=== PATIENT | female | born 1940 | race Caucasian/White ===

== ENCOUNTER → 2016-12-08 | Outpatient (CLI) | payer BC ==
[~2016-12-08] MED LIST: ANT25; ASCA500 PO; ASPCH81 PO; CALCTAB5 PO; GLUCOSAMINE CHOND PO; NIFE60TA57; OCUVITE; OMEG10007 PO; SIMV40TA2; SYN88 PO
--- NOTE | 2016-12-10 08:36 | MAMMOGRAPHY REPORT ---
BILATERAL DIGITAL SCREENING MAMMOGRAM WITH CAD: 12/08/2016 CLINICAL HISTORY: Routine screening. Patient has no complaints. TECHNIQUE: Current study was also evaluated with a Computer Aided Detection (CAD) system. Bilateral CC and MLO views were obtained. COMPARISON: Comparison is made to exams dated: 12/03/2015 mammogram, 11/29/2014 mammogram, 11/28/2013 m ammogram - [facility], 08/09/2008, 08/11/2009 mammogram, and 08/12/2010 mammogram - [facility]. BREAST COMPOSITION: There are scattered areas of fibroglandular density in both breasts. FINDINGS: No suspicious masses, calcifications, or areas of architectural distortion are noted in ei ther breast. There has been no significant interval change compared to prior exams. IMPRESSION: ACR BI-RADS CATEGORY 1: NEGATIVE There is no mammographic evidence of malignancy. A 1 year screening mammogram is recommended. The pa tient will receive written notification of the results. Approximately 10% of breast cancers are not detected with mammography. A negative mammographic report should not delay biopsy if a clinically suggestive mass is present. Kari Boo M.D. ah/:12/08/2016 10:24:40 Stock Clerk [employer]: Anabella HUNG(Walker)(M), [facility] letter sent: Normal 1/2 BI-RADS Code: ACR BI-RADS Category 1: Negative
== END | disposition home or self-care (01) ==
LOC: C.MAMM 09:39
PROVIDERS: ATTEND Internal Medicine
DX: Z12.31 Encounter for screening mammogram for malignant neoplasm of breast (principal)

== ENCOUNTER → 2016-12-15 | Outpatient (CLI) | payer BC ==
[2016-12-15 09:39] LABS: BASO % 0.4 %; BASO ABS # 0.03 K/uL (0-0.2); COMPLETE YES; HEMATOCRIT 45.7 % (37-47); IG% 0.3 %; LYMPH % 30.5 %; LYMPH ABS # 2.44 K/uL (1.2-3.4); MEAN CORPUSCULAR HEMOGLOBIN 32.1 pg (25-34); MEAN CORPUSCULAR HGB CONC 33.5 g/dl (32-36); MEAN PLATELET VOLUME 10.4 fL (7.4-10.4); MONO % 10.5 %; NEUT % 54.3 %; PLATELET COUNT 273 K/uL (130-400); RED BLOOD COUNT 4.76 M/uL (4.2-5.4); WHITE BLOOD COUNT 7.99 K/uL (4.8-10.8)
[2016-12-15 10:15] LABS: ALT/SGPT 29 U/L (12-78); AST/SGOT 18 U/L (15-37); BLOOD UREA NITROGEN 25 mg/dl (7-18); BUN/CREATININE RATIO 26.3 (10-20); CALCIUM 9.7 mg/dl (8.5-10.1); CARBON DIOXIDE 29 mmol/L (21-32); CHLORIDE 109 mmol/L (98-107); CREATININE 0.96 mg/dl (0.60-1.20); GLUCOSE 98 mg/dl (70-99); POTASSIUM 3.9 mmol/L (3.5-5.1); SODIUM 143 mmol/L (136-145)
[2016-12-15 10:26] LABS: ALB/GLOB RATIO 1.1 (0.9-2); ALKALINE PHOSPHATASE 102 U/L (45-117); CHOLESTEROL 178 mg/dl (0-200); CHOLESTEROL/HDL RATIO 4.6; HDL CHOLESTEROL 39 mg/dl; TRIGLYCERIDES 442 mg/dl (0-150)
[2016-12-15 11:02] LABS: ESTIMATED AVERAGE GLUCOSE 114 mg/dl; HA1C FLAG Normal (Normal)
--- NOTE | 2016-12-21 11:11 | CODING QUERY MEDICAL NECESSITY ---
CQSUPPORTING DIAGNOSIS NEEDED A supporting diagnosis is required for the test/procedure performed on this patient in order for us to be reimbursed by the patient's insurance. Please provide a supporting diagnosis for the following test/procedure listed below next to the test name along with your signature. *If there is no additional diagnosis for this patient that would support the following test/procedure please document that below next to the test/procedure. Test(s)/Procedure(s) that require a supporting diagnosis: DEBI 12/15/16 GLYCATED HEMOGLOBIN TEST Provider Signature: Date: Thank you Desi Brito Health Information Management Once completed, please kindly fax back to [phone] For questions please call [phone]
== END | disposition home or self-care (01) ==
LOC: C.LAB1850 08:51
PROVIDERS: ATTEND Internal Medicine
DX: E03.9 Hypothyroidism, unspecified (principal); R73.01 Impaired fasting glucose

== ENCOUNTER → 2017-06-14 | Outpatient (CLI) | payer BC ==
[2017-06-14 12:28] LABS: ALT/SGPT 41 U/L (12-78); BLOOD UREA NITROGEN 32 mg/dl (7-18); CALCIUM 9.8 mg/dl (8.5-10.1); CARBON DIOXIDE 25 mmol/L (21-32); CHOLESTEROL 133 mg/dl (0-200); CREATININE 1.05 mg/dl (0.60-1.20); GLUCOSE 89 mg/dl (70-99); POTASSIUM 4.3 mmol/L (3.5-5.1); SODIUM 141 mmol/L (136-145)
[2017-06-14 12:32] LABS: ALKALINE PHOSPHATASE 90 U/L (45-117); AST/SGOT 20 U/L (15-37); LDL CHOLESTEROL CALCULATED 60 mg/dl; TOTAL PROTEIN 8.2 gm/dl (6.4-8.2)
== END | disposition home or self-care (01) ==
LOC: C.LAB1850 09:56
PROVIDERS: ATTEND Internal Medicine
DX: E78.1 Pure hyperglyceridemia (principal)

== ENCOUNTER 2019-07-17 08:10 | Inpatient (IN) ==
--- NOTE | 2019-07-04 10:07 | PAT Medication Instructions ---
Medication Instructions Date of Service July 04, 2019 Home Medications Medication Instructions Recorded meclizine 25 mg tablet 25 mg PO BID PRN #60 tab 03/21/19 tramadol 50 mg tablet 50 mg PO BID PRN #40 tab 04/27/19 promethazine 25 mg tablet 25 mg PO Q6H PRN #20 tab 05/15/19 aspirin 81 mg tablet,delayed release 81 mg PO PM calcium carbonate 600 mg calcium (1,500 mg) tablet 600 mg PO BID glucosamine HCl 500 mg tablet 1,500 mg PO QAM mecobalamin (vitamin B12) 1,000 mcg disintegrating tablet,sublingual 1,000 mcg SL QAM rosuvastatin 10 mg tablet 10 mg PO QAM magnesium oxide 400 mg (241.3 mg magnesium) tablet 250 mg PO BID nebivolol 10 mg tablet 15 mg PO QAM levothyroxine 88 mcg tablet 88 mcg PO Q OTHER DAY meclizine 25 mg tablet 25 mg PO BID PRN tramadol 50 mg tablet 50 mg PO BID PRN promethazine 25 mg tablet 25 mg PO Q6H PRN Cbd Cream 1 dose TOPICAL DAILY Cbd Tea 1 dose PO DAILY amlodipine-benazepril 1 cap PO QAM cholecalciferol (vitamin D3) 2,000 units PO QAM clobetasol 1 applic TOPICAL HS PRN levothyroxine 100 mcg PO Q OTHER DAY vitamins A,C,A-nwkz-qgiwvn [PreserVision AREDS] 1 tab PO QAM STOP taking 2 weeks before surgery If surgery is within 2 weeks, stop taking as soon as possible. glucosamine HCl 500 mg tablet 1,500 mg PO QAM vitamins A,C,X-zsus-wwqwbj [PreserVision AREDS] 1 tab PO QAM STOP taking 24 hours before surgery Cbd Cream 1 dose TOPICAL DAILY DO NOT take the morning of surgery calcium carbonate 600 mg calcium (1,500 mg) tablet 600 mg PO BID mecobalamin (vitamin B12) 1,000 mcg disintegrating tablet,sublingual 1,000 mcg SL QAM magnesium oxide 400 mg (241.3 mg magnesium) tablet 250 mg PO BID Cbd Tea 1 dose PO DAILY amlodipine-benazepril 1 cap PO QAM cholecalciferol (vitamin D3) 2,000 units PO QAM Take morning of surgery With a small sip of water, OTHERWISE NOTHING TO EAT OR DRINK AFTER MIDNIGHT: rosuvastatin 10 mg tablet 10 mg PO QAM nebivolol 10 mg tablet 15 mg PO QAM meclizine 25 mg tablet 25 mg PO BID PRN (if needed) tramadol 50 mg tablet 50 mg PO BID PRN (if needed, may be taken up to four hours before surgery) promethazine 25 mg tablet 25 mg PO Q6H PRN (if needed) levothyroxine PO Q OTHER DAY Take evening before surgery aspirin 81 mg tablet,delayed release 81 mg PO PM calcium carbonate 600 mg calcium (1,500 mg) tablet 600 mg PO BID magnesium oxide 400 mg (241.3 mg magnesium) tablet 250 mg PO BID meclizine 25 mg tablet 25 mg PO BID PRN (if needed) tramadol 50 mg tablet 50 mg PO BID PRN (if needed) promethazine 25 mg tablet 25 mg PO Q6H PRN (if needed) Other Notes If you have any questions please call us at [phone] or [phone] or [phone] or [phone]
--- NOTE | 2019-07-05 14:35 | Anesthesiology Consultation ---
Date of Service July 05, 2019 Assessment & Plan (1) Encounter for pre-operative examination: Chart Review Chart Review: Acceptable Risk for Surgery (pending PCP clearance ) and Patient seen in Pre Admission Testing Pt requesting to be pushed slow in the hospital bed when transferring from place to place Surgeon informed of abnormal UA results Awaiting surgeon ordered PCP clearance / Teaching & Discussion Pre-Anesthesia Teaching/Discussion Notes: Instructed NPO after midnight before surgery,except medications with 15 cc of water. Medication instructions provided according to the PAT guidelines. History Surgery Operation Date: 07/19/19 10:25 Proposed Procedures p L3-S1 Decomrpession and Fusion, Spinal Cord Monitoring - Shashank Cortes, Height/Weight Height: 5 ft 4 in Weight: 68.7 kg Allergies Allergy/AdvReac Type Severity Reaction Status Date / Time nabumetone Allergy Mild Gastrointestinal Verified 06/29/19 08:46 Upset ibuprofen AdvReac Unknown CKD Verified 07/05/19 14:30 Medications Home Medications Medication Instructions Recorded Confirmed Last Taken aspirin 81 mg tablet,delayed 81 mg PO PM 03/07/18 06/29/19 Unknown release calcium carbonate 600 mg calcium 600 mg PO BID tab 03/07/18 06/29/19 Unknown (1,500 mg) tablet glucosamine HCl 500 mg tablet 1,500 mg PO QAM tab 03/07/18 06/29/19 Unknown mecobalamin (vitamin B12) 1,000 1,000 mcg SL QAM 03/07/18 06/29/19 Unknown mcg disintegrating tablet,sublingual rosuvastatin 10 mg tablet 10 mg PO QAM 03/07/18 06/29/19 Unknown magnesium oxide 400 mg (241.3 mg 250 mg PO BID tab 01/20/19 06/29/19 Unknown magnesium) tablet nebivolol 10 mg tablet 15 mg PO QAM #135 tab 01/20/19 06/29/19 Unknown levothyroxine 88 mcg tablet 88 mcg PO Q OTHER DAY tab 03/08/19 06/29/19 Unknown meclizine 25 mg tablet 25 mg PO BID PRN #60 tab 03/21/19 06/29/19 Unknown tramadol 50 mg tablet 50 mg PO BID PRN #40 tab 04/27/19 06/29/19 Unknown promethazine 25 mg tablet 25 mg PO Q6H PRN #20 tab 05/15/19 06/29/19 Unknown Cbd Cream 1 dose TOPICAL DAILY 06/29/19 06/29/19 Unknown Cbd Tea 1 dose PO DAILY 06/29/19 06/29/19 Unknown amlodipine-benazepril 1 cap PO QAM 06/29/19 06/29/19 Unknown cholecalciferol (vitamin D3) 2,000 units PO QAM 06/29/19 06/29/19 Unknown clobetasol 1 applic TOPICAL HS PRN 06/29/19 06/29/19 Unknown levothyroxine 100 mcg PO Q OTHER DAY 06/29/19 06/29/19 Unknown vitamins A,C,J-fiqx-ichwtw 1 tab PO QAM 06/29/19 06/29/19 Unknown [PreserVision AREDS] Past Medical History Medical History Anterolisthesis (Chronic) L5 on S1 Anxiety Arthritis (Chronic) Chronic back pain CKD (chronic kidney disease), stage III PT DENIES Hyperlipidemia (Chronic) Hypertension (Chronic) Hypothyroidism (Chronic) Lumbar radiculopathy Lumbar spinal stenosis (Chronic) Multifactorial multilevel worst at L4-5 Lumbar spondylosis (Chronic) Macular degeneration Nausea and vomiting after administration of anesthetic agent Exercise / Class Metabolic Activity III < 4 Walking/Shop/Light housework (NO CHEST PAIN OR SOB WITH FLAT SURFACES- USES CANE ) Past Family History Family History Father Coronary heart disease Mother Rheumatoid arthritis Sister End stage renal disease Diabetes Hypertension Coronary heart disease Past Surgical History Surgical History History of appendectomy History of cataract surgery BILAT History of cholecystectomy History of colonoscopy History of hysterectomy History of Mohs micrographic surgery for skin cancer 2019 TO CHEEK Status post left foot surgery (Resolved) Four screws in left foot Past Anesthesia History No Hx of Anesthesia Complications (WITH EXCEPTION TO PONV) and No Family Hx of Anesthesia Complications History of PONV History of PONV and Hx of Motion Sickness Social History Smoking Status: Never smoker Do You Dip or Chew Tobacco: No Hx Alcohol Use: Yes Alcohol type: wine alcohol intake frequency: a few times a month Hx Substance Use: No substance use type: does not use Review of Systems Mild LOMBARDI with one flight of stairs Patient denies chest pain, shortness of breath, reflux, cough, wheezing, palpitations. No hx of seizures, stroke, [place], apnea/snoring. No hx of blood clots or blood transfusions No recent steroid use Physical Exam Vital Signs VITALS BP 149/80 P 68 TEMP 98.3 SP02 95% RESP 16 Constitutional no acute distress ENMT Mouth: + small oral opening (mild); no TMJ clicking Thyromental Distance: < 3.5 Finger Breadths (2.5) Mallampati Class: III Several molars crowned Neck + thick neck (mild ) and + limited neck extension (mild to moderate ) Respiratory normal respiratory effort; no respiratory distress Auscultation: lungs clear to auscultation bilaterally; no diminished lung sounds and no wheezes Cardiovascular Rate/Rhythm: regular rate and regular rhythm Heart Sounds: no murmur Vessels: no carotid bruit Extremities: no edema Musculoskeletal Spine: no pain with cervical ROM Neurologic moves all extremities Psychiatric Orientation: alert Testing Laboratory Results 07/05/19 14:46 07/05/19 14:46 PT 9.8 Seconds (9.0-12.0) 07/05/19 14:46 INR 1.0 (0.9-1.1) 07/05/19 14:46 APTT 23.6 Seconds (21.0-31.0) 07/05/19 14:46 Urine Color Yellow 07/05/19 Unknown Urine Appearance Cloudy (Clear) A 07/05/19 Unknown Urine pH 6.0 (4.5-7.5) 07/05/19 Unknown Ur Specific [place] 1.021 (1.000-1.030) 07/05/19 Unknown Urine Protein Trace (Negative) H 07/05/19 Unknown Urine Glucose (UA) Negative (Negative) 07/05/19 Unknown Urine Ketones Negative (Negative) 07/05/19 Unknown Urine Nitrite Negative (Negative) 07/05/19 Unknown Ur Leukocyte Esterase 2+ (Negative) H 07/05/19 Unknown Urine WBC (Auto) >30 /hpf (0-5) H 07/05/19 Unknown Urine RBC (Auto) 0-4 /hpf (0-4) 07/05/19 Unknown U Hyaline Cast (Auto) 1-5 /lpf (0-5) 07/05/19 Unknown U Epithel Cells (Auto) >30 /lpf (0-5) H 07/05/19 Unknown Urine Bacteria (Auto) Negative (Negative) 07/05/19 Unknown Blood Type A Positive 07/05/19 14:46 Antibody Screen NEGATIVE 07/05/19 14:46 07/05/19 Unknown Urine Culture - Preliminary Urine,Clean Catch Escherichia coli Electrocardiogram Date: 07/05/19 Findings: + NSR @ (66) and + no change from (Apr 19, 2012) Chest X-Ray Date: 07/05/19 Findings: + NAD
--- NOTE | 2019-07-05 15:17 | XRay Report ---
XR chest Pre-admission PA/Lat CLINICAL HISTORY: pat preoperative COMPARISON STUDY: No previous studies for comparison. FINDINGS: The bones soft tissues and hemidiaphragms are normal. The cardiomediastinal silhouette is n ormal. The lungs are clear. The pulmonary vasculature is normal. IMPRESSION: Negative chest. ACT 112: Negative or not required by law. The above report was generated using voice recognition software. It may contain grammatical, syntax or spelling errors. Electronically signed by: Flaquiot De Santiago M.D. 07/05/2019 3:16 PM
[2019-07-05 15:39] LABS: Basophils # (auto) 0.03 K/uL (0-0.2); Basophils % (auto) 0.3 %; Eosinophils # (auto) 0.08 K/uL (0-0.5); Eosinophils % (auto) 0.8 %; Hematocrit (blood only) 43.8 % (37-47); Hemoglobin 14.5 g/dL (12.0-16.0); Immature Granulocytes # (auto) 0.03 K/uL (0.00-0.02); Immature Granulocytes % (auto) 0.3 %; Lymphocytes # (auto) 1.38 K/uL (1.2-3.4); Lymphocytes % (auto) 13.6 %; Mean Corpuscular Hemoglobin 32.7 pg (25-34); Mean Corpuscular Hgb Conc 33.1 g/dL (32-36); Mean Corpuscular Volume 98.9 fL (80-100); Mean Platelet Volume 9.9 fL (7.4-10.4); Monocytes # (auto) 0.76 K/uL (0.11-0.59); Monocytes % (auto) 7.5 %; Neutrophils # (auto) 7.88 K/uL (1.4-6.5); Neutrophils % (auto) 77.5 %; Platelet Count 322 K/uL (130-400); RDW Coefficient of Variation 12.3 % (11.5-14.5); RDW Standard Deviation 44.3 fL (36.4-46.3); Red Blood Count 4.43 M/uL (4.2-5.4); White Blood Count 10.16 K/uL (4.8-10.8)
[2019-07-05 15:41] LABS: Appearance Urine Cloudy (Clear); Bacteria Urine Automated Negative (Negative); Bilirubin Urine Negative (Negative); Blood Urine Negative (Negative); Color Urine Yellow; Epithelial Cell Urine Auto >30 /lpf (0-5); Glucose Urine UA Negative (Negative); Ketones Urine Negative (Negative); Leukocyte Esterase Urine 2+ (Negative); Nitrite Urine Negative (Negative); Protein Urine Trace (Negative); Specific Gravity Urine 1.021 (1.000-1.030); Urobilinogen Urine Negative (Negative); WBC Urine Automated >30 /hpf (0-5)
[2019-07-05 15:46] LABS: Partial Thromboplastin Ratio 0.9; Partial Thromboplastin Time 23.6 Seconds (21.0-31.0); Prothrombin Time 9.8 Seconds (9.0-12.0)
[2019-07-05 16:02] LABS: Calcium 9.8 mg/dl (8.5-10.1); Creatinine Clr Calc Pharmacy 43.7 ml/min; Est GFR (African American) 61.7; Est GFR (Non-African American) 53.3; Potassium 4.2 mmol/L (3.5-5.1)
[2019-07-05 16:13] LABS: RBC Urine Automated 0-4 /hpf (0-4)
[2019-07-05 16:14] LABS: Calcium Oxalate Crystals Urine Present (None Prsent)
--- NOTE | 2019-07-05 19:18 | Electrocardiogram Report ---
Test Reason : Blood Pressure : / mmHG Vent. Rate : 066 BPM Atrial Rate : 066 BPM P-R Int : 158 ms QRS Dur : 076 ms QT Int : 422 ms P-R-T Axes : 049 -04 053 degrees QTc Int : 442 ms Normal sinus rhythm Normal ECG When compared with ECG of 19-APR-2012 13:54, No significant change was found Confirmed by Torey Jaimes ([id number]) on 07/05/2019 7:17:52 PM Referred By: Shashank Cortes Confirmed By:Hai Jaimes
[~2019-07-17 08:10] MED LIST changes: +ACETAMINOPHEN 500 MG TAB PO SCH; -ANT25; -ASCA500 PO; -ASPCH81 PO; -CALCTAB5 PO; +CEFAZOLIN 1000MG 1,000 MG/7.5 ML SYR IV SCH; +CeleBREX 200 MG CAP PO SCH; +GABAPENTIN 300 MG CAP PO SCH; -GLUCOSAMINE CHOND PO; +LR 15ML/HR IV SCH; -NIFE60TA57; -OCUVITE; -OMEG10007 PO; +SCOPOLAMINE 1.5 MG TDSY TD SCH; -SIMV40TA2; -SYN88 PO
[2019-07-17] MEDS ORDERED: ONDANSETRON INJ 2 MG/ML 2 ML VIAL ONE (08:32)
[2019-07-17] MEDS ORDERED: DEXAMETHASONE SOD INJ 4 MG/ML VIAL ONE (08:32)
[2019-07-17] MEDS ORDERED: NEOSTIGMINE METHYLSULFATE 1 MG/ML 10ML VIAL ONE (08:32)
[2019-07-17] MEDS ORDERED: PHENYLEPHRINE 100MCG/ML 5ML SYR ONE (08:32)
[2019-07-17] MEDS ORDERED: LARYING-O-JET KIT (LTA) ONE (08:32)
[2019-07-17] MEDS ORDERED: LIDOCAINE HCL 2% 2 ML VIAL/AMP(20MG/ML) INFIL ONE (08:32)
[2019-07-17] MEDS ORDERED: ROCURONIUM BROMIDE 10 MG/ML 5 ML VIAL ONE (08:32)
[2019-07-17] MEDS ORDERED: GLYCOPYRROLATE 0.2 MG/ML VIAL ONE (08:32)
[2019-07-17] MEDS ORDERED: PROPOFOL IV EMULSION 10 MG/ML 20 ML VIAL IV ONE (08:32)
[2019-07-17] MEDS ORDERED: MIDAZOLAM HCL 1 MG/ML 2ML VIAL ONE (08:32)
[2019-07-17] MEDS ORDERED: ePHEDrine sulfate 50 MG/ML SYR ONE (08:32)
[2019-07-17] MEDS ORDERED: fentaNYL citrate 100 MCG/2 ML VIAL ONE (08:33)
[2019-07-17] MEDS ORDERED: PHENYLEPHRINE HCL 10 MG/ML VIAL ONE (09:00)
[2019-07-17] MEDS ORDERED: fentaNYL citrate 100 MCG/2 ML VIAL IV PRN (09:11)
[2019-07-17] MEDS ORDERED: ATROPINE SULFATE 0.1 MG/ML 10ML SYR IV PRN (09:11)
[2019-07-17] MEDS ORDERED: HYDROmorphone INJ 1 MG/ML SYRINGE IV PRN ×2 (09:11→14:59)
[2019-07-17] MEDS ORDERED: ONDANSETRON INJ 2 MG/ML 2 ML VIAL IV PRN ×2 (09:11→14:59)
[2019-07-17] MEDS ORDERED: ePHEDrine sulfate 50 MG/ML AMP IV PRN (09:11)
--- NOTE | 2019-07-17 10:29 | History & Physical Bridge Note ---
Date of Service July 17, 2019 History & Physical Bridge Note I have examined the patient, reviewed the History & Physical and in the interval since the performance of the History & Physical I have noted the following changes of clinical significance: no changes noted
--- NOTE | 2019-07-17 10:30 | History & Physical Report ---
Date of Service July 17, 2019 Assessment & Plan (1) Neurogenic claudication due to lumbar spinal stenosis: L3-S1 decompression fusion Present on Admission?: Yes History of Present Illness Chief Complaint: Back and bilateral leg pain Primary Care Provider: Karthikeyan Tillman MD This is a 78-year-old female who presents with chronic persistent back and leg pain. After failing extensive course of nonoperative care is here for surgical invention. Allergies Allergy/AdvReac Type Severity Reaction Status Date / Time nabumetone Allergy Mild Gastrointestinal Verified 07/17/19 08:44 Upset ibuprofen AdvReac Unknown CKD Verified 07/17/19 08:43 Home Medications Home Medications Medication Instructions Recorded Confirmed Type aspirin 81 mg tablet,delayed 81 mg PO PM 03/07/18 07/17/19 History release calcium carbonate 600 mg calcium 600 mg PO DAILY tab 03/07/18 07/17/19 History (1,500 mg) tablet glucosamine HCl 500 mg tablet 1,500 mg PO QAM tab 03/07/18 07/17/19 History mecobalamin (vitamin B12) 1,000 1,000 mcg SL QAM 03/07/18 07/17/19 History mcg disintegrating tablet,sublingual rosuvastatin 10 mg tablet 10 mg PO QAM 03/07/18 07/17/19 History magnesium oxide 400 mg (241.3 mg 250 mg PO BID tab 01/20/19 07/17/19 History magnesium) tablet nebivolol 10 mg tablet 15 mg PO QAM #135 tab 01/20/19 07/17/19 History levothyroxine 88 mcg tablet 88 mcg PO Q OTHER DAY tab 03/08/19 07/17/19 History meclizine 25 mg tablet 25 mg PO BID PRN #60 tab 03/21/19 07/17/19 Rx tramadol 50 mg tablet 50 mg PO BID PRN #40 tab 04/27/19 07/17/19 Rx Cbd Cream 1 dose TOPICAL DAILY 06/29/19 07/17/19 History Cbd Tea 1 dose PO DAILY 06/29/19 07/17/19 History amlodipine-benazepril [Lotrel] 1 cap PO QAM 06/29/19 07/17/19 History cholecalciferol (vitamin D3) 2,000 units PO QAM 06/29/19 07/17/19 History clobetasol 1 applic TOPICAL HS PRN 06/29/19 07/17/19 History levothyroxine 100 mcg PO Q OTHER DAY 06/29/19 07/17/19 History vitamins A,C,J-xaon-dyodcm 1 tab PO QAM 06/29/19 07/17/19 History [PreserVision AREDS] promethazine 25 mg tablet 25 mg PO Q6H PRN #20 tab 07/09/19 07/17/19 Rx Past Med/Surg History Medical History (Updated 07/17/19 @ 10:30 by Shashank Cortes DO) Anterolisthesis (Chronic) L5 on S1 Anxiety Arthritis (Chronic) Chronic back pain Hyperlipidemia (Chronic) Hypertension (Chronic) Hypothyroidism (Chronic) Lumbar radiculopathy Lumbar spinal stenosis (Chronic) Multifactorial multilevel worst at L4-5 Lumbar spondylosis (Chronic) Macular degeneration Surgical History History of appendectomy History of cataract surgery BILAT History of cholecystectomy History of colonoscopy History of hysterectomy History of Mohs micrographic surgery for skin cancer 2019 TO CHEEK Nausea and vomiting after administration of anesthetic agent Status post left foot surgery (Resolved) Four screws in left foot Family History Father Coronary heart disease Mother Rheumatoid arthritis Sister End stage renal disease Diabetes Hypertension Coronary heart disease Social History Preferred Language: German Communication Ability: Effective Visual Impairment: Limited Hearing Ability: Normal 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 Results & Data Vital Signs (Past 12 Hours) Vital Signs Temp Pulse Resp BP Pulse Ox 07/17/19 08:51 36.6 C 70 18 176/87 H 94
[2019-07-17] MEDS ORDERED: BACITRACIN INJ 50,000 UNIT VIAL ONE (10:45)
[2019-07-17] MEDS ORDERED: BUPIVACAINE/EPINEPHRINE 0.5% MPF 1:200,000 10 ML VIAL ONE (10:45)
[2019-07-17] MEDS ORDERED: HYDROmorphone INJ 2 MG/ML SYR/VIAL ONE (11:51)
[2019-07-17] MEDS ORDERED: SUCCINYLCHOLINE CHLORIDE 20 MG/ML 10 ML VIAL ONE (12:37)
[2019-07-17] MEDS ORDERED: FLOSEAL HEMOSTATIC MATRIX 10ML TOP ONE (12:42)
--- NOTE | 2019-07-17 13:39 | Operative Report ---
Post Operative Report Pre & Post Diagnosis Operation Date: 07/17/19 10:05 Pre-Op Diagnosis: Neurogenic claudication due to lumbar spinal stenosis Spondylolisthesis L5-S1. Degenerative scoliosis Post-Op Diagnosis: Same I identified the patient and participated in the time-out.: Yes Procedure Operation Date: 07/17/19 10:05 Actual Procedures #1 lumbar decompression with bilateral medial facetectomies and foraminotomies L3-4, L4-5 and L5-S1. #2 posterior spinal fusion L3-4, L4-5 and L5-S1. #3 placement posterior segmental instrumentation from L3-S1. #4 interbody fusion L4-5 and L5-S1. #5 placed a peek cage 10 x 22 mm at L4 511 x 22 mm at L5-S1. #6 placement locally harvested morselized autograft in the posterior gutters. #7 placement infuse collagen sponge, master graft in the posterior gutters and ostial amp interbody space. Surgeon Shashank Cortes, Turf Farm Worker Brooklyn Champagne Estimated Blood Loss 150 Findings Consistent with Post-Op Diagnosis Specimens None Indications This is a 78-year-old female presents with above-mentioned diagnosis after failing extensive course of nonoperative care is here for the above-mentioned procedure. Description of Procedure Patient was met with identified informed consent obtained. Patient was then taken to the operative suite underwent intubation placed in a prone position the Harrison table on top of the Barry frame. All bony prominences well-padded eyes inspected to ensure no external pressure placed upon. This point the lumbar spine was prepped and draped in normal sterile fashion. Sharp dissection with the assistance of Bovie cautery was performed down to and exposing the lamina and transverse processes of L3-L4-L5 and the sacral ala bilaterally. From a caudal cephalad fashion complete laminectomy of L5 L4 and L3 was performed occluding bilateral medial facetectomies and foraminotomies addressing all stenosis. Pedicle screws were then placed in L3-L4-L5 and the S1 levels bilaterally with the assistance of fluoroscopy the purposes ana placed. By way of a trans-foraminal approach on the left complete discectomy of L5-S1 is performed endplates curetted to subcortical bleeding bone and a 11 x 22 mm peek cage filled with osteo-bone graft tapped in position. Then proceeded L4-[address] of a trans-foramen approach on the left complete discectomy performed endplates curetted to subcortical bleeding bone and a 10 x 22 mm peek cage filled with osteo-bone graft tapped in position. The rods were then locked into final position bilaterally. Transverse processes of L3-L4-L5 and sacral ala burred to subcortical bleeding bone. Infuse collagen sponge master graft local autograft placed in the posterior lateral gutters. 15 round ERA drain inserted. The incision was then closed with 1 Vicryl in the fascia 2-0 Vicryl subcutaneously and 4 Monocryl for final skin closure. Steri-Strip sterile dressings placed. Patient will continue to PACU stable disc. Please note Brooklyn Champagne present at the entire procedure involved the patient positioning complex portions of the surgery and final skin closure. Lastly spinal cord monitoring was utilized that the procedure no changes noted. I attest to the content of the Intraoperative Record and any orders documented therein. Any exceptions are noted below.
--- NOTE | 2019-07-17 13:46 | Fluoroscopy Report ---
FL lumbar spine 2-3V CLINICAL HISTORY: L3-S1 DECOMPRESSION AND FUSION COMPARISON STUDY: 11/16/2017 FLUOROSCOPY TIME: 25 seconds. NUMBER OF FLUOROSCOPIC IMAGES: 2 FINDINGS: There are postsurgical changes of discectomies and interbody fusions at the L4-5 and L5-S1 levels. There is posterior spinal fusion with pedicle screws and rods at the L3-S1 level. IMPRESSION: Postsurgical changes of an L3-S1 spinal decompression and fusion. ACT 112: Negative or not required by law. Electronically signed by: Julio Pino M.D. 07/17/2019 1:45 PM
--- NOTE | 2019-07-17 14:44 | Anesthesiology Progress Note ---
Date of Service July 17, 2019 Anesthesia Post Procedure Vital Signs Vital Signs: Temp Pulse Pulse Resp BP Pulse Ox 07/17/19 14:40 60 12 130/71 98 07/17/19 14:30 36.1 C L 56 L 13 133/64 99 07/17/19 14:20 63 21 136/65 93 07/17/19 14:10 57 L 12 114/57 L 100 07/17/19 14:00 57 L 14 122/57 L 100 07/17/19 13:53 36.0 C L 62 14 110/45 L 100 07/17/19 08:51 36.6 C 70 18 176/87 H 94 Pain Intensity Left Lower Back: Pain Intensity: 4 Transfer of Care Handoff Completed per policy Notes Mental Status: alert / awake / arousable and participated in evaluation Patient Amnestic to Procedure: Yes Nausea / Vomiting: adequately controlled Pain: adequately controlled Airway Patency, RR, SpO2: stable & adequate BP & HR: stable & adequate Hydration State: stable & adequate Anesthetic Complications: no major complications apparent and Pt Satisfied with anesthetic care
[2019-07-17] MEDS ORDERED: DO NOT ADMINISTER FLU VACCINE PRN (14:59)
[2019-07-17] MEDS ORDERED: FAMOTIDINE 20 MG TAB PO PRN (14:59)
[2019-07-17] MEDS ORDERED: NALOXONE HCL 0.4 MG/1 ML VIAL/CARP IV PRN (14:59)
[2019-07-17] MEDS ORDERED: HYDROmorphone INJ 0.5 MG/0.5 ML SYR IV PRN (14:59)
[2019-07-17] MEDS ORDERED: NON-FORMULARY MEDICATION (Clobetasol 1 APPLN) TOP PRN (14:59)
[2019-07-17] MEDS ORDERED: ACETAMINOPHEN 1,000 MG/100 ML VIAL IV PRN (14:59)
[2019-07-17] MEDS ORDERED: SOD PHOSPHATE/SOD BIPHOSPHATE ENEMA 132 ML BTL PR PRN (14:59)
[2019-07-17] MEDS ORDERED: MAGNESIUM HYDROXIDE SUSP 30 ML UDC PO PRN (14:59)
[2019-07-17] MEDS ORDERED: DO NOT ADMINISTER PNEUMOCOCCAL VACCINE PRN (14:59)
[2019-07-17] MEDS ORDERED: ALUMINUM/MAGNESIUM SUSP 30 ML UDC PO PRN (14:59)
[2019-07-17] MEDS ORDERED: bisacodyL 10 MG SUPP PR PRN (14:59)
[2019-07-17] MEDS ORDERED: PROMETHAZINE HCL 12.5 MG in SODIUM CHLORIDE 0.9% 50 ML IV PRN (14:59)
[2019-07-17] MEDS ORDERED: OXYCODONE HCL IR 5 MG TAB (IMMEDIATE RELEASE) PO PRN (14:59)
[2019-07-17] MEDS ORDERED: METOCLOPRAMIDE HCL INJ 5 MG/ML 2 ML VIAL IV PRN (14:59)
[2019-07-17] MEDS ORDERED: PROMETHAZINE HCL 25 MG TAB PO PRN (14:59)
[2019-07-17] MEDS ORDERED: ONDANSETRON 4 MG OD TAB PO PRN (14:59)
[2019-07-17] MEDS ORDERED: LORazepam 0.5 MG TAB PO PRN (14:59)
[2019-07-17] MEDS ORDERED: LORazepam 0.5 MG/1 ML VIAL IV PRN (14:59)
[2019-07-17] MEDS ORDERED: MECLIZINE HCL 25 MG TAB PO PRN (15:42)
[2019-07-17] MEDS: LEVOTHYROXINE SODIUM 100 MCG TABLET PO SCH (15:59)
[2019-07-17] MEDS: CHECK SCOPOLAMINE PATCH PLACEMENT SCH ×2 (15:59→23:53)
[2019-07-17] MEDS: SODIUM CHLORIDE 0.9% 1000ML 1,000 ML IV SCH (15:59)
--- NOTE | 2019-07-17 17:03 | Hospitalist Consultation ---
Date of Consultation July 17, 2019 Assessment & Plan (1) Neurogenic claudication due to lumbar spinal stenosis: * POD #0 s/p L3-S1 decompression and fusion with Dr. Cortes. EBL 100mL * Pain management/PT/OT/DVT prophylaxis per primary team * Pre-op h/h 14.5/43.8. * Monitor CBC in AM (2) Hypothyroidism: * Chronic. Stable * Continue home levothyroxine -- alternates 88mcg and 100mcg (3) Hypertension: * Chronic. Stable. 147/81 * Continue home bystolic 15mg * Regarding home lotrel (amlodipine/benazepril) -- will hold benazepril component in AM (4) Hypertriglyceridemia: * Hx of. Last lipid panel January 2019 -- Triglycerides 351 * Continue home rosuvastatin 20mg (5) CKD (chronic kidney disease), stage III: * Chronic. Stable. GFR 53 * Cr stable at 1.01 * BMP in AM (6) DVT prophylaxis: * Per primary team -- SCDs Thank you for allowing medicine team to take part in the care of Ms. Anderson. Medicine will follow along. Supervising Physician Co-Signing Physician Notes PA Supervision Note: I personally saw and examined the patient. I verified all wilson points and agree with SHARI Barcenas with the following exceptions and/or additions: Pt doing well post-op. No nausea at all. Feeling a little light headed and dry mouth she thinks from scop patch. Denies chest pain or SOB, no abd pains. Having some back soreness, no leg pains like before the surgery. History and chart reviewed ROS reviewed as above Preop labs reviewed VSS NAD, AAOx3 Anicteric sclerae, no facial droop RRR no mgr CTAB no wcr Abd +BS soft NT ND Flynn in place with clear yellow urine Ext no edema, back with dressing in place and ERA drain serosang fluid 78 y female with a h/o HTN, HL, Anxiety d/o, CKD stgae 3, hypothyroidism, here with lumbar fusion and decompression, post-op medical management -doing very well, agree with holding ACEi, follow BMP for renal function, CBC post-op Hospitalist Service will follow along History of Present Illness Reason for Consultation: Medical Management Requesting Physician: Dr Cortes Attending Physician: Shashank Cortes, DO History of Present Illness 78 year old white female with PMH significant for HTN, hypothyroidism, anxiety presented for a lumbar decompression and fusion with Dr. Cortes after failing outpatient treatment. Patient just arrived to the floor from PACU during our conversation. Patient states pain is a 4/10 compared to a 10/10 prior to surgery. She states the pain is primarily lower back but does have radiation to bilateral legs. Pain tolerable with pain medication. States she has a good appetite, hungry to eat tray that just arrived. Has not yet been out of bed. Denies any numbness/tingling at this time. Denies any fever, chills, chest pain, shortness of breath, abdominal pain, n/v/d. Allergies Allergy/AdvReac Type Severity Reaction Status Date / Time nabumetone Allergy Mild Gastrointestinal Verified 07/17/19 08:44 Upset ibuprofen AdvReac Unknown CKD Verified 07/17/19 08:43 Home Medications Home Medications Medication Instructions Recorded Confirmed Type aspirin 81 mg tablet,delayed 81 mg PO PM 03/07/18 07/17/19 History release calcium carbonate 600 mg calcium 600 mg PO DAILY tab 03/07/18 07/17/19 History (1,500 mg) tablet glucosamine HCl 500 mg tablet 1,500 mg PO QAM tab 03/07/18 07/17/19 History mecobalamin (vitamin B12) 1,000 1,000 mcg SL QAM 03/07/18 07/17/19 History mcg disintegrating tablet,sublingual rosuvastatin 10 mg tablet 10 mg PO QAM 03/07/18 07/17/19 History magnesium oxide 400 mg (241.3 mg 250 mg PO BID tab 01/20/19 07/17/19 History magnesium) tablet nebivolol 10 mg tablet 15 mg PO QAM #135 tab 01/20/19 07/17/19 History levothyroxine 88 mcg tablet 88 mcg PO Q OTHER DAY tab 03/08/19 07/17/19 History meclizine 25 mg tablet 25 mg PO BID PRN #60 tab 03/21/19 07/17/19 Rx tramadol 50 mg tablet 50 mg PO BID PRN #40 tab 04/27/19 07/17/19 Rx Cbd Cream 1 dose TOPICAL DAILY 06/29/19 07/17/19 History Cbd Tea 1 dose PO DAILY 06/29/19 07/17/19 History amlodipine-benazepril [Lotrel] 1 cap PO QAM 06/29/19 07/17/19 History cholecalciferol (vitamin D3) 2,000 units PO QAM 06/29/19 07/17/19 History clobetasol 1 applic TOPICAL HS PRN 06/29/19 07/17/19 History levothyroxine 100 mcg PO Q OTHER DAY 06/29/19 07/17/19 History vitamins A,C,L-kjfy-rlshfj 1 tab PO QAM 06/29/19 07/17/19 History [PreserVision AREDS] promethazine 25 mg tablet 25 mg PO Q6H PRN #20 tab 07/09/19 07/17/19 Rx Patient History Medical History Anterolisthesis (Chronic) L5 on S1 Anxiety Arthritis (Chronic) Chronic back pain Hyperlipidemia (Chronic) Hypertension (Chronic) Hypothyroidism (Chronic) Lumbar radiculopathy Lumbar spinal stenosis (Chronic) Multifactorial multilevel worst at L4-5 Lumbar spondylosis (Chronic) Macular degeneration Surgical History History of appendectomy History of cataract surgery BILAT History of cholecystectomy History of colonoscopy History of hysterectomy History of Mohs micrographic surgery for skin cancer 2019 TO CHEEK Nausea and vomiting after administration of anesthetic agent Status post left foot surgery (Resolved) Four screws in left foot Family History Father Coronary heart disease Mother Rheumatoid arthritis Sister End stage renal disease Diabetes Hypertension Coronary heart disease Social History Preferred Language: [place] Communication Ability: Effective Visual Impairment: Limited Hearing Ability: Normal Can Filling And Closing Machine Tender Required: No Beliefs That Will Affect Care: None marital status: Current Living Situation: Spouse current occupational status: retired Other Information That Helps Us Care for You: No Feels Safe at Home: Yes Safety Concerns: Feels Safe At This Time Smoking Status: Never smoker Do You Dip or Chew Tobacco: No ; Second Hand Exposure: No ; Tobacco Cessation Education Requested by Patient: No Hx Alcohol Use: Yes Alcohol type: wine Alcohol Intake Frequency: Holidays/Special Occasions Hx Substance Use: No Seatbelt Use: always Review of Systems Review of Systems: All systems reviewed & are unremarkable except as noted in HPI & below Constitutional: no fever and no chills Eyes: no diplopia and no problem reported Ear, Nose, Mouth, Throat: no sore throat and no dysphagia Respiratory: no cough, no dyspnea and no dyspnea on exertion Cardiovascular: no chest pain, no palpitations and no edema Gastrointestinal: no abdominal pain, no nausea and no vomiting Genitourinary: no dysuria and no urinary frequency Musculoskeletal: + back pain and + radicular pain Integumentary: hx mohs biopsy R nasal crease Neurologic: no falls and no headache(s) Psychiatric: no depression and no anxiety Endocrine: no polydipsia and no polyphagia Hematologic / Lymphatic: no easy bleeding and no easy bruising Allergy / Immunological: no cough and no rash Physical Exam Constitutional: WD/WN, vitals as above no acute distress Eyes: + anicteric sclerae and PERRL ENMT: Ears: no hearing impairment Nose: no external nose abnormality Neck: trachea midline, no thyromegaly Respiratory: normal respiratory effort, lungs clear to auscultation Cardiovascular: RRR, no murmur, no edema Gastrointestinal (Abdomen): normal bowel sounds, soft, nontender, no hepatosplenomegaly Musculoskeletal: no cyanosis or clubbing, extremities motor strength 5/5 Skin: no rashes, warm and dry Neurologic: PERRL, EOMI, accommodation nl, no face palsy, no dysarthria Psychiatric: A+Ox3, euthymic affect Lymphatic: no cervical or axillary lymphadenopathy Results & Data ([facility]) Vital Signs (Past 12 Hours) Vital Signs Temp Pulse Pulse Pulse Resp BP Pulse Ox 07/17/19 15:49 36.4 C L 57 L 16 146/81 H 100 07/17/19 15:19 55 L 18 155/68 H 99 07/17/19 14:50 36.5 C 57 L 15 144/70 H 96 07/17/19 14:40 60 12 130/71 98 07/17/19 14:30 36.1 C L 56 L 13 133/64 99 07/17/19 14:20 63 21 136/65 93 07/17/19 14:10 57 L 12 114/57 L 100 07/17/19 14:00 57 L 14 122/57 L 100 07/17/19 13:53 36.0 C L 62 14 110/45 L 100 07/17/19 08:51 36.6 C 70 18 176/87 H 94 Laboratory Results 07/17/19 07/17/19 Range/Units 13:54 08:51 POC Glucose 132 H (70-99) mg/dl Blood Type A Positive Antibody Screen NEGATIVE Crossmatch See Detail Diagnostic Findings Lumbar Spine XRAY IMPRESSION: Postsurgical changes of an L3-S1 spinal decompression and fusion. PG Care Time/CCT Total # of Minutes Spent Total Time Spent with Patient: Total time spent is greater than 50% in coordination of care (as documented) at patient's floor/unit and/or counseling patient: Coding Level of Care Code 56339 Inpt Consult Level 3 Diagnoses Neurogenic claudication due to lumbar spinal stenosis M48.062 Hypothyroidism E03.9 Hypothyroidism type: acquired Hypertension I10 Hypertension type: essential hypertension Hypertriglyceridemia E78.1 CKD (chronic kidney disease), stage III N18.3 DVT prophylaxis Z29.9 (1) Hypothyroidism Hypothyroidism type: acquired Qualified Code(s): E03.9 - Hypothyroidism, unspecified (2) Hypertension Hypertension type: essential hypertension Qualified Code(s): I10 - Essential (primary) hypertension
[2019-07-17] MEDS: CEFAZOLIN 1000MG 1,000 MG/7.5 ML SYR IV SCH (19:39)
[2019-07-17] MEDS: ASPIRIN 81 MG ECTAB PO SCH (20:47)
[2019-07-17] MEDS: MAGNESIUM OXIDE 400 MG TAB PO SCH (20:47)
[2019-07-17] MEDS: DOCUSATE SODIUM/SENNA 50/8.6MG TAB PO SCH (20:47)
[2019-07-17] MEDS: TRAMADOL HCL 50 MG TABLET PO PRN (20:48)
[2019-07-18] MEDS: SODIUM CHLORIDE 0.9% 1000ML 1,000 ML IV SCH (01:06)
[2019-07-18] MEDS: CEFAZOLIN 1000MG 1,000 MG/7.5 ML SYR IV SCH (03:10)
[2019-07-18] MEDS: TRAMADOL HCL 50 MG TABLET PO PRN ×3 (04:59→22:34)
[2019-07-18 05:31] LABS: Hematocrit (blood only) 35.5 % (37-47); Hemoglobin 11.6 g/dL (12.0-16.0); Immature Granulocytes # (auto) 0.06 K/uL (0.00-0.02); Immature Granulocytes % (auto) 0.4 %; Lymphocytes # (auto) 1.02 K/uL (1.2-3.4); Lymphocytes % (auto) 6.2 %; Mean Corpuscular Hemoglobin 32.3 pg (25-34); Mean Corpuscular Hgb Conc 32.7 g/dL (32-36); Mean Corpuscular Volume 98.9 fL (80-100); Mean Platelet Volume 9.8 fL (7.4-10.4); Monocytes # (auto) 1.37 K/uL (0.11-0.59); Monocytes % (auto) 8.3 %; Neutrophils # (auto) 14.01 K/uL (1.4-6.5); Neutrophils % (auto) 85.1 %; Platelet Count 284 K/uL (130-400); RDW Coefficient of Variation 11.9 % (11.5-14.5); RDW Standard Deviation 42.7 fL (36.4-46.3); Red Blood Count 3.59 M/uL (4.2-5.4); White Blood Count 16.46 K/uL (4.8-10.8)
[2019-07-18] MEDS: POLYETHYLENE (MIRALAX) 17 GM PACK PO SCH ×4 (06:03→23:50)
[2019-07-18] MEDS: LEVOTHYROXINE SODIUM 88 MCG TABLET PO SCH (06:03)
[2019-07-18 06:09] LABS: BUN Creatinine Ratio 18.6 (10-20); Calcium 9.1 mg/dl (8.5-10.1); Creatinine Clr Calc Pharmacy 38.5 ml/min; Est GFR (African American) 51.7; Est GFR (Non-African American) 44.6; Potassium 4.5 mmol/L (3.5-5.1)
--- NOTE | 2019-07-18 07:31 | Anesthesiology Progress Note ---
Date of Service July 18, 2019 Anesthesia Post Procedure Vital Signs Vital Signs: Temp Pulse Pulse Pulse Resp BP BP 07/18/19 07:27 36.7 C 69 16 109/60 07/18/19 03:37 07/18/19 03:31 07/18/19 03:15 36.8 C 79 15 120/70 07/17/19 23:25 36.6 C 82 16 117/68 07/17/19 19:53 36.7 C 71 18 128/73 07/17/19 17:57 36.3 C L 70 16 136/76 07/17/19 16:51 75 18 147/81 H 07/17/19 15:49 36.4 C L 57 L 16 146/81 H 07/17/19 15:19 55 L 18 155/68 H 07/17/19 14:50 36.5 C 57 L 15 144/70 H 07/17/19 14:40 60 12 130/71 07/17/19 14:30 36.1 C L 56 L 13 133/64 07/17/19 14:20 63 21 136/65 07/17/19 14:10 57 L 12 114/57 L 07/17/19 14:00 57 L 14 122/57 L 07/17/19 13:53 36.0 C L 62 14 110/45 L 07/17/19 08:51 36.6 C 70 18 176/87 H Pulse Ox 07/18/19 07:27 94 07/18/19 03:37 88 L 07/18/19 03:31 92 07/18/19 03:15 88 L 07/17/19 23:25 90 07/17/19 19:53 94 07/17/19 17:57 93 07/17/19 16:51 95 07/17/19 15:49 100 07/17/19 15:19 99 07/17/19 14:50 96 07/17/19 14:40 98 07/17/19 14:30 99 07/17/19 14:20 93 07/17/19 14:10 100 07/17/19 14:00 100 07/17/19 13:53 100 07/17/19 08:51 94 Pain Intensity Left Lower Back: Pain Intensity: 0 Right Lower Flank: Pain Intensity: 2 Notes Mental Status: alert / awake / arousable and participated in evaluation Nausea / Vomiting: adequately controlled Pain: adequately controlled Airway Patency, RR, SpO2: stable & adequate BP & HR: stable & adequate Hydration State: stable & adequate
[2019-07-18] MEDS: CEROVITE ADV FORMULA TAB PO SCH (08:45)
[2019-07-18] MEDS: CHECK SCOPOLAMINE PATCH PLACEMENT SCH ×2 (08:45→15:27)
[2019-07-18] MEDS: NEBIVOLOL HCL 5 MG TAB PO SCH (08:46)
[2019-07-18] MEDS: MAGNESIUM OXIDE 400 MG TAB PO SCH ×2 (08:46→20:19)
[2019-07-18] MEDS: ROSUVASTATIN CALCIUM 10 MG TAB PO SCH (08:46)
[2019-07-18] MEDS: CALCIUM CARBONATE 1250MG TAB PO SCH (08:47)
[2019-07-18] MEDS: AMLODIPINE BESYLATE 5 MG TAB PO SCH (08:47)
[2019-07-18] MEDS: CHOLECALCIFEROL 1,000 UNITS 25 MCG TAB PO SCH (08:47)
[2019-07-18] MEDS ORDERED: AMLODIPINE BENAZEPRIL PO SCH (09:00)
--- NOTE | 2019-07-18 11:06 | XRay Report ---
SINGLE VIEW CHEST CLINICAL HISTORY: Hypoxia. FINDINGS: An AP, portable, upright chest radiograph is compared to study dated 07/05/2019 and correlat ed with chest CT dated 06/06/2007. The examination is degraded by portable technique and patient rotat ion. The heart is top normal for projection. The mediastinal contour is within normal limits. There i s mild elevation of the right hemidiaphragm and bibasilar atelectasis. No airspace consolidation or l arge pleural effusion is identified. Question a 10 mm nodular density projecting over the right lower lobe. No pneumothorax is seen. The skeletal structures are osteopenic. The bony thorax is grossly in tact. IMPRESSION: 1. No active disease in the chest. 2. Question a 10 mm nodular density projecting over the right lower lobe. This may be artifactual. Co rrelation with a dedicated PA and lateral examination is recommended. ACT 112: Negative or not required by law. Electronically signed by: Berlin Almanza M.D. 07/18/2019 11:05 AM
--- NOTE | 2019-07-18 12:24 | Orthopedic Progress Note ---
Date of Service July 18, 2019 Assessment & Plan (1) Neurogenic claudication due to lumbar spinal stenosis: This time continue physical therapy monitor ERA output anticipate discharge home in next few days. Admission and Anticipated Discharge Date Admission Date: July 17, 2019 Subjective Back pain controlled leg pain improved. Physical Exam Physical Exam: Patient is good strength testing appears comfortable. Results & Data ([facility]) Vital Signs (Past 12 Hours) Vital Signs Temp Pulse Pulse Resp BP Pulse Ox 07/18/19 11:48 36.6 C 68 16 125/70 97 07/18/19 10:16 90 07/18/19 07:50 36.6 C 69 14 138/76 96 07/18/19 07:27 36.7 C 69 16 109/60 94 07/18/19 03:37 88 L 07/18/19 03:31 92 07/18/19 03:15 36.8 C 79 15 120/70 88 L
--- NOTE | 2019-07-18 12:31 | Hospitalist Progress Note ---
Date of Service July 18, 2019 Assessment & Plan (1) Neurogenic claudication due to lumbar spinal stenosis: * POD #1 s/p L3-S1 decompression and fusion with Dr. Cortes. EBL 100mL * Pain management/PT/OT/DVT prophylaxis per primary team * Pre-op h/h 14.5/43.8. * H/H 11.6/35.5 -- acute blood loss following surgery and dilution from IVF * WBC elevated at 16.46k -- could be combination of operative steroids as well as atelectasis -- encouraged more frequent use of incentive spirometer * Monitor CBC in AM (2) Hypertension: * Chronic. Stable. 125/70 * Continue home bystolic 15mg * Regarding home lotrel (amlodipine/benazepril) -- held benazepril component -- resume in AM 07/18 as BP tolerates (3) Hypoxia: * Likely poor inspiratory effort secondary to pain/not deep breathing/lack of incentive spirometer use * O2 dropped to 88% -- on 2L all morning -- had been 97% on 2L * Encouraged increased use of incentive spirometer * No wheezes appreciated on exam, however with significant crackles bilateral bases * CXR without acute process, although with questionable 10mm R sided lesion * Repeat 2 view ordered * Weaned O2 this afternoon -- 92% on RA * Continue to monitor (4) Hypothyroidism: * Chronic. Stable. TSH in AM * Continue home levothyroxine -- alternates 88mcg and 100mcg (5) Hypertriglyceridemia: * Hx of. Last lipid panel January 2019 -- Triglycerides 351 * Continue home rosuvastatin 20mg (6) CKD (chronic kidney disease), stage III: * Chronic. Stable. GFR 44.6 * Cr stable at 1.17 * BMP in AM (7) DVT prophylaxis: * Per primary team -- SCDs Thank you for allowing medicine team to take part in the care of Ms. Anderson. Medicine will follow along. Admission and Anticipated Discharge Date Admission Date: July 17, 2019 Supervising Physician Co-Signing Physician Notes PA Supervision Note: I did not personally see or examine the patient today, but I verified all wilson points of SHARI Barcenas's assessment and plan with the following exceptions/additions: Reviewed CXR and could be PNA--> add on Levaquin Also, UA preop and Ur cx growing E. coli not treated prior to admission as per pt -start Levaquin, monitor fo rimprovement in hypoxia [place] repeat CXR in 3 weeks to see if resolved Subjective Patient states pain is more of a soreness. Has been controlled with pain medications. She was up with therapy this morning and she states she believes she did well. Eating and drinking without difficulty. Passing gas but no BM yet. Discussed continued o2 need since dropping to 88% and will obtain CXR. Patient agreeable to plan. She denies shortness of breath. Has a cough, but states she feels like something is stuck. When asked, she states she has occasionally used the incentive spirometer but admits she has not been utilizing this every hour. Encouraged continued use to prevent pulmonary toilet. Review of Systems Review of Systems: All systems reviewed & are unremarkable except as noted in HPI & below Constitutional: no fever and no chills Eyes: no problem reported Ear, Nose, Mouth, Throat: no sore throat and no dysphagia Respiratory: no chest congestion and no dyspnea Cardiovascular: no chest pain, no palpitations and no edema Gastrointestinal: no abdominal pain, no nausea and no vomiting Genitourinary: no dysuria and no urinary frequency Musculoskeletal: + back pain Integumentary: no rash and no lesions Physical Exam Constitutional: WD/WN, vitals as above no acute distress Eyes: + anicteric sclerae and PERRL ENMT: Ears: no hearing impairment Nose: no external nose abnormality Neck: trachea midline, no thyromegaly Respiratory: normal respiratory effort; no respiratory distress and no labored breathing Auscultation: + crackles (bibasilar crackles); no wheezes Cardiovascular: RRR, no murmur, no edema Gastrointestinal (Abdomen): normal bowel sounds, soft, nontender, no hepatosplenomegaly Musculoskeletal: no cyanosis or clubbing, extremities motor strength 5/5 Skin: no rashes, warm and dry dressing to spine c/d/i. serosangonous drainage Neurologic: PERRL, EOMI, accommodation nl, no face palsy, no dysarthria Psychiatric: A+Ox3, euthymic affect Genitourinary: hartmann with yellow urine Lymphatic: no cervical or axillary lymphadenopathy Results & Data ([facility]) Vital Signs (Past 12 Hours) Vital Signs Temp Pulse Pulse Resp BP Pulse Ox 07/18/19 11:48 36.6 C 68 16 125/70 97 07/18/19 10:16 90 07/18/19 07:50 36.6 C 69 14 138/76 96 07/18/19 07:27 36.7 C 69 16 109/60 94 07/18/19 03:37 88 L 07/18/19 03:31 92 07/18/19 03:15 36.8 C 79 15 120/70 88 L Laboratory Results 07/18/19 07/18/19 07/17/19 Range/Units 04:52 04:52 13:54 WBC 16.46 H (4.8-10.8) K/uL RBC 3.59 L (4.2-5.4) M/uL Hgb 11.6 L (12.0-16.0) g/dL Hct 35.5 L (37-47) % MCV 98.9 (80-100) fL MCH 32.3 (25-34) pg MCHC 32.7 (32-36) g/dL RDW Std Deviation 42.7 (36.4-46.3) fL RDW Coeff of Lizabeth 11.9 (11.5-14.5) % Plt Count 284 (130-400) K/uL MPV 9.8 (7.4-10.4) fL Immature Gran % (Auto) 0.4 % Neut % (Auto) 85.1 % Lymph % (Auto) 6.2 % Kane % (Auto) 8.3 % Eos % (Auto) 0.0 % Baso % (Auto) 0.0 % Immature Gran # (Auto) 0.06 H (0.00-0.02) K/uL Neut # (Auto) 14.01 H (1.4-6.5) K/uL Lymph # (Auto) 1.02 L (1.2-3.4) K/uL Kane # (Auto) 1.37 H (0.11-0.59) K/uL Eos # (Auto) 0.00 (0-0.5) K/uL Baso # (Auto) 0.00 (0-0.2) K/uL Sodium 139 (136-145) mmol/L Potassium 4.5 (3.5-5.1) mmol/L Chloride 110 H (98-107) mmol/L Carbon Dioxide 24 (21-32) mmol/L Anion Gap 5.0 (3-11) BUN 22 H (7-18) mg/dl Creatinine 1.17 (0.6-1.2) mg/dl Est Cr Clr Drug Dosing 38.5 ml/min Est GFR ( Amer) 51.7 Est GFR (Non-Af Amer) 44.6 BUN/Creatinine Ratio 18.6 (10-20) Glucose 108 H (70-99) mg/dl POC Glucose 132 H (70-99) mg/dl Calcium 9.1 (8.5-10.1) mg/dl Diagnostic Findings CXR IMPRESSION: 1. No active disease in the chest. 2. Question a 10 mm nodular density projecting over the right lower lobe. This may be artifactual. Correlation with a dedicated PA and lateral examination is recommended. PG Care Time/CCT Total # of Minutes Spent Total Time Spent with Patient: Total time spent is greater than 50% in coordination of care (as documented) at patient's floor/unit and/or counseling patient: Coding Level of Care Code 00877 Subseq Hosp Care Lvl 2 Diagnoses Neurogenic claudication due to lumbar spinal stenosis M48.062 Hypertension I10 Hypertension type: essential hypertension Hypoxia R09.02 Hypothyroidism E03.9 Hypothyroidism type: acquired Hypertriglyceridemia E78.1 CKD (chronic kidney disease), stage III N18.3 DVT prophylaxis Z29.9 (1) Hypothyroidism Hypothyroidism type: acquired Qualified Code(s): E03.9 - Hypothyroidism, unspecified (2) Hypertension Hypertension type: essential hypertension Qualified Code(s): I10 - Essential (primary) hypertension
--- NOTE | 2019-07-18 15:07 | XRay Report ---
XR chest 2V PA/lateral CLINICAL HISTORY: follow up. Questionable 10mm nodular density RLL, COMPARISON STUDY: 07/18/2019, July 05, 2019 FINDINGS: The cardiac and mediastinal contours remain stable. There is a somewhat ill-defined right l ower lung zone opacity visualized on the PA film but difficult to visualize in the lateral view. The fact that no abnormality was visualized on a prior x-ray dated July 05, 2019, strongly favors an infectious/inflammatory etiology. Also evident are minor left basilar atelectatic changes. There are no significant pleural effusions. IMPRESSION: Repeat radiography, confirms the presence of an ill-defined right basilar opacity which a ppears larger than on study performed earlier in the day. This was not present on the chest x-ray della ed July 05, 2019. The rapid appearance of this finding, favors an infectious/inflammatory etiolog y. Clinical and short-term radiographic follow-up is recommended. ACT 112: Negative or not required by law. Electronically signed by: Julio Pino M.D. 07/18/2019 3:05 PM
[2019-07-18] MEDS ORDERED: LEVOFLOXACIN/D5W 750 MG/150 ML BAG IV SCH (17:00)
[2019-07-18] MEDS: ASPIRIN 81 MG ECTAB PO SCH (20:19)
[2019-07-18] MEDS: DOCUSATE SODIUM/SENNA 50/8.6MG TAB PO SCH (20:19)
[2019-07-18] MEDS ORDERED: Nursing to Pharmacy Communication ONE (22:31)
[2019-07-19] MEDS: POLYETHYLENE (MIRALAX) 17 GM PACK PO SCH ×2 (05:24→11:41)
[2019-07-19 05:38] LABS: Hematocrit (blood only) 35.4 % (37-47); Hemoglobin 11.3 g/dL (12.0-16.0); Mean Corpuscular Hgb Conc 31.9 g/dL (32-36); Mean Corpuscular Volume 100.3 fL (80-100); Mean Platelet Volume 9.9 fL (7.4-10.4); Platelet Count 255 K/uL (130-400); RDW Coefficient of Variation 12.2 % (11.5-14.5); RDW Standard Deviation 44.6 fL (36.4-46.3); Red Blood Count 3.53 M/uL (4.2-5.4)
[2019-07-19 05:57] LABS: BUN Creatinine Ratio 18.4 (10-20); Calcium 8.9 mg/dl (8.5-10.1); Creatinine Clr Calc Pharmacy 42.1 ml/min; Est GFR (African American) 57.6; Est GFR (Non-African American) 49.7; Potassium 4.2 mmol/L (3.5-5.1)
[2019-07-19 06:08] LABS: Thyroid Stimulating Hormone 0.553 uIu/ml (0.300-4.500)
[2019-07-19] MEDS: CEROVITE ADV FORMULA TAB PO SCH (08:12)
[2019-07-19] MEDS: NEBIVOLOL HCL 5 MG TAB PO SCH (08:13)
[2019-07-19] MEDS: ROSUVASTATIN CALCIUM 10 MG TAB PO SCH (08:13)
[2019-07-19] MEDS: MAGNESIUM OXIDE 400 MG TAB PO SCH ×2 (08:13→20:12)
[2019-07-19] MEDS: AMLODIPINE BESYLATE 5 MG TAB PO SCH (08:14)
[2019-07-19] MEDS: CHOLECALCIFEROL 1,000 UNITS 25 MCG TAB PO SCH (08:14)
[2019-07-19] MEDS: CALCIUM CARBONATE 1250MG TAB PO SCH (08:14)
--- NOTE | 2019-07-19 08:58 | Orthopedic Progress Note ---
Date of Service July 19, 2019 Assessment & Plan (1) Neurogenic claudication due to lumbar spinal stenosis: This time we will continue physical therapy monitor ERA output anticipate discharge home tomorrow. Present on Admission?: Yes Admission and Anticipated Discharge Date Admission Date: July 17, 2019 Subjective Back pain controlled leg symptoms markedly improved. Physical Exam Physical Exam: Patient has excellent strength testing peers comfortable. Results & Data ([facility]) Vital Signs (Past 12 Hours) Vital Signs Temp Pulse Resp BP Pulse Ox 07/19/19 08:10 36.5 C 74 18 159/64 H 97 07/18/19 23:36 37.2 C 78 24 150/77 H 90
[2019-07-19] MEDS: ENALAPRIL MALEATE 10 MG TAB PO SCH (09:44)
[2019-07-19] MEDS: ACETAMINOPHEN 500 MG TAB PO PRN (11:43)
--- NOTE | 2019-07-19 14:04 | Hospitalist Progress Note ---
Date of Service July 19, 2019 Assessment & Plan (1) Neurogenic claudication due to lumbar spinal stenosis: * POD #2 s/p L3-S1 decompression and fusion with Dr. Cortes. EBL 100mL * Pain management/PT/OT/DVT prophylaxis per primary team * Pre-op h/h 14.5/43.8. * H/H stable at 11.3/35.5 -- acute blood loss following surgery and dilution from IVF. MCV elevated at 100.3-- will obtain B12/folate levels in AM (2) Pneumonia: * WBC elevated at 16.46k on 07/17 and continuing to require O2 --> crackles on exam with resulting CXR with evidence for RML 10mm nodular density with rec for follow up AP/LAT * Chest 2 view with increased size, favoring infectious/inflammatory etiology --> treating for pneumonia * Elevated WBC likely combination of operative steroids, pneumonia, and UTI --> improved to 12.9k. Continues to be afebrile * Ordered and continue Levaquin Q48h (renal dosed) to cover for both pneumonia as well as UTI (Ecoli previously found on PAT testing but not addressed) * O2 saturations improved to 97% on RA this morning, but continues to be 91% on RA -- encouraged continued use of incentive spirometer * Albuterol neb prn shortness of breath, although patient denies sx of this * Repeat CXR in 3 weeks as outpatient to ensure resolution (3) UTI (urinary tract infection): * See above -- covering with levaquin (4) Hypertension: * Chronic. Stable. * Continue home bystolic 15mg, amlodipine * Resumed benazepril component of lotrel today (enalapril while inpatient as benazepril non-formulary) * BP 148/64 * Continue to monitor (5) Hypoxia: * Likely poor inspiratory effort secondary to pain/not deep breathing/lack of incentive spirometer use and resulting pneumonia as above (had dropped to 88%) * Encouraged frequent use of IS * No wheezes appreciated on exam, improved crackles/rhonchi RML * See imaging as above * If persistent, patient may need 2step prior to d/c * 91% on RA (6) Hypothyroidism: * Chronic. Stable. TSH 0.553 * Continue home levothyroxine -- alternates 88mcg and 100mcg (7) Hypertriglyceridemia: * Hx of. Last lipid panel January 2019 -- Triglycerides 351 * Continue home rosuvastatin 20mg (8) CKD (chronic kidney disease), stage III: * Chronic. Stable. GFR 49.7 * Cr stable at 1.07 * BMP in AM (9) DVT prophylaxis: * Per primary team -- SCDs Thank you for allowing medicine team to take part in the care of Ms. Anderson. Medicine will follow along. Admission and Anticipated Discharge Date Admission Date: July 17, 2019 Supervising Physician Co-Signing Physician Notes PA Supervision Note: I did not personally see or examine the patient today, but I verified all wilson points of SHARI Barcenas's assessment and plan with the following exceptions/additions: None Subjective Patient doing well. Eating/drinking without difficulty. Plans for discharge home with support from . Patient states she has been passing gas and had "a small turd" this morning. She states the pain has been tolerable with medications. She has been using her incentive spirometer more frequently and has not required oxygen since yesterday. Discussed repeating CXR as outpatient to ensure resolution, but that we will send a prescription for levaquin to cover for both pulmonary issues and UTI that had not previously been treated. All questions/concerns addressed. Patient hopeful for discharge tomorrow. Review of Systems Review of Systems: All systems reviewed & are unremarkable except as noted in HPI & below Physical Exam Constitutional: WD/WN, vitals as above no acute distress Eyes: + anicteric sclerae and PERRL ENMT: Ears: no hearing impairment Nose: no external nose abnormality Neck: trachea midline, no thyromegaly Respiratory: normal respiratory effort, lungs clear to auscultation normal respiratory effort; no respiratory distress and no labored breathing Auscultation: + crackles (R base) and + rhonchi (RML/RLL posteriorly) Cardiovascular: RRR, no murmur, no edema Gastrointestinal (Abdomen): normal bowel sounds, soft, nontender, no hepatosplenomegaly Musculoskeletal: no cyanosis or clubbing, extremities motor strength 5/5 Skin: no rashes, warm and dry dressing to lumbar spine -- c/d/i -- bloody drainage present Neurologic: PERRL, EOMI, accommodation nl, no face palsy, no dysarthria Psychiatric: A+Ox3, euthymic affect Lymphatic: no cervical or axillary lymphadenopathy Results & Data ([facility]) Vital Signs (Past 12 Hours) Vital Signs Temp Pulse Resp BP Pulse Ox 07/19/19 08:10 36.5 C 74 18 159/64 H 97 Laboratory Results 07/19/19 07/19/19 Range/Units 04:53 04:53 WBC 12.90 H (4.8-10.8) K/uL RBC 3.53 L (4.2-5.4) M/uL Hgb 11.3 L (12.0-16.0) g/dL Hct 35.4 L (37-47) % MCV 100.3 H (80-100) fL MCH 32.0 (25-34) pg MCHC 31.9 L (32-36) g/dL RDW Std Deviation 44.6 (36.4-46.3) fL RDW Coeff of Lizabeth 12.2 (11.5-14.5) % Plt Count 255 (130-400) K/uL MPV 9.9 (7.4-10.4) fL Sodium 137 (136-145) mmol/L Potassium 4.2 (3.5-5.1) mmol/L Chloride 105 (98-107) mmol/L Carbon Dioxide 27 (21-32) mmol/L Anion Gap 5.0 (3-11) BUN 20 H (7-18) mg/dl Creatinine 1.07 (0.6-1.2) mg/dl Est Cr Clr Drug Dosing 42.1 ml/min Est GFR ( Amer) 57.6 Est GFR (Non-Af Amer) 49.7 BUN/Creatinine Ratio 18.4 (10-20) Glucose 113 H (70-99) mg/dl Calcium 8.9 (8.5-10.1) mg/dl TSH 0.553 (0.300-4.500) uIu/ml Diagnostic Findings CXR 07/18/19 IMPRESSION: Repeat radiography, confirms the presence of an ill-defined right basilar opacity which appears larger than on study performed earlier in the day. This was not present on the chest x-ray dated July 05, 2019. The rapid appearance of this finding, favors an infectious/inflammatory etiology. Clinical and short-term radiographic follow-up is recommended. PG Care Time/CCT Total # of Minutes Spent Total Time Spent with Patient: Total time spent is greater than 50% in coordination of care (as documented) at patient's floor/unit and/or counseling patient: Coding Level of Care Code 13653 Subseq Hosp Care Lvl 3 Diagnoses Neurogenic claudication due to lumbar spinal stenosis M48.062 Pneumonia J18.9 UTI (urinary tract infection) N39.0 Hypertension I10 Hypertension type: essential hypertension Hypoxia R09.02 Hypothyroidism E03.9 Hypothyroidism type: acquired Hypertriglyceridemia E78.1 CKD (chronic kidney disease), stage III N18.3 DVT prophylaxis Z29.9 (1) Hypothyroidism Hypothyroidism type: acquired Qualified Code(s): E03.9 - Hypothyroidism, unspecified (2) Hypertension Hypertension type: essential hypertension Qualified Code(s): I10 - Essential (primary) hypertension
[2019-07-19] MEDS: LEVOTHYROXINE SODIUM 100 MCG TABLET PO SCH (15:51)
[2019-07-19] MEDS: TRAMADOL HCL 50 MG TABLET PO PRN (15:59)
[2019-07-19] MEDS ORDERED: ALBUTEROL 0.083% NEBU SOLN 3 ML VIAL NEB PRN (17:24)
[2019-07-19] MEDS ORDERED: Nursing to Pharmacy Communication ONE (17:50)
[2019-07-19] MEDS: ASPIRIN 81 MG ECTAB PO SCH (20:12)
[2019-07-19] MEDS: DOCUSATE SODIUM/SENNA 50/8.6MG TAB PO SCH (20:13)
[2019-07-20] MEDS: LEVOTHYROXINE SODIUM 88 MCG TABLET PO SCH (05:34)
[2019-07-20] MEDS: ACETAMINOPHEN 500 MG TAB PO PRN (05:36)
[2019-07-20 06:03] LABS: Basophils # (auto) 0.02 K/uL (0-0.2); Basophils % (auto) 0.2 %; Eosinophils # (auto) 0.14 K/uL (0-0.5); Eosinophils % (auto) 1.1 %; Hemoglobin 12.1 g/dL (12.0-16.0); Immature Granulocytes # (auto) 0.03 K/uL (0.00-0.02); Immature Granulocytes % (auto) 0.2 %; Lymphocytes # (auto) 2.33 K/uL (1.2-3.4); Lymphocytes % (auto) 17.6 %; Mean Corpuscular Hemoglobin 32.5 pg (25-34); Mean Corpuscular Hgb Conc 32.7 g/dL (32-36); Mean Corpuscular Volume 99.5 fL (80-100); Mean Platelet Volume 9.9 fL (7.4-10.4); Monocytes # (auto) 1.63 K/uL (0.11-0.59); Monocytes % (auto) 12.3 %; Neutrophils # (auto) 9.08 K/uL (1.4-6.5); Neutrophils % (auto) 68.6 %; Platelet Count 269 K/uL (130-400); RDW Coefficient of Variation 12.1 % (11.5-14.5); RDW Standard Deviation 43.9 fL (36.4-46.3); Red Blood Count 3.72 M/uL (4.2-5.4); White Blood Count 13.23 K/uL (4.8-10.8)
[2019-07-20 06:34] LABS: Calcium 9.5 mg/dl (8.5-10.1); Est GFR (Non-African American) 55.3; Potassium 4.4 mmol/L (3.5-5.1)
--- NOTE | 2019-07-20 07:47 | Discharge Summary ---
Date of Service July 20, 2019 Admission HPI Per Admitting Provider This is a 78-year-old female who presents with chronic persistent back and leg pain. After failing extensive course of nonoperative care is here for surgical invention. Principal Diagnosis Lumbar spinal stenosis with neurogenic claudication Discharge Data Allergies Allergy/AdvReac Type Severity Reaction Status Date / Time nabumetone Allergy Mild Gastrointestinal Verified 07/17/19 08:44 Upset ibuprofen AdvReac Unknown CKD Verified 07/17/19 08:43 Consultations 07/17/19 14:59 Consult Case Management - Discharge Planning Routine Consult Hospitalist Routine Procedures Performed Operation Date: 07/17/19 10:05 Actual Procedures p L3-S1 Decompression and Fusion, application of Osteoamp, application of Infuse, interbody cage L4-L5, interbody cage L5-S1, Spinal Cord Monitoring - Shashank Cortes DO Ordered Studies 07/17/19 10:05 FL fluoroscopy <1hr Routine FL lumbar spine 2-3V Routine Hospital Course (1) Neurogenic claudication due to lumbar spinal stenosis: Patient went multilevel lumbar decompression fusion tolerated this well staying with orthopedic for possibly. Postop day 1 she is up and ambulating progressed to postop day 2 on postop day #3 ERA drainage decreased appropriately. Pain well controlled. Excellent strength testing. Subsequent discharge home. Discharge orders and instructions from the chart for further review. Total Time Total Time Spent Total Time Spent (In Minutes): 20 minutes Discharge Plan Discharge Items Patient Disposition: Home - Self-Care Reason For Visit: LUMBAR SPINAL STENOSIS W NEUROGENIC CLAUDICATION Discharge Diagnosis: Lumbar spinal stenosis with neurogenic claudication Activity: As commented below Non-emergency contact: Primary Care Provider Call non-emergency contact if: you have any medication questions Follow-up/Referrals: Karthikeyan Tillman MD [Primary Care Provider] - Diet: Regular Addtl Attending Provider Instructions: ACTIVITY RECOMMENDATIONS: SELF CARE INSTRUCTIONS AFTER THORACIC/LUMBAR FUSIONS 1. You may walk to your tolerance. It is good exercise for your legs and back. Expect some back and intermittent leg aches and pains. 2. You may perform "counter-top" level activities (make a sandwich, laurie with a project, etc.). 3. No bending or lifting of more than 10 pounds or back twisting of any nature (roll like a log when turning in bed). 4. You may ride in a car for 20-30 minutes at a time. No driving until after your first visit with your doctor. 5. Frequent changes of position and restricting sitting to 30 minutes at a time will help limit the amount of back spasms and stiffness you may experience. 6. You may discontinue the use of ambulatory aids (cane, crutches, etc.) once your strength and confidence allow. 7. You may attending radiologist the shower and let water strike your incision when you arrive home at least once daily. Do not take a tub bath, sit in a hot tub or go into a swimming pool until after your first recheck in the office. SPECIAL CARE INSTRUCTIONS: VERY IMPORTANT TO READ AND REVIEW A. Your surgical incision has been closed with a cosmetic suture under the skin that will dissolve in about 6 weeks. In 14 days, you can use a pair of clean scissors and cut the suture that is left outside of the skin at the ends of your incision. 1. The small skin tapes can be removed 7 days after surgery if they have not fallen off by that point. 2. You may keep the wound open to air as much as possible to promote healing after post-op day number 5 unless told otherwise by your doctor. 3. If you think the wound looks like it is becoming infected (redness or worsening drainage) and/or you are experiencing fever, chill or worsening back pain and muscle spasms, contact the office so that we may evaluate you as soon as possible. B. Complications are uncommon, but please contact us if you have any signs or symptoms of: 1. wound infection (fever higher than 102.5 degrees F, redness, separation of wound, drainage, or increasing pain from the incision) 2. blood clots in legs (pain, swelling, redness and warmth in legs) 3. urinary tract infection (fever higher than 102.5 degrees F, burning upon urination or increased frequency of urination) 4. nerve problems (inability to walk on your toes or heels, numbness, loss of bowel or bladder control) 5. any other symptoms that concern you C. Please call the office at if you have any concerns or questions about your operation or recovery. D. No smoking! Smoking drastically decreases the chance of a solid fusion. E. Do not take any anti-inflammatory medications (Indocin, Advil, Motrin, Aspirin, Naprosyn, etc.) as these may inhibit the chance of a solid fusion. Tylenol is okay to take for pain. MANAGING PAIN AFTER SPINAL SURGERY 1. Narcotic medication is intended for short-term use and will be provided for surgical pain. Surgical pain usually lasts for a period of 4-6 weeks. Narcotic medication includes Percocet, Vicodin, Darvocet, Tylenol #3 or Lortab. 2. Longer-term pain is more appropriately treated with non-narcotic medication such as Tylenol ES. 3. Muscle spasm is not appropriately treated with narcotics. Muscle relaxers such as Soma, Flexeril or Skelaxin can be used along with Tylenol ES. 4. Remember that we all live with some "aches and pains". This is not unusual or uncommon after an injury or as we get older. a. Back pain is expected and may include muscle spasms for 4 to 6 weeks after surgery. The pain should gradually improve. If the pain worsens for no apparent reason, please contact the office. b. Intermittent leg pain may also be experienced and should not be concerned about unless it worsens for no apparent reason. If so, please contact the office. 5. We will provide appropriate medication within the normal guidelines of their prescribed use. We will also be very cautious and aware of potential abuse and extended duration of patients' medication needs. a. Pain medications are for your comfort and to assist with sleep and rest so that the tissue can heal. They are not provided in order to return to normal activity and should not be used through the day. To do so or worsening pain at night can result from ongoing tissue damage and development of tolerance to the prescribed medicine. 6. Please allow 2-3 days to process refills. Prescriptions will not be mailed but must be picked up at the office. FOLLOW UP VISIT: Keep your scheduled follow-up appointment. Any questions, please call the office at . Pending Studies at Discharge: No Stand-Alone Forms: My [employer], Smoking Cessation Medications and DC Order Prescriptions: New tramadol 50 mg tablet 50 mg PO Q6H PRN (Reason: pain, moderate) Qty: 30 RF: 0 oxycodone 5 mg tablet 5 mg PO Q6H PRN (Reason: pain, severe) Qty: 20 RF: 0 Continued aspirin [Adult Aspirin Regimen] 81 mg tablet,delayed release (DR/EC) 81 mg PO PM RF: 0 calcium carbonate [Calcium 600] 600 mg calcium (1,500 mg) tablet 600 mg PO DAILY RF: 0 rosuvastatin [Crestor] 10 mg tablet 10 mg PO QAM RF: 0 glucosamine HCl 500 mg tablet 1,500 mg PO QAM RF: 0 mecobalamin (vitamin B12) 1,000 mcg tablet,disintegrating 1,000 mcg SL QAM RF: 0 levothyroxine 88 mcg tablet 88 mcg PO Q OTHER DAY RF: 0 meclizine 25 mg tablet 25 mg PO BID PRN (Reason: nausea) Qty: 60 RF: 2 promethazine 25 mg tablet 25 mg PO Q6H PRN (Reason: nausea and vomiting) Qty: 20 RF: 0 Bystolic 10 mg tablet 15 mg PO QAM Qty: 135 RF: 0 magnesium oxide 400 mg (241.3 mg magnesium) tablet 250 mg PO BID RF: 0 clobetasol 0.05 % Cream 1 applic TOPICAL HS PRN (Reason: Rash) RF: 0 PreserVision AREDS [id number] each-rr-uizr Tablet 1 tab PO QAM RF: 0 levothyroxine 100 mcg tablet 100 mcg PO Q OTHER DAY RF: 0 amlodipine-benazepril [Lotrel] 5-20 mg capsule 1 cap PO QAM RF: 0 cholecalciferol (vitamin D3) 2,000 unit capsule 2,000 units PO QAM RF: 0 Cbd Cream 1 dose topical DAILY RF: 0 Cbd Tea 1 dose PO DAILY RF: 0 Discontinued tramadol 50 mg tablet 50 mg PO BID PRN (Reason: pain) Qty: 40 RF: 0 Discharge Orders: Discharge Order (Routine); Ordered 07/20/19 Ordered By: Shashank Cortes Admission Data Admit Date/Time: 07/17/19 14:08 Attending Provider: Shashank Cortes Admit Provider: Shashank Cortes Primary Care Provider: Karthikeyan Tillman Other Providers: Vance Curtis
[2019-07-20] MEDS: CHOLECALCIFEROL 1,000 UNITS 25 MCG TAB PO SCH (08:19)
[2019-07-20] MEDS: CEROVITE ADV FORMULA TAB PO SCH (08:19)
[2019-07-20] MEDS: NEBIVOLOL HCL 5 MG TAB PO SCH (08:19)
[2019-07-20] MEDS: ROSUVASTATIN CALCIUM 10 MG TAB PO SCH (08:19)
[2019-07-20] MEDS: MAGNESIUM OXIDE 400 MG TAB PO SCH (08:20)
[2019-07-20] MEDS: AMLODIPINE BESYLATE 5 MG TAB PO SCH (08:20)
[2019-07-20] MEDS: CALCIUM CARBONATE 1250MG TAB PO SCH (08:20)
[2019-07-20] MEDS: ENALAPRIL MALEATE 10 MG TAB PO SCH (08:20)
--- NOTE | 2019-07-20 09:39 | Communication Note ---
Date of Service: July 20, 2019 Patient given prescription fro levaquin, dosed Q48 for additional 3 doses to complete treatment for pneumonia/E.coli UTI. Patient provided with order for repeat CXR in 1 week Follow up with primary care provider in the next week for follow up. Nursing walked patient with pulse ox this morning- lowest O2 sat92% but maintained 95-99% otherwise. Stable for discharge from medical standpoint.
[2019-07-20 09:44] LABS: Folate (Folic Acid) 12.14 ng/ml (>5.38)
[2019-07-20] MEDS ORDERED: levoFLOXacin 750 MG TAB PO SCH (17:00)
== END 2019-07-20 14:34 | disposition home or self-care (01) | DRG 453 ==
LOC: ASU 08:10 → 3E 14:08

== ENCOUNTER 2021-02-20 05:54 | Observation (INO) ==
--- NOTE | 2021-02-03 09:27 | PAT Medication Instructions ---
Medication Instructions Date of Service February 03, 2021 Home Medications Medication Instructions Recorded meclizine 25 mg tablet 25 mg PO BID PRN #60 tab 07/17/20 rosuvastatin 10 mg tablet (Crestor) 10 mg PO QAM #90 tab 08/06/20 nebivolol 10 mg tablet (Bystolic) 15 mg PO QAM #135 tab 10/15/20 amlodipine 5 mg-benazepril 20 mg 1 cap PO QAM #90 cap 12/23/20 capsule (Lotrel) nystatin-triamcinolone 100,000 1 applic TOPICAL BID #60 g 01/23/21 unit/gram-0.1 % topical ointment aspirin 81 mg tablet,delayed release (Adult Aspirin Regimen) 81 mg PO HS mecobalamin (vitamin B12) 1,000 mcg disintegrating tablet,sublingual 1,000 mcg SL QAM magnesium oxide 400 mg (241.3 mg magnesium) tablet 400 mg PO HS cholecalciferol (vitamin D3) 50 mcg (2,000 unit) capsule 2,000 units PO QAM vitamins A,C,B-sgpl-uwkoew 7,160 unit-113 mg-100 unit tablet (PreserVision AREDS) 1 tab PO QAM meclizine 25 mg tablet 25 mg PO BID PRN rosuvastatin 10 mg tablet (Crestor) 10 mg PO QAM nebivolol 10 mg tablet (Bystolic) 15 mg PO QAM amlodipine 5 mg-benazepril 20 mg capsule (Lotrel) 1 cap PO QAM nystatin-triamcinolone 100,000 unit/gram-0.1 % topical ointment 1 applic TOPICAL BID ascorbic acid (vitamin C) 500 mg capsule 500 mg PO QAM calcium carbonate 500 mg (1,250 mg)-vitamin D3 200 unit tablet (Calcium 500 + D) 1 tab PO QPM diclofenac sodium 1 % topical gel 2 g TOPICAL BID levothyroxine 100 mcg tablet 100 mcg PO HS ASK your prescriber and surgeon aspirin 81 mg tablet,delayed release (Adult Aspirin Regimen) 81 mg PO HS STOP taking 2 weeks before surgery (or as soon as possible if surgery is within 2 weeks) PreserVision AREDS 1 tab PO QAM STOP taking 24 hours before surgery nystatin-triamcinolone 100,000 unit/gram-0.1 % topical ointment 1 applic TOPICAL BID diclofenac sodium 1 % topical gel 2 g TOPICAL BID DO NOT take the morning of surgery mecobalamin (vitamin B12) 1,000 mcg disintegrating tablet,sublingual 1,000 mcg SL QAM cholecalciferol (vitamin D3) 50 mcg (2,000 unit) capsule 2,000 units PO QAM amlodipine 5 mg-benazepril 20 mg capsule (Lotrel) 1 cap PO QAM ascorbic acid (vitamin C) 500 mg capsule 500 mg PO QAM Take morning of surgery With a small sip of water, OTHERWISE NOTHING TO EAT OR DRINK AFTER MIDNIGHT: meclizine 25 mg tablet 25 mg PO BID PRN (if needed) rosuvastatin 10 mg tablet (Crestor) 10 mg PO QAM nebivolol 10 mg tablet (Bystolic) 15 mg PO QAM Take evening before surgery magnesium oxide 400 mg (241.3 mg magnesium) tablet 400 mg PO HS meclizine 25 mg tablet 25 mg PO BID PRN (if needed) calcium carbonate 500 mg (1,250 mg)-vitamin D3 200 unit tablet (Calcium 500 + D) 1 tab PO QPM levothyroxine 100 mcg tablet 100 mcg PO HS Other Notes If you have any questions please call us at [phone] or [phone] or [phone] or [phone]
--- NOTE | 2021-02-06 11:08 | Anesthesiology Consultation ---
Date of Service February 06, 2021 Assessment & Plan (1) Encounter for pre-operative examination: - COVID screening: Per assessment on 02/06: Travel screen- attended wedding in [place] 01/24 (60 people/outdoors). Patient vaccinated. Preop COVID testing > 2 weeks after return from travel. No known COVID-19 positive contacts or current COVID-19 related symptoms. Surgeon arranging preop COVID testing. Awaiting results. - S/P L3-S1 decompression/fusion (07/17/19): Grade 3/4, MAC#3.0, ETT 7.5 at [facility] Chart Review Chart Review: Acceptable Risk for Surgery (pending surgeon-ordered PCP clearance) and Patient seen in Pre Admission Testing Teaching & Discussion Pre-Anesthesia Teaching/Discussion Notes: Instructed NPO after midnight before surgery,except medications with 15 cc of water. Medication instructions provided according to the PAT guidelines. History Surgery Operation Date: 02/20/21 07:45 Proposed Procedures p Right Sacroilia Joint Fusion - Shashank Cortes DO Height/Weight Height: 5 ft 4.5 in Weight: 71.2 kg Allergies Allergy/AdvReac Type Severity Reaction Status Date / Time gabapentin Allergy Unknown Unknown Verified 02/09/21 10:33 tramadol AdvReac Intermediate Nausea, Verified 02/09/21 10:33 headache nabumetone AdvReac Mild Gastrointestinal Verified 02/09/21 10:33 Upset simvastatin AdvReac Mild Mylagia Verified 02/09/21 10:33 ibuprofen AdvReac Unknown CKD Verified 02/09/21 10:33 Medications Home Medications Medication Instructions Recorded Confirmed Last Taken aspirin 81 mg tablet,delayed 81 mg PO HS 03/07/18 02/09/21 07/16/19 22:00 release (Adult Aspirin Regimen) mecobalamin (vitamin B12) 1,000 1,000 mcg SL QAM 03/07/18 02/09/21 07/03/19 mcg disintegrating tablet,sublingual magnesium oxide 400 mg (241.3 mg 400 mg PO HS tab 01/20/19 02/09/21 07/16/19 08:00 magnesium) tablet cholecalciferol (vitamin D3) 50 2,000 units PO QAM 06/29/19 02/09/21 07/03/19 mcg (2,000 unit) capsule vitamins A,C,Y-tryc-gwmrpi 7,160 1 tab PO QAM 06/29/19 02/09/21 07/03/19 unit-113 mg-100 unit tablet (PreserVision AREDS) meclizine 25 mg tablet 25 mg PO BID PRN #60 tab 07/17/20 02/09/21 Unknown rosuvastatin 10 mg tablet (Crestor) 10 mg PO QAM #90 tab 08/06/20 02/09/21 Unknown nebivolol 10 mg tablet (Bystolic) 15 mg PO QAM #135 tab 10/15/20 02/09/21 Unknown amlodipine 5 mg-benazepril 20 mg 1 cap PO QAM #90 cap 12/23/20 02/09/21 Unknown capsule (Lotrel) nystatin-triamcinolone 100,000 1 applic TOPICAL BID #60 g 01/23/21 02/09/21 Unknown unit/gram-0.1 % topical ointment ascorbic acid (vitamin C) 500 mg 500 mg PO QAM 01/29/21 02/09/21 Unknown capsule calcium carbonate 500 mg (1,250 1 tab PO QPM 01/29/21 02/09/21 Unknown mg)-vitamin D3 200 unit tablet (Calcium 500 + D) diclofenac sodium 1 % topical gel 2 g TOPICAL BID 01/29/21 02/09/21 Unknown levothyroxine 100 mcg tablet 100 mcg PO HS 01/29/21 02/09/21 Unknown amoxicillin 500 mg capsule 500 mg PO TID #15 cap 02/09/21 02/09/21 Unknown Past Medical History Medical History Anterolisthesis Anxiety Arthritis Chronic back pain CKD (chronic kidney disease), stage III Hyperlipidemia Hypertension Hypothyroidism Lumbar radiculopathy Lumbar spinal stenosis Lumbar spondylosis Macular degeneration Exercise / Class Metabolic Activity III < 4 Walking/Shop/Light housework (no CP, no SOB with daily activities (uses walker, cane PRN)) Past Family History Family History Father Coronary heart disease Myocardial infarction Mother Rheumatoid arthritis Sister End stage renal disease Diabetes Hypertension Coronary heart disease Denies family history of Ovarian cancer Prostate cancer Breast cancer Colorectal cancer Past Surgical History Surgical History History of appendectomy History of cataract surgery History of cholecystectomy History of colonoscopy History of hysterectomy History of Mohs micrographic surgery for skin cancer Hx of spinal surgery Status post left foot surgery Past Anesthesia History No Hx of Anesthesia Complications (except PONV) and No Family Hx of Anesthesia Complications History of PONV History of PONV (Improved with scope patch AM DOS) and Hx of Motion Sickness (occasional) Social History Smoking Status: Never smoker Do You Dip or Chew Tobacco: No Hx Alcohol Use: Yes Alcohol type: wine alcohol intake frequency: a few times a week Hx Substance Use: No substance use type: does not use Review of Systems + seasonal allergies. Patient denies chest pain, shortness of breath, fever, chills, cough, wheezing, palpitations. Physical Exam Vital Signs VITALS BP 179/80 > manual recheck 162/82 (per patient, monitors closely at home and BP range typically 130s/60s) P 65 TEMP 98.0 SP02 96%RA RESP 16 PHYSICAL (physical exam performed by Dalia Farr, PAC) Mildly decreased cervical extension range of motion. Full TMJ range of motion. TMD 3 finger breaths Mallampati Score 2 (narrow space) Dentition: upper right front tooth repair Lungs: clear throughout to auscultation Cardiac: regular rate and rhythm, no murmurs noted Spine: normal Carotid arteries: negative bruit Extremities: no edema Lab Results Anesthesia Preop Results Results Anesthesia Widget: WBC 9.16 K/uL (4.8-10.8) 02/06/21 Hgb 15.0 g/dL (12.0-16.0) 02/06/21 Hct 45.1 % (37-47) 02/06/21 Plt 300 K/uL (130-400) 02/06/21 Na 140 mmol/L (136-145) 02/06/21 K 4.7 mmol/L (3.5-5.1) 02/06/21 Cl 108 mmol/L (98-107) H 02/06/21 CO2 26 mmol/L (21-32) 02/06/21 BUN 23 mg/dl (7-18) H 02/06/21 Creat 1.14 mg/dl (0.6-1.2) 02/06/21 Glucose Level 125 mg/dl (70-99) H 02/06/21 PT 9.6 Seconds (9.0-12.0) 02/06/21 PTT 24.5 Seconds (21.0-31.0) 02/06/21 INR 0.9 (0.9-1.1) 02/06/21 Urine Color Yellow 02/06/21 Urine Appearance Clear (Clear) 02/06/21 Urine pH 6.5 (4.5-7.5) 02/06/21 Urine Specific [place] 1.018 (1.000-1.030) 02/06/21 Urine Protein 1+ (Negative) H 02/06/21 Urine Glucose (UA) Negative (Negative) 02/06/21 Urine Ketones Negative (Negative) 02/06/21 Urine Blood Negative (Negative) 02/06/21 Urine Nitrite Negative (Negative) 02/06/21 Urine Bilirubin Negative (Negative) 02/06/21 Urine Urobilinogen Negative (Negative) 02/06/21 Urine Leukocyte Esterase 1+ (Negative) H 02/06/21 Urine WBC (Auto) 10-30 /hpf (0-5) H 02/06/21 Urine RBC (Auto) 0-4 /hpf (0-4) 02/06/21 Urine Hyaline Casts (Auto) 1-5 /lpf (0-5) 02/06/21 Urine Epithelial Cells (Auto) 10-20 /lpf (0-5) H 02/06/21 Urine Bacteria (Auto) 2+ (Negative) H 02/06/21 Blood Type A Positive 02/06/21 Antibody Screen NEGATIVE 02/06/21 Lab Comments: Surgeon's office to defer to PCP regarding UA findings. Testing Electrocardiogram Date: 02/06/21 NSR at 62bpm. Chest X-Ray Date: 02/06/21 Findings: + NAD
[2021-02-20] MEDS ORDERED: ceFAZolin 1000MG 1,000 MG/7.5 ML SYR IV SCH (06:00)
[2021-02-20] MEDS ORDERED: ACETAMINOPHEN 500 MG TAB PO SCH (06:00)
[2021-02-20] MEDS ORDERED: CeleBREX 200 MG CAP PO SCH (06:00)
[2021-02-20] MEDS ORDERED: LR 15ML/HR IV SCH (06:00)
[2021-02-20] MEDS ORDERED: GABAPENTIN 300 MG CAP PO SCH (06:00)
[2021-02-20] MEDS ORDERED: PROPOFOL IV EMULSION 10 MG/ML 20 ML VIAL IV ONE (07:12)
[2021-02-20] MEDS ORDERED: DEXAMETHASONE SOD INJ 4 MG/ML VIAL ONE (07:12)
[2021-02-20] MEDS ORDERED: ONDANSETRON INJ 2 MG/ML 2 ML VIAL ONE (07:12)
[2021-02-20] MEDS ORDERED: GLYCOPYRROLATE 0.2 MG/ML VIAL ONE (07:12)
[2021-02-20] MEDS ORDERED: NEOSTIGMINE METHYLSULFATE 1 MG/ML 10ML VIAL ONE (07:12)
[2021-02-20] MEDS ORDERED: fentaNYL citrate 100 MCG/2 ML VIAL ONE (07:12)
[2021-02-20] MEDS ORDERED: LIDOCAINE 2% 2 ML VIAL/AMP(20MG/ML) INFIL ONE (07:12)
[2021-02-20] MEDS ORDERED: SCOPOLAMINE 1 MG TDSY TD ONE ×2 (07:15→07:25)
[2021-02-20] MEDS ORDERED: ePHEDrine sulfate 50 MG/ML AMP IV PRN (07:15)
[2021-02-20] MEDS ORDERED: ONDANSETRON INJ 2 MG/ML 2 ML VIAL IV PRN ×2 (07:15→14:16)
[2021-02-20] MEDS ORDERED: ATROPINE SULFATE 0.1 MG/ML 10ML SYR IV PRN (07:15)
[2021-02-20] MEDS ORDERED: fentaNYL citrate 100 MCG/2 ML VIAL IV PRN (07:15)
--- NOTE | 2021-02-20 07:22 | History & Physical Bridge Note ---
Date of Service February 20, 2021 History & Physical Bridge Note I have examined the patient, reviewed the History & Physical and in the interval since the performance of the History & Physical I have noted the following changes of clinical significance: no changes noted
--- NOTE | 2021-02-20 07:23 | History & Physical Report ---
Date of Service February 20, 2021 Assessment & Plan (1) Sacroiliitis: Plan: Right sacroiliac joint fusion History of Present Illness Chief Complaint: Sacroiliitis Primary Care Provider: Karthikeyan Tillman MD This is a 80-year-old female presents with chronic persistent sacroiliitis. Failing course of nonoperative care center for surgical invention. Allergies Allergy/AdvReac Type Severity Reaction Status Date / Time gabapentin Allergy Unknown Unknown Verified 02/20/21 06:13 tramadol AdvReac Intermediate Nausea, Verified 02/20/21 06:13 headache nabumetone AdvReac Mild Gastrointestinal Verified 02/20/21 06:13 Upset simvastatin AdvReac Mild Mylagia Verified 02/20/21 06:13 ibuprofen AdvReac Unknown CKD Verified 02/20/21 06:13 Home Medications Medication Instructions Recorded Confirmed Type aspirin 81 mg tablet,delayed 81 mg PO HS 03/07/18 02/20/21 History release (Adult Aspirin Regimen) mecobalamin (vitamin B12) 1,000 1,000 mcg SL QAM 03/07/18 02/20/21 History mcg disintegrating tablet,sublingual magnesium oxide 400 mg (241.3 mg 400 mg PO HS tab 01/20/19 02/20/21 History magnesium) tablet cholecalciferol (vitamin D3) 50 2,000 units PO QAM 06/29/19 02/20/21 History mcg (2,000 unit) capsule vitamins A,C,J-jtkp-ardyeq 7,160 1 tab PO QAM 06/29/19 02/20/21 History unit-113 mg-100 unit tablet (PreserVision AREDS) meclizine 25 mg tablet 25 mg PO BID PRN #60 tab 07/17/20 02/20/21 Rx rosuvastatin 10 mg tablet (Crestor) 10 mg PO QAM #90 tab 08/06/20 02/20/21 Rx nebivolol 10 mg tablet (Bystolic) 15 mg PO QAM #135 tab 10/15/20 02/20/21 Rx amlodipine 5 mg-benazepril 20 mg 1 cap PO QAM #90 cap 12/23/20 02/20/21 Rx capsule (Lotrel) nystatin-triamcinolone 100,000 1 applic TOPICAL BID #60 g 01/23/21 02/20/21 Rx unit/gram-0.1 % topical ointment ascorbic acid (vitamin C) 500 mg 500 mg PO QAM 01/29/21 02/20/21 History capsule calcium carbonate 500 mg (1,250 1 tab PO QPM 01/29/21 02/20/21 History mg)-vitamin D3 200 unit tablet (Calcium 500 + D) diclofenac sodium 1 % topical gel 2 g TOPICAL BID 01/29/21 02/20/21 History levothyroxine 100 mcg tablet 100 mcg PO HS 01/29/21 02/20/21 History Past Med/Surg History Medical History Anterolisthesis Anxiety Arthritis Chronic back pain CKD (chronic kidney disease), stage III Hyperlipidemia Hypertension Hypothyroidism Lumbar radiculopathy Lumbar spinal stenosis Lumbar spondylosis Macular degeneration Surgical History History of appendectomy History of cataract surgery History of cholecystectomy History of colonoscopy History of hysterectomy History of Mohs micrographic surgery for skin cancer Hx of spinal surgery Status post left foot surgery Family History Father Coronary heart disease Myocardial infarction Mother Rheumatoid arthritis Sister End stage renal disease Diabetes Hypertension Coronary heart disease Denies family history of Ovarian cancer Prostate cancer Breast cancer Colorectal cancer Social History Smoking Status: Never smoker Second Hand Exposure: No; Do You Dip or Chew Tobacco: No; Hx Alcohol Use: Yes Alcohol type: wine Alcohol Intake Frequency: 2-3 x/Week Hx Substance Use: No Preferred Language: Serbian Communication Ability: Effective Visual Impairment: Limited Hearing Ability: Normal 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 Beliefs That Will Affect Care: None marital status: Current Living Situation: Spouse current occupational status: retired How many Children do You have: 2 Other Information That Helps Us Care for You: No Feels Safe at Home: Yes Safety Concerns: Feels Safe At This Time Childhood Exposure to Second-Hand Smoke: Yes caffeine: No Dental Care, Regularly: Yes Physical Activity Frequency: Does not Exercise Seatbelt Use: always Sunscreen Use: Yes Assistive Devices: Glasses and Walker Physical Exam Physical Exam: Patient is alert and oriented Heart regular in rhythm Lungs clear to auscultation Results & Data ([facility]) Vital Signs (Past 12 Hours) Vital Signs Temp Pulse Resp BP Pulse Ox 02/20/21 06:15 37.3 C 74 18 190/96 H 96
[2021-02-20] MEDS ORDERED: BUPIVACAINE 0.5 % 5 MG/1 ML MPF 30ML VIAL ONE (07:32)
[2021-02-20] MEDS ORDERED: EPINEPHrine INJ 1 MG/ML AMP ONE (07:32)
[2021-02-20] MEDS ORDERED: ceFAZolin 1000MG 1,000 MG/7.5 ML SYR IV ONE (08:30)
[2021-02-20] MEDS ORDERED: FLOSEAL HEMOSTATIC MATRIX 10ML TOP ONE (08:35)
[2021-02-20] MEDS ORDERED: HYDROmorphone INJ 0.5 MG/0.5 ML SYR IV PRN ×2 (08:44)
[2021-02-20] MEDS ORDERED: oxyCODONE HCL IR 5 MG TAB (IMMEDIATE RELEASE) PO PRN ×2 (08:44)
--- NOTE | 2021-02-20 08:44 | Operative Report ---
Post Operative Report Pre & Post Diagnosis Operation Date: 02/20/21 07:45 Pre-Op Diagnosis: Sacroiliitis Post-Op Diagnosis: Sacroiliitis I identified the patient and participated in the time-out.: Yes Procedure Operation Date: 02/20/21 07:45 Actual Procedures #1 open right SI joint fusion. #2 placement of 20 mm allograft and infuse in the right SI joint. #3 placement of 2 globus GREGORIO-coated slotted screws filled with infuse and locally harvested morselized autograft across the right SI joint. Surgeon Shashank Cortes, [employer] Nikko Shin Estimated Blood Loss 5 Findings Consistent with Post-Op Diagnosis Specimens None Indications This is a 80-year-old female well-known to me the presents with chronic persistent sacroiliitis. Failing course of nonoperative care she is here for surgical invention. Description of Procedure Patient was met with identified informed consent obtained. Patient was then taken to the operative suite underwent ablation placed in prone position adjustable chest padded bolsters. All bony prominences well-padded eyes inspected to ensure no external pressure placed upon the. This point the right upper buttock was prepped and draped in a sterile fashion. I then created his 3 cm incision over the right SI joint. Sharp dissection formed down to and exposing the posterior aspect of the joint. Then placed a guidewire in the joint verifying position with fluoroscopy. The joint finder was then placed over the guidewire followed by cannula. I then drilled out and curetted out the SI joint from a posterior approach. After this is complete I inserted a 20 mm bony allograft filled with infuse directly in the joint. After this was tamped into position the working cannula was removed and I placed a second incision over the right upper buttock in line with the posterior slope of the SI joint. A guidewire was then inserted and an inlet outlet and lateral views the guidewire is placed across the proximal aspect of the right SI joint. Cannulas were then placed over the guidewire and I drilled across the joint. A 50 mm GREGORIO-coated slotted globus screw filled with local autograft and infuse was then placed demonstrated excellent purchase and alignment. Using an outrigger guide a distal guidewire was placed in a similar fashion. I then placed cannulas and drilled across the joint and placed a 45 mm GREGORIO-coated slotted screw filled with local autograft and infuse across the joint. Again excellent purchase was noted as well as alignment. The incisions were then copiously irrigated closed with subcutaneous Vicryl and 4 Monocryl for final skin closure. Steri-Strips dressings placed. Patient will continue PACU stable condition. Please note Nikko Shin was present at the entire procedure and all the patient positioning complex portions of the surgery and final skin closure. I attest to the content of the Intraoperative Record and any orders documented therein. Any exceptions are noted below.
[2021-02-20] MEDS ORDERED: SUGAMMADEX SODIUM 200 MG/2 ML VIAL IV ONE (09:10)
--- NOTE | 2021-02-20 09:16 | Fluoroscopy Report ---
FL sacrum CLINICAL HISTORY: RT SI joints FUSION COMPARISON STUDY: None. FLUOROSCOPY TIME: 1 minute and 2 seconds. FINDINGS: 3 fluoroscopic spot images the right sacroiliac joint demonstrates fusion with 2 cannulated screws. Evidence for prior posterior decompression fusion within the lower lumbar spine. The hardwar e appears intact. IMPRESSION: Fluoroscopy provided for right sacroiliac joint fusion. ACT 112: Negative or not required by law. Electronically signed by: Yoni Springer M.D. 02/20/2021 9:15 AM
--- NOTE | 2021-02-20 13:57 | Anesthesiology Progress Note ---
Date of Service February 20, 2021 Anesthesia Post Procedure Vital Signs Vital Signs: Temp Pulse Pulse Resp BP BP Pulse Ox 02/20/21 13:14 36.3 C L 71 18 162/89 H 96 02/20/21 12:15 35.7 C L 69 18 179/79 H 97 02/20/21 11:14 66 18 183/81 H 95 02/20/21 10:44 36.3 C L 51 L 18 159/69 H 93 02/20/21 10:14 36.3 C L 50 L 18 183/79 H 95 02/20/21 10:05 36.0 C L 51 L 16 182/82 H 96 02/20/21 09:55 51 L 16 180/79 H 95 02/20/21 09:45 51 L 16 184/78 H 95 02/20/21 09:35 72 14 189/94 H 95 02/20/21 09:25 58 L 14 175/101 H 95 02/20/21 09:17 36.0 C L 70 14 187/85 H 98 02/20/21 06:15 37.3 C 74 18 190/96 H 96 Transfer of Care Handoff Completed per policy Notes Mental Status: alert / awake / arousable and participated in evaluation Patient Amnestic to Procedure: Yes Nausea / Vomiting: see Notes below Pain: adequately controlled Airway Patency, RR, SpO2: stable & adequate BP & HR: stable & adequate Hydration State: stable & adequate Anesthetic Complications: no major complications apparent and Pt Satisfied with anesthetic care Notes: Pt continues to dry heave despite aggressively treating her nausea. She reports having this problem after GA. At this point, pt to be admitted overnight for IVF and nausea management.
[2021-02-20] MEDS ORDERED: FAMOTIDINE 20 MG TAB PO PRN (14:16)
[2021-02-20] MEDS ORDERED: NALOXONE HCL 0.4 MG/1 ML VIAL/CARP IV PRN (14:16)
[2021-02-20] MEDS ORDERED: bisacodyL 10 MG SUPP PR PRN (14:16)
[2021-02-20] MEDS ORDERED: hydrOXYzine HCl 25 MG TAB PO PRN (14:16)
[2021-02-20] MEDS ORDERED: ALUMINUM/MAGNESIUM SUSP 30 ML UDC PO PRN (14:16)
[2021-02-20] MEDS ORDERED: diphenhydrAMINE Capsule 25 MG CAP PO PRN (14:16)
[2021-02-20] MEDS ORDERED: HYDROCODONE/ACETAMOPHEN 5/325MG TAB PO PRN (14:16)
[2021-02-20] MEDS ORDERED: MAGNESIUM HYDROXIDE SUSP 30 ML UDC PO PRN (14:16)
[2021-02-20] MEDS ORDERED: ACETAMINOPHEN 1,000 MG/100 ML VIAL IV PRN (14:16)
[2021-02-20] MEDS ORDERED: DO NOT ADMINISTER PNEUMOCOCCAL VACCINE PRN (14:16)
[2021-02-20] MEDS ORDERED: LORazepam 0.5 MG TAB PO PRN (14:16)
[2021-02-20] MEDS ORDERED: PROMETHAZINE HCL 12.5 MG in SODIUM CHLORIDE 0.9% 50 ML IV PRN (14:16)
[2021-02-20] MEDS ORDERED: METOCLOPRAMIDE HCL INJ 5 MG/ML 2 ML VIAL IV PRN (14:16)
[2021-02-20] MEDS ORDERED: LORazepam 0.5 MG/1 ML VIAL IV PRN (14:16)
[2021-02-20] MEDS ORDERED: SOD PHOSPHATE/SOD BIPHOSPHATE ENEMA 132 ML BTL PR PRN (14:16)
[2021-02-20] MEDS ORDERED: ONDANSETRON 4 MG OD TAB PO PRN (14:16)
[2021-02-20] MEDS ORDERED: DO NOT ADMINISTER FLU VACCINE PRN (14:16)
[2021-02-20] MEDS ORDERED: MECLIZINE HCL 25 MG TAB PO PRN (14:26)
[2021-02-20] MEDS: CHECK SCOPOLAMINE PATCH PLACEMENT SCH (14:31)
[2021-02-20] MEDS: SODIUM CHLORIDE 0.9% 1000ML 1,000 ML IV SCH ×2 (15:01→23:47)
[2021-02-20] MEDS: ceFAZolin 1000MG 1,000 MG/7.5 ML SYR IV SCH (18:15)
[2021-02-20] MEDS: ACETAMINOPHEN 500 MG TAB PO PRN (18:20)
[2021-02-20] MEDS ORDERED: ASPIRIN 81 MG ECTAB PO SCH (21:00)
[2021-02-20] MEDS ORDERED: LEVOTHYROXINE SODIUM 100 MCG TABLET PO SCH (21:00)
[2021-02-20] MEDS ORDERED: CALCIUM 600MG + VIT D 400 IU TAB PO SCH (21:00)
[2021-02-20] MEDS ORDERED: MAGNESIUM OXIDE 400 MG TAB PO SCH (21:00)
[2021-02-20] MEDS ORDERED: DOCUSATE SODIUM/SENNA 50/8.6MG TAB PO SCH (21:00)
[2021-02-20] MEDS: DICLOFENAC SOD 1% GEL 100 GM TUBE EXT SCH (21:57)
[2021-02-21] MEDS: CHECK SCOPOLAMINE PATCH PLACEMENT SCH ×2 (00:22→08:31)
[2021-02-21] MEDS: ceFAZolin 1000MG 1,000 MG/7.5 ML SYR IV SCH (03:41)
[2021-02-21] MEDS: ACETAMINOPHEN 500 MG TAB PO PRN (03:42)
[2021-02-21] MEDS ORDERED: POLYETHYLENE (MIRALAX) 17 GM PACK PO SCH (06:00)
[2021-02-21] MEDS: DICLOFENAC SOD 1% GEL 100 GM TUBE EXT SCH (08:37)
[2021-02-21] MEDS ORDERED: CHOLECALCIFEROL 1,000 UNITS 25 MCG TAB PO SCH (09:00)
[2021-02-21] MEDS ORDERED: ASCORBIC ACID 500 MG TAB PO SCH (09:00)
[2021-02-21] MEDS ORDERED: amLODIPine BESYLATE 5 MG TAB PO SCH (09:00)
[2021-02-21] MEDS ORDERED: CYANOCOBALAMIN 500 MCG TABLET (VITAMIN B-12) PO SCH (09:00)
[2021-02-21] MEDS ORDERED: ROSUVASTATIN CALCIUM 10 MG TAB PO SCH (09:00)
[2021-02-21] MEDS ORDERED: ENALAPRIL MALEATE 10 MG TAB PO SCH (09:00)
[2021-02-21] MEDS ORDERED: METOPROLOL TARTRATE 25 MG TAB PO SCH (09:00)
[2021-02-21] MEDS ORDERED: CEROVITE ADV FORMULA TAB PO SCH (09:00)
--- NOTE | 2021-02-21 09:55 | Discharge Summary ---
Date of Service February 21, 2021 Admission HPI Per Admitting Provider This is a 80-year-old female presents with chronic persistent sacroiliitis. Failing course of nonoperative care center for surgical invention. Principal Diagnosis Sacroiliitis Discharge Data Allergies Allergy/AdvReac Type Severity Reaction Status Date / Time gabapentin Allergy Unknown Unknown Verified 02/20/21 06:13 tramadol AdvReac Intermediate Nausea, Verified 02/20/21 06:13 headache nabumetone AdvReac Mild Gastrointestinal Verified 02/20/21 06:13 Upset simvastatin AdvReac Mild Mylagia Verified 02/20/21 06:13 ibuprofen AdvReac Unknown CKD Verified 02/20/21 06:13 Consultations 02/20/21 14:16 Consult Hospitalist Routine Procedures Performed Operation Date: 02/20/21 07:45 Actual Procedures p Right Sacroiliac Joint Fusion(Right) - Shashank Cortes DO Ordered Studies 02/20/21 07:45 FL sacrum Routine Hospital Course (1) Sacroiliitis: Patient underwent right SI joint fusion. She tolerated procedure well and was taken to recovery. Unfortunately she struggled with significant postop nausea and vomiting. Substance she was admitted for IV fluids and appropriate medical management. Next morning she was markedly improved. Eating without difficulty. Pain well controlled. Excellent strength testing. Subsequent discharge home. Discharge orders instructions from the chart for further review. Total Time Total Time Spent Total Time Spent (In Minutes): 20 minutes Discharge Plan Discharge Items Patient Disposition: Home - Self-Care Reason For Visit: SI Joint Dysfunction Discharge Diagnosis: Sacroiliitis Activity: Per Instructions section Lifting: No more than 10 pounds Bathing Comment: May shower postop day 2 Non-emergency contact: Primary Care Provider Call non-emergency contact if: you have any medication questions Follow-up/Referrals: Karthikeyan Tillman MD [Primary Care Provider] - Diet: Regular Addtl Attending Provider Instructions: Please use a walker to ambulate and maintain toe-touch weightbearing to the right lower extremity is much as possible. You may shower postop day 2. Follow-up in 2 weeks as scheduled for x-rays. Pending Studies at Discharge: No Stand-Alone Forms: Anesthesia/Sedation, Adult, [facility] Medications and DC Order Prescriptions: New oxycodone 5 mg tablet 5 mg PO Q6H PRN (Reason: pain, severe) Qty: 15 RF: 0 Continued aspirin [Adult Aspirin Regimen] 81 mg tablet,delayed release (DR/EC) 81 mg PO HS RF: 0 mecobalamin (vitamin B12) 1,000 mcg tablet,disintegrating 1,000 mcg SL QAM RF: 0 meclizine 25 mg tablet 25 mg PO BID PRN (Reason: nausea) Qty: 60 RF: 2 rosuvastatin [Crestor] 10 mg tablet 10 mg PO QAM Qty: 90 RF: 3 Bystolic 10 mg tablet 15 mg PO QAM Qty: 135 RF: 3 amlodipine-benazepril [Lotrel] 5-20 mg capsule 1 cap PO QAM Qty: 90 RF: 3 nystatin-triamcinolone 100,000-0.1 unit/gram-% ointment 1 applic topical BID Qty: 60 RF: 2 magnesium oxide 400 mg (241.3 mg magnesium) tablet 400 mg PO HS RF: 0 PreserVision AREDS [id number],160-113-100 [id number] Tablet 1 tab PO QAM RF: 0 cholecalciferol (vitamin D3) 2,000 unit capsule 2,000 units PO QAM RF: 0 ascorbic acid (vitamin C) 500 mg Capsule 500 mg PO QAM RF: 0 levothyroxine 100 mcg tablet 100 mcg PO HS RF: 0 diclofenac sodium 1 % Gel 2 g TOPICAL BID RF: 0 calcium carbonate-vitamin D3 [Calcium 500 + D] 500 mg(1,250mg) -200 unit Tablet 1 tab PO QPM RF: 0 Discharge Orders: Discharge Order (Routine); Ordered 02/21/21 Ordered By: Shashank Turner/Other Patient Handouts: DVT Post Op Prevention Admission Data Admit Date/Time: 02/20/21 13:00 Attending Provider: Shashank Cortes Admit Provider: Shashank Cortes Primary Care Provider: Karthikeyan Tillman Other Providers: Claus Mar
--- NOTE | 2021-02-21 18:08 | Hospitalist Consultation ---
Date of Consultation February 21, 2021 Assessment & Plan (1) Sacroiliitis: (2) Hypertension: (3) Hypothyroidism: (4) Hyperlipidemia: Currently, pain is adequately controlled. Tolerating pain medication without ill effects. She has been discharged by her surgeon. -Her BP has been fluctuating. Currently 145/73. -At this point, there are no medical contraindications to proceed with discharge. She may resume her prehospital medications -Recommend continued incentive spirometry -Pain control at discretion of orthopedics -Follow-up with Dr. Cortes as outlined -Thank you for allowing me to participate in the care of this patient Supervising Physician Co-Signing Physician Notes Attending note: I reviewed the chart, I agree with Arely MCCARTHY assessment and plan, ROS, exam. Patient was discharged prior to my chance to examine her myself. - s/p SI joint fusion: had some nausea yesterday but resolved, vitals stable, no fever, labs stable chronic medical issues all stable, agree she was appropriate for discharge History of Present Illness Reason for Consultation: Medical management Requesting Physician: Dr. Cortes Attending Physician: Shashank Cortes, DO History of Present Illness Mrs. Anderson is an 80-year-old white female with a past medical history of HTN, hypothyroidism, and hyperlipidemia. She underwent an SI joint fusion yesterday by Dr. Cortes. She had a reported uneventful perioperative course. Reports was to be discharged yesterday but had some mild nausea postoperatively which prompted her to be kept overnight. Her nausea was treated and has not returned. Her blood pressure is currently 145/73 No lab data Pain is adequately controlled with pain medication. Tolerating pain medication without ill effects. She reports that she lives in a one-story home with her and has been discharged by her surgeon for home. Allergies Allergy/AdvReac Type Severity Reaction Status Date / Time gabapentin Allergy Unknown Unknown Verified 02/20/21 06:13 tramadol AdvReac Intermediate Nausea, Verified 02/20/21 06:13 headache nabumetone AdvReac Mild Gastrointestinal Verified 02/20/21 06:13 Upset simvastatin AdvReac Mild Mylagia Verified 02/20/21 06:13 ibuprofen AdvReac Unknown CKD Verified 02/20/21 06:13 Home Medications Medication Instructions Recorded Confirmed Type aspirin 81 mg tablet,delayed 81 mg PO HS 03/07/18 02/20/21 History release (Adult Aspirin Regimen) mecobalamin (vitamin B12) 1,000 1,000 mcg SL QAM 03/07/18 02/20/21 History mcg disintegrating tablet,sublingual magnesium oxide 400 mg (241.3 mg 400 mg PO HS tab 01/20/19 02/20/21 History magnesium) tablet cholecalciferol (vitamin D3) 50 2,000 units PO QAM 06/29/19 02/20/21 History mcg (2,000 unit) capsule vitamins A,C,I-puxu-vrobff 7,160 1 tab PO QAM 06/29/19 02/20/21 History unit-113 mg-100 unit tablet (PreserVision AREDS) meclizine 25 mg tablet 25 mg PO BID PRN #60 tab 07/17/20 02/20/21 Rx rosuvastatin 10 mg tablet (Crestor) 10 mg PO QAM #90 tab 08/06/20 02/20/21 Rx nebivolol 10 mg tablet (Bystolic) 15 mg PO QAM #135 tab 10/15/20 02/20/21 Rx amlodipine 5 mg-benazepril 20 mg 1 cap PO QAM #90 cap 12/23/20 02/20/21 Rx capsule (Lotrel) nystatin-triamcinolone 100,000 1 applic TOPICAL BID #60 g 01/23/21 02/20/21 Rx unit/gram-0.1 % topical ointment ascorbic acid (vitamin C) 500 mg 500 mg PO QAM 01/29/21 02/20/21 History capsule calcium carbonate 500 mg (1,250 1 tab PO QPM 01/29/21 02/20/21 History mg)-vitamin D3 200 unit tablet (Calcium 500 + D) diclofenac sodium 1 % topical gel 2 g TOPICAL BID 01/29/21 02/20/21 History levothyroxine 100 mcg tablet 100 mcg PO HS 01/29/21 02/20/21 History oxycodone 5 mg tablet 5 mg PO Q6H PRN #15 tab 02/20/21 Rx Patient History Medical History Anterolisthesis L5 on S1 Anxiety Arthritis Chronic back pain Lumbar CKD (chronic kidney disease), stage III Hyperlipidemia Hypertension Hypothyroidism Lumbar radiculopathy Lumbar spinal stenosis Lumbar spondylosis Macular degeneration Surgical History History of appendectomy History of cataract surgery R/L History of cholecystectomy History of colonoscopy History of hysterectomy History of Mohs micrographic surgery for skin cancer 2019 (cheek) Hx of spinal surgery Fusion Status post left foot surgery Four screws in left foot Family History Father Coronary heart disease Myocardial infarction Mother Rheumatoid arthritis Sister End stage renal disease Diabetes Hypertension Coronary heart disease Denies family history of Ovarian cancer Prostate cancer Breast cancer Colorectal cancer Social History Smoking Status: Never smoker Second Hand Exposure: No; Do You Dip or Chew Tobacco: No; Hx Alcohol Use: Yes Alcohol type: wine Alcohol Intake Frequency: 2-3 x/Week Hx Substance Use: No Preferred Language: Italian Communication Ability: Effective Visual Impairment: Limited Hearing Ability: Normal Diamond Cleaver Required: No Beliefs That Will Affect Care: None marital status: Current Living Situation: Spouse current occupational status: retired How many Children do You have: 2 Other Information That Helps Us Care for You: No Feels Safe at Home: Yes Safety Concerns: Feels Safe At This Time Childhood Exposure to Second-Hand Smoke: Yes caffeine: No Dental Care, Regularly: Yes Physical Activity Frequency: Does not Exercise Seatbelt Use: always Sunscreen Use: Yes Assistive Devices: Walker Review of Systems Review of Systems: All systems reviewed and are unremarkable except as noted in HPI and below Denies fevers, chills, headache, nasal congestion, sore throat, cough, chest pain, shortness of breath, palpitations, orthopnea, PND, abdominal pain, nausea, vomiting, diarrhea, constipation, dysuria, hematuria, frequency, back pain, joint pain or swelling, easy bruising or bleeding, skin lesions or rashes. Physical Exam Physical Exam: General: Resting comfortably in her hospital bed. NAD. HEENT: Head is AT/NC buccal mucosa is moist and pink Neck: No JVD. Negative hepatojugular reflex Cardiac: RRR without M/G/R Lungs: CTA without W/R/R Abdomen: Normoactive X4. Soft and nontender in all quadrants. Extremities: No peripheral clubbing cyanosis or edema. Back: Dressing to right SI region. Dry and intact Neuro: A&O X4 cranial nerves II through XII are grossly intact no focal neuro deficits Skin: No obvious skin lesions or rashes Psych: Appropriate affect pleasant and cooperative Results & Data Results & Data ([facility]) Vital Signs (Past 12 Hours) Vital Signs Temp Pulse Resp BP Pulse Ox 02/21/21 07:33 36.7 C 77 16 179/74 H 94 Current BP 145/73 Laboratory Results No lab data PG Care Time/CCT Total # of Minutes Spent Total Time Spent with Patient: Total time spent is greater than 50% in coordination of care (as documented) at patient's floor/unit and/or counseling patient: Coding Level of Care Code 73270 Inpt Consult Level 3 Diagnoses Sacroiliitis M46.1 Hypertension I10 Hypertension type: essential hypertension Hypothyroidism E03.9 Hypothyroidism type: acquired Hyperlipidemia E78.2 Hyperlipidemia type: mixed hyperlipidemia (1) Hyperlipidemia Hyperlipidemia type: mixed hyperlipidemia Qualified Code(s): E78.2 - Mixed hyperlipidemia (2) Hypothyroidism Hypothyroidism type: acquired Qualified Code(s): E03.9 - Hypothyroidism, unspecified (3) Hypertension Hypertension type: essential hypertension Qualified Code(s): I10 - Essential (primary) hypertension
== END 2021-02-21 11:22 | disposition home or self-care (01) ==
LOC: 3E 05:54 → ASU 05:54

== ENCOUNTER 2024-05-11 03:55 | Inpatient (IN) ==
[2024-05-11 04:28] LABS: iSTAT Creatinine 1.7 mg/dl (0.6-1.3); iSTAT Hemoglobin 15.3 g/dl (12.0-16.0); iSTAT Ionized Calcium 1.2 mmol/l (1.12-1.32); iSTAT Potassium 4.3 mmol/L (3.3-5.0)
[2024-05-11 04:29] LABS: Hematocrit (blood only) 44.5 % (37.0-47.0); Hemoglobin 14.4 g/dl (12.0-16.0); Mean Corpuscular Hemoglobin 30.1 pg (25.0-34.0); Mean Corpuscular Hgb Conc 32.4 g/dL (32.0-36.0); Mean Corpuscular Volume 93.1 fL (80.0-100.0); Mean Platelet Volume 9.5 fL (9.4-12.4); Platelet Count 238 K/uL (130-400); RDW Standard Deviation 48.3 fL (36.4-46.3); Red Blood Count 4.78 M/uL (4.20-5.40); White Blood Count 6.77 K/ul (4.8-10.8)
[2024-05-11] MEDS: OPTIRAY 320 125ml IV ONE (04:40)
[2024-05-11] MEDS: ONDANSETRON INJ 2 MG/ML 2 ML VIAL IV STA (04:41)
[2024-05-11 04:42] LABS: BUN Creatinine Ratio 19.2 (10-20); Calcium 10.3 mg/dl (8.6-10.3); Creatinine Clr Calc Pharmacy 21.7 ml/min; Potassium 4.4 mmol/L (3.5-5.1)
[2024-05-11 04:48] LABS: Troponin I High Sensitivity 36.9 pg/ml (0-14)
[2024-05-11 04:49] LABS: Basophils # (auto) 0.01 K/uL (0.00-0.20); Basophils % (auto) 0.1 %; Immature Granulocytes # (auto) 0.03 K/uL (0.01-0.20); Immature Granulocytes % (auto) 0.4 %; Lymphocytes # (auto) 0.35 K/uL (1.20-3.40); Lymphocytes % (auto) 5.2 %; Monocytes # (auto) 0.05 K/uL (0.11-0.59); Monocytes % (auto) 0.7 %; Neutrophils # (auto) 6.33 K/uL (1.40-6.50); Neutrophils % (auto) 93.6 %; RBC Morphology Unremarkable
[2024-05-11 04:55] LABS: Partial Thromboplastin Ratio 1.1; Partial Thromboplastin Time 29 Seconds (21-31)
[2024-05-11 04:59] LABS: Albumin Globulin Ratio 1.2 (0.9-2); Albumin Level 4.4 gm/dl (3.4-5.0); Bilirubin,Total 1.1 mg/dl (0.2-1.0); Globulin 3.6 gm/dl (2.5-4.0); Magnesium 2.1 mg/dl (1.7-2.4)
[2024-05-11 05:14] LABS: Adenovirus PCR Not Detected (NotDetected); Bordetella parapertussis PCR Not Detected (NotDetected); Bordetella pertussis PCR Not Detected (NotDetected); Chlamydia pneumoniae PCR Not Detected (NotDetected); Coronavirus 229E PCR Not Detected (NotDetected); Coronavirus CoV-2 (COVID19)PCR Not Detected (NotDetected); Coronavirus HKU1 PCR Not Detected (NotDetected); Coronavirus NL63 PCR Not Detected (NotDetected); Coronavirus OC43PCR Not Detected (NotDetected); Human Metapneumovirus PCR Not Detected (NotDetected); Influenza A PCR Not Detected (NotDetected); Influenza B PCR Not Detected (NotDetected); Mycoplasma pneumoniae PCR Not Detected (NotDetected); Parainfluenza Virus 1 PCR Not Detected (NotDetected); Parainfluenza Virus 2 PCR Not Detected (NotDetected); Parainfluenza Virus 3 PCR Not Detected (NotDetected); Parainfluenza Virus 4 PCR Not Detected (NotDetected); Respiratory Syncytial VirusPCR Not Detected (NotDetected); Rhinovirus/Enterovirus PCR Not Detected (NotDetected)
[2024-05-11] MEDS: SODIUM CHLORIDE 0.9% 500 ML IV ONE ×2 (05:35→08:01)
--- NOTE | 2024-05-11 06:13 | CT Scan Report ---
EXAM: CT angio head w con CLINICAL HISTORY: neuro deficit, acute stroke suspected, 118 ML OPTIRAY 320 TECHNIQUE: Contrast enhanced thin slice CT angiography scan of the cerebral vessels was performed with intravenous contrast. Angiographic images were processed, 3D MIP images were acquired for interpretation. If IV contrast material had not been administered, the likelihood of detecting abnormalities relevant to the patients condition would have been substantially decreased. COMPARISON: None. FINDINGS: Bilateral internal carotid arteries show normal course and caliber. Eccentric and circumferential atherocalcific plaques noted in cavernous portions of bilateral internal carotid arteries, causing mild (30%-40%) luminal narrowing bilaterally. A1, A2 and M1, M2 segments are normal on both sides. Bilateral vertebral arteries unite to form the basilar artery in normal fashion. Basilar artery shows normal course, caliber and opacification. Its division into the posterior cerebral arteries is defined. Bilateral P1 and P2 segments are normal. Visualized venous structures show normal opacification. No evidence of intracranial aneurysm or AV malformation is seen. IMPRESSION: 1. Mild (30-40%) stenosis of ilateral cavernous ICA due to atherocalcific plaques. Electronically signed by Noel Quiroz 05-11-2024 06:08 AM
--- NOTE | 2024-05-11 06:15 | CT Scan Report ---
EXAM: CT angio neck with con CLINICAL HISTORY: neuro deficit, acute stroke suspected, 118 ML OPTIRAY 320 TECHNIQUE: Contrast enhanced thin slice CT angiography scan of the carotid vessels was performed with intravenous contrast. Angiographic images were processed, 3D MIP images were acquired for interpretation. If IV contrast material had not been administered, the likelihood of detecting abnormalities relevant to the patients condition would have been substantially decreased. COMPARISON: None. FINDINGS: Few atherocalcific plaques noted in aortic arch without significant luminal narrowing. Eccentric atherocalcific plaques noted at bilateral carotid bifurcation and proximal portion of left internal carotid artery, causing mild bilateral internal carotid artery narrowing (30%-40% on left side and 20%-30% on right side). Vertebral arteries are well opacified. Jugular veins are well opacified. Included lung apices are grossly unremarkable. Thyroid gland appears unremarkable. IMPRESSION: 1. Mild bilateral carotid stenosis, more pronounced on left side (30-40%) compared to right side (20-30%). Electronically signed by Noel Quiroz 05-11-2024 06:15 AM
--- NOTE | 2024-05-11 06:17 | CT Scan Report ---
EXAM: CT head/brain wo con CLINICAL HISTORY: neuro deficit, acute stroke suspected TECHNIQUE: Multiple axial images are obtained from the skull base to the vertex without contrast. CT scan was performed according to ALARA (as low as reasonable achievable). COMPARISON: None. FINDINGS: There is cerebral atrophy. No evidence of space occupying lesion, hemorrhage, edema, mass effect, midline shift, extra axial collection, or hydrocephalus is noted. Basal cisterns are symmetric and normal in size and configuration. There are scattered periventricular hypodensities as can be seen with chronic microvascular ischemic changes. The wilder-white matter differentiation is preserved. Visualized paranasal sinuses and mastoid air cells are well aerated. Orbital contents are within normal limits. Bony structures are intact. IMPRESSION: 1. No evidence of acute intracranial abnormality is demonstrated. 2. Chronic microvascular ischemic changes. 3. Cerebral atrophy. Electronically signed by Noel Quiroz 05-11-2024 06:16 AM
--- NOTE | 2024-05-11 06:23 | Emergency Department Note ---
History of Present Illness General Chief complaint: Weakness Stated complaint: Weakness, Garbled Speech Time Seen by Provider: 05/11/24 04:05 History of Present Illness This is an 83-year-old female presenting to the emergency department via EMS from home for evaluation of general illness. The patient has had nausea, vomiting, and dizziness since last evening. Patient did have garbled speech and reported left leg weakness before going to bed. The patient last known well is 8 PM on 05/10/2024. The patient awoke at night with additional vomiting and feeling unwell. She does complain of some back pain which is somewhat chronic after having spine surgery. No fevers or chills. No distinct chest pain, chest tightness, shortness of breath, or abdominal pain. She rates her discomfort a 3/10. Home Medications Medication Instructions Recorded Confirmed Type aspirin 81 mg tablet,delayed 81 mg PO HS 03/07/18 05/11/24 History release (Adult Aspirin Regimen) mecobalamin (vitamin B12) 1,000 1,000 mcg sublingual QAM 03/07/18 05/11/24 History mcg disintegrating tablet,sublingual magnesium oxide 400 mg (241.3 mg 400 mg PO HS 01/20/19 05/11/24 History magnesium) tablet cholecalciferol (vitamin D3) 50 2,000 units PO QAM 06/29/19 05/11/24 History mcg (2,000 unit) capsule vitamins A,C,W-izlv-jytkrk 2,148 1 tab PO QAM 06/29/19 05/11/24 History mcg-113 mg-45 mg-17.4 mg tablet (PreserVision AREDS) ascorbic acid (vitamin C) 500 mg 500 mg PO QAM 01/29/21 05/11/24 History capsule calcium 500 mg (as 1 tab PO QPM 01/29/21 05/11/24 History carbonate)-vitamin D3 5 mcg (200 unit) tablet (Calcium 500 + D) diclofenac sodium 1 % topical gel 2 g topical BID 01/29/21 05/11/24 History levothyroxine 100 mcg tablet 100 mcg PO DAILY #90 tabs 06/15/23 05/11/24 Rx cyclosporine 0.09 % eye drops in a 1 drp ophthalmic (eye) Q12H 08/12/23 05/11/24 History dropperette (Cequa) levocabastine 0.05 % eye drp ophthalmic (eye) 08/12/23 04/13/24 History drops,suspension omega-3 fatty acids 1,000 mg 1,000 mg PO BID #180 caps 08/12/23 05/11/24 Rx capsule rosuvastatin 10 mg tablet (Crestor) 10 mg PO QAM #90 tabs 09/13/23 05/11/24 Rx nebivolol 10 mg tablet (Bystolic) 15 mg (1.5 x 10 mg) PO QAM #135 10/11/23 05/11/24 Rx tabs amlodipine 10 mg-benazepril 20 mg 1 cap PO DAILY #90 caps 02/14/24 05/11/24 Rx capsule meclizine 25 mg tablet 25 mg PO BID PRN nausea #60 tabs 03/20/24 05/11/24 Rx nystatin-triamcinolone 100,000 1 applic topical BID #60 grams 04/24/24 05/11/24 Rx unit/gram-0.1 % topical ointment Allergies Allergy/AdvReac Type Severity Reaction Status Date / Time gabapentin Allergy Unknown Unknown Verified 05/11/24 09:15 duloxetine [From Cymbalta] AdvReac Intermediate Diarrhea Verified 05/11/24 09:15 tramadol AdvReac Intermediate Nausea, Verified 05/11/24 09:15 headache nabumetone AdvReac Mild Gastrointestinal Verified 05/11/24 09:15 Upset simvastatin AdvReac Mild Mylagia Verified 05/11/24 09:15 ibuprofen AdvReac Unknown CKD Verified 05/11/24 09:15 Past Med/Surg History Problem List (Updated 05/12/24 @ 00:18 by Daniel Maciel PA-C) Shock circulatory (Acute) Calculus of proximal left ureter CKD (chronic kidney disease) Elevated troponin (Acute) Transaminitis (Acute) Sepsis (Acute) 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 (Acute) History of nonmelanoma skin cancer CKD (chronic kidney disease), stage III SI (sacroiliac) joint dysfunction Hypertriglyceridemia (Chronic) Impaired fasting glucose (Chronic) Lichen planus (Acute) Osteopenia after menopause Lumbar radiculopathy Anterolisthesis (Chronic) L5 on S1 Hyperlipidemia (Chronic) Hypertension (Chronic) Hypothyroidism (Chronic) Medical History Encounter for pre-operative examination Leukocytosis Sacroiliitis Lumbar spondylosis Lumbar spinal stenosis Arthritis Osteoporosis screening Chronic back pain Lumbar Macular degeneration Anxiety Surgical History Hx of spinal surgery Fusion History of appendectomy History of colonoscopy History of hysterectomy History of cholecystectomy History of Mohs micrographic surgery for skin cancer 2019 (cheek) History of cataract surgery R/L Status post left foot surgery Four screws in left foot Family History Father Coronary heart disease Myocardial infarction Mother Rheumatoid arthritis Sister End stage renal disease Diabetes Hypertension Coronary heart disease Denies family history of Ovarian cancer Prostate cancer Breast cancer Lung cancer Colorectal cancer Stroke Social History Smoking Status: Unknown if ever smoked Second Hand Exposure: Yes (SPOUSE USED TO SMOKE); Do You Dip or Chew Tobacco: No; Hx Alcohol Use: No Hx Substance Use: No Preferred Language: Kyrgyz Communication Ability: Effective Communication Ability Comment: pt currently intubated Visual Impairment: Limited Hearing Ability: Normal Acting Teacher Required: No Beliefs That Will Affect Care: None marital status: Current Living Situation: Spouse current occupational status: retired How many Children do You have: 2 Feels Safe at Home: Yes Childhood Exposure to Second-Hand Smoke: Yes caffeine: No Dental Care, Regularly: Yes Physical Activity Frequency: Other Physical Activity Frequency Comment: Chair exercises Seatbelt Use: always Sunscreen Use: Yes Assistive Devices: Cane and Walker Review of Systems A total of 10 systems reviewed and were otherwise negative Physical Exam Vital Signs Vital Signs - 24 hr 05/11/24 04:03 05/11/24 04:06 05/11/24 04:13 Temperature 37.2 C Temperature Source Temporal Artery Scan Pulse Rate 113 H 107 H 108 H Pulse Rate from SpO2 Sensor Pulse Rhythm Regular Respiratory Rate 35 H 24 Respiratory Effort / Characteristics Non-Labored Respiratory Depth Normal Blood Pressure 101/73 101/73 Blood Pressure Mean 82 82 Pulse Oximetry 92 Oxygen Delivery Method Room Air Oxygen Flow Rate Sepsis Recent Fever Within 48 Hours No Sepsis New/Unexplained Change in Mental Status No Sepsis Action Taken by Nursing Physician Notified 05/11/24 04:42 05/11/24 06:00 05/11/24 06:36 Temperature Temperature Source Pulse Rate 101 H 80 Pulse Rate from SpO2 Sensor 101 H 80 Pulse Rhythm Respiratory Rate 37 H 24 Respiratory Effort / Characteristics Respiratory Depth Blood Pressure 155/92 H 111/63 105/56 L Blood Pressure Mean 113 69 72 Pulse Oximetry 88 L 91 Oxygen Delivery Method Nasal Cannula Oxygen Flow Rate 2 Sepsis Recent Fever Within 48 Hours Sepsis New/Unexplained Change in Mental Status Sepsis Action Taken by Nursing VITALS: Vitals are noted on the nurse's note and reviewed by myself. Vital signs stable. GENERAL: White female who appears ill. HEAD: Normocephalic atraumatic. NECK: Supple without nuchal rigidity. No lymphadenopathy. No thyromegaly. Cervical spine is nontender. HEART: Tachycardic rate with regular rhythm LUNGS: Clear to auscultation bilaterally without wheezes, rales or rhonchi. No retractions or accessory muscle use. ABDOMEN: Positive normal bowel sounds x 4. Soft, nontender, without masses or organomegaly. No guarding or rebound tenderness. MUSCULOSKELETAL: No muscle atrophy, erythema, or edema noted. Full range of motion in all extremities. NEURO: Patient was alert and oriented to person place and time. CN II through XII grossly intact. Course Administered Medications Fentanyl Citrate (Fentanyl Bolus From Bag) 50 mcg IV Q60M PRN PRN Reason: Pain or Agitation Stop: 05/25/24 12:09 Last Admin: 05/11/24 21:01 Dose: 50 mcg Documented By: ELDER Co-signed By: VERNON Admin: 05/11/24 20:01 Dose: 50 mcg Documented By: ELDER Co-signed By: VERNON Admin: 05/11/24 13:50 Dose: 50 mcg Documented By: CARINA Co-signed By: JANUSZ Heparin Sodium (Porcine) (Heparin Sod 5,000 Unit/0.5 Ml Vial) 5,000 units SQ Q12 [facility] Stop: 06/10/24 20:59 Last Admin: 05/11/24 20:52 Dose: 5,000 units Documented By: ELDER Norepinephrine Bitartrate (Levophed/D5w) 4 mg in 250 mls @ 29.79 mls/hr IV .Q8H24M PRINCESS; Protocol Stop: 06/10/24 11:29 Last Admin: 05/11/24 22:21 Dose: Not Given Documented By: Titration: 05/11/24 19:30 Dose: 0.12 mcg/kg/min, 29.8 mls/hr Documented By: LLP Co-signed By: MNM Titration: 05/11/24 19:22 Dose: 0.1 mcg/kg/min, 24.8 mls/hr Documented By: WS Co-signed By: LLP Titration: 05/11/24 19:10 Dose: 0.1 mcg/kg/min, 24.8 mls/hr Documented By: WS Co-signed By: LLP Titration: 05/11/24 19:00 Dose: 0.08 mcg/kg/min, 19.9 mls/hr Documented By: WS Co-signed By: LLP Titration: 05/11/24 18:37 Dose: 0.06 mcg/kg/min, 14.9 mls/hr Documented By: WS Co-signed By: CARINA Admin: 05/11/24 17:41 Dose: 0.08 mcg/kg/min, 19.9 mls/hr Documented By: WS Co-signed By: ES Titration: 05/11/24 17:41 Dose: Infused Documented By: WS Co-signed By: ES Titration: 05/11/24 16:25 Dose: 0.1 mcg/kg/min, 24.8 mls/hr Documented By: CARINA Co-signed By: JANUSZ Titration: 05/11/24 15:45 Dose: 0.12 mcg/kg/min, 29.8 mls/hr Documented By: CARINA Co-signed By: DAA Titration: 05/11/24 15:15 Dose: 0.14 mcg/kg/min, 34.8 mls/hr Documented By: CARINA Co-signed By: DAA Titration: 05/11/24 14:50 Dose: 0.16 mcg/kg/min, 39.7 mls/hr Documented By: CARINA Co-signed By: WS Titration: 05/11/24 13:41 Dose: 0.18 mcg/kg/min, 44.7 mls/hr Documented By: CARINA Co-signed By: WS Titration: 05/11/24 12:00 Dose: 0.2 mcg/kg/min, 49.7 mls/hr Documented By: CARINA Co-signed By: ES Admin: 05/11/24 11:50 Dose: 0.1 mcg/kg/min, 24.8 mls/hr Documented By: SED Co-signed By: [facility] Fentanyl Citrate (Fentanyl Citrate) 2,500 mcg in 250 mls @ 10 mls/hr IV .Q25H PRINCESS; Protocol Stop: 05/25/24 12:14 Last Titration: 05/11/24 21:00 Dose: 100 mcg/hr, 10 mls/hr Documented By: SURAJP Co-signed By: VERNON Titration: 05/11/24 19:22 Dose: 75 mcg/hr, 7.5 mls/hr Documented By: WS Co-signed By: LLP Titration: 05/11/24 18:44 Dose: 75 mcg/hr, 7.5 mls/hr Documented By: WS Co-signed By: LLP Titration: 05/11/24 14:54 Dose: 50 mcg/hr, 5 mls/hr Documented By: CARINA Co-signed By: JANUSZ Admin: 05/11/24 13:32 Dose: 25 mcg/hr, 2.5 mls/hr Documented By: JLM Co-signed By: JANUSZ Vasopressin 20 units/ Sodium (Chloride) 101 mls @ 12.12 mls/hr IV .Q8H20M [facility]INCESS Stop: 06/10/24 12:29 Last Admin: 05/11/24 19:59 Dose: 0.04 unit/min, 12.1 mls/hr Documented By: SURAJP Co-signed By: MNKenisha Infusion: 05/11/24 19:59 Dose: Infused Documented By: ELDER Co-signed By: MNKenisha Infusion: 05/11/24 19:22 Dose: 0.04 unit/min, 12.1 mls/hr Documented By: WS Co-signed By: LLP Admin: 05/11/24 12:30 Dose: 0.04 unit/min, 12.1 mls/hr Documented By: JLM Co-signed By: JAN Epinephrine HCl () 4 mg in 254 mls @ 5.044 mls/hr IV .Q24H PRINCESS; Protocol Stop: 06/10/24 12:44 Last Titration: 05/11/24 19:22 Dose: 0 mcg/kg/min, 0 mls/hr Documented By: WS Co-signed By: LLP Titration: 05/11/24 18:37 Dose: 0 mcg/kg/min, 0 mls/hr Documented By: JANUSZ Co-signed By: CARINA Admin: 05/11/24 12:45 Dose: 0.02 mcg/kg/min, 5 mls/hr Documented By: CARINA Co-signed By: JAN Sodium Chloride (Nss) 1,000 mls @ 80 mls/hr IV .[id number] PRINCESS Stop: 05/12/24 13:29 Last Admin: 05/11/24 13:37 Dose: 80 mls/hr Documented By: CARINA Piperacillin Sod/Tazobactam Sod (Zosyn) 4.5 gm in 100 mls @ 25 mls/hr IV Q8H [facility]; Protocol Stop: 05/18/24 13:29 Last Admin: 05/11/24 20:51 Dose: 25 mls/hr Documented By: Infusion: 05/11/24 19:00 Dose: Infused Documented By: Admin: 05/11/24 14:50 Dose: 25 mls/hr Documented By: CARINA Miscellaneous (Levocabastine 0.05 % Drops,Suspension~Order Awaiting Action) 1 each N/A QS [facility] Stop: 06/10/24 15:59 Last Admin: 05/11/24 16:23 Dose: Not Given Documented By: CARINA Discontinued Medications Diatrizoate Meglumine (Diatrizoate Meglumine 30% 100ml Vial) 0 ml INSTIL ONCE ONE Stop: 05/11/24 09:50 Last Admin: 05/11/24 09:49 Dose: 5 ml Documented By: CHARLES Sodium Chloride (Nss) 500 mls @ 999 mls/hr IV .Q31M ONE Stop: 05/11/24 05:35 Last Infusion: 05/11/24 06:18 Dose: Infused Documented By: Admin: 05/11/24 05:35 Dose: 999 mls/hr Documented By: Piperacillin Sod/Tazobactam Sod (Zosyn) 4.5 gm in 100 mls @ 200 mls/hr IV NOW ONE; Protocol Stop: 05/11/24 06:57 Last Infusion: 05/11/24 13:26 Dose: Infused Documented By: Admin: 05/11/24 06:40 Dose: 200 mls/hr Documented By: Sodium Chloride (Nss) 1,000 mls @ 999 mls/hr IV .Q1H1M ONE Stop: 05/11/24 07:28 Last Infusion: 05/11/24 07:49 Dose: Infused Documented By: Admin: 05/11/24 06:41 Dose: 999 mls/hr Documented By: Sodium Chloride (Nss) 500 mls @ 999 mls/hr IV .Q31M ONE Stop: 05/11/24 07:16 Last Infusion: 05/11/24 13:26 Dose: Infused Documented By: Admin: 05/11/24 08:01 Dose: 999 mls/hr Documented By: Phenylephrine HCl (Phenylephrine/Nss) 25 mg in 250 mls @ 19.86 mls/hr IV .[id number] PRINCESS; Protocol Stop: 06/10/24 10:27 Last Titration: 05/11/24 13:26 Dose: Infused Documented By: CARINA Co-signed By: JANUSZ Admin: 05/11/24 10:56 Dose: 0.8 mcg/kg/min, 31.8 mls/hr Documented By: GOVIND Co-signed By: CLAUDIA Sodium Chloride (Nss) 1,000 mls @ 999 mls/hr IV .Q1H1M PRINCESS Stop: 05/11/24 12:25 Last Admin: 05/11/24 13:25 Dose: Not Given Documented By: CARINA Hydrocortisone Sodium (Succinate 100 mg/ Syringe) 2 mls @ 4 mls/min IV NOW STA Stop: 05/11/24 12:37 Last Admin: 05/11/24 13:22 Dose: 4 mls/min Documented By: CARINA Ioversol (Optiray 320 125ml) 125 ml IV ONCE ONE Stop: 05/11/24 04:41 Last Admin: 05/11/24 04:40 Dose: 118 ml Documented By: MARY KAY Miscellaneous (Icu Protocol For Hyperglycemia) 1 each N/A ACHS PRINCESS Stop: 05/13/24 13:18 Last Admin: 05/11/24 16:39 Dose: 1 each Documented By: Admin: 05/11/24 13:36 Dose: 1 each Documented By: CARINA Ondansetron HCl (Ondansetron Inj 2 Mg/Ml 2 Ml Vial) 4 mg IV NOW STA Stop: 05/11/24 04:37 Last Admin: 05/11/24 04:41 Dose: 4 mg Documented By: Sodium Bicarbonate (Sodium Bicarb 8.4% Inj 50 Meq/50 Ml Syr) Confirm Administered Dose 50 meq IV .STK-MED ONE Stop: 05/11/24 13:48 Last Admin: 05/11/24 13:49 Dose: 50 meq Documented By: CARINA Medical Decision Making Differential Diagnosis Differential diagnosis: Etiologies such as stroke, infection, dehydration, benign positional vertigo, labrynthitis, dehydration, hypovolemia, anemia, tumor, infection, hypoglycemia, electrolyte abnormalities, cardiac sources, toxicological sources, central neurologic process, as well as others were entertained. Laboratory Data 05/11/24 04:08 05/11/24 04:08 Lab Results 05/11/24 05/11/24 05/11/24 Range/Units 04:08 04:13 04:14 WBC 6.77 (4.8-10.8) K/ul RBC 4.78 (4.20-5.40) M/uL Hgb 14.4 (12.0-16.0) g/dl POC Hgb 15.3 (12.0-16.0) g/dl Hct 44.5 (37.0-47.0) % POC Hct 45 (37-47) % MCV 93.1 (80.0-100.0) fL MCH 30.1 (25.0-34.0) pg MCHC 32.4 (32.0-36.0) g/dL RDW Std Deviation 48.3 H (36.4-46.3) fL RDW Coeff of Lizabeth 14.0 (11.5-14.5) % Plt Count 238 (130-400) K/uL MPV 9.5 (9.4-12.4) fL Immature Gran % (Auto) 0.4 % Neut % (Auto) 93.6 % Lymph % (Auto) 5.2 % Otoe % (Auto) 0.7 % Eos % (Auto) 0.0 % Baso % (Auto) 0.1 % Neut # (Auto) 6.33 (1.40-6.50) K/uL Lymph # (Auto) 0.35 L (1.20-3.40) K/uL Otoe # (Auto) 0.05 L (0.11-0.59) K/uL Eos # (Auto) 0.00 (0.00-0.50) K/uL Baso # (Auto) 0.01 (0.00-0.20) K/uL Immature Gran # (Auto) 0.03 (0.01-0.20) K/uL Toxic Vacuolation 1+ RBC Morphology Unremarkable PT 11.0 (9.0-12.0) Seconds INR 1.0 (0.9-1.1) APTT 29 (21-31) Seconds PTT Ratio 1.1 POC Sodium 138 (135-144) mmol/L Sodium 138 (136-145) mmol/L POC Potassium 4.3 (3.3-5.0) mmol/L Potassium 4.4 (3.5-5.1) mmol/L POC Chloride 106 (101-112) mmol/L Chloride 103 (98-107) mmol/L Carbon Dioxide 17 L (21-32) mmol/L POC Total CO2 15 L (24-31) mmol/L Anion Gap 18 H (3-11) POC Anion Gap 22.0 (16-25) mmol/L POC BUN 33 H (7-18) mg/dl BUN 34 H (6-23) mg/dl Creatinine 1.77 H (0.6-1.2) mg/dl POC Creatinine 1.7 H (0.6-1.3) mg/dl Est Cr Clr Drug Dosing 21.7 ml/min eGFR 28.17 BUN/Creatinine Ratio 19.2 (10-20) Glucose 125 H (70-99(Fasting)) mg/dl POC Glucose (other) 122 H (70-99) mg/dl Lactate (0.4-2.0) mmol/L Calcium 10.3 (8.6-10.3) mg/dl POC Ioniz Calcium Anthony 1.20 (1.12-1.32) mmol/l Magnesium 2.1 (1.7-2.4) mg/dl Total Bilirubin 1.1 H (0.2-1.0) mg/dl AST 656 H (13-39) U/L ALT 579 H (7-52) U/L Alkaline Phosphatase 372 H (34-104) U/L Ammonia (18-72) umol/L Troponin I High Sens 36.9 H (0-14) pg/ml Total Protein 8.0 (6.0-8.3) gm/dl Albumin 4.4 (3.4-5.0) gm/dl Globulin 3.6 (2.5-4.0) gm/dl Albumin/Globulin Ratio 1.2 (0.9-2) Lipase 19 (11-82) U/L Procalcitonin 64.60 H (0-0.5) ng/ml Random Cortisol 56.01 mcg/dl Adenovirus (PCR) Not Detected (NotDetected) B. pertussis DNA (PCR) Not Detected (NotDetected) B.parapertussis DNA PCR Not Detected (NotDetected) C. pneumoniae DNA (PCR) Not Detected (NotDetected) Coronavirus OC43 (PCR) Not Detected (NotDetected) Coronavirus HKU1 (PCR) Not Detected (NotDetected) Coronavirus 229E (PCR) Not Detected (NotDetected) SARS-CoV-2 (PCR) Not Detected (NotDetected) Coronavirus NL63 (PCR) Not Detected (NotDetected) Enterobacterales (PCR) (NotDetected) E. coli (PCR) (NotDetected) Monoscreen Negative (Negative) Human Metapneumovir PCR Not Detected (NotDetected) Influenza Type A (PCR) Not Detected (NotDetected) Influenza Type B (PCR) Not Detected (NotDetected) M. pneumoniae (PCR) Not Detected (NotDetected) Parainfluenza 1 (PCR) Not Detected (NotDetected) Parainfluenza 2 (PCR) Not Detected (NotDetected) Parainfluenza 3 (PCR) Not Detected (NotDetected) Parainfluenza 4 (PCR) Not Detected (NotDetected) RSV (PCR) Not Detected (NotDetected) Entero/Rhino (PCR) Not Detected (NotDetected) mcr-1 Colistin Res Gene PCR (NotDetected) blaIMP Car res Gene PCR (NotDetected) KPC-Carbap Res Gene PCR (NotDetected) blaNDM Car Res Gene PCR (NotDetected) OXA-48 Carbapenem Resis Gene (PCR) (NotDetected) blaVIM Car Res Gene PCR (NotDetected) CTX-M Gene Resistance (PCR) (NotDetected) Bld Cult ID Panel PCR (NotDetected) 05/11/24 05/11/24 Range/Units 05:39 06:26 WBC (4.8-10.8) K/ul RBC (4.20-5.40) M/uL Hgb (12.0-16.0) g/dl POC Hgb (12.0-16.0) g/dl Hct (37.0-47.0) % POC Hct (37-47) % MCV (80.0-100.0) fL MCH (25.0-34.0) pg MCHC (32.0-36.0) g/dL RDW Std Deviation (36.4-46.3) fL RDW Coeff of Lizabeth (11.5-14.5) % Plt Count (130-400) K/uL MPV (9.4-12.4) fL Immature Gran % (Auto) % Neut % (Auto) % Lymph % (Auto) % Otoe % (Auto) % Eos % (Auto) % Baso % (Auto) % Neut # (Auto) (1.40-6.50) K/uL Lymph # (Auto) (1.20-3.40) K/uL Otoe # (Auto) (0.11-0.59) K/uL Eos # (Auto) (0.00-0.50) K/uL Baso # (Auto) (0.00-0.20) K/uL Immature Gran # (Auto) (0.01-0.20) K/uL Toxic Vacuolation RBC Morphology PT (9.0-12.0) Seconds INR (0.9-1.1) APTT (21-31) Seconds PTT Ratio POC Sodium (135-144) mmol/L Sodium (136-145) mmol/L POC Potassium (3.3-5.0) mmol/L Potassium (3.5-5.1) mmol/L POC Chloride (101-112) mmol/L Chloride (98-107) mmol/L Carbon Dioxide (21-32) mmol/L POC Total CO2 (24-31) mmol/L Anion Gap (3-11) POC Anion Gap (16-25) mmol/L POC BUN (7-18) mg/dl BUN (6-23) mg/dl Creatinine (0.6-1.2) mg/dl POC Creatinine (0.6-1.3) mg/dl Est Cr Clr Drug Dosing ml/min eGFR BUN/Creatinine Ratio (10-20) Glucose (70-99(Fasting)) mg/dl POC Glucose (other) (70-99) mg/dl Lactate 7.0 H* (0.4-2.0) mmol/L Calcium (8.6-10.3) mg/dl POC Ioniz Calcium Anthony (1.12-1.32) mmol/l Magnesium (1.7-2.4) mg/dl Total Bilirubin (0.2-1.0) mg/dl AST (13-39) U/L ALT (7-52) U/L Alkaline Phosphatase (34-104) U/L Ammonia 27.0 (18-72) umol/L Troponin I High Sens 54.1 H* D (0-14) pg/ml Total Protein (6.0-8.3) gm/dl Albumin (3.4-5.0) gm/dl Globulin (2.5-4.0) gm/dl Albumin/Globulin Ratio (0.9-2) Lipase (11-82) U/L Procalcitonin (0-0.5) ng/ml Random Cortisol mcg/dl Adenovirus (PCR) (NotDetected) B. pertussis DNA (PCR) (NotDetected) B.parapertussis DNA PCR (NotDetected) C. pneumoniae DNA (PCR) (NotDetected) Coronavirus OC43 (PCR) (NotDetected) Coronavirus HKU1 (PCR) (NotDetected) Coronavirus 229E (PCR) (NotDetected) SARS-CoV-2 (PCR) (NotDetected) Coronavirus NL63 (PCR) (NotDetected) Enterobacterales (PCR) DETECTED A (NotDetected) E. coli (PCR) DETECTED A (NotDetected) Monoscreen (Negative) Human Metapneumovir PCR (NotDetected) Influenza Type A (PCR) (NotDetected) Influenza Type B (PCR) (NotDetected) M. pneumoniae (PCR) (NotDetected) Parainfluenza 1 (PCR) (NotDetected) Parainfluenza 2 (PCR) (NotDetected) Parainfluenza 3 (PCR) (NotDetected) Parainfluenza 4 (PCR) (NotDetected) RSV (PCR) (NotDetected) Entero/Rhino (PCR) (NotDetected) mcr-1 Colistin Res Gene PCR Not Detected (NotDetected) blaIMP Car res Gene PCR Not Detected (NotDetected) KPC-Carbap Res Gene PCR Not Detected (NotDetected) blaNDM Car Res Gene PCR Not Detected (NotDetected) OXA-48 Carbapenem Resis Gene (PCR) Not Detected (NotDetected) blaVIM Car Res Gene PCR Not Detected (NotDetected) CTX-M Gene Resistance (PCR) Not Detected (NotDetected) Bld Cult ID Panel PCR See PCR Comment (NotDetected) Imaging Data Radiologist's Impression: Head CT 05/11/24 04:04 EXAM: CT head/brain wo con CLINICAL HISTORY: neuro deficit, acute stroke suspected TECHNIQUE: Multiple axial images are obtained from the skull base to the vertex without contrast. CT scan was performed according to ALARA (as low as reasonable achievable). COMPARISON: None. FINDINGS: There is cerebral atrophy. No evidence of space occupying lesion, hemorrhage, edema, mass effect, midline shift, extra axial collection, or hydrocephalus is noted. Basal cisterns are symmetric and normal in size and configuration. There are scattered periventricular hypodensities as can be seen with chronic microvascular ischemic changes. The wilder-white matter differentiation is preserved. Visualized paranasal sinuses and mastoid air cells are well aerated. Orbital contents are within normal limits. Bony structures are intact. IMPRESSION: 1. No evidence of acute intracranial abnormality is demonstrated. 2. Chronic microvascular ischemic changes. 3. Cerebral atrophy. Electronically signed by Noel Quiroz 05-11-2024 06:16 AM Head CTA 05/11/24 04:04 EXAM: CT angio head w con CLINICAL HISTORY: neuro deficit, acute stroke suspected, 118 ML OPTIRAY 320 TECHNIQUE: Contrast enhanced thin slice CT angiography scan of the cerebral vessels was performed with intravenous contrast. Angiographic images were processed, 3D MIP images were acquired for interpretation. If IV contrast material had not been administered, the likelihood of detecting abnormalities relevant to the patients condition would have been substantially decreased. COMPARISON: None. FINDINGS: Bilateral internal carotid arteries show normal course and caliber. Eccentric and circumferential atherocalcific plaques noted in cavernous portions of bilateral internal carotid arteries, causing mild (30%-40%) luminal narrowing bilaterally. A1, A2 and M1, M2 segments are normal on both sides. Bilateral vertebral arteries unite to form the basilar artery in normal fashion. Basilar artery shows normal course, caliber and opacification. Its division into the posterior cerebral arteries is defined. Bilateral P1 and P2 segments are normal. Visualized venous structures show normal opacification. No evidence of intracranial aneurysm or AV malformation is seen. IMPRESSION: 1. Mild (30-40%) stenosis of ilateral cavernous ICA due to atherocalcific plaques. Electronically signed by Noel Quiroz 05-11-2024 06:08 AM Neck CTA 05/11/24 04:04 EXAM: CT angio neck with con CLINICAL HISTORY: neuro deficit, acute stroke suspected, 118 ML OPTIRAY 320 TECHNIQUE: Contrast enhanced thin slice CT angiography scan of the carotid vessels was performed with intravenous contrast. Angiographic images were processed, 3D MIP images were acquired for interpretation. If IV contrast material had not been administered, the likelihood of detecting abnormalities relevant to the patients condition would have been substantially decreased. COMPARISON: None. FINDINGS: Few atherocalcific plaques noted in aortic arch without significant luminal narrowing. Eccentric atherocalcific plaques noted at bilateral carotid bifurcation and proximal portion of left internal carotid artery, causing mild bilateral internal carotid artery narrowing (30%-40% on left side and 20%-30% on right side). Vertebral arteries are well opacified. Jugular veins are well opacified. Included lung apices are grossly unremarkable. Thyroid gland appears unremarkable. IMPRESSION: 1. Mild bilateral carotid stenosis, more pronounced on left side (30-40%) compared to right side (20-30%). Electronically signed by Noel Quiroz 05-11-2024 06:15 AM MDM Narrative Physical exam and history were performed. Nursing notes, EMR, and Medication List were personally reviewed. No social concerns were identified as barriers to patients care. Patient appears to have nausea, dizziness, garbled speech, and left leg subjective weakness. Last known well was greater than 8 hours ago. Patient states that she has left leg issues, however stroke scale performed and she does have right-sided neglect. IV access was established and labs were obtained. Patient was sent to CT scan for imaging. An order was placed for continuous cardiac monitoring. The monitor shows a rate of 98 with normal sinus rhythm. Patient's blood work is as above and was reviewed. She does not have a significantly elevated white blood cell count or gross anemia. INR is 1.0. Glucose 125. Troponin is slightly elevated at 36.9. Lipase is normal, however patient has a markedly elevated transaminitis. This appears new from February where she had normal labs. Bilirubin is 1.1. BioFire negative. Due to her lab findings additional CT scans of the chest and abdomen/pelvis were performed. Imaging studies were ultimately reviewed by myself and radiology. She does not appear to have acute findings in the head to dictate distinct stroke. CT chest may show a right lower, and CT belly seems to show left-sided perinephric findings. There is no distinct stone identified by radiology. Urine is with blood, esterase, and white cells. Lactic acid is notably elevated at 7. Overall the patient does not appear well, and her underlying etiology is not determined at this time. She was given fluid resuscitation and IV Zosyn. Escalation of care is necessary. Case discussed with my attending. Case was then discussed with the on-call hospitalist team who agreed to evaluate the patient here in the ER. See their dictation for further patient course, plan, disposition. The chart was completed utilizing [employer] Voice Recognition Software. Grammatical errors, random word insertions, pronoun errors, and incomplete sentences are an occasional consequence of this system due to software limitations, ambient noise, and hardware issues. Any formal questions or concerns about the content, text, or information contained within the body of this dictation should be directly addressed to the provider for clarification. Impression & Plan Shock circulatory, Transaminitis, Elevated troponin, Sepsis Discharge Plan Visit Data Chief Complaint: Weakness Stated Complaint: Weakness, Garbled Speech ED Provider: Sana Reed ED Midlevel Provider: Daniel Maciel Discharge Problem: Shock circulatory, Transaminitis, Elevated troponin, Sepsis Patient Disposition: Admitted As Inpatient Discharge Instructions Interventions: ED Discharge Assessment Last Done: 05/11/24 08:48
[2024-05-11] MEDS: PIPERACILLIN/TAZOBACTAM 4.5 GM/100 ML BAG IV ONE (06:40)
[2024-05-11] MEDS: SODIUM CHLORIDE 0.9% 1,000 ML IV ONE (06:41)
--- NOTE | 2024-05-11 06:42 | CT Scan Report ---
EXAM: CT chest diagnostic wo con CLINICAL HISTORY: sob, elevated trop TECHNIQUE: Contiguous axial images were obtained from the neck base through the upper abdomen without contrast. In addition, sagittal and coronal reconstructions were performed to potentially increase the sensitivity for the detection of disease. CT scan was performed according to ALARA (as low as reasonable achievable). COMPARISON: None. FINDINGS: The lungs show few fibrotic bands in right lower lobe and left lung base. Mosaic attenuation pattern is noted in bilateral upper lobes. Eccentric atherocalcific plaques are seen in the aortic arch, without significant luminal narrowing. Coronary artery calcifications are present. No axillary or mediastinal adenopathy is identified. The thyroid is unremarkable. The heart and pulmonary arteries are of normal size and configuration. No pericardial effusion is identified. Imaged portions of the upper abdomen show gross left hydronephrosis with extensive surrounding fat stranding (described in detail in CT abdomen report of the same date). Degenerative changes are noted in the visualized spine. IMPRESSION: 1. Few fibrotic bands in right lower lobe and left lung base with mosaic attenuation in bilateral upper lobes. 2. Gross left hydronephrosis with perinephric fat stranding, as detailed in concurrent CT abdomen. Electronically signed by Noel Quiroz 05-11-2024 06:42 AM
--- NOTE | 2024-05-11 06:48 | CT Scan Report ---
EXAM: CT abd pelvis wo con CLINICAL HISTORY: ELEVATED LFT''S TECHNIQUE: Contiguous axial images were obtained from the level of the diaphragm to the pubic symphysis without intravenous or oral contrast. Coronal and sagittal reformatted images were likewise performed and indicated to increase the sensitivity for detecting clinically relevant pathology. CT scan was performed according to ALARA (as low as reasonable achievable). COMPARISON: None. FINDINGS: The liver is mildly enlarged, measuring up to 17 cm in craniocaudal span. Evaluation of the abdominal and pelvic visceral organs is limited without intravenous contrast. Post-cholecystectomy changes noted with surgical clips in gallbladder fossa. Few left renal calculi noted, with the largest measuring 3 cm (750 HU) in the left renal pelvis extending into proximal ureter, associated with moderate left hydroureteronephrosis and extensive perinephric fat stranding. Multiple small mural outpouchings are noted from the descending and sigmoid colon, without adjacent fluid or fat stranding. Levo convex lumbar scoliosis noted with posterior fixation of lower lumbar vertebrae, with fusion and interconnecting rods in situ. Screws noted in right sacro-iliac joint. Post-hysterectomy changes noted. Bilateral pelvicalyceal system and ureters are opacified with contrast, likely from prior contrast study. Urinary bladder is partly opacified with contrast, with air-fluid level. Few atherocalcific plaques noted in the abdominal aorta. IMPRESSION: 1. Large left renal and ureteric calculus with moderate hydroureteronephrosis and perinephric fat stranding- changes of obstructive nephropathy. 2. Colonic diverticulosis without evidence of acute diverticulitis. 3. Air-fluid level in contrast-opacified urinary bladder, suspicious for infection. 4. Hepatomegaly. Electronically signed by Noel Quiroz 05-11-2024 06:46 AM
--- NOTE | 2024-05-11 07:03 | XRay Report ---
EXAM: XR chest 1V portable CLINICAL HISTORY: SOB NAUSEA JMF. TECHNIQUE: An X-ray image of the chest is obtained in frontal projection. COMPARISON: None. FINDINGS: Pulmonary Parenchyma: Bilateral lower lung lobe patchy opacities concerning pulmonary infection. No evidence of pleural effusion or pleural thickening. Heart and Mediastinum: Heart size is enlarged. Congested hilar vascular shadows. Prominent aortic shadow. Tracheal deviation to the right side. Bony Thorax: The bony thorax appears intact without fractures or deformities. Thoracic spondylotic changes. Soft Tissues: Soft tissues overlying the chest wall are unremarkable. IMPRESSION: 1. Bilateral lower lung lobe patchy opacities concerning pulmonary infection. 2. Cardiomegaly with congested mitzi. Electronically signed by Dilcia Avalos 05-11-2024 07:03 AM
--- NOTE | 2024-05-11 07:04 | Emergency Department Note ---
ED Visit Note I was consulted by the Advanced Practice Provider. I personally made/approved the management plan and take responsibility for the patient management. I performed a substantive portion of the visit. This includes the aspects of: Personally seeing the patient -MDM -I independently interpreted the following studies: Portable chest x-ray which shows no acute pulmonary infiltrates or consolidation .
[2024-05-11 07:11] LABS: Toxic Vacuolation 1+
--- NOTE | 2024-05-11 07:18 | History & Physical Report ---
Date of Service May 11, 2024 Assessment & Plan (1) Sepsis: (2) Transaminitis: (3) Elevated troponin: (4) CKD (chronic kidney disease): Plan 83-year-old female initially presenting with nausea vomiting dizziness, concern for speech and leg issues, who eventually is found out to possibly be septic from a left pyelonephritis. Workup did not reveal any neurological injuries however there appears to be pyelonephritis hydronephrosis and air in her bladder on CT scan accompanied with elevation of lactic acid Sepsis from urinary source, concern with air in bladder, blood and urine cultures, zosyn therapy, consult urology for opinion on stones and hydro given transaminitis without elevation of bili, also elevation of alk phos, may consider further imaging of biliary system. ordered monospot, iron and ceruloplasmin continue ivf for additional liter Patient taken urgently to the operating room ureteral stent was placed marked purulent material came from the kidney. Patient required pressors intraoperatively and was remained intubated she was sent to the intensive care unit with intensive care consultation Elevated troponin in context of illness, suspect demand ischemia, check additional trop, no acute injury on ECG, history of hypertension with bystolic and amlodipine/benazepril. Antihypertensives are held post procedure given her need for pressor support becak on ckd3 also associated with significant illness, follow with volume resuscitation initial symptoms of garbled speech and leg weakness, will consider MRI brain once infectious issues are stable heparin for dvt prevention to start in pm in case urologic procedure History of Present Illness Primary Care Provider: Korina Murphy DO 83-year-old female initially presenting with nausea vomiting dizziness, concern for speech and leg issues, who eventually is found out to possibly be septic from a left pyelonephritis. Workup did not reveal any neurological injuries however there appears to be pyelonephritis hydronephrosis and air in her bladder on CT scan accompanied with elevation of lactic acid, anion gap, and marked transaminitis in the context of previous cholecystectomy in the distant past. Patient volume resuscitated with crystalloid solution had cultures obtained and given Zosyn in the emergency department. With regard to the initial concern for neurological injury she was out of the time window for any thrombolytic therapy and initial CT scan and angiography does not reveal any significant changes. Patient has chronic low back pain from previous spinal surgery Allergies Allergy/AdvReac Type Severity Reaction Status Date / Time gabapentin Allergy Unknown Unknown Verified 05/11/24 09:15 duloxetine [From Cymbalta] AdvReac Intermediate Diarrhea Verified 05/11/24 09:15 tramadol AdvReac Intermediate Nausea, Verified 05/11/24 09:15 headache nabumetone AdvReac Mild Gastrointestinal Verified 05/11/24 09:15 Upset simvastatin AdvReac Mild Mylagia Verified 05/11/24 09:15 ibuprofen AdvReac Unknown CKD Verified 05/11/24 09:15 Home Medications Medication Instructions Recorded Confirmed Type aspirin 81 mg tablet,delayed 81 mg PO HS 03/07/18 05/11/24 History release (Adult Aspirin Regimen) mecobalamin (vitamin B12) 1,000 1,000 mcg sublingual QAM 03/07/18 05/11/24 History mcg disintegrating tablet,sublingual magnesium oxide 400 mg (241.3 mg 400 mg PO HS 01/20/19 05/11/24 History magnesium) tablet cholecalciferol (vitamin D3) 50 2,000 units PO QAM 06/29/19 05/11/24 History mcg (2,000 unit) capsule vitamins A,C,Y-vhrz-cjsljw 2,148 1 tab PO QAM 06/29/19 05/11/24 History mcg-113 mg-45 mg-17.4 mg tablet (PreserVision AREDS) ascorbic acid (vitamin C) 500 mg 500 mg PO QAM 01/29/21 05/11/24 History capsule calcium 500 mg (as 1 tab PO QPM 01/29/21 05/11/24 History carbonate)-vitamin D3 5 mcg (200 unit) tablet (Calcium 500 + D) diclofenac sodium 1 % topical gel 2 g topical BID 01/29/21 05/11/24 History levothyroxine 100 mcg tablet 100 mcg PO DAILY #90 tabs 06/15/23 05/11/24 Rx cyclosporine 0.09 % eye drops in a 1 drp ophthalmic (eye) Q12H 08/12/23 05/11/24 History dropperette (Cequa) levocabastine 0.05 % eye drp ophthalmic (eye) 08/12/23 04/13/24 History drops,suspension omega-3 fatty acids 1,000 mg 1,000 mg PO BID #180 caps 08/12/23 05/11/24 Rx capsule rosuvastatin 10 mg tablet (Crestor) 10 mg PO QAM #90 tabs 09/13/23 05/11/24 Rx nebivolol 10 mg tablet (Bystolic) 15 mg (1.5 x 10 mg) PO QAM #135 10/11/23 05/11/24 Rx tabs amlodipine 10 mg-benazepril 20 mg 1 cap PO DAILY #90 caps 02/14/24 05/11/24 Rx capsule meclizine 25 mg tablet 25 mg PO BID PRN nausea #60 tabs 03/20/24 05/11/24 Rx nystatin-triamcinolone 100,000 1 applic topical BID #60 grams 04/24/24 05/11/24 Rx unit/gram-0.1 % topical ointment Past Med/Surg History Problem List (Updated 05/11/24 @ 18:05 by Xiomara Pascual MD, [facility]) Shock circulatory Calculus of proximal left ureter CKD (chronic kidney disease) Elevated troponin Transaminitis Sepsis 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 (Acute) History of nonmelanoma skin cancer CKD (chronic kidney disease), stage III SI (sacroiliac) joint dysfunction Hypertriglyceridemia (Chronic) Impaired fasting glucose (Chronic) Lichen planus (Acute) Osteopenia after menopause Lumbar radiculopathy Anterolisthesis (Chronic) L5 on S1 Hyperlipidemia (Chronic) Hypertension (Chronic) Hypothyroidism (Chronic) Medical History Encounter for pre-operative examination Leukocytosis Sacroiliitis Lumbar spondylosis Lumbar spinal stenosis Arthritis Osteoporosis screening Chronic back pain Lumbar Macular degeneration Anxiety Surgical History Hx of spinal surgery Fusion History of appendectomy History of colonoscopy History of hysterectomy History of cholecystectomy History of Mohs micrographic surgery for skin cancer 2019 (cheek) History of cataract surgery R/L Status post left foot surgery Four screws in left foot Family History Father Coronary heart disease Myocardial infarction Mother Rheumatoid arthritis Sister End stage renal disease Diabetes Hypertension Coronary heart disease Denies family history of Ovarian cancer Prostate cancer Breast cancer Lung cancer Colorectal cancer Stroke Social History Smoking Status: Unknown if ever smoked Second Hand Exposure: Yes (SPOUSE USED TO SMOKE); Do You Dip or Chew Tobacco: No; Hx Alcohol Use: No Hx Substance Use: No Preferred Language: Amharic Communication Ability: Effective Communication Ability Comment: pt currently intubated Visual Impairment: Limited Hearing Ability: Normal Dump Grader Required: No Beliefs That Will Affect Care: None marital status: Current Living Situation: Spouse current occupational status: retired How many Children do You have: 2 Feels Safe at Home: Yes Childhood Exposure to Second-Hand Smoke: Yes caffeine: No Dental Care, Regularly: Yes Physical Activity Frequency: Other Physical Activity Frequency Comment: Chair exercises Seatbelt Use: always Sunscreen Use: Yes Assistive Devices: Cane and Walker Review of Systems Review of Systems: Moderate distress and fatigue no headache, no visual changes initial change with garbled speech, now resolved and no swallowing issues no chest pain, pressure or palpitations no shortness of breath, cough or wheezes left sided abdominal pain, L back pain and chronic back pain, associated nausea & vomiting, no diarrhea or constipation abnormal urine color no focal joint pain or swelling chronic back pain,L CVA tenderness no focal signs of weakness or numbness or altered sensation no complaints of anxiety or depression.. Physical Exam 2 Physical Exam: The patient appeared well nourished and normally developed. Vital signs as documented. Head exam is normocephalic atraumatic Neck is without JVD, thyromegaly, or carotid bruits. Lungs are clear to auscultation, no focal loss of breath sounds Cardiac exam, Rhythm is regular.. No murmurs, rubs or gallops. Abdominal exam reveals normal bowel sounds, soft L sided tenderness, guarding, no rebound Extremities are nonedematous and both pedal pulses are present Neurologic exam is alert and oriented, no focal loss of strength or sensation no facial asymmetry, no speech changes Skin is without bruises or rashes Psychologically is without concerns for anxiety or depression.. Results & Data Results & Data Vital Signs (Past 12 Hours) Vital Signs Temp Pulse Resp BP Pulse Ox O2 Del Method O2 Flow Rate 05/11/24 06:36 80 24 105/56 L 91 05/11/24 06:00 111/63 05/11/24 04:42 101 H 37 H 155/92 H 88 L Nasal Cannula 2 05/11/24 04:13 108 H 05/11/24 04:06 99.0 F 107 H 24 101/73 92 Room Air 05/11/24 04:03 113 H 35 H 101/73 Laboratory Results Reviewed CBC reviewed chemistry Personally reviewed CAT scan Called and discussed case with urology to expedite possible cystoscopy Code Status & VTE Plan VTE Prophylaxis Plan VTE Prophylaxis will be ordered: Yes PG Care Time/CCT Total # of Minutes Spent Total Time Spent with Patient: Total time spent is greater than 50% in coordination of care (as documented) at patient's floor/unit and/or counseling patient: Coding Level of Care Code 32953 INT INP/OBS CARE 375MIN Diagnoses Sepsis A41.9 Transaminitis R74.01 Elevated troponin R79.89 CKD (chronic kidney disease) N18.9
--- NOTE | 2024-05-11 08:17 | Urology Consultation ---
Date of Consultation May 11, 2024 Assessment & Plan (1) Sepsis: (2) Calculus of proximal left ureter: 83-year-old female presented to the ED today for evaluation of ill feelings, garbled speech and weakness. Workup included CTAP which demonstrated a large obstructing stone within the left renal pelvis with resulting hydronephrosis and perinephric stranding. Urology is consulted for obstructing left ureteral stone and concern for infection/sepsis. Patient is currently afebrile Labs reviewedcreatinine 1.77, no leukocytosis Urinalysis suspicious for infection Urine and blood cultures are pending Continue with broad-spectrum antibiotics and narrow per sensitivity data when available She has been treated with Zosyn in the emergency department CT abdomen pelvis reviewed and discussed with patient and spousediscussed concern with obstructing stone and infection Recommend proceed to OR emergently for cystoscopy and left ureteral stent placement Patient and spouse are agreeable to proceed Proceed to OR today for cystoscopy and left ureteral stent placement Risk and benefits of procedure to be reviewed with patient by Dr. Hooper Discussed stone treatment at a later date after infection has been treated Keep n.p.o. for procedure Continue supportive care, antibiotics and medical management per hospital medicine service History of Present Illness Reason for Consultation: left pyelonephritis, obstructing stone Requesting Physician: Dr. Marx Attending Physician: Zaid Marx MD History of Present Illness This is an 83-year-old female who presented to the emergency department via EMS this morning for evaluation of ill feelings, back pain, nausea, vomiting and concern for garbled speech and weakness. On arrival to ED, she was afebrile, tachycardic with BP 101/73. Labs showed creatinine 1.77, WBC 6.77, hemoglobin 14.4. Respiratory PCR negative. She underwent workup for neuro symptoms with head CT, head CTA and neck CTA without acute findings. Workup also included CT abdomen pelvis. CTAP independently reviewed and demonstrated a few left renal calculi and a large 3 cm obstructing left calculus within the renal pelvis extending into proximal ureter with associated left hydroureteronephrosis and perinephric stranding. Air noted within the urinary bladder. ED course: IV fluids, ondansetron. She has been admitted to the hospital medicine service for sepsis, left pyelonephritis, left obstructing stone. Urology is consulted for left pyelonephritis and obstructing stone. Patient seen and examined in the emergency department. at bedside. Patient reports generalized ill feelings and back pain prior to arrival. Jeff garcia notes she had weakness and garbled speech. She denies dysuria or hematuria. No prior stone history. She has had nothing to eat or drink since yesterday. Denies fever or chills. Allergies Allergy/AdvReac Type Severity Reaction Status Date / Time gabapentin Allergy Unknown Unknown Verified 04/13/24 07:34 duloxetine [From Cymbalta] AdvReac Intermediate Diarrhea Verified 04/13/24 07:34 tramadol AdvReac Intermediate Nausea, Verified 04/13/24 07:34 headache nabumetone AdvReac Mild Gastrointestinal Verified 04/13/24 07:34 Upset simvastatin AdvReac Mild Mylagia Verified 04/13/24 07:34 ibuprofen AdvReac Unknown CKD Verified 04/13/24 07:34 Home Medications Medication Instructions Recorded Confirmed Type aspirin 81 mg tablet,delayed 81 mg PO HS 03/07/18 05/11/24 History release (Adult Aspirin Regimen) mecobalamin (vitamin B12) 1,000 1,000 mcg sublingual QAM 03/07/18 05/11/24 History mcg disintegrating tablet,sublingual magnesium oxide 400 mg (241.3 mg 400 mg PO HS 01/20/19 05/11/24 History magnesium) tablet cholecalciferol (vitamin D3) 50 2,000 units PO QAM 06/29/19 05/11/24 History mcg (2,000 unit) capsule vitamins A,C,A-xltw-gtednd 2,148 1 tab PO QAM 06/29/19 05/11/24 History mcg-113 mg-45 mg-17.4 mg tablet (PreserVision AREDS) ascorbic acid (vitamin C) 500 mg 500 mg PO QAM 01/29/21 05/11/24 History capsule calcium 500 mg (as 1 tab PO QPM 01/29/21 05/11/24 History carbonate)-vitamin D3 5 mcg (200 unit) tablet (Calcium 500 + D) diclofenac sodium 1 % topical gel 2 g topical BID 01/29/21 05/11/24 History levothyroxine 100 mcg tablet 100 mcg PO DAILY #90 tabs 06/15/23 05/11/24 Rx cyclosporine 0.09 % eye drops in a 1 drp ophthalmic (eye) Q12H 04/05/24 01/03/25 History dropperette (Cequa) levocabastine 0.05 % eye drp ophthalmic (eye) 08/12/23 04/13/24 History drops,suspension omega-3 fatty acids 1,000 mg 1,000 mg PO BID #180 caps 08/12/23 05/11/24 Rx capsule rosuvastatin 10 mg tablet (Crestor) 10 mg PO QAM #90 tabs 09/13/23 05/11/24 Rx nebivolol 10 mg tablet (Bystolic) 15 mg (1.5 x 10 mg) PO QAM #135 10/11/23 05/11/24 Rx tabs amlodipine 10 mg-benazepril 20 mg 1 cap PO DAILY #90 caps 02/14/24 05/11/24 Rx capsule meclizine 25 mg tablet 25 mg PO BID PRN nausea #60 tabs 03/20/24 05/11/24 Rx nystatin-triamcinolone 100,000 1 applic topical BID #60 grams 04/24/24 05/11/24 Rx unit/gram-0.1 % topical ointment Patient History Medical History Encounter for pre-operative examination Leukocytosis Sacroiliitis Lumbar spondylosis Lumbar spinal stenosis Arthritis Osteoporosis screening Chronic back pain Lumbar Macular degeneration Anxiety Surgical History Hx of spinal surgery Fusion History of appendectomy History of colonoscopy History of hysterectomy History of cholecystectomy History of Mohs micrographic surgery for skin cancer 2018 (cheek) History of cataract surgery R/L Status post left foot surgery Four screws in left foot Family History Father Coronary heart disease Myocardial infarction Mother Rheumatoid arthritis Sister End stage renal disease Diabetes Hypertension Coronary heart disease Denies family history of Ovarian cancer Prostate cancer Breast cancer Lung cancer Colorectal cancer Stroke Social History Smoking Status: Never smoker Second Hand Exposure: Yes (SPOUSE USED TO SMOKE); Do You Dip or Chew Tobacco: No; Hx Alcohol Use: Yes Alcohol type: wine Alcohol Intake Frequency: 2-3 x/Week Hx Substance Use: No Preferred Language: Khmer Communication Ability: Effective Visual Impairment: Limited Hearing Ability: Normal Broacher Required: No Beliefs That Will Affect Care: None marital status: Current Living Situation: Spouse current occupational status: retired How many Children do You have: 2 Feels Safe at Home: Yes Childhood Exposure to Second-Hand Smoke: Yes caffeine: No Dental Care, Regularly: Yes Physical Activity Frequency: Other Physical Activity Frequency Comment: Chair exercises Seatbelt Use: always Sunscreen Use: Yes Assistive Devices: Cane, Glasses and Walker Review of Systems Review of Systems: All systems reviewed & are unremarkable except as noted in HPI & below Physical Exam Constitutional: well developed, well nourished and + ill appearing; no acute distress Respiratory: normal respiratory effort; no respiratory distress and no labored breathing Gastrointestinal (Abdomen): Inspection/Auscultation: abdomen normal to inspection Musculoskeletal: Head/Neck/Chest: normocephalic Neurologic: moves all extremities and awake Psychiatric: Orientation: alert and oriented x 3 Genitourinary: Urine in hat appears purulent Results & Data Vital Signs (Past 12 Hours) Vital Signs Temp Pulse Resp BP Pulse Ox O2 Del Method O2 Flow Rate 05/11/24 07:30 83 26 H 106/59 L 05/11/24 06:36 80 24 105/56 L 91 05/11/24 06:00 111/63 05/11/24 04:42 101 H 37 H 155/92 H 88 L Nasal Cannula 2 05/11/24 04:13 108 H 05/11/24 04:06 37.2 C 107 H 24 101/73 92 Room Air 05/11/24 04:03 113 H 35 H 101/73 PG Care Time/CCT Total # of Minutes Spent Total Time Spent with Patient: Total time spent is greater than 50% in coordination of care (as documented) at patient's floor/unit and/or counseling patient: Coding Level of Care Code 27752 INT INP/OBS CARE 3/75MIN Diagnoses Sepsis A41.9 Calculus of proximal left ureter N20.1
[2024-05-11] MEDS ORDERED: PROPOFOL IV EMULSION 10 MG/ML 20 ML VIAL IV ONE (08:32)
[2024-05-11] MEDS ORDERED: ONDANSETRON INJ 2 MG/ML 2 ML VIAL ONE (08:32)
[2024-05-11] MEDS ORDERED: LIDOCAINE 2% 2 ML VIAL/AMP(20MG/ML) INFIL ONE (08:32)
[2024-05-11] MEDS ORDERED: fentaNYL citrate PF 100 MCG/2 ML VIAL ONE (08:33)
[2024-05-11 08:55] LABS: Appearance Urine Turbid (Clear); Bacteria Urine Automated 4+ (None Seen); Bilirubin Urine Negative (Negative); Blood Urine 3+ (Negative); Color Urine Orange; Glucose Urine UA Negative (Negative); Ketones Urine Trace (Negative); Leukocyte Esterase Urine 3+ (Negative); Nitrite Urine Negative (Negative); Protein Urine 3+ (Negative); RBC Urine Automated >20 /hpf (0-2); Specific Gravity Urine > 1.045 (1.000-1.030); Urobilinogen Urine Negative (Negative); WBC Urine Automated >50 /hpf (0-5); pH Urine 5.5 (4.5-7.5)
[2024-05-11] MEDS ORDERED: ePHEDrine sulfate 50 MG/ML AMP IV PRN (09:22)
[2024-05-11] MEDS ORDERED: HYDROmorphone INJ 1 MG/ML SYRINGE IV PRN (09:22)
[2024-05-11] MEDS ORDERED: ATROPINE SULFATE 0.1 MG/ML 10ML SYR IV PRN (09:22)
[2024-05-11] MEDS ORDERED: ONDANSETRON INJ 2 MG/ML 2 ML VIAL IV PRN (09:22)
[2024-05-11] MEDS ORDERED: fentaNYL citrate PF 100 MCG/2 ML VIAL IV PRN (09:22)
--- NOTE | 2024-05-11 09:26 | Anesthesiology Consultation ---
Date of Service May 11, 2024 Assessment & Plan Chart Review Chart Review: Acceptable Risk for Surgery Consults Requested none ASA [id number] Proposed Anesthesia Anesthesia Type: MAC (Possible GA) Additional Notes chat note for ref: 83-year-old female initially presenting with nausea vomiting dizziness, concern for speech and leg issues, who eventually is found out to possibly be septic from a left pyelonephritis. Workup did not reveal any neurological injuries however there appears to be pyelonephritis hydronephrosis and air in her bladder on CT scan accompanied with elevation of lactic acid Sepsis from urinary source, concern with air in bladder, blood and urine cultures, zosyn therapy, consult urology for opinion on stones and hydro given transaminitis without elevation of bili, also elevation of alk phos, may consider further imaging of biliary system. ordered monospot, iron and ceruloplasmin continue ivf for additional liter Elevated troponin in context of illness, suspect demand ischemia, check additional trop, no acute injury on ECG, history of hypertension with bystolic and amlodipine/benazepril. 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 also associated with significant illness, follow with volume resuscitation initial symptoms of garbled speech and leg weakness, will consider MRI brain once infectious issues are stable heparin for dvt prevention to start in pm in case urologic procedure History Surgery Operation Date: 05/11/24 10:00 Proposed Procedures p Cystoscopy, Left Ureteral Stent - Torey Hooper MD Height/Weight Height: 5 ft 5 in Weight: 66.2 kg Allergies Allergy/AdvReac Type Severity Reaction Status Date / Time gabapentin Allergy Unknown Unknown Verified 05/11/24 09:15 duloxetine [From Cymbalta] AdvReac Intermediate Diarrhea Verified 05/11/24 09:15 tramadol AdvReac Intermediate Nausea, Verified 05/11/24 09:15 headache nabumetone AdvReac Mild Gastrointestinal Verified 05/11/24 09:15 Upset simvastatin AdvReac Mild Mylagia Verified 05/11/24 09:15 ibuprofen AdvReac Unknown CKD Verified 05/11/24 09:15 Medications Home Medications Medication Instructions Recorded Confirmed Last Taken aspirin 81 mg tablet,delayed 81 mg PO HS 03/07/18 05/11/24 02/19/21 21:00 release (Adult Aspirin Regimen) mecobalamin (vitamin B12) 1,000 1,000 mcg sublingual QAM 03/07/18 05/11/2421 08:00 mcg disintegrating tablet,sublingual magnesium oxide 400 mg (241.3 mg 400 mg PO HS 01/20/19 05/11/24 02/19/21 21:00 magnesium) tablet cholecalciferol (vitamin D3) 50 2,000 units PO QAM 06/29/19 05/11/24 02/17/21 08:00 mcg (2,000 unit) capsule vitamins A,C,M-rfrq-smdrwr 2,148 1 tab PO QAM 06/29/19 05/11/24 02/06/21 08:00 mcg-113 mg-45 mg-17.4 mg tablet (PreserVision AREDS) ascorbic acid (vitamin C) 500 mg 500 mg PO QAM 01/29/21 05/11/24 02/17/21 08:00 capsule calcium 500 mg (as 1 tab PO QPM 01/29/21 05/11/24 02/16/21 20:00 carbonate)-vitamin D3 5 mcg (200 unit) tablet (Calcium 500 + D) diclofenac sodium 1 % topical gel 2 g topical BID 01/29/21 05/11/24 02/13/21 20:00 levothyroxine 100 mcg tablet 100 mcg PO DAILY #90 tabs 06/15/23 05/11/24 Unknown cyclosporine 0.09 % eye drops in a 1 drp ophthalmic (eye) Q12H 08/12/23 05/11/24 Unknown dropperette (Cequa) levocabastine 0.05 % eye drp ophthalmic (eye) 08/12/23 04/13/24 Unknown drops,suspension omega-3 fatty acids 1,000 mg 1,000 mg PO BID #180 caps 08/12/23 05/11/24 Unknown capsule rosuvastatin 10 mg tablet (Crestor) 10 mg PO QAM #90 tabs 09/13/23 05/11/24 Unknown nebivolol 10 mg tablet (Bystolic) 15 mg (1.5 x 10 mg) PO QAM #135 10/11/23 05/11/24 Unknown tabs amlodipine 10 mg-benazepril 20 mg 1 cap PO DAILY #90 caps 02/14/24 05/11/24 Unknown capsule meclizine 25 mg tablet 25 mg PO BID PRN nausea #60 tabs 03/20/24 05/11/24 Unknown nystatin-triamcinolone 100,000 1 applic topical BID #60 grams 04/24/24 05/11/24 Unknown unit/gram-0.1 % topical ointment NPO Date Last Intake of Fluids: 05/10/24 Time Last Intake of Fluids: 19:00 Date Last Intake of Solids: 05/10/23 Time Last Intake of Solids: 19:00 Past Medical History Medical History Encounter for pre-operative examination Leukocytosis Sacroiliitis Lumbar spondylosis Lumbar spinal stenosis Arthritis Osteoporosis screening Chronic back pain Lumbar Macular degeneration Anxiety Exercise / Class Metabolic Activity III < 4 Walking/Shop/Light housework Past Family History Family History Father Coronary heart disease Myocardial infarction Mother Rheumatoid arthritis Sister End stage renal disease Diabetes Hypertension Coronary heart disease Denies family history of Ovarian cancer Prostate cancer Breast cancer Lung cancer Colorectal cancer Stroke Past Surgical History Surgical History Hx of spinal surgery Fusion History of appendectomy History of colonoscopy History of hysterectomy History of cholecystectomy History of Mohs micrographic surgery for skin cancer 2019 (cheek) History of cataract surgery R/L Status post left foot surgery Four screws in left foot Past Anesthesia History Other (vertigo) History of PONV History of PONV Social History Smoking Status: Never smoker Do You Dip or Chew Tobacco: No Hx Alcohol Use: Yes Alcohol type: wine alcohol intake frequency: a few times a week Hx Substance Use: No substance use type: does not use Review of Systems ROS Unobtainable: All systems reviewed & are unremarkable except as noted in HPI & below Physical Exam Vital Signs Last Vital Signs Temp 36.5 C 05/11/24 08:54 Pulse 76 05/11/24 08:54 Resp 20 05/11/24 08:54 BP 104/56 L 05/11/24 08:54 Pulse Ox 90 05/11/24 08:54 O2 Del Method Nasal Cannula 05/11/24 08:54 O2 Flow Rate 3 05/11/24 08:54 Constitutional + lethargic ENMT Mallampati Class: III Neck + short neck Respiratory + tachypneic Cardiovascular Rate/Rhythm: regular rate Testing Laboratory Results 05/11/24 04:08 05/11/24 04:08 PT 11.0 Seconds (9.0-12.0) 05/11/24 04:08 INR 1.0 (0.9-1.1) 05/11/24 04:08 APTT 29 Seconds (21-31) 05/11/24 04:08 Urine Color [place] 05/11/24 08:00 Urine Appearance Turbid (Clear) A 05/11/24 08:00 Urine pH 5.5 (4.5-7.5) 05/11/24 08:00 Ur Specific [place] > 1.045 (1.000-1.030) H 05/11/24 08:00 Urine Protein 3+ (Negative) H 05/11/24 08:00 Urine Glucose (UA) Negative (Negative) 05/11/24 08:00 Urine Ketones Trace (Negative) H 05/11/24 08:00 Urine Nitrite Negative (Negative) 05/11/24 08:00 Ur Leukocyte Esterase 3+ (Negative) H 05/11/24 08:00 Urine WBC (Auto) >50 /hpf (0-5) H 05/11/24 08:00 Urine RBC (Auto) >20 /hpf (0-2) H 05/11/24 08:00 U Hyaline Cast (Auto) 3-5 /lpf (0-2) H 05/11/24 08:00 U Epithel Cells (Auto) 11-20 /hpf (0-2) H 05/11/24 08:00 Urine Bacteria (Auto) 4+ (None Seen) H 05/11/24 08:00 05/11/24 04:14 POC Glucose (other) 122 H Electrocardiogram Findings: + ST @
[2024-05-11] MEDS ORDERED: VASOPRESSIN 20 UNIT/ML VIAL ONE (09:42)
[2024-05-11] MEDS ORDERED: SODIUM CHLORIDE 0.9% PF INJ 10 ML VIAL ONE (09:46)
[2024-05-11] MEDS: DIATRIZOATE MEGLUMINE 30% 100ML VIAL INSTIL ONE (09:49)
--- NOTE | 2024-05-11 09:56 | Operative Report ---
[facility] Post Operative Report Pre & Post Diagnosis Operation Date: 05/11/24 10:00 Pre-Op Diagnosis: Pyelonephritis; obstructing ureteral stone Post-Op Diagnosis: Pyelonephritis; obstructing ureteral stone I identified the patient and participated in the time-out.: Yes Procedure Operation Date: 05/11/24 10:00 Actual Procedures p Cystoscopy, Left retrograde, Left Ureteral Stent(Left) - Torey Hooper MD Surgeon Torey Hooper MD Mobility Scooter Repairer none Estimated Blood Loss 0 Findings Consistent with Post-Op Diagnosis Specimens none Description of Procedure The patient was identified in the preoperative holding area, appropriate informed consents were reviewed and completed and the patient was transferred to the operative suite. Upon arrival, appropriate antibiotics and anesthesia were administered and the patient was placed in dorsal lithotomy position and prepped and draped in sterile fashion. To begin the case we passed a 21 Italian cystoscope with 30 degree lens. She had extremely purulent urine. I washed out the bladder several times before proceeding further. I then performed a full inspection. The. The mucosa is consistent with active infection. I was able to identify the ureteral orifices and I cannulated the left UO with a sensor wire. The wire advanced the kidney. Her stone was not extremely visible but there did appear to be some delayed contrast excretion from the left kidney which outlined the border of the kidney. I confirmed this by advancing a 5 Italian open-ended catheter into the kidney and administering a small amount of contrast. I then placed a 6 Italian by 24 cm double-J stent seeing a good curl in the renal pelvis as well as the bladder. There was purulent urine draining through the stent. I attest to the content of the Intraoperative Record and any orders documented therein. Any exceptions are noted below.
[2024-05-11] MEDS ORDERED: PHENYLEPHRINE HCL 10 MG/ML VIAL ONE (09:58)
[2024-05-11] MEDS ORDERED: SUCCINYLCHOLINE 100MG/5ML SYR IV ONE (10:13)
[2024-05-11] MEDS ORDERED: STAT IV Infusion **Titration per Protocol STA ×6 (10:28→12:37)
[2024-05-11] MEDS: PHENYLEPHRINE/NSS 25 MG/250 ML BAG IV SCH (10:56)
--- NOTE | 2024-05-11 10:57 | Fluoroscopy Report ---
FL KUB CLINICAL HISTORY: LEFT STENT PLACEMENT TECHNIQUE: 1 views were obtained with the C-arm in the OR with the above procedure. Total fluoroscopy time was 11.9 seconds. Radiation dose was 2.65 mGy. Comparison: Comparison is made to CT abdomen pelvis 05/11/2024 FINDINGS/IMPRESSION: Intraoperative images were obtained of left retrograde pyelogram and stent place ment. In the final images, the stent is in satisfactory position. Please correlate with intraoperative fluoroscopy and operative report. ACT 112: Negative or not required by law. Electronically signed by: Claus Lindsey M.D. 05/11/2024 10:56 AM
[2024-05-11] MEDS: NOREPINEPHRINE/D5W 4 MG/250 ML PLCT IV SCH (11:50)
--- NOTE | 2024-05-11 12:07 | Critical Care Consultation ---
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 Patient was found to have bilateral nephritis with hydronephrosis on the left, she was taken to the OR. Needed to be intubated in the OR Past medical history: Hypothyroidism, vertigo, dyslipidemia, hypertension CT chest 05/11/2024 personally reviewed:Motion degraded study Bilateral apical pleural scarring Minimal mosaicism appreciated in the upper lobes Patchy opacities appreciated in the right lower lobe subpleural No significant mediastinal lymphadenopathy Neuro - [facility] ICU: Unable to assess Cardiac - -- Shock Likely septic from left-sided pyelonephritis Continue vasopressor support to keep MAP greater than 65 --Elevated troponin Likely secondary to type II NV Continue to trend EKG 05/11/2024 4: 12 AM: Motion artifact, sinus tachycardia, no clear ST-T wave changes appreciated Respiratory - -- VDRF Intubated for hypoxia and hypotension in the OR Continue with ventilatory support Keep RASS -1 Daily sedation holidays and SBT's GI - --Transaminitis Likely from shock Continue to trend RENAL/LYTES - -- NIKOS [place] secondary to septic shock with hypotension Follow-up urine lites Monitor BUN/creatinine Avoid nephrotoxic medications Strict ins and outs -- HAGMA Delta-delta: Less than 1 Likely sec to gap plus nongap Gap is most likely coming from lactic acidosis, nongap could be from NIKOS Monitor - -- Left-sided hydronephrosis S/p stent placed 05/11/2024 ENDO - -- ICU hypoglycemia protocol HEME - -- No acute issues Monitor H&H ID - -- Septic shock from left-sided pyonephritis Follow-up culture Continue with antibiotics --Prophylaxis VTE: Heparin GI: None Lines: Right IJ, left radial Diet: N.p.o. Plan: Strict in and out Continue vasopressor support to keep MAP greater than 65 Follow-up random cortisol, if low then start the patient on hydrocortisone Follow-up blood culture I have personally spent 66 minutes of critical care time in the direct management of this patient. This is a life/limb threatening event. This includes time spent evaluating patient, direct bedside care, chart review, placing orders, interpretation of diagnostic studies, discussion with consultants, patient, and family members, as well as other required patient management activities. This time is exclusive of all separately billable procedures, and teaching time and separate from and in addition to any other critical care service time. History of Present Illness Attending Physician: Zaid Marx MD History of Present Illness 83-year-old female was admitted to the hospital for nausea and vomiting Past medical history: Hypothyroidism, vertigo, dyslipidemia, hypertension Patient was found to have bilateral nephritis with hydronephrosis on the left, she was taken to the OR In the OR patient was found to be hypotensive and hypoxic Brief signout was given by anesthesiologist Patient was hypoxic in the 80s and blood pressure was on the lower side for which she was intubated, 2 L of fluid was given in the OR She got Zosyn in the ED She needed phenylephrine all throughout the procedure At the time of examination patient was on 1.6 of phenylephrine, MAP was 65-66. She was intubated on 100% FiO2, PEEP of 5. Respirate was 26 Has been afebrile. Tmax 37.2 History was obtained from previous chart and signout from anesthesiologist. Allergies Allergy/AdvReac Type Severity Reaction Status Date / Time gabapentin Allergy Unknown Unknown Verified 05/11/24 09:15 duloxetine [From Cymbalta] AdvReac Intermediate Diarrhea Verified 05/11/24 09:15 tramadol AdvReac Intermediate Nausea, Verified 05/11/24 09:15 headache nabumetone AdvReac Mild Gastrointestinal Verified 05/11/24 09:15 Upset simvastatin AdvReac Mild Mylagia Verified 05/11/24 09:15 ibuprofen AdvReac Unknown CKD Verified 05/11/24 09:15 Home Medications Medication Instructions Recorded Confirmed Type aspirin 81 mg tablet,delayed 81 mg PO HS 03/07/18 05/11/24 History release (Adult Aspirin Regimen) mecobalamin (vitamin B12) 1,000 1,000 mcg sublingual QAM 03/07/18 05/11/24 History mcg disintegrating tablet,sublingual magnesium oxide 400 mg (241.3 mg 400 mg PO HS 01/20/19 05/11/24 History magnesium) tablet cholecalciferol (vitamin D3) 50 2,000 units PO QAM 06/29/19 05/11/24 History mcg (2,000 unit) capsule vitamins A,C,G-nvsk-qoxzzr 2,148 1 tab PO QAM 06/29/19 05/11/24 History mcg-113 mg-45 mg-17.4 mg tablet (PreserVision AREDS) ascorbic acid (vitamin C) 500 mg 500 mg PO QAM 01/29/21 05/11/24 History capsule calcium 500 mg (as 1 tab PO QPM 01/29/21 05/11/24 History carbonate)-vitamin D3 5 mcg (200 unit) tablet (Calcium 500 + D) diclofenac sodium 1 % topical gel 2 g topical BID 01/29/21 05/11/24 History levothyroxine 100 mcg tablet 100 mcg PO DAILY #90 tabs 06/15/23 05/11/24 Rx cyclosporine 0.09 % eye drops in a 1 drp ophthalmic (eye) Q12H 08/12/23 05/11/24 History dropperette (Cequa) levocabastine 0.05 % eye drp ophthalmic (eye) 08/12/23 04/13/24 History drops,suspension omega-3 fatty acids 1,000 mg 1,000 mg PO BID #180 caps 08/12/23 05/11/24 Rx capsule rosuvastatin 10 mg tablet (Crestor) 10 mg PO QAM #90 tabs 09/13/23 05/11/24 Rx nebivolol 10 mg tablet (Bystolic) 15 mg (1.5 x 10 mg) PO QAM #135 10/11/23 05/11/24 Rx tabs amlodipine 10 mg-benazepril 20 mg 1 cap PO DAILY #90 caps 02/14/24 05/11/24 Rx capsule meclizine 25 mg tablet 25 mg PO BID PRN nausea #60 tabs 03/20/24 05/11/24 Rx nystatin-triamcinolone 100,000 1 applic topical BID #60 grams 04/24/24 05/11/24 Rx unit/gram-0.1 % topical ointment Patient History Medical History Encounter for pre-operative examination Leukocytosis Sacroiliitis Lumbar spondylosis Lumbar spinal stenosis Arthritis Osteoporosis screening Chronic back pain Lumbar Macular degeneration Anxiety Surgical History Hx of spinal surgery Fusion History of appendectomy History of colonoscopy History of hysterectomy History of cholecystectomy History of Mohs micrographic surgery for skin cancer 2019 (cheek) History of cataract surgery R/L Status post left foot surgery Four screws in left foot Family History Father Coronary heart disease Myocardial infarction Mother Rheumatoid arthritis Sister End stage renal disease Diabetes Hypertension Coronary heart disease Denies family history of Ovarian cancer Prostate cancer Breast cancer Lung cancer Colorectal cancer Stroke Social History Smoking Status: Unknown if ever smoked Second Hand Exposure: Yes (SPOUSE USED TO SMOKE); Do You Dip or Chew Tobacco: No; Hx Alcohol Use: No Hx Substance Use: No Preferred Language: Serbian Communication Ability: Effective Communication Ability Comment: pt currently intubated Visual Impairment: Limited Hearing Ability: Normal Rental Sales Representative Required: No Beliefs That Will Affect Care: None marital status: Current Living Situation: Spouse current occupational status: retired How many Children do You have: 2 Other Information That Helps Us Care for You: No Feels Safe at Home: Yes Safety Concerns: Feels Safe At This Time Childhood Exposure to Second-Hand Smoke: Yes caffeine: No Dental Care, Regularly: Yes Physical Activity Frequency: Other Physical Activity Frequency Comment: Chair exercises Seatbelt Use: always Sunscreen Use: Yes Assistive Devices: Cane and Walker Review of Systems 2 Review of Systems: Unobtainable due to endotracheal tube Physical Exam 2 Physical Exam: Constitutional: No acute distress HEENT: PERRLA, positive ETT Respiratory system: Decreased air entry bilaterally, no wheeze, no cough, mild crackles bilateral lower lobe CVS: S1-S2 positive, no murmurs or gallops Abdomen: Soft, nontender, nondistended, positive bowel sounds x4 Extremities: +2 pulses bilaterally radialis/ dorsalis pedis, no cyanosis, no edema Neuro: Intubated and sedated Psych: Unable to assess G/U: No Flynn Results & Data Results & Data Vital Signs (Past 12 Hours) Vital Signs Temp Pulse Pulse Resp BP BP Pulse Ox 05/11/24 11:30 25 H 92/45 L 91 05/11/24 11:20 66 26 H 81/47 L 94 05/11/24 11:10 64 24 77/45 L 94 05/11/24 11:00 61 25 H 81/44 L 93 05/11/24 10:50 64 24 91/51 L 92 05/11/24 10:46 56 L 22 94 05/11/24 10:40 66 21 97/76 L 94 05/11/24 10:30 61 19 98/52 L 91 05/11/24 10:21 36 C L 55 L 14 89/47 L 90 05/11/24 08:54 36.5 C 76 32 H 104/56 L 90 05/11/24 08:48 05/11/24 08:36 74 30 H 89 L 05/11/24 08:30 101/62 05/11/24 08:06 79 26 H 107/54 L 91 05/11/24 07:30 83 26 H 106/59 L 05/11/24 06:36 80 24 105/56 L 91 05/11/24 06:00 111/63 05/11/24 04:42 101 H 37 H 155/92 H 88 L 05/11/24 04:13 108 H 05/11/24 04:06 37.2 C 107 H 24 101/73 92 05/11/24 04:03 113 H 35 H 101/73 O2 Del Method O2 Flow Rate FiO2 05/11/24 11:30 Mechanical Vent 100 05/11/24 11:20 Mechanical Vent 100 05/11/24 11:10 Mechanical Vent 100 05/11/24 11:00 Mechanical Vent 100 05/11/24 10:50 Mechanical Vent 100 05/11/24 10:46 100 05/11/24 10:40 Mechanical Vent 100 05/11/24 10:30 Mechanical Vent 100 05/11/24 10:21 Mechanical Vent 100 05/11/24 08:54 Nasal Cannula 3 05/11/24 08:48 Nasal Cannula 3 05/11/24 08:36 05/11/24 08:30 05/11/24 08:06 05/11/24 07:30 05/11/24 06:36 05/11/24 06:00 05/11/24 04:42 Nasal Cannula 2 05/11/24 04:13 05/11/24 04:06 Room Air 05/11/24 04:03 Laboratory Results 05/11/24 04:08 05/11/24 04:08 Coding Level of Care Code 33675 CRITICAL CARE 1ST 30-74M Diagnoses Shock circulatory R57.9 Calculus of proximal left ureter N20.1 CKD (chronic kidney disease) N18.9 Transaminitis R74.01 Elevated troponin R79.89 Sepsis A41.9 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
--- NOTE | 2024-05-11 12:09 | Anesthesiology Progress Note ---
Date of Service May 11, 2024 Anesthesia Post Procedure Vital Signs Vital Signs: Temp Pulse Pulse Resp BP BP Pulse Ox 05/11/24 11:30 25 H 92/45 L 91 05/11/24 11:20 66 26 H 81/47 L 94 05/11/24 11:10 64 24 77/45 L 94 05/11/24 11:00 61 25 H 81/44 L 93 05/11/24 10:50 64 24 91/51 L 92 05/11/24 10:46 56 L 22 94 05/11/24 10:40 66 21 97/76 L 94 05/11/24 10:30 61 19 98/52 L 91 05/11/24 10:21 36 C L 55 L 14 89/47 L 90 05/11/24 08:54 36.5 C 76 32 H 104/56 L 90 05/11/24 08:48 05/11/24 08:36 74 30 H 89 L 05/11/24 08:30 101/62 05/11/24 08:06 79 26 H 107/54 L 91 05/11/24 07:30 83 26 H 106/59 L 05/11/24 06:36 80 24 105/56 L 91 05/11/24 06:00 111/63 05/11/24 04:42 101 H 37 H 155/92 H 88 L 05/11/24 04:13 108 H 05/11/24 04:06 37.2 C 107 H 24 101/73 92 05/11/24 04:03 113 H 35 H 101/73 O2 Del Method O2 Flow Rate FiO2 05/11/24 11:30 Mechanical Vent 100 05/11/24 11:20 Mechanical Vent 100 05/11/24 11:10 Mechanical Vent 100 05/11/24 11:00 Mechanical Vent 100 05/11/24 10:50 Mechanical Vent 100 05/11/24 10:46 100 05/11/24 10:40 Mechanical Vent 100 05/11/24 10:30 Mechanical Vent 100 05/11/24 10:21 Mechanical Vent 100 05/11/24 08:54 Nasal Cannula 3 05/11/24 08:48 Nasal Cannula 3 05/11/24 08:36 05/11/24 08:30 05/11/24 08:06 05/11/24 07:30 05/11/24 06:36 05/11/24 06:00 05/11/24 04:42 Nasal Cannula 2 05/11/24 04:13 05/11/24 04:06 Room Air 05/11/24 04:03 Transfer of Care Handoff Completed per policy Notes Mental Status: see notes below (Remains intubated post procedure 2nd to septic picture and low sats ) Patient Amnestic to Procedure: Yes BP & HR: stable & adequate (Now stabilized on levo gtt) Hydration State: stable & adequate Anesthetic Complications: no major complications apparent Notes: D/w ICU MD, to ICU for continued care 2nd to urosepsis, d/w surgeon as well
[2024-05-11] MEDS ORDERED: NOREPINEPHRINE/D5W 4 MG/250 ML PLCT IV SCH (12:15)
[2024-05-11] MEDS: VASOPRESSIN 20 UNITS in SODIUM CHLORIDE 0.9% 100 ML IV SCH (12:30)
[2024-05-11] MEDS: EPINEPHrine/NSS 4 MG/254 ML BAG IV SCH (12:45)
--- NOTE | 2024-05-11 13:03 | Procedure Note ---
Procedure Note Date of Service May 11, 2024 Procedure: Inserting ultrasound-guided right IJ central cupola liner helper: Dr. Xiomara Pascual Indication: Hypotension Consent: Emergent consent was applied Anesthesia: 1% lidocaine without epinephrine local. Procedure: Consent was verified and timeout performed. Appropriate imaging studies were reviewed prior to the procedure. Under aseptic and sterile condition, right IJ vein was accessed under direct ultrasound guidance. Guidewire was confirmed to be within the lumen of vein with the help of ultrasound. Catheter was introduced via Seldinger technique. Guide a wire was removed. Good non-pulsatile blood flow was appreciated from all the ports. The catheter was placed at 16 cm and sutured in place. BioPatch was applied to the catheter and a sterile Tegaderm dressing was applied over the catheter with careful attention to sterility. Lung sliding was appreciated post procedure with the help ultrasound. Chest x-ray to follow Patient tolerated the procedure well. Blood loss: Less than 1 cc Complications: None [facility] Procedure Codes (Charges) Tubes, Drains, and Vasc Access Procedure 1: Tubes, Drains, and Vasc Access: [id number] Place catheter in vein superior or inferior vena cava Procedure 2: Tubes, Drains, and Vasc Access: [id number] Ultrasound Guidance For Vascular Coding CPT Codes Tubes, Drains, and Vasc Access - Tubes, Drains, and Vasc Access: [id number] Place catheter in vein superior or inferior vena cava ([id number]) Tubes, Drains, and Vasc Access - Tubes, Drains, and Vasc Access: [id number] Ultrasound Guidance For Vascular ([id number]) Additional Codes Date of Service ([facility].SURGERY)
[2024-05-11 13:21] LABS: iSTAT Allen Test Pass; iSTAT Art Bld Gas pCO2 Correct 32 mmHg (35-46); iSTAT Arterial Blood Gas HCO3 15 meg/L (19-24); iSTAT Arterial Blood Gas pCO2 31 mmHg (35-46); iSTAT Arterial Blood Gas pH 7.27 (7.35-7.45); iSTAT Arterial Blood Gas pO2 118 mmHg (80-95); iSTAT Arterial Blood Gas pO2 C 119; iSTAT Carbon Dioxide 15 mmol/L (24-31); iSTAT FiO2 100 %; iSTAT Hematocrit 32 % (37-47); iSTAT Hemoglobin 10.9 g/dl (12.0-16.0); iSTAT Sample Type Arterial; iSTAT Site R Radial; iSTAT Sodium 138 mmol/L (135-144); iSTAT SpO2 100
[2024-05-11] MEDS: HYDROCORTISONE SOD 100 MG in SYRINGE 0 ML IV STA (13:22)
[2024-05-11] MEDS: SODIUM CHLORIDE 0.9% 1,000 ML IV SCH ×2 (13:25→13:37)
[2024-05-11] MEDS ORDERED: ARTIFICIAL TEARS OP PRN (13:27)
[2024-05-11] MEDS: fentaNYL citrate 2,500 MCG/250 ML BAG IV SCH (13:32)
--- NOTE | 2024-05-11 13:32 | XRay Report ---
XR chest 1V portable CLINICAL HISTORY: right IJ central line placement TECHNIQUE: Single frontal radiograph of the chest was obtained. Comparison: Comparison is made to chest radiograph on 05/11/2024 FINDINGS: Right IJ catheter terminates in the lower SVC. Endotracheal tube terminates 5.7 cm from the quin. C ardiomegaly is noted. The aortic arch is calcified. Right midlung airspace opacities have increased f rom prior exam. Pulmonary vascular prominence is seen. No evidence of pleural effusion or pneumothora x. IMPRESSION: 1. IJ catheter is in satisfactory position terminating in the lower SVC. 2. Cardiomegaly and mild pulmonary edema. 3. Increase in right midlung airspace opacities This may represent atelectasis, pneumonia, and/or as piration. ACT 112: Negative or not required by law. Electronically signed by: Claus Lindsey M.D. 05/11/2024 1:30 PM
[2024-05-11] MEDS: ICU Protocol for HYPERglycemia SCH (13:36)
[2024-05-11] MEDS: SODIUM BICARB 8.4% INJ 50 MEQ/50 ML SYR IV ONE (13:49)
[2024-05-11] MEDS: fentaNYL BOLUS from BAG IV PRN (13:50)
[2024-05-11 14:06] LABS: Appearance Urine Cloudy (Clear); Bacteria Urine Automated 1+ (None Seen); Bilirubin Urine Negative (Negative); Blood Urine 3+ (Negative); Color Urine Yellow; Epithelial Cell Urine Auto 0-2 /hpf (0-2); Glucose Urine UA Negative (Negative); Ketones Urine Negative (Negative); Leukocyte Esterase Urine 3+ (Negative); Nitrite Urine Negative (Negative); Protein Urine 2+ (Negative); RBC Urine Automated >20 /hpf (0-2); Specific Gravity Urine 1.027 (1.000-1.030); Urobilinogen Urine Negative (Negative); WBC Urine Automated >50 /hpf (0-5); pH Urine 6.5 (4.5-7.5)
[2024-05-11 14:17] LABS: Creatinine Urine Random 39.2 mg/dl; Potassium Random Urine 33.3 mmol/L
[2024-05-11] MEDS: PIPERACILLIN/TAZOBACTAM 4.5 GM/100 ML BAG IV SCH (14:50)
--- NOTE | 2024-05-11 14:54 | Electrocardiogram Report ---
Test Reason : Blood Pressure : */* mmHG Vent. Rate : 111 BPM Atrial Rate : 111 BPM P-R Int : 136 ms QRS Dur : 76 ms QT Int : 374 ms P-R-T Axes : 42 0 38 degrees QTcB Int : 508 ms Poor data quality, interpretation may be adversely affected Sinus tachycardia Otherwise normal ECG When compared with ECG of 06-Feb-2021 12:08, Vent. rate has increased by 49 bpm Confirmed by Efren Lopez ([id number]) on 05/11/2024 2:54:12 PM Referred By: REFERRED SELF Confirmed By: Efren Lopez
[2024-05-11 15:24] LABS: Ferritin 348.5 ng/ml (8-388)
[2024-05-11 15:36] LABS: Hep B Surface Ag with confirm Negative (Negative)
[2024-05-11 15:41] LABS: Hep C Ab Rflx HepCQuant RNA Negative (Negative)
--- NOTE | 2024-05-11 16:22 | Procedure Note ---
Procedure Note Date of Service May 11, 2024 ARTERIAL LINE PROCEDURE NOTE: Procedure: Arterial Line Placement Attending: Dr. Xiomara Pascual MD Indication: Monitoring on Pressors Anesthesia: Patient was on generalized anesthesia with fentanyl Emergent consent was applied A time-out was completed verifying correct patient, procedure, site, positioning, and implant(s) or special equipment if applicable. Allens test was performed to ensure adequate perfusion. Patients left wrist was prepped and draped in the usual sterile fashion. Ultrasound guidance was used to aid needle placement. A 20g Arrow arterial line was introduced into the left radial artery. Catheter was threaded, and the needle was removed with appropriate pulsatile blood return. Good waveform was observed on the monitor. The patient tolerated the procedure well. Complications: None Blood Loss: Less than 1 cc [facility] Procedure Codes (Charges) Tubes, Drains, and Vasc Access Procedure 1: Tubes, Drains, and Vasc Access: [id number] Place catheter in vein superior or inferior vena cava Procedure 2: Tubes, Drains, and Vasc Access: [id number] Ultrasound Guidance For Vascular Coding CPT Codes Tubes, Drains, and Vasc Access - Tubes, Drains, and Vasc Access: [id number] Place catheter in vein superior or inferior vena cava ([id number]) Tubes, Drains, and Vasc Access - Tubes, Drains, and Vasc Access: [id number] Ultrasound Guidance For Vascular ([id number]) Additional Codes Date of Service ([facility].SURGERY)
[2024-05-11] MEDS ORDERED: Nursing to Pharmacy Communication SCH (19:45)
[2024-05-11 20:25] LABS: A calco-baum cmplx NotReported Not Detected (NotDetected); Bact fragilis Not Reported Not Detected (NotDetected); Blood Culture Id Panel See PCR Comment (NotDetected); C auris Not Reported Not Detected (NotDetected); CTX-M Resistant Gene Not Detected (NotDetected); Calbicans Not Reported Not Detected (NotDetected); Candida glabrata Not Reported Not Detected (NotDetected); Candida krusei Not Reported Not Detected (NotDetected); Cneoformans/gatti Not Reported Not Detected (NotDetected); Cparapsilosis Not Reported Not Detected (NotDetected); E cloacae compx Not Reported Not Detected (NotDetected); Efaecalis Not Reported Not Detected (NotDetected); Efaecium Not Reported Not Detected (NotDetected); Enterobacterales DETECTED (NotDetected); Enterobacterales Not Reported DETECTED (NotDetected); Escherichia coli Not Reported DETECTED (NotDetected); H influenzae Not Reported Not Detected (NotDetected); IMP Resistant Gene Not Detected (NotDetected); K aerogenes Not Reported Not Detected (NotDetected); KPC Resistant Gene Not Detected (NotDetected); Koxytoca Not Reported Not Detected (NotDetected); Kpneumoniae grp Not Reported Not Detected (NotDetected); Lmonocyt Not Reported Not Detected (NotDetected); N meningitidis Not Reported Not Detected (NotDetected); NDM Resistant Gene Not Detected (NotDetected); OXA 48 Like Resistant Gene Not Detected (NotDetected); P aeruginosa Not Reported Not Detected (NotDetected); Proteus spp Not Reported Not Detected (NotDetected); Salmonella spp Not Reported Not Detected (NotDetected); Staph lugdunensis Not Reported Not Detected (NotDetected); Staph spp. Not Reported Not Detected (NotDetected); Staphaureus Not Reported Not Detected (NotDetected); Staphepi Not Reported Not Detected (NotDetected); Stenmaltophilia Not Reported Not Detected (NotDetected); Strep agal(GrpB) Not Reported Not Detected (NotDetected); Strep pneum Not Reported Not Detected (NotDetected); Strep pyog (GrpA) Not Reported Not Detected (NotDetected); Strep spp Not Reported Not Detected (NotDetected); VIM Resistant Gene Not Detected (NotDetected); mcr-1 Colistin Resistant Gene Not Detected (NotDetected)
[2024-05-11] MEDS: HEPARIN SOD 5,000 UNIT/0.5 ML VIAL SQ SCH (20:52)
[2024-05-12] MEDS: ICU Protocol for HYPERglycemia SCH (00:21)
[2024-05-12] MEDS: LEVOTHYROXINE SODIUM 100 MCG TABLET PO SCH (05:09)
[2024-05-12 05:23] LABS: Albumin Globulin Ratio 1.1 (0.9-2); Albumin Level 3.2 gm/dl (3.4-5.0); Bilirubin,Total 0.8 mg/dl (0.2-1.0); Calcium 7.9 mg/dl (8.6-10.3); Creatinine Clr Calc Pharmacy 29.5 ml/min; Globulin 2.9 gm/dl (2.5-4.0); Magnesium 2.2 mg/dl (1.7-2.4); Potassium 3.9 mmol/L (3.5-5.1); Total Protein 6.1 gm/dl (6.0-8.3)
[2024-05-12 05:45] LABS: Hematocrit (blood only) 36.5 % (37.0-47.0); Hemoglobin 12.2 g/dl (12.0-16.0); Mean Corpuscular Hemoglobin 30.3 pg (25.0-34.0); Mean Corpuscular Hgb Conc 33.4 g/dL (32.0-36.0); Mean Corpuscular Volume 90.8 fL (80.0-100.0); Mean Platelet Volume 10.9 fL (9.4-12.4); Platelet Count 154 K/uL (130-400); Red Blood Count 4.02 M/uL (4.20-5.40); White Blood Count 30.44 K/ul (4.8-10.8)
--- NOTE | 2024-05-12 07:24 | Hospitalist Progress Note ---
Date of Service May 12, 2024 Assessment & Plan (1) Sepsis: (2) Transaminitis: (3) Elevated troponin: (4) CKD (chronic kidney disease): Plan 83-year-old female initially presenting with nausea vomiting dizziness, concern for speech and leg issues, septic from a left pyelonephritis. Workup did not reveal any neurological injuries however pyelonephritis & hydronephrosis sepsis with elevation of lactic acid, Taken to OR for ureteral stenting, decompensated in OR, remains in icu, now extubated Sepsis from urinary source, blood cultures showing e coli (previously ruvalcaba sensitive) , pending sensitivities, zosyn therapy, urology and intensive care is managing Patient taken urgently to the operating room ureteral stent was placed marked purulent material came from the kidney. Remains on pressors, transaminitis is improving, renal function stable Elevated troponin in context of illness, suspect demand ischemia, check additional trop, no acute injury on ECG, history of hypertension with bystolic and amlodipine/benazepril. Antihypertensives are held post procedure given her need for pressor support, will have prn available 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 also associated with significant illness, follow with volume resuscitation initial symptoms of garbled speech and leg weakness heparin for dvt prevention Admission and Anticipated Discharge Date Admission Date: May 11, 2024 Subjective pt was near end of weaning trail, extubation expected is at bedside and updated Physical Exam Physical Exam: pt is awake and alert lungs are coarse and clear abd is soft and non tender ext are clear Results & Data Results & Data Vital Signs (Past 12 Hours) Vital Signs Temp Pulse Resp BP Pulse Ox O2 Del Method FiO2 05/12/24 06:03 99.9 F H 64 24 95 05/12/24 06:00 92/61 L 05/12/24 06:00 92/61 L 05/12/24 06:00 40 05/12/24 05:57 99.9 F H 64 24 95 05/12/24 05:36 99.7 F H 83 22 96 05/12/24 05:30 113/75 05/12/24 05:30 113/75 05/12/24 05:30 113/75 05/12/24 05:15 100.0 F H 81 24 95 05/12/24 05:12 99.9 F H 80 17 95 05/12/24 04:42 99.9 F H 80 24 95 05/12/24 04:31 147/88 H 05/12/24 04:31 147/88 H 05/12/24 04:15 100.2 F H 72 9 L 96 05/12/24 04:00 125/81 05/12/24 04:00 125/81 05/12/24 03:57 100.2 F H 69 21 95 05/12/24 03:50 70 24 95 40 05/12/24 03:30 100.2 F H 83 21 95 05/12/24 03:30 139/88 05/12/24 03:09 100.4 F H 71 21 95 05/12/24 02:33 100.4 F H 64 24 97 05/12/24 02:30 130/76 05/12/24 02:30 130/76 05/12/24 02:23 40 05/12/24 02:15 100.2 F H 67 24 92 05/12/24 02:03 100.2 F H 68 24 93 05/12/24 02:00 128/77 05/12/24 01:54 100.2 F H 72 24 96 05/12/24 01:36 100.2 F H 70 24 100 05/12/24 01:30 136/75 05/12/24 01:03 100.2 F H 75 24 97 05/12/24 01:00 134/84 05/12/24 01:00 134/84 05/12/24 01:00 134/84 05/12/24 01:00 100.2 F H 74 23 100 05/12/24 00:45 100.4 F H 71 24 100 05/12/24 00:30 123/75 05/12/24 00:30 123/75 05/12/24 00:18 100.2 F H 66 24 100 05/12/24 00:05 67 05/12/24 00:03 100.0 F H 68 24 94 05/12/24 00:00 76 24 98 40 05/12/24 00:00 123/72 05/12/24 00:00 123/72 05/12/24 00:00 123/72 05/12/24 00:00 123/72 05/11/24 23:51 100.0 F H 67 24 97 05/11/24 23:33 100.0 F H 80 24 96 05/11/24 23:30 124/87 05/11/24 23:30 124/87 05/11/24 23:24 100.0 F H 85 24 97 05/11/24 23:15 100.0 F H 85 24 99 05/11/24 22:39 100.0 F H 63 24 96 05/11/24 22:30 114/66 05/11/24 22:30 114/66 05/11/24 22:23 50 05/11/24 22:15 100.0 F H 66 24 95 05/11/24 22:00 100.0 F H 62 24 98 05/11/24 21:39 100.0 F H 63 24 98 05/11/24 21:00 97/59 L 05/11/24 21:00 97/59 L 05/11/24 21:00 99.9 F H 63 24 98 05/11/24 20:33 99.9 F H 65 24 99 05/11/24 20:30 113/65 05/11/24 20:30 113/65 05/11/24 20:30 63 26 H 98 60 05/11/24 20:27 99.9 F H 58 L 24 99 05/11/24 20:15 99.7 F H 67 24 92 05/11/24 20:00 Mechanical Vent 50 05/11/24 20:00 99/59 L 05/11/24 20:00 99/59 L 05/11/24 19:57 99.7 F H 56 L 24 95 05/11/24 19:33 99.7 F H 57 L 24 94 05/11/24 19:30 101/60 05/11/24 19:30 101/60 05/11/24 19:27 99.5 F 69 26 H 05/11/24 19:24 99.7 F H 57 L 24 100 Laboratory Results review cbc review chemistry transaminases are improving PG Care Time/CCT Total # of Minutes Spent Total Time Spent with Patient: Total time spent is greater than 50% in coordination of care (as documented) at patient's floor/unit and/or counseling patient: Coding Level of Care Code 54793 SUB INP/OBS CARE 3/50MIN Diagnoses Sepsis A41.9 Transaminitis R74.01 Elevated troponin R79.89 CKD (chronic kidney disease) N18.9
--- NOTE | 2024-05-12 08:29 | XRay Report ---
XR chest 1V portable CLINICAL HISTORY: eval lines/tubes/lung russell COMPARISON STUDY: Chest CT May 11, 2024. Chest radiograph May 11, 2024. FINDINGS: Tip of endotracheal tube is 6.8 cm above the quin. Tip of nasogastric tube is below the l ower aspect of this image but at least within the body of the stomach. Right internal jugular central line remains in place. There is no pneumothorax. Cardiomegaly is again noted. Mediastinal contours a re stable. Interstitial thickening has slightly progressed. There are persistent small bilateral pleu ral effusions and associated bibasilar opacities. IMPRESSION: 1. Tip of endotracheal tube 6.8 cm above the quin. 2. No pneumothorax. 3. Cardiomegaly. Mild pulmonary edema, improved since prior exam. 4. Persistent small bilateral pleural effusions with associated bibasilar opacities which could refle ct pneumonia or atelectasis. ACT 112: Negative or not required by law. Electronically signed by: Deny Mcclain M.D. 05/12/2024 8:26 AM
--- NOTE | 2024-05-12 08:34 | Critical Care Progress Note ---
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 Patient was found to have bilateral nephritis with hydronephrosis on the left, she was taken to the OR. Needed to be intubated in the OR Past medical history: Hypothyroidism, vertigo, dyslipidemia, hypertension CT chest 05/11/2024 personally reviewed:Motion degraded study Bilateral apical pleural scarring Minimal mosaicism appreciated in the upper lobes Patchy opacities appreciated in the right lower lobe subpleural No significant mediastinal lymphadenopathy Neuro - [facility] ICU: Unable to assess Cardiac - -- Status post shock Likely septic from left-sided pyelonephritis Continue vasopressor support to keep MAP greater than 65 Random cortisol 56 --Elevated troponin Likely secondary to type II [place] Continue to trend EKG 05/11/2024 4: 12 AM: Motion artifact, sinus tachycardia, no clear ST-T wave changes appreciated Respiratory - -- VDRF Intubated for hypoxia and hypotension in the OR Continue with ventilatory support Keep RASS -1 Daily sedation holidays and SBT's GI - --Transaminitis --> improving Likely from shock Continue to trend RENAL/LYTES - -- NIKOS --> improving Likley secondary to septic shock with hypotension Follow-up urine lites Monitor BUN/creatinine Avoid nephrotoxic medications Strict ins and outs -- S/p HAGMA Delta-delta: Less than 1 Likely sec to gap plus nongap Gap is most likely coming from lactic acidosis, nongap could be from NIKOS Monitor - -- Left-sided hydronephrosis S/p stent placed 05/11/2024 ENDO - -- ICU hypoglycemia protocol HEME - -- No acute issues Monitor H&H ID - -- Septic shock from left-sided pyonephritis Gram-negative bacteremia, history of E. coli in the past which was pansensitive, BioFire does not show any resistance Follow-up culture Continue with antibiotics --Prophylaxis VTE: Heparin GI: Pantoprazole Lines: Right IJ, left radial Diet: N.p.o. Plan: In/out: +2.2 L, urine output 2250 Leukocytosis is most likely reactive for the procedure Will change Zosyn to Rocephin. Will repeat blood cultures tomorrow in the morning which would be 48 hours from the original 1. Trial of extubation today I have personally spent 38 minutes of critical care time in the direct management of this patient. This is a life/limb threatening event. This includes time spent evaluating patient, direct bedside care, chart review, placing orders, interpretation of diagnostic studies, discussion with consultants, patient, and family members, as well as other required patient management activities. This time is exclusive of all separately billable procedures, and teaching time and separate from and in addition to any other critical care service time. Admission and Anticipated Discharge Date Admission Date: May 11, 2024 Subjective Patient seen and examined at bedside. No acute distress, notable symptoms overnight She was on 50 of fentanyl at the time of examination She was breathing over the vent Denies any chest pain, no headache Was asking to take the tube out She was following commands and moving all the extremities to command Has been off vasopressors Review of Systems 2 Review of Systems: All systems reviewed & are unremarkable except as noted in Subjective Physical Exam 2 Physical Exam: Constitutional: No acute distress HEENT: PERRLA, positive ETT Respiratory system: Decreased air entry bilaterally, no wheeze, no cough, mild crackles bilateral lower lobe CVS: S1-S2 positive, no murmurs or gallops Abdomen: Soft, nontender, nondistended, positive bowel sounds x4 Extremities: +2 pulses bilaterally radialis/ dorsalis pedis, no cyanosis, no edema Neuro: Intubated and sedated, moving all extremities to command Psych: Unable to assess G/U: Positive Flynn Skin: no rashes, warm and dry Lymphatic: no cervical or axillary lymphadenopathy Results & Data Results & Data Vital Signs (Past 12 Hours) Vital Signs Temp Pulse Resp BP Pulse Ox FiO2 05/12/24 08:00 64 05/12/24 07:51 64 24 97 40 05/12/24 06:03 37.7 C H 64 24 95 05/12/24 06:00 92/61 L 05/12/24 06:00 92/61 L 05/12/24 06:00 40 05/12/24 05:57 37.7 C H 64 24 95 05/12/24 05:36 37.6 C H 83 22 96 05/12/24 05:30 113/75 05/12/24 05:30 113/75 05/12/24 05:30 113/75 05/12/24 05:15 37.8 C H 81 24 95 05/12/24 05:12 37.7 C H 80 17 95 05/12/24 04:42 37.7 C H 80 24 95 05/12/24 04:31 147/88 H 05/12/24 04:31 147/88 H 05/12/24 04:15 37.9 C H 72 9 L 96 05/12/24 04:00 125/81 05/12/24 04:00 125/81 05/12/24 03:57 37.9 C H 69 21 95 05/12/24 03:50 70 24 95 40 05/12/24 03:30 37.9 C H 83 21 95 05/12/24 03:30 139/88 05/12/24 03:09 38.0 C H 71 21 95 05/12/24 02:33 38.0 C H 64 24 97 05/12/24 02:30 130/76 05/12/24 02:30 130/76 05/12/24 02:23 40 05/12/24 02:15 37.9 C H 67 24 92 05/12/24 02:03 37.9 C H 68 24 93 05/12/24 02:00 128/77 05/12/24 01:54 37.9 C H 72 24 96 05/12/24 01:36 37.9 C H 70 24 100 05/12/24 01:30 136/75 05/12/24 01:03 37.9 C H 75 24 97 05/12/24 01:00 134/84 05/12/24 01:00 134/84 05/12/24 01:00 134/84 05/12/24 01:00 37.9 C H 74 23 100 05/12/24 00:45 38.0 C H 71 24 100 05/12/24 00:30 123/75 05/12/24 00:30 123/75 05/12/24 00:18 37.9 C H 66 24 100 05/12/24 00:05 67 05/12/24 00:03 37.8 C H 68 24 94 05/12/24 00:00 76 24 98 40 05/12/24 00:00 123/72 05/12/24 00:00 123/72 05/12/24 00:00 123/72 05/12/24 00:00 123/72 05/11/24 23:51 37.8 C H 67 24 97 05/11/24 23:33 37.8 C H 80 24 96 05/11/24 23:30 124/87 05/11/24 23:30 124/87 05/11/24 23:24 37.8 C H 85 24 97 05/11/24 23:15 37.8 C H 85 24 99 05/11/24 22:39 37.8 C H 63 24 96 05/11/24 22:30 114/66 05/11/24 22:30 114/66 05/11/24 22:23 50 05/11/24 22:15 37.8 C H 66 24 95 05/11/24 22:00 37.8 C H 62 24 98 05/11/24 21:39 37.8 C H 63 24 98 05/11/24 21:00 97/59 L 05/11/24 21:00 97/59 L 05/11/24 21:00 37.7 C H 63 24 98 05/11/24 20:33 37.7 C H 65 24 99 Laboratory Results 05/12/24 04:39 05/12/24 04:39 Coding Level of Care Code 10095 CRITICAL CARE 1ST 30-74M Diagnoses Shock circulatory R57.9 Calculus of proximal left ureter N20.1 CKD (chronic kidney disease) N18.9 Transaminitis R74.01 Elevated troponin R79.89 Sepsis A41.9 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
[2024-05-12] MEDS: PANTOprazole 40 MG/10 ML SYR IV SCH (08:39)
--- NOTE | 2024-05-12 10:40 | Urology Progress Note ---
Date of Service May 12, 2024 Assessment & Plan (1) Shock circulatory: (2) Calculus of proximal left ureter: (3) Sepsis: Plan Status post left ureteral stent placement yesterday in an emergency setting secondary to sepsis and an obstructing proximal ureteral calculus She remains in guarded condition and is still intubated, however they are hoping for extubation later today She remains on pressors and she was febrile overnight Hope to see continued improvement over the next day or 2 as she is appropriately treated with antibiotics Her urine has cleared which is encouraging No other intervention planned acutely, long-term she will need an outpatient intervention but we can determine the timing and appropriateness of this after further recovery Please call if other issues arise during this hospitalization Admission and Anticipated Discharge Date Admission Date: May 11, 2024 Subjective Severe sepsis from an obstructing ureteral calculus status post stent placement yesterday Remained intubated overnight and on pressors She is improving slightly this morning and hoping for extubation and then ultimately hoping to wean pressors Results & Data Vital Signs (Past 12 Hours) Vital Signs Temp Pulse Resp BP Pulse Ox FiO2 05/12/24 08:00 64 05/12/24 07:51 64 24 97 40 05/12/24 06:03 37.7 C H 64 24 95 05/12/24 06:00 92/61 L 05/12/24 06:00 92/61 L 05/12/24 06:00 40 05/12/24 05:57 37.7 C H 64 24 95 05/12/24 05:36 37.6 C H 83 22 96 05/12/24 05:30 113/75 05/12/24 05:30 113/75 05/12/24 05:30 113/75 05/12/24 05:15 37.8 C H 81 24 95 05/12/24 05:12 37.7 C H 80 17 95 05/12/24 04:42 37.7 C H 80 24 95 05/12/24 04:31 147/88 H 05/12/24 04:31 147/88 H 05/12/24 04:15 37.9 C H 72 9 L 96 05/12/24 04:00 125/81 05/12/24 04:00 125/81 05/12/24 03:57 37.9 C H 69 21 95 05/12/24 03:50 70 24 95 40 05/12/24 03:30 37.9 C H 83 21 95 05/12/24 03:30 139/88 05/12/24 03:09 38.0 C H 71 21 95 05/12/24 02:33 38.0 C H 64 24 97 05/12/24 02:30 130/76 05/12/24 02:30 130/76 05/12/24 02:23 40 05/12/24 02:15 37.9 C H 67 24 92 05/12/24 02:03 37.9 C H 68 24 93 05/12/24 02:00 128/77 05/12/24 01:54 37.9 C H 72 24 96 05/12/24 01:36 37.9 C H 70 24 100 05/12/24 01:30 136/75 05/12/24 01:03 37.9 C H 75 24 97 05/12/24 01:00 134/84 05/12/24 01:00 134/84 05/12/24 01:00 134/84 05/12/24 01:00 37.9 C H 74 23 100 05/12/24 00:45 38.0 C H 71 24 100 05/12/24 00:30 123/75 05/12/24 00:30 123/75 05/12/24 00:18 37.9 C H 66 24 100 05/12/24 00:05 67 05/12/24 00:03 37.8 C H 68 24 94 05/12/24 00:00 76 24 98 40 05/12/24 00:00 123/72 05/12/24 00:00 123/72 05/12/24 00:00 123/72 05/12/24 00:00 123/72 05/11/24 23:51 37.8 C H 67 24 97 05/11/24 23:33 37.8 C H 80 24 96 05/11/24 23:30 124/87 05/11/24 23:30 124/87 05/11/24 23:24 37.8 C H 85 24 97 05/11/24 23:15 37.8 C H 85 24 99 PG Care Time/CCT Total # of Minutes Spent Total Time Spent with Patient: Total time spent is greater than 50% in coordination of care (as documented) at patient's floor/unit and/or counseling patient: Coding Level of Care Code 80560 SUB INP/OBS CARE 3/50MIN Diagnoses Shock circulatory R57.9 Calculus of proximal left ureter N20.1 Sepsis A41.9
[2024-05-12] MEDS: ONDANSETRON INJ 2 MG/ML 2 ML VIAL IV PRN (11:07)
[2024-05-12] MEDS: cefTRIAXone SODIUM 2,000 MG/50 ML BAG IV SCH (12:44)
--- NOTE | 2024-05-12 14:56 | XRay Report ---
Chest radiograph, one view History: Increased oxygen needs Comparison: 05/11/2024 Findings: Single AP view of the chest performed. Right IJ central venous catheter tip at the superior atrial caval junction. Similar-appearing streaky bibasilar peripheral opacity otherwise without definite consolidation. No pneumothorax. The cardiomediastinal silhouette is within normal limits. Normal pulmonary vascularity. No evidence for lymphadenopathy. No visualized bony or soft tissue abnormality. Impression: Streaky bibasilar opacity representing atelectasis or infection, similar to prior. Electronically signed by Torey Quijano 05-12-2024 2:55 PM
[2024-05-12] MEDS ORDERED: hydrALAZINE HCL 20 MG/ML VIAL IV PRN (15:00)
[2024-05-12] MEDS: ACETAMINOPHEN 1,000 MG/100 ML VIAL IV PRN (21:05)
--- NOTE | 2024-05-13 01:18 | Ultrasound Report ---
Exam(s): US VENOUS BILATERAL LOWER EXTREMITIES EXAM: US Duplex Bilateral Lower Extremities Veins CLINICAL HISTORY: Deep vein thrombosis TECHNIQUE: Real-time duplex ultrasound scan of the bilateral lower extremity veins integrating B-mode two-dimensional vascular structure, Doppler spectral analysis, color flow Doppler imaging and compression. COMPARISON: No relevant prior studies available. FINDINGS: Right deep veins: Unremarkable. No Deep vein thrombosis in the right common femoral, femoral, proximal deep femoral or popliteal veins. The veins demonstrate normal color flow, are normally compressible, with normal phasic flow and/or augmentation response. Right superficial veins: Unremarkable. No thrombus in the visualized right great saphenous vein. Left deep veins: Unremarkable. No Deep vein thrombosis in the left common femoral, femoral, proximal deep femoral or popliteal veins. The veins demonstrate normal color flow, are normally compressible, with normal phasic flow and/or augmentation response. Left superficial veins: Unremarkable. No thrombus in the visualized left great saphenous vein. Soft tissues: No acute findings. No popliteal cyst. IMPRESSION: No deep vein thrombosis of either lower extremity. Electronically signed by: Callie Ponce MD 05/13/24 01:16 AM
[2024-05-13] MEDS: MECLIZINE HCL 25 MG TAB PO STA (02:40)
[2024-05-13 05:08] LABS: Hematocrit (blood only) 37.4 % (37.0-47.0); Mean Corpuscular Hemoglobin 29.8 pg (25.0-34.0); Mean Corpuscular Hgb Conc 32.1 g/dL (32.0-36.0); Mean Corpuscular Volume 92.8 fL (80.0-100.0); Mean Platelet Volume 11.4 fL (9.4-12.4); Platelet Count 121 K/uL (130-400); RDW Coefficient of Variation 15.1 % (11.5-14.5); RDW Standard Deviation 52.1 fL (36.4-46.3); Red Blood Count 4.03 M/uL (4.20-5.40); White Blood Count 26.42 K/ul (4.8-10.8)
[2024-05-13 05:23] LABS: Albumin Globulin Ratio 0.9 (0.9-2); Albumin Level 3.2 gm/dl (3.4-5.0); BUN Creatinine Ratio 38.5 (10-20); Bilirubin,Total 0.6 mg/dl (0.2-1.0); Calcium 8.4 mg/dl (8.6-10.3); Creatinine Clr Calc Pharmacy 31.4 ml/min; Globulin 3.5 gm/dl (2.5-4.0); Magnesium 2.3 mg/dl (1.7-2.4); Potassium 3.6 mmol/L (3.5-5.1); Total Protein 6.7 gm/dl (6.0-8.3)
--- NOTE | 2024-05-13 08:06 | XRay Report ---
EXAM: XR chest 1V portable CLINICAL HISTORY: Evaluate lung russell. TECHNIQUE: An X-ray image of the chest was obtained in 1 view: AP projection. COMPARISON: X-ray dated 05/12/24. FINDINGS: Pulmonary Parenchyma: Apparent mild interval further progression of inhomogenous airspace opacification of bilateral lung lower zones with obscuration of CP angle suggestive of pleural effusions with underlying subsegmental consolidation/collapse Prominent bilateral broncho vascular markings. There is suspicion of a lucency in left lung apical region with the attenuation of the bronchovascular markings, need dedicated views (right lateral decubitus views) to rule out pneumothorax on left side. Right central line is noted with the tip in the right atrium (unchanged). Heart and Mediastinum: Apparent cardiomegaly with mediastinal widening. No hilar or mediastinal lymphadenopathy. Bony Thorax: Bony thorax appears intact without fractures or deformities. Degenerative images are seen in bilateral glenohumeral joints. Soft Tissues: Soft tissues overlying the chest wall are unremarkable. IMPRESSION: 1. Apparent mild interval progression of inhomogenous airspace opacification of bilateral lung lower zones with obscuration of CP angle suggestive of pleural effusions with underlying subsegmental consolidation/collapse (patient is rotated compared to previous study and the aforementioned findings could be exaggerated in the current study). 2. Prominent bilateral broncho vascular markings. 3. There is suspicion of a lucency in left lung apical region with the attenuation of the broncho vascular markings, need dedicated views (right lateral decubitus views) to rule out pneumothorax on left side. 4. Apparent cardiomegaly with mediastinal widening. Electronically signed by Dilcia Avalos 05-13-2024 08:06 AM
--- NOTE | 2024-05-13 08:17 | Critical Care Progress Note ---
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 Patient was found to have bilateral nephritis with hydronephrosis on the left, she was taken to the OR. Needed to be intubated in the OR Past medical history: Hypothyroidism, vertigo, dyslipidemia, hypertension CT chest 05/11/2024 personally reviewed:Motion degraded study Bilateral apical pleural scarring Minimal mosaicism appreciated in the upper lobes Patchy opacities appreciated in the right lower lobe subpleural No significant mediastinal lymphadenopathy Neuro - [facility] ICU: Unable to assess -- Metabolic encephalopathy Likely from underlying sepsis No hypercapnia Sodium, calcium, glucose within normal limit Cardiac - -- Status post shock Likely septic from left-sided pyelonephritis Continue vasopressor support to keep MAP greater than 65 Random cortisol 56 --Elevated troponin Likely secondary to type II [place] Continue to trend EKG 05/11/2024 4: 12 AM: Motion artifact, sinus tachycardia, no clear ST-T wave changes appreciated Respiratory - -- S/p VDRF Intubated for hypoxia and hypotension in the OR Extubated 05/12/2024 Patient is still requiring BiPAP support as patient is not taking deep breaths in. GI - --Transaminitis --> improving Likely from shock Continue to trend RENAL/LYTES - -- NIKOS --> improving Likley secondary to septic shock with hypotension Follow-up urine lites Monitor BUN/creatinine Avoid nephrotoxic medications Strict ins and outs - -- Left-sided hydronephrosis S/p stent placed 05/11/2024 ENDO - -- ICU hypoglycemia protocol HEME - --New onset thrombocytopenia Likely from underlying sepsis Continue to trend -- No acute issues Monitor H&H ID - -- Left-sided pyonephritis Gram-negative bacteremia, history of E. coli in the past which was pansensitive, BioFire does not show any resistance Follow-up culture Zosyn changed to Rocephin on 05/12/2024 --Prophylaxis VTE: Heparin on hold GI: Pantoprazole Lines: Right IJ, left radial Diet: N.p.o. Plan: In/out: Negative 492, urine output 1950, +3.2 L since coming to the hospital Will give patient 20 mg of Lasix Patient's respiratory status is still tenacious. I will see during the day how she does, if there is any worsening in her hypoxia or increase in respiratory rate then intubation will be thought of I do think patient has some pain issues as well because of the bedsores that she had. I will put her on morphine 1 mg every 3 hours as needed Patient's was at bedside was updated regarding patient's condition and probability of reintubation if needed. I have personally spent 35 minutes of critical care time in the direct management of this patient. This is a life/limb threatening event. This includes time spent evaluating patient, direct bedside care, chart review, placing orders, interpretation of diagnostic studies, discussion with consultants, patient, and family members, as well as other required patient management activities. This time is exclusive of all separately billable procedures, and teaching time and separate from and in addition to any other critical care service time. Admission and Anticipated Discharge Date Admission Date: May 11, 2024 Subjective Patient seen and examined at bedside. No acute distress Overnight patient was trying to take the BiPAP off very frequently. She was on 5 of EPAP at the time of examination, I increase the EPAP to 8 FiO2 was decreased to 55% from 65% Review of Systems 2 Review of Systems: All systems reviewed & are unremarkable except as noted in Subjective Physical Exam 2 Physical Exam: Constitutional: No acute distress HEENT: PERRLA, EOMI Respiratory system: Decreased air entry bilaterally, no wheeze, no cough, positive crackles bilateral lower lobe CVS: S1-S2 positive, no murmurs or gallops Abdomen: Soft, nontender, nondistended, positive bowel sounds x4 Extremities: +2 pulses bilaterally radialis/ dorsalis pedis, no cyanosis, no edema Neuro: Patient is oriented to self Psych: Unable to assess G/U: Positive Flynn Skin: no rashes, warm and dry Lymphatic: no cervical or axillary lymphadenopathy Results & Data Results & Data Vital Signs (Past 12 Hours) Vital Signs Temp Pulse Pulse Resp BP Pulse Ox O2 Del Method 05/13/24 07:21 97 H 22 92 05/13/24 07:01 149/80 H 05/13/24 06:57 36.8 C 97 H 27 H 94 05/13/24 06:54 36.8 C 97 H 28 H 97 05/13/24 06:06 36.7 C 89 25 H 94 05/13/24 06:00 138/69 05/13/24 05:48 36.7 C 90 25 H 95 05/13/24 05:30 145/81 H 05/13/24 05:27 36.5 C 92 H 27 H 95 05/13/24 05:00 36.7 C 101 H 27 H 95 CPAP 05/13/24 04:36 36.7 C 101 H 21 93 05/13/24 04:32 85/65 L 05/13/24 04:32 85/65 L 05/13/24 04:32 85/65 L 05/13/24 04:15 36.7 C 93 H 26 H 91 05/13/24 04:01 142/69 H 05/13/24 04:01 142/69 H 05/13/24 04:00 36.7 C 90 25 H 92 05/13/24 03:51 97 H 28 H 94 05/13/24 03:42 36.6 C 92 H 24 92 CPAP 05/13/24 03:30 151/76 H 05/13/24 03:27 36.7 C 103 H 17 93 05/13/24 03:00 36.7 C 96 H 25 H 93 High Flow Nasal Cannula 05/13/24 02:45 93 H 17 94 High Flow Nasal Cannula 05/13/24 02:30 36.8 C 96 H 27 H 95 05/13/24 02:09 36.9 C 93 H 26 H 92 05/13/24 02:00 127/70 05/13/24 02:00 127/70 05/13/24 01:57 36.9 C 95 H 89 L 05/13/24 01:45 36.9 C 97 H 18 05/13/24 01:30 113/67 05/13/24 01:30 113/67 05/13/24 01:27 36.5 C 82 16 92 05/13/24 01:00 114/65 05/13/24 01:00 36.6 C 82 17 92 05/13/24 00:36 36.7 C 87 21 93 05/13/24 00:24 36.8 C 93 H 24 93 High Flow Nasal Cannula 05/13/24 00:01 150/102 H 05/12/24 23:57 37.1 C 96 H 24 88 L 05/12/24 23:30 90/70 L 05/12/24 23:30 90/70 L 05/12/24 23:30 90/70 L 05/12/24 23:30 36.8 C 89 23 92 High Flow Nasal Cannula 05/12/24 23:25 83 05/12/24 23:06 37.0 C 92 H 21 93 05/12/24 23:00 115/56 L 05/12/24 22:39 37.2 C 92 H 25 H 94 05/12/24 22:30 115/63 05/12/24 22:21 37.4 C 88 22 94 05/12/24 22:00 116/62 05/12/24 22:00 116/62 05/12/24 21:54 CPAP 05/12/24 21:42 37.5 C 94 H 22 93 05/12/24 21:00 140/72 05/12/24 21:00 140/72 05/12/24 21:00 37.6 C H 92 H 24 92 05/12/24 20:30 139/74 05/12/24 20:30 139/74 05/12/24 20:30 37.4 C 92 H 23 92 O2 Flow Rate FiO2 05/13/24 07:21 65 05/13/24 07:01 05/13/24 06:57 05/13/24 06:54 05/13/24 06:06 05/13/24 06:00 05/13/24 05:48 05/13/24 05:30 05/13/24 05:27 05/13/24 05:00 65 05/13/24 04:36 05/13/24 04:32 05/13/24 04:32 05/13/24 04:32 05/13/24 04:15 05/13/24 04:01 05/13/24 04:01 05/13/24 04:00 05/13/24 03:51 60 05/13/24 03:42 60 05/13/24 03:30 05/13/24 03:27 05/13/24 03:00 50 100 05/13/24 02:45 30 80 05/13/24 02:30 05/13/24 02:09 05/13/24 02:00 05/13/24 02:00 05/13/24 01:57 05/13/24 01:45 05/13/24 01:30 05/13/24 01:30 05/13/24 01:27 05/13/24 01:00 05/13/24 01:00 05/13/24 00:36 05/13/24 00:24 30 50 05/13/24 00:01 05/12/24 23:57 05/12/24 23:30 05/12/24 23:30 05/12/24 23:30 05/12/24 23:30 30 40 05/12/24 23:25 05/12/24 23:06 05/12/24 23:00 05/12/24 22:39 05/12/24 22:30 05/12/24 22:21 05/12/24 22:00 05/12/24 22:00 05/12/24 21:54 05/12/24 21:42 05/12/24 21:00 05/12/24 21:00 05/12/24 21:00 05/12/24 20:30 05/12/24 20:30 05/12/24 20:30 Laboratory Results 05/13/24 04:07 05/13/24 04:07 Coding Level of Care Code 94406 CRITICAL CARE 1ST 30-74M Diagnoses Shock circulatory R57.9 Calculus of proximal left ureter N20.1 CKD (chronic kidney disease) N18.9 Transaminitis R74.01 Elevated troponin R79.89 Sepsis A41.9 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
[2024-05-13] MEDS: FUROSEMIDE INJ 20 MG/2 ML VIAL IV ONE ×2 (08:18→20:05)
--- NOTE | 2024-05-13 09:25 | XRay Report ---
XR chest 1V portable CLINICAL HISTORY: f/u COMPARISON STUDY: Chest radiograph May 13, 2024 at 6:[address] May 11, 2024. FINDINGS: Right internal jugular central venous catheter remains in place. There is no pneumothorax. Skin folds project over the left chest. Pulmonary edema has mildly progressed. Small bilateral pleura l effusions with associated bibasilar opacities are again noted. Cardiomediastinal silhouette is stab le. IMPRESSION: 1. No pneumothorax. Possible left pneumothorax prior chest radiograph was due to skin folds. 2. Progression of pulmonary edema, small bilateral pleural effusions and associated bibasilar opaciti es which could reflect pneumonia or atelectasis. ACT 112: Negative or not required by law. Electronically signed by: Deny Mcclain M.D. 05/13/2024 9:23 AM
[2024-05-13] MEDS: POTASSIUM CHLORIDE / WTR 20 MEQ/100 ML PLCT IV ONE ×2 (10:14→22:24)
[2024-05-13] MEDS: MoRPHine SULFATE 2 MG/ML CARP IV PRN (10:56)
--- NOTE | 2024-05-13 16:23 | Hospitalist Progress Note ---
Date of Service May 13, 2024 Assessment & Plan (1) Sepsis: (2) Transaminitis: (3) Elevated troponin: (4) CKD (chronic kidney disease): Plan 83-year-old female initially presenting with nausea vomiting dizziness, concern for speech and leg issues, septic from a left pyelonephritis. Workup did not reveal any neurological injuries however pyelonephritis & hydronephrosis sepsis with elevation of lactic acid, Taken to OR for ureteral stenting, decompensated in OR, remains in icu, now extubated Sepsis from urinary source, blood cultures showing e coli (intermediate to cefazolin otherwise ruvalcaba sensitive) , ceftriaxone, urology and intensive care is managing s/p ureteral stent was placed05/11/24, marked purulent material came from the kidney. Remains with tenuous respiratory status after extubation req bipap, transaminitis is improving, renal function stable Elevated troponin in context of illness, suspect demand ischemia, check additional trop, no acute injury on ECG, history of hypertension with bystolic and amlodipine/benazepril. Antihypertensives are held post procedure given her need for pressor support, will have prn available 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 also associated with significant illness, improving initial symptoms of garbled speech and leg weakness heparin for dvt prevention Admission and Anticipated Discharge Date Admission Date: May 11, 2024 Subjective pt is now back on bipap at the bedside and updated concern on imaging for atelectasis, given lasix 20 mg iv pain from laying critical care added morphine Physical Exam Physical Exam: pt is awake and alert, fatigued on bipap lungs are coarse and clear abd is soft and non tender ext are clear Results & Data Results & Data Vital Signs (Past 12 Hours) Vital Signs Temp Pulse Pulse Resp BP Pulse Ox O2 Del Method 05/13/24 15:10 92 H 21 95 05/13/24 14:25 86 05/13/24 14:18 99.9 F H 82 17 95 05/13/24 14:00 142/77 H 05/13/24 13:57 99.9 F H 89 25 H 96 05/13/24 13:42 100.0 F H 87 26 H 96 05/13/24 13:30 123/92 05/13/24 13:30 123/92 05/13/24 13:30 123/92 05/13/24 13:18 99.9 F H 82 19 96 05/13/24 13:00 145/87 H 05/13/24 13:00 99.9 F H 86 26 H 96 05/13/24 12:36 99.7 F H 81 17 95 05/13/24 12:00 126/74 05/13/24 12:00 126/74 05/13/24 12:00 99.5 F 82 19 95 05/13/24 12:00 87 05/13/24 11:30 140/72 05/13/24 11:30 140/72 05/13/24 11:30 140/72 05/13/24 11:30 99.5 F 85 30 H 97 05/13/24 11:00 99.5 F 87 29 H 94 05/13/24 10:30 142/70 H 05/13/24 10:30 142/70 H 05/13/24 10:30 99.3 F 88 25 H 95 05/13/24 10:00 135/77 05/13/24 10:00 99.1 F 86 28 H 94 05/13/24 09:48 82 05/13/24 09:36 99.1 F 84 24 96 05/13/24 09:30 121/67 05/13/24 09:24 99.0 F 86 24 94 05/13/24 09:00 145/69 H 05/13/24 09:00 145/69 H 05/13/24 09:00 145/69 H 05/13/24 09:00 145/69 H 05/13/24 09:00 145/69 H 05/13/24 09:00 98.8 F 91 H 30 H 93 05/13/24 08:42 98.6 F 95 H 30 H 92 05/13/24 08:36 142/66 H 05/13/24 08:36 142/66 H 05/13/24 08:27 98.6 F 100 H 22 92 05/13/24 08:09 98.6 F 102 H 21 83 L 05/13/24 08:00 97 H 05/13/24 07:30 98.2 F 100 H 21 90 05/13/24 07:30 BiPAP 05/13/24 07:27 98.2 F 100 H 29 H 83 L 05/13/24 07:21 97 H 22 92 05/13/24 07:01 149/80 H 05/13/24 06:57 98.2 F 97 H 27 H 94 05/13/24 06:54 98.2 F 97 H 28 H 97 05/13/24 06:06 98.1 F 89 25 H 94 05/13/24 06:00 138/69 05/13/24 05:48 98.1 F 90 25 H 95 05/13/24 05:30 145/81 H 05/13/24 05:27 97.7 F 92 H 27 H 95 05/13/24 05:00 98.1 F 101 H 27 H 95 CPAP 05/13/24 04:36 98.1 F 101 H 21 93 05/13/24 04:32 85/65 L 05/13/24 04:32 85/65 L 05/13/24 04:32 85/65 L FiO2 05/13/24 15:10 55 05/13/24 14:25 05/13/24 14:18 05/13/24 14:00 05/13/24 13:57 05/13/24 13:42 05/13/24 13:30 05/13/24 13:30 05/13/24 13:30 05/13/24 13:18 05/13/24 13:00 05/13/24 13:00 05/13/24 12:36 05/13/24 12:00 05/13/24 12:00 05/13/24 12:00 05/13/24 12:00 05/13/24 11:30 05/13/24 11:30 05/13/24 11:30 05/13/24 11:30 05/13/24 11:00 05/13/24 10:30 05/13/24 10:30 05/13/24 10:30 05/13/24 10:00 05/13/24 10:00 05/13/24 09:48 05/13/24 09:36 05/13/24 09:30 05/13/24 09:24 05/13/24 09:00 05/13/24 09:00 05/13/24 09:00 05/13/24 09:00 05/13/24 09:00 05/13/24 09:00 05/13/24 08:42 05/13/24 08:36 05/13/24 08:36 05/13/24 08:27 05/13/24 08:09 05/13/24 08:00 05/13/24 07:30 05/13/24 07:30 05/13/24 07:27 05/13/24 07:21 65 05/13/24 07:01 05/13/24 06:57 05/13/24 06:54 05/13/24 06:06 05/13/24 06:00 05/13/24 05:48 05/13/24 05:30 05/13/24 05:27 05/13/24 05:00 65 05/13/24 04:36 05/13/24 04:32 05/13/24 04:32 05/13/24 04:32 Laboratory Results review cbc review chemistry PG Care Time/CCT Total # of Minutes Spent Total Time Spent with Patient: Total time spent is greater than 50% in coordination of care (as documented) at patient's floor/unit and/or counseling patient: Coding Level of Care Code 16188 SUB INP/OBS CARE 3/50MIN Diagnoses Sepsis A41.9 Transaminitis R74.01 Elevated troponin R79.89 CKD (chronic kidney disease) N18.9
[2024-05-13] MEDS: MECLIZINE HCL 25 MG TAB PO PRN (22:11)
[2024-05-13] MEDS: METOPROLOL TARTRATE 1 MG/ML VIAL IV PRN (22:27)
[2024-05-13] MEDS ORDERED: POTASSIUM CHLORIDE / WTR 10 MEQ/100 ML PLCT IV SCH (22:30)
[2024-05-13] MEDS ORDERED: STAT IV Infusion **Titration per Protocol STA ×2 (22:53→23:41)
[2024-05-13] MEDS: NOREPINEPHRINE/D5W 4 MG/250 ML PLCT IV SCH (23:00)
[2024-05-13] MEDS: SODIUM CHLORIDE 0.9% 500 ML IV ONE (23:00)
[2024-05-13] MEDS: NOREPINEPHRINE/D5W 4 MG/250 ML IV ONE (23:00)
[2024-05-13] MEDS: MAGNESIUM SULFATE / D5W 1 GM/100 ML BAG IV SCH (23:07)
[2024-05-13 23:14] LABS: iSTAT Art Bld Gas pCO2 Correct 36 mmHg (35-46); iSTAT Art Bld Gas pH Corrected 7.388 (7.35-7.45); iSTAT Arterial Blood Gas HCO3 22 meg/L (19-24); iSTAT Arterial Blood Gas pCO2 35 mmHg (35-46); iSTAT Arterial Blood Gas pO2 59 mmHg (80-95); iSTAT Arterial Blood Gas pO2 C 62; iSTAT Carbon Dioxide 23 mmol/L (24-31); iSTAT FiO2 55 %; iSTAT Hematocrit 34 % (37-47); iSTAT Hemoglobin 11.6 g/dl (12.0-16.0); iSTAT Potassium 3.5 mmol/L (3.3-5.0); iSTAT Sample Type Arterial; iSTAT Site Art Line; iSTAT Sodium 142 mmol/L (135-144); iSTAT SpO2 90
--- NOTE | 2024-05-13 23:19 | Communication Note ---
Date of Service: May 13, 2024 S: Patient with increase in PACs, this transitioned to SVT afib vs. aflutter. Initially she was with adequate blood pressure and PRN Lopressor 5mg was ad ministered. She had small break in her HR from the 130-140s to 120s, but shortly after she had decrease in her blood pressure to 80s/40s. She was diuresed today and did have brisk response, so 500mll fluid challenge was initiated as well as LEVOphed infusion, as this was readily available). ABG revealed hypoxia with PaO2 of 59 on 70% FIO2. She did have a negative duplex of her legs yesterday that was re-assuring at that time however, she has remained persistently requiring oxygen and now associated with tachycardia and hypotension. We will obtain CTA of the chest to rule out PE. We will then progress with rhythm/rate control as she is requiring vasopressors. O: Patient is awake and conversant, moving all extremities, warm and dry with palpable pulses, she is with bilateral breath sounds that are decreased in the bases. A/P 1.) Afib/Aflutter with RVR - She did not respond to carotid massage or vagal maneuvers. - She also did not respond to Metoprolol 5mg IV- her Bystolic has also been on hold - ECG without STEMI with nonspecific t-wave changes likely related to rate/rythm- Patient also is without chest pain or other complaints suggestive of cardiac cause - ABG - 7. on 70% - CTA per my interpretation is negative for large central PE She has responded with vasopressor and fluid bolus at this time and able to wean down vasopressors- so we will hold on cardioversion - Will check BMP, Mag, CBC with HGB, and INR - Mag 2GM IV now and Potassium being replaced - We do have a time that she went into afib/flutter which may be just related to her acute illness, electrolytes, or hypoxia- she states that she has no history of afib or aflutter in the past- however we will anticoagulate her with heparin infusion prior and initiation of amiodarone infusion, with the chance this converts her back to NSR. -Patient was informed of her current state and we did discuss risks and benefits for antiarrhythmic medicines and anticoagulation at this time to- inability to tolerate rhythm with hemodynamic compromise with cardioversion, stroke, bleeding, as well. We will proceed with amiodarone load of 150mg IV and then drip at 0.1mg/hour for 6 hours and then 0.5 mg/hour for 18 hours. Consider repeating 150mg bolus if ineffective. - ECHO in morning eval valves and function, will get bubble study as well with hypoxia 2.) Hypoxia- likely related to poor inspiratory effort, atelectasis, volume status and small pleural effusions - diuresed well today - obtain bubble study as above with ECHO - continue supportive care and hopeful to continue to stave off intubation - will benefit from getting out of bed to chair during the day as well for pulmonary toileting 3.) Sepsis- with + blood cultures and urine cultures from admission with E.COLI - Blood cultures were repeated this morning and remains on Rocephin- should cover pulmonary source and urinary sources. - WBC continues to downtrend and without fevers Patient case discussed with Attending Dr. Pascual and outlined plan as above to include possibility of emergent cardioversion related to hemodynamic instability Ulises [facility]NA ([facility]-)
[2024-05-13] MEDS: OPTIRAY 320 125ml IV ONE (23:29)
[2024-05-13] MEDS ORDERED: AMIODARONE IV BOLUS & DRIP IV STA (23:41)
[2024-05-13] MEDS ORDERED: 0.2 MICRON FILTER SET 1 EACH IV STA (23:41)
[2024-05-14 00:09] LABS: Basophils # (auto) 0.06 K/uL (0.00-0.20); Basophils % (auto) 0.3 %; Eosinophils # (auto) 0.13 K/uL (0.00-0.50); Eosinophils % (auto) 0.6 %; Immature Granulocytes # (auto) 0.13 K/uL (0.01-0.20); Immature Granulocytes % (auto) 0.6 %; Lymphocytes # (auto) 0.89 K/uL (1.20-3.40); Lymphocytes % (auto) 4.3 %; Mean Corpuscular Hemoglobin 29.6 pg (25.0-34.0); Mean Corpuscular Hgb Conc 32.4 g/dL (32.0-36.0); Mean Corpuscular Volume 91.6 fL (80.0-100.0); Mean Platelet Volume 10.9 fL (9.4-12.4); Monocytes # (auto) 1.24 K/uL (0.11-0.59); Neutrophils % (auto) 88.2 %; Platelet Count 125 K/uL (130-400); RDW Coefficient of Variation 14.8 % (11.5-14.5); Red Blood Count 3.71 M/uL (4.20-5.40); White Blood Count 20.75 K/ul (4.8-10.8)
[2024-05-14 00:16] LABS: BUN Creatinine Ratio 37.8 (10-20); Calcium 8.3 mg/dl (8.6-10.3); Creatinine Clr Calc Pharmacy 32.2 ml/min; Magnesium 2.4 mg/dl (1.7-2.4); Potassium 3.4 mmol/L (3.5-5.1)
[2024-05-14 00:24] LABS: Prothrombin Time 11.1 Seconds (9.0-12.0)
[2024-05-14] MEDS: POTASSIUM CHLORIDE / WTR 20 MEQ/100 ML PLCT IV SCH (00:32)
[2024-05-14] MEDS: HEPARIN SOD (PORCINE) 1000 UNIT/ML IV ONE (00:32)
[2024-05-14] MEDS: HEPARIN SODIUM/DEXTROSE 25,000 UNITS/500 ML BAG IV SCH (00:32)
[2024-05-14] MEDS: Heparin IV Adult Wt-Based Low-Dose w/ INITIAL Bolus Protocol IV STA (00:47)
[2024-05-14] MEDS: AMIODARONE / D5W 360 MG/200 ML BAG IV ONE (00:47)
[2024-05-14] MEDS: AMIODARONE / D5W 150 MG/100 ML BAG IV STA (00:47)
--- NOTE | 2024-05-14 01:30 | CT Scan Report ---
Exam(s): CTA CHEST IV Amt: 118 ml optiray 320 EXAM: CT Angiography Chest With Intravenous Contrast CLINICAL HISTORY: Reason for exam: PE. TECHNIQUE: Axial computed tomographic angiography images of the chest with intravenous contrast. CTDI is 22.98 mGy and DLP is 630.43 mGy-cm. Automated exposure control was utilized for the study. A dose lowering technique was utilized adhering to the principles of ALARA. MIP reconstructed images were created and reviewed. COMPARISON: CT chest: 05/11/2024 FINDINGS: Pulmonary arteries: Unremarkable. No pulmonary artery embolism identified. No pulmonary artery enlargement or CTA evidence of right heart strain. Aorta: No acute findings. No thoracic aortic aneurysm or dissection. Lungs: There is new dependent bilateral lower lobe consolidation with air bronchograms suggestive of pneumonia. There are small dependent associated pleural effusions. Pleural space: No pneumothorax is noted. Heart: See above. Bones/joints: No acute fracture. No dislocation. Soft tissues: Unremarkable. Lymph nodes: Unremarkable. No enlarged lymph nodes. IMPRESSION: 1. No pulmonary embolus identified. 2. New dependent bilateral lower lobe consolidation with air bronchograms suggestive of pneumonia. Small associated pleural effusions. Electronically signed by: Jacobo Redd MD 05/14/24 01:30 AM
[2024-05-14 04:33] VITALS: TEMP 99.1
[2024-05-14] MEDS: AMIODARONE / D5W 360 MG/200 ML BAG IV SCH (06:33)
[2024-05-14 06:52] LABS: Hematocrit (blood only) 34.5 % (37.0-47.0); Hemoglobin 11.3 g/dl (12.0-16.0); Mean Corpuscular Hemoglobin 29.6 pg (25.0-34.0); Mean Corpuscular Hgb Conc 32.8 g/dL (32.0-36.0); Mean Corpuscular Volume 90.3 fL (80.0-100.0); Mean Platelet Volume 11.3 fL (9.4-12.4); Platelet Count 122 K/uL (130-400); RDW Coefficient of Variation 14.8 % (11.5-14.5); RDW Standard Deviation 49.3 fL (36.4-46.3); Red Blood Count 3.82 M/uL (4.20-5.40); White Blood Count 24.36 K/ul (4.8-10.8)
[2024-05-14 07:05] LABS: Albumin Globulin Ratio 0.9 (0.9-2); Albumin Level 3.1 gm/dl (3.4-5.0); BUN Creatinine Ratio 37.7 (10-20); Bilirubin,Total 0.6 mg/dl (0.2-1.0); Calcium 8.7 mg/dl (8.6-10.3); Creatinine Clr Calc Pharmacy 33.6 ml/min; Globulin 3.5 gm/dl (2.5-4.0); Magnesium 2.6 mg/dl (1.7-2.4); Potassium 3.6 mmol/L (3.5-5.1); Total Protein 6.6 gm/dl (6.0-8.3)
[2024-05-14 07:11] LABS: ANTI-Xa, UFH(UnfractionatedHep 0.23 IU/ml (0.3-0.7)
--- NOTE | 2024-05-14 07:42 | Critical Care Progress Note ---
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 Patient was found to have bilateral nephritis with hydronephrosis on the left, she was taken to the OR. Needed to be intubated in the OR. She had severe sepsis with septic shock requiring vasopressors which were eventually weaned off. She was liberated from the ventilator 05/12/2024 but has required BiPAP ever since. Blood cultures and urine cultures with pansensitive E. coli. 24-hour events: Patient has been on and off noninvasive positive pressure ventilation overnight. She went into atrial fibrillation with rapid ventricular response yesterday evening. CT angiogram was performed. No evidence of PE. She required vasopressors for brief period of time was initiated on amiodarone as well as heparin. She converted spontaneously into sinus rhythm. Recommendations: Neuro - Metabolic encephalopathy and profound deconditioning. Needs aggressive physical therapy and Occupational Therapy. Cardiac - Septic shock on vasopressors with supply/demand mismatch. Had atrial fibrillation last evening which converted with amiodarone. Follow-up echocardiogram pending today. Respiratory - Intubated in the OR for ureteroscopy. Extubated 05/12/2024 but has had poor pulmonary toilet ever since requiring application of noninvasive positive pressure ventilation and has been unable to be weaned off of BiPAP. CT angiogram last night showed evidence of basilar atelectasis with some mucoid secretions in the large airways but no obvious pleural effusion. Patient needs aggressive pulmonary toilet. Needs to get out of bed to chair. Ideally would pursue incentive spirometry. Unclear if these are achievable goals currently. If the patient fails from a respiratory standpoint and is reintubated, low threshold for pursuing tracheostomy. I was able to have a long discussion with the patient and her at bedside. The states that her quality of life and been declining prior to this hospitalization due to multiple other medical issues. The patient is quite clear and adamant that she does not want to be reintubated and would not want to pursue a tracheostomy. She is requesting removal of the BiPAP. She and her both understand that limitation of noninvasive positive pressure ventilation may result in her demise. They are both agreeable and would like to see how she does off of BiPAP. If she struggles, we will have a low threshold for initiation of palliative care and comfort care measures. GI - Evidence of shock liver on presentation with transaminases decreasing. She has been n.p.o. Poor nutritional status support likely exacerbating her recovery. RENAL/LYTES - Presented with acute renal failure now improving. Electrolytes and acid-base status are stable. - Hydronephrosis with infected obstructing stone. Status post ureteroscopy with stent placement 05/11/2024. Will need follow-up with urology in the outpatient setting ENDO - Glycemic control per ICU protocol. Random cortisol was appropriately elevated. HEME - Blood cell count remains slightly elevated. Fever curve is been improving. Mild thrombocytopenia. Suspect related to infection. Continue to trend ID - Pyelonephritis with obstructing stone status post stent placement. E. coli bacteremia pansensitive. Currently on Rocephin day #3. Total day #5/ antibiotics --Prophylaxis VTE: Heparin drip GI: Pantoprazole Lines: Right IJ, left radial arterial line Disposition: The patient will likely require LTAC, acute rehab, or SNF at discharge best case scenario. Patient remains critically ill. Total of 50 minutes in critical care time was spent in evaluation management and coronation care for this patient with multiorgan system dysfunction/failure. Family was updated at bedside. Admission and Anticipated Discharge Date Admission Date: May 11, 2024 Subjective Patient seen and examined. EMR reviewed. Discussed with off going programming instructor as well as with overnight critical care [email or web address]. Case reviewed with bedside cri tical care nurse and on multidisciplinary rounds. Review of Systems Review of Systems: All systems reviewed & are unremarkable except as noted in Subjective Physical Exam Constitutional: WD/WN, vitals as above Neck: trachea midline, no thyromegaly Respiratory: normal respiratory effort, lungs clear to auscultation Cardiovascular: RRR, no murmur, no edema Gastrointestinal (Abdomen): normal bowel sounds, soft, nontender, no hepatosplenomegaly Musculoskeletal: Extremities: extremities normal to inspection Skin: no rashes, warm and dry Neurologic: Nonfocal exam Lymphatic: no cervical lymphadenopathy Results & Data Results & Data Vital Signs (Past 12 Hours) Vital Signs Temp Pulse Pulse Resp BP BP Pulse Ox 05/14/24 07:34 74 29 H 94 05/14/24 05:48 37.3 C 67 26 H 94 05/14/24 05:00 152/88 H 05/14/24 05:00 152/88 H 05/14/24 05:00 37.3 C 65 23 94 05/14/24 04:39 37.3 C 64 23 91 05/14/24 04:00 37.3 C 66 20 94 05/14/24 03:39 37.3 C 57 L 21 95 05/14/24 03:21 37.4 C 58 L 18 95 05/14/24 03:09 64 24 95 05/14/24 03:00 139/69 05/14/24 03:00 139/69 05/14/24 03:00 139/69 05/14/24 02:51 37.4 C 62 18 95 05/14/24 02:30 37.4 C 63 21 95 05/14/24 02:03 37.5 C 72 21 94 05/14/24 02:02 140/99 05/14/24 02:02 140/99 05/14/24 01:57 37.5 C 124 H 25 H 95 05/14/24 01:39 37.6 C H 120 H 17 95 05/14/24 01:03 37.5 C 119 H 24 94 05/14/24 01:00 111/77 05/14/24 00:51 37.6 C H 118 H 22 96 05/14/24 00:36 133 H 16 95 05/14/24 00:30 105/71 05/14/24 00:30 105/71 05/14/24 00:27 52 L 25 H 93 05/14/24 00:12 125 H 17 90 05/14/24 00:00 95/69 L 05/14/24 00:00 133 H 05/13/24 23:54 136 H 15 93 05/13/24 23:36 127 H 25 H 93 05/13/24 23:33 122/91 05/13/24 23:33 122/91 05/13/24 23:09 139 H 24 90 05/13/24 23:03 37.6 C H 128 H 27 H 93 05/13/24 23:01 95/56 L 05/13/24 23:01 122 H 87/46 L 05/13/24 22:59 127 H 05/13/24 22:57 37.6 C H 126 H 21 92 05/13/24 22:54 37.6 C H 124 H 26 H 89 L 05/13/24 22:50 131 H 98/49 L 05/13/24 22:45 134 H 30 H 90 05/13/24 22:40 132 H 136/67 05/13/24 22:30 113/73 05/13/24 22:27 139 H 150/69 H 05/13/24 22:24 37.4 C 141 H 24 91 05/13/24 22:15 37.5 C 91 H 29 H 93 05/13/24 22:12 37.5 C 87 21 93 05/13/24 22:06 37.4 C 89 25 H 89 L 05/13/24 22:00 37.5 C 88 28 H 92 05/13/24 21:45 37.5 C 93 H 29 H 94 05/13/24 21:31 152/70 H 05/13/24 21:31 152/70 H 05/13/24 21:12 37.6 C H 76 24 96 05/13/24 21:09 37.6 C H 73 20 96 05/13/24 21:00 119/64 05/13/24 20:51 37.6 C H 76 19 96 05/13/24 20:39 37.7 C H 86 27 H 96 05/13/24 20:30 135/59 L 05/13/24 20:30 135/59 L 05/13/24 20:09 37.8 C H 93 H 31 H 99 05/13/24 20:07 83 27 H 98 05/13/24 20:03 37.8 C H 89 26 H 98 05/13/24 20:01 152/73 H 05/13/24 20:01 152/73 H 05/13/24 20:00 05/13/24 19:57 37.8 C H 90 28 H 97 O2 Del Method O2 Flow Rate FiO2 05/14/24 07:34 70 05/14/24 05:48 High Flow Nasal Cannula 50 70 05/14/24 05:00 05/14/24 05:00 05/14/24 05:00 05/14/24 04:39 01/06/25 04:00 05/14/24 03:39 05/14/24 03:21 05/14/24 03:09 60 05/14/24 03:00 05/14/24 03:00 05/14/24 03:00 05/14/24 02:51 05/14/24 02:30 05/14/24 02:03 05/14/24 02:02 05/14/24 02:02 05/14/24 01:57 05/14/24 01:39 05/14/24 01:03 05/14/24 01:00 05/14/24 00:51 05/14/24 00:36 05/14/24 00:30 05/14/24 00:30 05/14/24 00:27 05/14/24 00:12 05/14/24 00:00 05/14/24 00:00 05/13/24 23:54 05/13/24 23:36 05/13/24 23:33 05/13/24 23:33 05/13/24 23:09 05/13/24 23:03 05/13/24 23:01 05/13/24 23:01 05/13/24 22:59 05/13/24 22:57 05/13/24 22:54 05/13/24 22:50 05/13/24 22:45 70 05/13/24 22:40 05/13/24 22:30 05/13/24 22:27 05/13/24 22:24 05/13/24 22:15 05/13/24 22:12 05/13/24 22:06 05/13/24 22:00 05/13/24 21:45 05/13/24 21:31 05/13/24 21:31 05/13/24 21:12 05/13/24 21:09 05/13/24 21:00 05/13/24 20:51 05/13/24 20:39 05/13/24 20:30 05/13/24 20:30 05/13/24 20:09 05/13/24 20:07 55 05/13/24 20:03 05/13/24 20:01 05/13/24 20:01 05/13/24 20:00 BiPAP 55 05/13/24 19:57 Critical Care Results & Data Vital Signs (Past 12 Hours) Vital Signs Temp Pulse Pulse Resp BP BP Pulse Ox 05/14/24 07:34 74 29 H 94 05/14/24 05:48 37.3 C 67 26 H 94 05/14/24 05:00 152/88 H 05/14/24 05:00 152/88 H 05/14/24 05:00 37.3 C 65 23 94 05/14/24 04:39 37.3 C 64 23 91 05/14/24 04:00 37.3 C 66 20 94 05/14/24 03:39 37.3 C 57 L 21 95 05/14/24 03:21 37.4 C 58 L 18 95 05/14/24 03:09 64 24 95 05/14/24 03:00 139/69 05/14/24 03:00 139/69 05/14/24 03:00 139/69 05/14/24 02:51 37.4 C 62 18 95 05/14/24 02:30 37.4 C 63 21 95 05/14/24 02:03 37.5 C 72 21 94 05/14/24 02:02 140/99 05/14/24 02:02 140/99 05/14/24 01:57 37.5 C 124 H 25 H 95 05/14/24 01:39 37.6 C H 120 H 17 95 05/14/24 01:03 37.5 C 119 H 24 94 05/14/24 01:00 111/77 05/14/24 00:51 37.6 C H 118 H 22 96 05/14/24 00:36 133 H 16 95 05/14/24 00:30 105/71 05/14/24 00:30 105/71 05/14/24 00:27 52 L 25 H 93 05/14/24 00:12 125 H 17 90 05/14/24 00:00 95/69 L 05/14/24 00:00 133 H 05/13/24 23:54 136 H 15 93 05/13/24 23:36 127 H 25 H 93 05/13/24 23:33 122/91 05/13/24 23:33 122/91 05/13/24 23:09 139 H 24 90 05/13/24 23:03 37.6 C H 128 H 27 H 93 05/13/24 23:01 95/56 L 05/13/24 23:01 122 H 87/46 L 05/13/24 22:59 127 H 05/13/24 22:57 37.6 C H 126 H 21 92 05/13/24 22:54 37.6 C H 124 H 26 H 89 L 05/13/24 22:50 131 H 98/49 L 05/13/24 22:45 134 H 30 H 90 05/13/24 22:40 132 H 136/67 05/13/24 22:30 113/73 05/13/24 22:27 139 H 150/69 H 05/13/24 22:24 37.4 C 141 H 24 91 05/13/24 22:15 37.5 C 91 H 29 H 93 05/13/24 22:12 37.5 C 87 21 93 05/13/24 22:06 37.4 C 89 25 H 89 L 05/13/24 22:00 37.5 C 88 28 H 92 05/13/24 21:45 37.5 C 93 H 29 H 94 05/13/24 21:31 152/70 H 05/13/24 21:31 152/70 H 05/13/24 21:12 37.6 C H 76 24 96 05/13/24 21:09 37.6 C H 73 20 96 05/13/24 21:00 119/64 05/13/24 20:51 37.6 C H 76 19 96 05/13/24 20:39 37.7 C H 86 27 H 96 05/13/24 20:30 135/59 L 05/13/24 20:30 135/59 L 05/13/24 20:09 37.8 C H 93 H 31 H 99 05/13/24 20:07 83 27 H 98 05/13/24 20:03 37.8 C H 89 26 H 98 05/13/24 20:01 152/73 H 05/13/24 20:01 152/73 H 05/13/24 20:00 05/13/24 19:57 37.8 C H 90 28 H 97 O2 Del Method O2 Flow Rate FiO2 05/14/24 07:34 70 05/14/24 05:48 High Flow Nasal Cannula 50 70 05/14/24 05:00 05/14/24 05:00 05/14/24 05:00 05/14/24 04:39 05/14/24 04:00 05/14/24 03:39 05/14/24 03:21 05/14/24 03:09 60 05/14/24 03:00 05/14/24 03:00 05/14/24 03:00 05/14/24 02:51 05/14/24 02:30 05/14/24 02:03 05/14/24 02:02 05/14/24 02:02 05/14/24 01:57 05/14/24 01:39 05/14/24 01:03 05/14/24 01:00 05/14/24 00:51 05/14/24 00:36 05/14/24 00:30 05/14/24 00:30 05/14/24 00:27 05/14/24 00:12 05/14/24 00:00 05/14/24 00:00 05/13/24 23:54 05/13/24 23:36 05/13/24 23:33 05/13/24 23:33 05/13/24 23:09 05/13/24 23:03 05/13/24 23:01 05/13/24 23:01 05/13/24 22:59 05/13/24 22:57 05/13/24 22:54 05/13/24 22:50 05/13/24 22:45 70 05/13/24 22:40 05/13/24 22:30 05/13/24 22:27 05/13/24 22:24 05/13/24 22:15 05/13/24 22:12 05/13/24 22:06 05/13/24 22:00 05/13/24 21:45 05/13/24 21:31 05/13/24 21:31 05/13/24 21:12 05/13/24 21:09 05/13/24 21:00 05/13/24 20:51 05/13/24 20:39 05/13/24 20:30 05/13/24 20:30 05/13/24 20:09 05/13/24 20:07 55 05/13/24 20:03 05/13/24 20:01 05/13/24 20:01 05/13/24 20:00 BiPAP 55 05/13/24 19:57 Lab & Micro Results (Past 24 Hours) RBC 3.82 M/uL (4.20-5.40) L 05/14/24 WBC 24.36 K/ul (4.8-10.8) H 05/14/24 Hgb 11.3 g/dl (12.0-16.0) L 05/14/24 Hct 34.5 % (37.0-47.0) L 05/14/24 MCV 90.3 fL (80.0-100.0) 05/14/24 MCH 29.6 pg (25.0-34.0) 05/14/24 MCHC 32.8 g/dL (32.0-36.0) 05/14/24 RDW Standard Deviation 49.3 fL (36.4-46.3) H 05/14/24 RDW Coefficient of Variation 14.8 % (11.5-14.5) H 05/14/24 Plt Count 122 K/uL (130-400) L 05/14/24 MPV 11.3 fL (9.4-12.4) 05/14/24 Neutrophils (%) (Auto) 88.2 % 05/13/24 Lymphocytes (%) (Auto) 4.3 % 05/13/24 Monocytes # (Auto) 1.24 K/uL (0.11-0.59) H 05/13/24 Eosinophils # (Auto) 0.13 K/uL (0.00-0.50) 05/13/24 Immature Granulocyte % (Auto) 0.6 % 05/13/24 Neutrophils # (Auto) 18.30 K/uL (1.40-6.50) H 05/13/24 Lymphocytes # (Auto) 0.89 K/uL (1.20-3.40) L 05/13/24 Monocytes # (Auto) 1.24 K/uL (0.11-0.59) H 05/13/24 Eosinophils # (Auto) 0.13 K/uL (0.00-0.50) 05/13/24 Basophils # (Auto) 0.06 K/uL (0.00-0.20) 05/13/24 Immature Granulocyte # (Auto) 0.13 K/uL (0.01-0.20) 5 Na 139 mmol/L (136-145) 05/14/24 K 3.6 mmol/L (3.5-5.1) 05/14/24 Cl 106 mmol/L (98-107) 05/14/24 CO2 24 mmol/L (21-32) 05/14/24 Anion Gap 9 (3-11) 05/14/24 BUN 43 mg/dl (6-23) H 05/14/24 Creatinine 1.14 mg/dl (0.6-1.2) 05/14/24 BUN/Creatinine Ratio 37.7 (10-20) H 05/14/24 Glu 133 mg/dl (70-99(Fasting)) H 05/14/24 Ca 8.7 mg/dl (8.6-10.3) 05/14/24 Total Bilirubin 0.6 mg/dl (0.2-1.0) 05/14/24 AST 46 U/L (13-39) H 05/14/24 ALT 114 U/L (7-52) H 05/14/24 Alkaline Phosphatase 246 U/L (34-104) H 05/14/24 TP 6.6 gm/dl (6.0-8.3) 05/14/24 Albumin 3.1 gm/dl (3.4-5.0) L 05/14/24 Globulin 3.5 gm/dl (2.5-4.0) 05/14/24 Albumin/Globulin Ratio 0.9 (0.9-2) 05/14/24 Mg 2.6 mg/dl (1.7-2.4) H 05/14/24 06:29 Calcium Level 8.7 mg/dl (8.6-10.3) 05/14/24 06:29 Prothromb Time International Ratio 1.0 (0.9-1.1) 05/13/24 23:4 3 Mani Test NA 05/13/24 23:02 Microbiology 05/13/24 06:35 Aerobic Blood Culture - Preliminary Blood No growth in Aerobic bottle after 24 hours. Anaerobic Blood Culture - Preliminary No growth in Anaerobic bottle after 24 hours. 05/13/24 06:31 Aerobic Blood Culture - Preliminary Blood No growth in Aerobic bottle after 24 hours. Anaerobic Blood Culture - Preliminary No growth in Anaerobic bottle after 24 hours. 05/11/24 13:40 Urine Culture - Final Urine,Clean Catch Three types of organisms present, all low counts probable skin frankie. No further identifications or sensitivities to follow. 05/11/24 08:00 Urine Culture - Final Urine,Straight Cath Escherichia coli 05/11/24 06:26 Aerobic Blood Culture - Preliminary Blood Escherichia coli Anaerobic Blood Culture - Final 05/11/24 06:26 Aerobic Blood Culture - Preliminary Blood Escherichia coli Anaerobic Blood Culture - Final Diagnostic Findings (Past 24 Hours) Chest X-Ray 05/13/24 06:00 EXAM: XR chest 1V portable CLINICAL HISTORY: Evaluate lung russell. TECHNIQUE: An X-ray image of the chest was obtained in 1 view: AP projection. COMPARISON: X-ray dated 05/12/24. FINDINGS: Pulmonary Parenchyma: Apparent mild interval further progression of inhomogenous airspace opacification of bilateral lung lower zones with obscuration of CP angle suggestive of pleural effusions with underlying subsegmental consolidation/collapse Prominent bilateral broncho vascular markings. There is suspicion of a lucency in left lung apical region with the attenuation of the bronchovascular markings, need dedicated views (right lateral decubitus views) to rule out pneumothorax on left side. Right central line is noted with the tip in the right atrium (unchanged). Heart and Mediastinum: Apparent cardiomegaly with mediastinal widening. No hilar or mediastinal lymphadenopathy. Bony Thorax: Bony thorax appears intact without fractures or deformities. Degenerative images are seen in bilateral glenohumeral joints. Soft Tissues: Soft tissues overlying the chest wall are unremarkable. IMPRESSION: 1. Apparent mild interval progression of inhomogenous airspace opacification of bilateral lung lower zones with obscuration of CP angle suggestive of pleural effusions with underlying subsegmental consolidation/collapse (patient is rotated compared to previous study and the aforementioned findings could be exaggerated in the current study). 2. Prominent bilateral broncho vascular markings. 3. There is suspicion of a lucency in left lung apical region with the attenuation of the broncho vascular markings, need dedicated views (right lateral decubitus views) to rule out pneumothorax on left side. 4. Apparent cardiomegaly with mediastinal widening. Electronically signed by Dilcia Avalos 05-13-2024 08:06 AM Chest X-Ray 05/13/24 08:47 XR chest 1V portable CLINICAL HISTORY: f/u COMPARISON STUDY: Chest radiograph May 13, 2024 at 6:[address] May 11, 2024. FINDINGS: Right internal jugular central venous catheter remains in place. There is no pneumothorax. Skin folds project over the left chest. Pulmonary edema has mildly progressed. Small bilateral pleural effusions with associated bibasilar opacities are again noted. Cardiomediastinal silhouette is stable. IMPRESSION: 1. No pneumothorax. Possible left pneumothorax prior chest radiograph was due to skin folds. 2. Progression of pulmonary edema, small bilateral pleural effusions and associated bibasilar opacities which could reflect pneumonia or atelectasis. ACT 112: Negative or not required by law. Electronically signed by: Deny Mcclain M.D. 05/13/2024 9:23 AM Chest CTA 05/13/24 23:01 Exam(s): CTA CHEST IV Amt: 118 ml optiray 320 EXAM: CT Angiography Chest With Intravenous Contrast CLINICAL HISTORY: Reason for exam: PE. TECHNIQUE: Axial computed tomographic angiography images of the chest with intravenous contrast. CTDI is 22.98 mGy and DLP is 630.43 mGy-cm. Automated exposure control was utilized for the study. A dose lowering technique was utilized adhering to the principles of ALARA. MIP reconstructed images were created and reviewed. COMPARISON: CT chest: 05/11/2024 FINDINGS: Pulmonary arteries: Unremarkable. No pulmonary artery embolism identified. No pulmonary artery enlargement or CTA evidence of right heart strain. Aorta: No acute findings. No thoracic aortic aneurysm or dissection. Lungs: There is new dependent bilateral lower lobe consolidation with air bronchograms suggestive of pneumonia. There are small dependent associated pleural effusions. Pleural space: No pneumothorax is noted. Heart: See above. Bones/joints: No acute fracture. No dislocation. Soft tissues: Unremarkable. Lymph nodes: Unremarkable. No enlarged lymph nodes. IMPRESSION: 1. No pulmonary embolus identified. 2. New dependent bilateral lower lobe consolidation with air bronchograms suggestive of pneumonia. Small associated pleural effusions. Electronically signed by: Jacobo Redd MD 05/14/24 01:30 AM I & O Totals 24 Hours 05/13/24 05/14/24 05/15/24 06:59 06:59 06:59 Intake Total 1559.198 / 5023.169 8140.449 / 1932.449 106.00 / 106.00 Output Total 1949 3150 / 3150 Balance -390.802 / -390.802 -1217.551 / -1217.551 106.00 / 106.00 Cumulative 05/11/24 03:51 thru 05/14/24 07:36 Intake Total 9482.637 Output Total 7350 Balance 2132.637 RT Ventilator Mngmt (Last Documented) Ventilator Ordered Settings Ventilator Support Mode Assist Control 05/12/24 10:00 Respiratory Rate 29 05/14/24 07:34 Ventilator Tidal Volume 430 05/12/24 10:00 Setting Minute Ventilation 10 05/12/24 07:51 Positive End Expiratory 8 05/12/24 10:00 Pressure Fraction of Inspired Oxygen 70 05/14/24 07:34 Machine Comment weaned to 40% 05/12/24 00:00 Ventilator - PT Measurements Respiratory Rate 29 Exhaled Tidal Volume 430 Minute Ventilation 10 Peak Inspiratory Airway 25 Pressure Plateau Pressure 18 Respiratory Cycle Inspiratory: 1:2.1 Expiratory Ratio Inspiratory Phase Time 0.8 End-Tidal CO2 28 Static Lung Compliance 43.00 Dynamic Lung Compliance 25.29 Normal Static Lung Compliance 47.00 Coding Level of Care Code 91077 CRITICAL CARE 1ST 30-74M Diagnoses Shock circulatory R57.9 Calculus of proximal left ureter N20.1 CKD (chronic kidney disease) N18.9 Transaminitis R74.01 Elevated troponin R79.89 Sepsis A41.9 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
[2024-05-14 07:43] VITALS: BP 159/89; PULSE 70; O2SAT 97
--- NOTE | 2024-05-14 08:07 | XRay Report ---
EXAM: XR chest 1V portable CLINICAL HISTORY: EVAL LUNG ROMERO JTF/TGB. TECHNIQUE: An X-ray image of the chest is obtained in AP projection. COMPARISON: 05/13/2024 and 05/11/2024 X-rays. FINDINGS: Right CVL is seen in proper cavoatrial position. Pulmonary Parenchyma: Right lower lung zone ill-defined opacification and consolidation is seen obscuring diaphragmatic border and costophrenic angle. Another left lower lung zone patchy opacity is seen obscuring diaphragmatic border and costophrenic angle. Blunted both costophrenic angles noted. No evidence of pleural effusion or pleural thickening. Heart and Mediastinum: Enlarged cardiac shadow with wide mediastinum. Bilateral hilar vascular congestion was noted. No hilar or mediastinal lymphadenopathy. Bony Thorax: Bony thorax appears intact without fractures or deformities. Soft Tissues: Soft tissues overlying the chest wall are unremarkable. IMPRESSION: 1. Still noted bilateral lower lung lobe patchy opacities, which may represent edema/ infection Follow-up is advised. 2. Unchanged Cardiomeglay with congested mitzi. 3. Still noted blunted both costophrenic angles with possible pleural thickening /effusion. 4. Insitu inserted right CVL and was stable. Electronically signed by Dilcia Avalos 05-14-2024 08:06 AM
[2024-05-14 09:52] LABS: Ceruloplasmin 19 mg/dL (14-48); Hepatitis A Antibody IgM NON-REACTIVE (NON-REACTIVE); Hepatitis B Core Antibody IgM NON-REACTIVE (NON-REACTIVE)
[2024-05-14] MEDS ORDERED: STAT IV Infusion **Titration per Protocol STA (10:06)
[2024-05-14] MEDS ORDERED: ONDANSETRON INJ 2 MG/ML 2 ML VIAL IV PRN (10:06)
[2024-05-14] MEDS ORDERED: HYDROmorphone BOLUS from BAG IV PRN (10:06)
[2024-05-14] MEDS ORDERED: GLYCOPYRROLATE 0.2 MG/ML VIAL IV PRN (10:06)
[2024-05-14] MEDS ORDERED: NALOXONE HCL 0.4 MG/1 ML VIAL/CARP IV PRN (10:12)
[2024-05-14] MEDS ORDERED: HYDROmorphone PCA 30 MG/30 ML IV PRN (10:12)
[2024-05-14] MEDS ORDERED: HYDROmorphone 100 MG/100 ML BAG IV SCH (10:15)
[2024-05-14] MEDS: LORazepam 2 MG/1 ML VIAL IV PRN (10:36)
[2024-05-14 10:52] VITALS: RESP 36
[2024-05-14] MEDS: HALOPERIDOL ORAL SOLN 2 MG/ML PO PRN (11:31)
--- NOTE | 2024-05-14 11:33 | Palliative Care Consultation ---
Date of Consultation May 14, 2024 Assessment & Plan (1) Dyspnea and respiratory abnormalities: Dilaudid 1mg IV q15min prn air hunger, pain Dilaudid CHECKER IN only 0.2mg Q15min , can move to continuous infusion if needed Ativan 1mg IV q4h prn Haldol 0.5mg PO q4h prn Robinul 0.4mg IV q4h prn (2) Weakness generalized: (3) Generalized pain: (4) Palliative care by specialist: Introduced Palliative Medicine and explained our role in patient's care. Patient and/or family were receptive to palliative services for goals of care discussions. Reviewed we are different from hospice, a home health nurse visiting service. (5) Encounter for end of life care: ACP x 30min : face to face with Patrizia and her at the bedside. Discussed events to date and overall medical circumstances, her decline and she expressed wishes for full transition to comfort, no further escalation of care and a desire to return home. Very specifically discussed the issues surrounding home discharge when the patient is on high flow nasal cannula oxygen and advised that we would work to improve her symptom burden with conversion to comfort focused medications and try to wean her down off the high flow nasal cannula oxygen with the intentions of trying to get her home with hospice at that point. She was in agreement with this plan. Additionally we agree that should she decline more rapidly than we would keep her here in the hospital and continue comfort care. I discussed the addition of adding hospice to her care in the hospital and we agreed to request a general inpatient hospice evaluation with [facility] since they have the capacity to do IV infusion opioids in the home setting and could easily transition home from the hospital with that in place if needed. A care management order has been placed for this with the notation to contact [facility]. (6) Encounter for end of life education, guidance and counseling: Met with patient and at the bedside as well as additional ACP w/ outside the room for an additional 15 minutes. Reviewed the situation and the overall high risk of mortality. He has been updating her family (daughter and son) and notes that the daughter resides in [place] and it is unlikely she will be able to come today due to the weather. She is aware of how dire the circumstances are and that patient may before she arrives. We discussed that high flow nasal cannula cannot be done in the residential setting but we will try to wean her down with a transition focus of getting her home if we can. He is aware she may in the hospital and I expressed my worry that this is likely the most expected outcome. I expressed concern that given her overall medical frailty and precipitous decline, that I do not think we will be able to get her to a place where nasal cannula will suffice and she will be safe for transport. Advised that we will do everything we can to assure she is comfort and does not have any distress. For now there is no harm in letting her feel some hope that she may be able to return home but I have also asked her to bring in some blankets and pillows from home that may help add to her comfort while she is here in the hospital with us. He verbalized understanding and all questions were answered to his apparent satisfaction. (7) Shock circulatory: (8) Sepsis: Plan As above PERSONAL FINANCIAL REPRESENTATIVE, all orders written wean down HFNC as dyspnea improves with prn opioids wean down amiodarone and pressors as comfort improves DC non essential, non comfort interventions, dc labs, etc. Pt and in agreement. Thank you for allowing us to participate in the ongoing care of this patient. Please page with any additional concerns. Sari Mariano DNP Director, Palliative Medicine History of Present Illness Reason for Consultation: comfort care Attending Physician: [place] History of Present Illness Patrizia Anderson is an 83-year-old female admitted 05/11/2024 for circulatory shock, calculus of the left ureter, CKD, transaminitis, elevated troponin, sepsis, stage III pressure ulcer left buttock, hyper triglyceridemia, hypertension, hypothyroid. Initially presented to the hospital with nausea and vomiting and found to have bilateral nephritis with hydronephrosis on the left. She was taken to the operating room requiring intubation and went on to develop severe sepsis, septic shock requiring vasopressors. She was liberated from the ventilator 05/12/2024 but has required BiPAP and high flow nasal cannula since that time. Her blood cultures and urine cultures are showing pansensitive E. coli. In the last 24 hours she has been on and off noninvasive pressure ventilation. She has gone into atrial fibrillation with RVR since yesterday. Her CT angiogram did not evidence of pulmonary emboli. She requires previous short-term pressor use and has been initiated on amiodarone as well as heparin. She is now converted spontaneously to sinus rhythm. In conversations at the bedside with patient and her , it was determined that she did not wish to have any further escalation of care and she wanted to transition to focus on comfort. It is her hope that she can is able to return home. Palliative medicine has been asked to see this patient to assist with pain and symptom management, end-of-life care and transition to home health if possible. Allergies Allergy/AdvReac Type Severity Reaction Status Date / Time gabapentin Allergy Unknown Unknown Verified 05/11/24 09:15 duloxetine [From Cymbalta] AdvReac Intermediate Diarrhea Verified 05/11/24 09:15 tramadol AdvReac Intermediate Nausea, Verified 05/11/24 09:15 headache nabumetone AdvReac Mild Gastrointestinal Verified 05/11/24 09:15 Upset simvastatin AdvReac Mild Mylagia Verified 05/11/24 09:15 ibuprofen AdvReac Unknown CKD Verified 05/11/24 09:15 Home Medications Medication Instructions Recorded Confirmed Type aspirin 81 mg tablet,delayed 81 mg PO HS 03/07/18 05/11/24 History release (Adult Aspirin Regimen) mecobalamin (vitamin B12) 1,000 1,000 mcg sublingual QAM 03/07/18 05/11/24 History mcg disintegrating tablet,sublingual magnesium oxide 400 mg (241.3 mg 400 mg PO HS 01/20/19 05/11/24 History magnesium) tablet cholecalciferol (vitamin D3) 50 2,000 units PO QAM 06/29/19 05/11/24 History mcg (2,000 unit) capsule vitamins A,C,M-fiyg-brepzk 2,148 1 tab PO QAM 06/29/19 05/11/24 History mcg-113 mg-45 mg-17.4 mg tablet (PreserVision AREDS) ascorbic acid (vitamin C) 500 mg 500 mg PO QAM 01/29/21 05/11/24 History capsule calcium 500 mg (as 1 tab PO QPM 01/29/21 05/11/24 History carbonate)-vitamin D3 5 mcg (200 unit) tablet (Calcium 500 + D) diclofenac sodium 1 % topical gel 2 g topical BID 01/29/21 05/11/24 History levothyroxine 100 mcg tablet 100 mcg PO DAILY #90 tabs 06/15/23 05/11/24 Rx cyclosporine 0.09 % eye drops in a 1 drp ophthalmic (eye) Q12H 08/12/23 05/11/24 History dropperette (Cequa) levocabastine 0.05 % eye drp ophthalmic (eye) 08/12/23 04/13/24 History drops,suspension omega-3 fatty acids 1,000 mg 1,000 mg PO BID #180 caps 08/12/23 05/11/24 Rx capsule rosuvastatin 10 mg tablet (Crestor) 10 mg PO QAM #90 tabs 09/13/23 05/11/24 Rx nebivolol 10 mg tablet (Bystolic) 15 mg (1.5 x 10 mg) PO QAM #135 10/11/23 05/11/24 Rx tabs amlodipine 10 mg-benazepril 20 mg 1 cap PO DAILY #90 caps 02/14/24 05/11/24 Rx capsule meclizine 25 mg tablet 25 mg PO BID PRN nausea #60 tabs 03/20/24 05/11/24 Rx nystatin-triamcinolone 100,000 1 applic topical BID #60 grams 04/24/24 05/11/24 Rx unit/gram-0.1 % topical ointment Patient History Medical History Encounter for pre-operative examination Leukocytosis Sacroiliitis Lumbar spondylosis Lumbar spinal stenosis Arthritis Osteoporosis screening Chronic back pain Lumbar Macular degeneration Anxiety Surgical History Hx of spinal surgery Fusion History of appendectomy History of colonoscopy History of hysterectomy History of cholecystectomy History of Mohs micrographic surgery for skin cancer 2019 (cheek) History of cataract surgery R/L Status post left foot surgery Four screws in left foot Family History Father Coronary heart disease Myocardial infarction Mother Rheumatoid arthritis Sister End stage renal disease Diabetes Hypertension Coronary heart disease Denies family history of Ovarian cancer Prostate cancer Breast cancer Lung cancer Colorectal cancer Stroke Social History Smoking Status: Unknown if ever smoked Second Hand Exposure: Yes (SPOUSE USED TO SMOKE); Do You Dip or Chew Tobacco: No; Hx Alcohol Use: No Hx Substance Use: No Preferred Language: Yoruba Communication Ability: Effective Communication Ability Comment: pt currently intubated Visual Impairment: Limited Hearing Ability: Normal Armored Car Driver Required: No Beliefs That Will Affect Care: None marital status: Current Living Situation: Spouse current occupational status: retired How many Children do You have: 2 Feels Safe at Home: Yes Childhood Exposure to Second-Hand Smoke: Yes caffeine: No Dental Care, Regularly: Yes Physical Activity Frequency: Other Physical Activity Frequency Comment: Chair exercises Seatbelt Use: always Sunscreen Use: Yes Assistive Devices: Cane and Walker Review of Systems Constitutional: + chills, + fatigue, + weakness, + anore kurt and + weight loss Eyes: as per Subjective / HPI Ear, Nose, Mouth, Throat: + hearing loss, + dry mouth, + sore thro at and + hoarseness Respiratory: + cough, + dyspnea and + dyspnea on exer tion Cardiovascular: + chest pain, + dyspnea at rest and + pa lpitations Gastrointestinal: + abdominal pain, + nausea and + constip ation Genitourinary: + difficulty urinating, + flank pain and + pelvic pain Musculoskeletal: + back pain, + loss of height, + joint p ain, + stiffness, + limited range of motion, + muscle weakness and + muscle atrophy Integumentary: + non-healing lesions, + skin ulcer and + unusual bruising Neurologic: + gait abnormality, + unsteadiness, + fa lls and + generalized weakness Psychiatric: + depression and + anxiety Physical Exam Constitutional: + acute distress, + ill appearing, + thi n, + physical limitations, + frail appearing, + disheveled, cooperative and + in distress Eyes: PERRL, conjunctivae normal, anicteric sclerae ENMT: Mouth: + muffled voice, + dry oral mucous membranes and + poor dentition Neck: trachea midline; no tracheal deviation, no neck crepitus and no midline deformity Respiratory: + respiratory distress, + labored breath ing, + uses accessory muscles, + cough, + tachypneic, + prolonged expiratory phase and + pursed lip breathing; + not able to speak in complete sentence Auscultation: + diminished lung sounds, + rales and + rhonchi Cardiovascular: Rate/Rhythm: + tachycardic Gastrointestinal (Abdomen): Inspection/Auscultation: + abdomen distended and normal bowel sounds Musculoskeletal: gen weakness Skin: + turgor decreased and + pallor Neurologic: normal touch/pain/proprioception and awake weak but alert, drifts off at times Psychiatric: anxious Results & Data Vital Signs (Past 12 Hours) Vital Signs Temp Pulse Resp BP Pulse Ox O2 Del Method O2 Flow Rate 05/14/24 10:51 36 H High Flow Nasal Cannula 60 05/14/24 08:00 High Flow Nasal Cannula 05/14/24 08:00 70 159/89 H 05/14/24 07:41 70 27 H 159/89 H 97 BiPAP 05/14/24 07:34 74 29 H 94 05/14/24 05:48 37.3 C 67 26 H 94 High Flow Nasal Cannula 50 05/14/24 05:00 152/88 H 05/14/24 05:00 152/88 H 05/14/24 05:00 37.3 C 65 23 94 05/14/24 04:39 37.3 C 64 23 91 05/14/24 04:00 37.3 C 66 20 94 05/14/24 03:39 37.3 C 57 L 21 95 05/14/24 03:21 37.4 C 58 L 18 95 05/14/24 03:09 64 24 95 05/14/24 03:00 139/69 05/14/24 03:00 139/69 05/14/24 03:00 139/69 05/14/24 02:51 37.4 C 62 18 95 05/14/24 02:30 37.4 C 63 21 95 05/14/24 02:03 37.5 C 72 21 94 05/14/24 02:02 140/99 05/14/24 02:02 140/99 05/14/24 01:57 37.5 C 124 H 25 H 95 05/14/24 01:39 37.6 C H 120 H 17 95 05/14/24 01:03 37.5 C 119 H 24 94 05/14/24 01:00 111/77 05/14/24 00:51 37.6 C H 118 H 22 96 05/14/24 00:36 133 H 16 95 05/14/24 00:30 105/71 05/14/24 00:30 105/71 05/14/24 00:27 52 L 25 H 93 05/14/24 00:12 125 H 17 90 05/14/24 00:00 95/69 L 05/14/24 00:00 133 H 05/13/24 23:54 136 H 15 93 05/13/24 23:36 127 H 25 H 93 05/13/24 23:33 122/91 05/13/24 23:33 122/91 FiO2 05/14/24 10:51 100 05/14/24 08:00 100 05/14/24 08:00 05/14/24 07:41 80 05/14/24 07:34 70 05/14/24 05:48 70 05/14/24 05:00 05/14/24 05:00 05/14/24 05:00 05/14/24 04:39 05/14/24 04:00 05/14/24 03:39 05/14/24 03:21 05/14/24 03:09 60 05/14/24 03:00 05/14/24 03:00 05/14/24 03:00 05/14/24 02:51 05/14/24 02:30 05/14/24 02:03 05/14/24 02:02 05/14/24 02:02 05/14/24 01:57 05/14/24 01:39 05/14/24 01:03 05/14/24 01:00 05/14/24 00:51 05/14/24 00:36 05/14/24 00:30 05/14/24 00:30 05/14/24 00:27 05/14/24 00:12 05/14/24 00:00 05/14/24 00:00 05/13/24 23:54 05/13/24 23:36 05/13/24 23:33 05/13/24 23:33 Laboratory Results 05/14/24 05/13/24 05/13/24 Range/Units 06:29 23:47 23:46 WBC 24.36 H 20.75 H (4.8-10.8) K/ul RBC 3.82 L 3.71 L (4.20-5.40) M/uL Hgb 11.3 L 11.0 L (12.0-16.0) g/dl POC Hgb (12.0-16.0) g/dl Hct 34.5 L 34.0 L (37.0-47.0) % POC Hct (37-47) % MCV 90.3 91.6 (80.0-100.0) fL MCH 29.6 29.6 (25.0-34.0) pg MCHC 32.8 32.4 (32.0-36.0) g/dL RDW Std Deviation 49.3 H 50.0 H (36.4-46.3) fL RDW Coeff of Lizabeth 14.8 H 14.8 H (11.5-14.5) % Plt Count 122 L 125 L (130-400) K/uL MPV 11.3 10.9 (9.4-12.4) fL Immature Gran % (Auto) 0.6 % Neut % (Auto) 88.2 % Lymph % (Auto) 4.3 % Jack % (Auto) 6.0 % Eos % (Auto) 0.6 % Baso % (Auto) 0.3 % Neut # (Auto) 18.30 H (1.40-6.50) K/uL Lymph # (Auto) 0.89 L (1.20-3.40) K/uL Jack # (Auto) 1.24 H (0.11-0.59) K/uL Eos # (Auto) 0.13 (0.00-0.50) K/uL Baso # (Auto) 0.06 (0.00-0.20) K/uL Immature Gran # (Auto) 0.13 (0.01-0.20) K/uL Toxic Vacuolation RBC Morphology PT (9.0-12.0) Seconds INR (0.9-1.1) APTT (21-31) Seconds PTT Ratio Heparin Anti-Xa, Unfract 0.23 L (0.3-0.7) IU/ml Specimen Type Sample Site POC pH (7.35-7.45) POC pCO2 (35-46) mmHg POC pO2 (80-95) mmHg POC HCO3 (19-24) jonatan/L POC Base Excess (-9-1.8) jonatan/L O2 Sat Pulse Oximetry ABG pH (Temp Correct) (7.35-7.45) ABG pCO2 (Temp Corrct (35-46) mmHg POC ABG pO2 at Pt Temp POC ABG O2 Sat (90-95) % Mani Test O2 Delivery Device Vent Mode POC FiO2 % End Tidal CO2 EPAP IPAP POC Sodium (135-144) mmol/L Sodium 139 (136-145) mmol/L POC Potassium (3.3-5.0) mmol/L Potassium 3.6 (3.5-5.1) mmol/L POC Chloride (101-112) mmol/L Chloride 106 (98-107) mmol/L Carbon Dioxide 24 (21-32) mmol/L POC Total CO2 (24-31) mmol/L Anion Gap 9 (3-11) POC Anion Gap (16-25) mmol/L POC BUN (7-18) mg/dl BUN 43 H (6-23) mg/dl Creatinine 1.14 (0.6-1.2) mg/dl POC Creatinine (0.6-1.3) mg/dl Est Cr Clr Drug Dosing 33.6 ml/min eGFR 47.77 BUN/Creatinine Ratio 37.7 H (10-20) Glucose 133 H (70-99(Fasting)) mg/dl POC Glucose 118 H (70-99) mg/dl POC Glucose (other) (70-99) mg/dl Lactate (0.4-2.0) mmol/L Calcium 8.7 (8.6-10.3) mg/dl POC Ioniz Calcium Anthony (1.12-1.32) mmol/l Magnesium 2.6 H (1.7-2.4) mg/dl Iron (35-150) mcg/dl Unsaturated IBC (155-355) mcg/dl Ferritin (8-388) ng/ml Total Bilirubin 0.6 (0.2-1.0) mg/dl AST 46 H (13-39) U/L ALT 114 H (7-52) U/L Alkaline Phosphatase 246 H (34-104) U/L Ammonia (18-72) umol/L Troponin I High Sens (0-14) pg/ml Total Protein 6.6 (6.0-8.3) gm/dl Albumin 3.1 L (3.4-5.0) gm/dl Globulin 3.5 (2.5-4.0) gm/dl Albumin/Globulin Ratio 0.9 (0.9-2) Ceruloplasmin (14-48) mg/dL Lipase (11-82) U/L Procalcitonin (0-0.5) ng/ml TSH (0.300-4.500) uIu/ml Random Cortisol mcg/dl Urine Color Urine Appearance (Clear) Urine pH (4.5-7.5) Ur Specific Walton (1.000-1.030) Urine Protein (Negative) Urine Glucose (UA) (Negative) Urine Ketones (Negative) Urine Blood (Negative) Urine Nitrite (Negative) Urine Bilirubin (Negative) Urine Urobilinogen (Negative) Ur Leukocyte Esterase (Negative) Urine WBC (Auto) (0-5) /hpf Urine RBC (Auto) (0-2) /hpf U Hyaline Cast (Auto) (0-2) /lpf U Epithel Cells (Auto) (0-2) /hpf Urine Bacteria (Auto) (None Seen) Urine Osmolality (500-800) mOsm/kg Ur Random Creatinine mg/dl Ur Random Sodium mmol/L Ur Random Potassium mmol/L Ur Random Chloride Nasal Screen MRSA (PCR) (Negative) Adenovirus (PCR) (NotDetected) B. pertussis DNA (PCR) (NotDetected) B.parapertussis DNA PCR (NotDetected) C. pneumoniae DNA (PCR) (NotDetected) Coronavirus OC43 (PCR) (NotDetected) Coronavirus HKU1 (PCR) (NotDetected) Coronavirus 229E (PCR) (NotDetected) SARS-CoV-2 (PCR) (NotDetected) Coronavirus NL63 (PCR) (NotDetected) Enterobacterales (PCR) (NotDetected) E. coli (PCR) (NotDetected) Hepatitis A IgM Ab (NON-REACTIVE) Hep Bs Antigen (Negative) Hep B Core IgM Ab (NON-REACTIVE) Hepatitis C Antibody (Negative) Monoscreen (Negative) Human Metapneumovir PCR (NotDetected) Influenza Type A (PCR) (NotDetected) Influenza Type B (PCR) (NotDetected) M. pneumoniae (PCR) (NotDetected) Parainfluenza 1 (PCR) (NotDetected) Parainfluenza 2 (PCR) (NotDetected) Parainfluenza 3 (PCR) (NotDetected) Parainfluenza 4 (PCR) (NotDetected) RSV (PCR) (NotDetected) Entero/Rhino (PCR) (NotDetected) mcr-1 Colistin Res Gene PCR (NotDetected) blaIMP Car res Gene PCR (NotDetected) KPC-Carbap Res Gene PCR (NotDetected) blaNDM Car Res Gene PCR (NotDetected) OXA-48 Carbapenem Resis Gene (PCR) (NotDetected) blaVIM Car Res Gene PCR (NotDetected) CTX-M Gene Resistance (PCR) (NotDetected) Bld Cult ID Panel PCR (NotDetected) 05/13/24 05/13/24 05/13/24 Range/Units 23:43 23:02 11:42 WBC (4.8-10.8) K/ul RBC (4.20-5.40) M/uL Hgb (12.0-16.0) g/dl POC Hgb 11.6 L (12.0-16.0) g/dl Hct (37.0-47.0) % POC Hct 34 L (37-47) % MCV (80.0-100.0) fL MCH (25.0-34.0) pg MCHC (32.0-36.0) g/dL RDW Std Deviation (36.4-46.3) fL RDW Coeff of Lizabeth (11.5-14.5) % Plt Count (130-400) K/uL MPV (9.4-12.4) fL Immature Gran % (Auto) % Neut % (Auto) % Lymph % (Auto) % Jack % (Auto) % Eos % (Auto) % Baso % (Auto) % Neut # (Auto) (1.40-6.50) K/uL Lymph # (Auto) (1.20-3.40) K/uL Jack # (Auto) (0.11-0.59) K/uL Eos # (Auto) (0.00-0.50) K/uL Baso # (Auto) (0.00-0.20) K/uL Immature Gran # (Auto) (0.01-0.20) K/uL Toxic Vacuolation RBC Morphology PT 11.1 (9.0-12.0) Seconds INR 1.0 (0.9-1.1) APTT (21-31) Seconds PTT Ratio Heparin Anti-Xa, Unfract (0.3-0.7) IU/ml Specimen Type Arterial Sample Site Art Line POC pH 7.40 (7.35-7.45) POC pCO2 35 (35-46) mmHg POC pO2 59 L (80-95) mmHg POC HCO3 22 (19-24) jonatan/L POC Base Excess -3.0 (-9-1.8) jonatan/L O2 Sat Pulse Oximetry 90 ABG pH (Temp Correct) 7.388 (7.35-7.45) ABG pCO2 (Temp Corrct 36 (35-46) mmHg POC ABG pO2 at Pt Temp 62 POC ABG O2 Sat 90.0 (90-95) % Mani Test NA O2 Delivery Device BIPAP Vent Mode POC FiO2 55 % End Tidal CO2 EPAP 6 IPAP 12 POC Sodium 142 (135-144) mmol/L Sodium 140 (136-145) mmol/L POC Potassium 3.5 (3.3-5.0) mmol/L Potassium 3.4 L (3.5-5.1) mmol/L POC Chloride (101-112) mmol/L Chloride 107 (98-107) mmol/L Carbon Dioxide 22 (21-32) mmol/L POC Total CO2 23 L (24-31) mmol/L Anion Gap 11 (3-11) POC Anion Gap (16-25) mmol/L POC BUN (7-18) mg/dl BUN 45 H (6-23) mg/dl Creatinine 1.19 (0.6-1.2) mg/dl POC Creatinine (0.6-1.3) mg/dl Est Cr Clr Drug Dosing 32.2 ml/min eGFR 45.37 BUN/Creatinine Ratio 37.8 H (10-20) Glucose 116 H (70-99(Fasting)) mg/dl POC Glucose 79 (70-99) mg/dl POC Glucose (other) (70-99) mg/dl Lactate (0.4-2.0) mmol/L Calcium 8.3 L (8.6-10.3) mg/dl POC Ioniz Calcium Anthony (1.12-1.32) mmol/l Magnesium 2.4 (1.7-2.4) mg/dl Iron (35-150) mcg/dl Unsaturated IBC (155-355) mcg/dl Ferritin (8-388) ng/ml Total Bilirubin (0.2-1.0) mg/dl AST (13-39) U/L ALT (7-52) U/L Alkaline Phosphatase (34-104) U/L Ammonia (18-72) umol/L Troponin I High Sens (0-14) pg/ml Total Protein (6.0-8.3) gm/dl Albumin (3.4-5.0) gm/dl Globulin (2.5-4.0) gm/dl Albumin/Globulin Ratio (0.9-2) Ceruloplasmin (14-48) mg/dL Lipase (11-82) U/L Procalcitonin (0-0.5) ng/ml TSH (0.300-4.500) uIu/ml Random Cortisol mcg/dl Urine Color Urine Appearance (Clear) Urine pH (4.5-7.5) Ur Specific Walton (1.000-1.030) Urine Protein (Negative) Urine Glucose (UA) (Negative) Urine Ketones (Negative) Urine Blood (Negative) Urine Nitrite (Negative) Urine Bilirubin (Negative) Urine Urobilinogen (Negative) Ur Leukocyte Esterase (Negative) Urine WBC (Auto) (0-5) /hpf Urine RBC (Auto) (0-2) /hpf U Hyaline Cast (Auto) (0-2) /lpf U Epithel Cells (Auto) (0-2) /hpf Urine Bacteria (Auto) (None Seen) Urine Osmolality (500-800) mOsm/kg Ur Random Creatinine mg/dl Ur Random Sodium mmol/L Ur Random Potassium mmol/L Ur Random Chloride Nasal Screen MRSA (PCR) (Negative) Adenovirus (PCR) (NotDetected) B. pertussis DNA (PCR) (NotDetected) B.parapertussis DNA PCR (NotDetected) C. pneumoniae DNA (PCR) (NotDetected) Coronavirus OC43 (PCR) (NotDetected) Coronavirus HKU1 (PCR) (NotDetected) Coronavirus 229E (PCR) (NotDetected) SARS-CoV-2 (PCR) (NotDetected) Coronavirus NL63 (PCR) (NotDetected) Enterobacterales (PCR) (NotDetected) E. coli (PCR) (NotDetected) Hepatitis A IgM Ab (NON-REACTIVE) Hep Bs Antigen (Negative) Hep B Core IgM Ab (NON-REACTIVE) Hepatitis C Antibody (Negative) Monoscreen (Negative) Human Metapneumovir PCR (NotDetected) Influenza Type A (PCR) (NotDetected) Influenza Type B (PCR) (NotDetected) M. pneumoniae (PCR) (NotDetected) Parainfluenza 1 (PCR) (NotDetected) Parainfluenza 2 (PCR) (NotDetected) Parainfluenza 3 (PCR) (NotDetected) Parainfluenza 4 (PCR) (NotDetected) RSV (PCR) (NotDetected) Entero/Rhino (PCR) (NotDetected) mcr-1 Colistin Res Gene PCR (NotDetected) blaIMP Car res Gene PCR (NotDetected) KPC-Carbap Res Gene PCR (NotDetected) blaNDM Car Res Gene PCR (NotDetected) OXA-48 Carbapenem Resis Gene (PCR) (NotDetected) blaVIM Car Res Gene PCR (NotDetected) CTX-M Gene Resistance (PCR) (NotDetected) Bld Cult ID Panel PCR (NotDetected) 05/13/24 05/13/24 05/13/24 Range/Units 05:34 04:07 03:19 WBC 26.42 H (4.8-10.8) K/ul RBC 4.03 L (4.20-5.40) M/uL Hgb 12.0 (12.0-16.0) g/dl POC Hgb (12.0-16.0) g/dl Hct 37.4 (37.0-47.0) % POC Hct (37-47) % MCV 92.8 (80.0-100.0) fL MCH 29.8 (25.0-34.0) pg MCHC 32.1 (32.0-36.0) g/dL RDW Std Deviation 52.1 H (36.4-46.3) fL RDW Coeff of Lizabeth 15.1 H (11.5-14.5) % Plt Count 121 L (130-400) K/uL MPV 11.4 (9.4-12.4) fL Immature Gran % (Auto) % Neut % (Auto) % Lymph % (Auto) % Jack % (Auto) % Eos % (Auto) % Baso % (Auto) % Neut # (Auto) (1.40-6.50) K/uL Lymph # (Auto) (1.20-3.40) K/uL Jack # (Auto) (0.11-0.59) K/uL Eos # (Auto) (0.00-0.50) K/uL Baso # (Auto) (0.00-0.20) K/uL Immature Gran # (Auto) (0.01-0.20) K/uL Toxic Vacuolation RBC Morphology PT (9.0-12.0) Seconds INR (0.9-1.1) APTT (21-31) Seconds PTT Ratio Heparin Anti-Xa, Unfract (0.3-0.7) IU/ml Specimen Type Sample Site POC pH (7.35-7.45) POC pCO2 (35-46) mmHg POC pO2 (80-95) mmHg POC HCO3 (19-24) jonatan/L POC Base Excess (-9-1.8) jonatan/L O2 Sat Pulse Oximetry ABG pH (Temp Correct) (7.35-7.45) ABG pCO2 (Temp Corrct (35-46) mmHg POC ABG pO2 at Pt Temp POC ABG O2 Sat (90-95) % Mani Test O2 Delivery Device Vent Mode POC FiO2 % End Tidal CO2 EPAP IPAP POC Sodium (135-144) mmol/L Sodium 140 (136-145) mmol/L POC Potassium (3.3-5.0) mmol/L Potassium 3.6 (3.5-5.1) mmol/L POC Chloride (101-112) mmol/L Chloride 108 H (98-107) mmol/L Carbon Dioxide 23 (21-32) mmol/L POC Total CO2 (24-31) mmol/L Anion Gap 9 (3-11) POC Anion Gap (16-25) mmol/L POC BUN (7-18) mg/dl BUN 47 H (6-23) mg/dl Creatinine 1.22 H (0.6-1.2) mg/dl POC Creatinine (0.6-1.3) mg/dl Est Cr Clr Drug Dosing 31.4 ml/min eGFR 44.03 BUN/Creatinine Ratio 38.5 H (10-20) Glucose 79 (70-99(Fasting)) mg/dl POC Glucose 73 90 (70-99) mg/dl POC Glucose (other) (70-99) mg/dl Lactate (0.4-2.0) mmol/L Calcium 8.4 L (8.6-10.3) mg/dl POC Ioniz Calcium Anthony (1.12-1.32) mmol/l Magnesium 2.3 (1.7-2.4) mg/dl Iron (35-150) mcg/dl Unsaturated IBC (155-355) mcg/dl Ferritin (8-388) ng/ml Total Bilirubin 0.6 (0.2-1.0) mg/dl AST 101 H (13-39) U/L ALT 176 H (7-52) U/L Alkaline Phosphatase 339 H (34-104) U/L Ammonia (18-72) umol/L Troponin I High Sens (0-14) pg/ml Total Protein 6.7 (6.0-8.3) gm/dl Albumin 3.2 L (3.4-5.0) gm/dl Globulin 3.5 (2.5-4.0) gm/dl Albumin/Globulin Ratio 0.9 (0.9-2) Ceruloplasmin (14-48) mg/dL Lipase (11-82) U/L Procalcitonin (0-0.5) ng/ml TSH 2.113 (0.300-4.500) uIu/ml Random Cortisol mcg/dl Urine Color Urine Appearance (Clear) Urine pH (4.5-7.5) Ur Specific Walton (1.000-1.030) Urine Protein (Negative) Urine Glucose (UA) (Negative) Urine Ketones (Negative) Urine Blood (Negative) Urine Nitrite (Negative) Urine Bilirubin (Negative) Urine Urobilinogen (Negative) Ur Leukocyte Esterase (Negative) Urine WBC (Auto) (0-5) /hpf Urine RBC (Auto) (0-2) /hpf U Hyaline Cast (Auto) (0-2) /lpf U Epithel Cells (Auto) (0-2) /hpf Urine Bacteria (Auto) (None Seen) Urine Osmolality (500-800) mOsm/kg Ur Random Creatinine mg/dl Ur Random Sodium mmol/L Ur Random Potassium mmol/L Ur Random Chloride Nasal Screen MRSA (PCR) (Negative) Adenovirus (PCR) (NotDetected) B. pertussis DNA (PCR) (NotDetected) B.parapertussis DNA PCR (NotDetected) C. pneumoniae DNA (PCR) (NotDetected) Coronavirus OC43 (PCR) (NotDetected) Coronavirus HKU1 (PCR) (NotDetected) Coronavirus 229E (PCR) (NotDetected) SARS-CoV-2 (PCR) (NotDetected) Coronavirus NL63 (PCR) (NotDetected) Enterobacterales (PCR) (NotDetected) E. coli (PCR) (NotDetected) Hepatitis A IgM Ab (NON-REACTIVE) Hep Bs Antigen (Negative) Hep B Core IgM Ab (NON-REACTIVE) Hepatitis C Antibody (Negative) Monoscreen (Negative) Human Metapneumovir PCR (NotDetected) Influenza Type A (PCR) (NotDetected) Influenza Type B (PCR) (NotDetected) M. pneumoniae (PCR) (NotDetected) Parainfluenza 1 (PCR) (NotDetected) Parainfluenza 2 (PCR) (NotDetected) Parainfluenza 3 (PCR) (NotDetected) Parainfluenza 4 (PCR) (NotDetected) RSV (PCR) (NotDetected) Entero/Rhino (PCR) (NotDetected) mcr-1 Colistin Res Gene PCR (NotDetected) blaIMP Car res Gene PCR (NotDetected) KPC-Carbap Res Gene PCR (NotDetected) blaNDM Car Res Gene PCR (NotDetected) OXA-48 Carbapenem Resis Gene (PCR) (NotDetected) blaVIM Car Res Gene PCR (NotDetected) CTX-M Gene Resistance (PCR) (NotDetected) Bld Cult ID Panel PCR (NotDetected) 05/13/24 05/12/24 05/12/24 Range/Units 00:01 18:07 12:48 WBC (4.8-10.8) K/ul RBC (4.20-5.40) M/uL Hgb (12.0-16.0) g/dl POC Hgb (12.0-16.0) g/dl Hct (37.0-47.0) % POC Hct (37-47) % MCV (80.0-100.0) fL MCH (25.0-34.0) pg MCHC (32.0-36.0) g/dL RDW Std Deviation (36.4-46.3) fL RDW Coeff of Lizabeth (11.5-14.5) % Plt Count (130-400) K/uL MPV (9.4-12.4) fL Immature Gran % (Auto) % Neut % (Auto) % Lymph % (Auto) % Jack % (Auto) % Eos % (Auto) % Baso % (Auto) % Neut # (Auto) (1.40-6.50) K/uL Lymph # (Auto) (1.20-3.40) K/uL Jack # (Auto) (0.11-0.59) K/uL Eos # (Auto) (0.00-0.50) K/uL Baso # (Auto) (0.00-0.20) K/uL Immature Gran # (Auto) (0.01-0.20) K/uL Toxic Vacuolation RBC Morphology PT (9.0-12.0) Seconds INR (0.9-1.1) APTT (21-31) Seconds PTT Ratio Heparin Anti-Xa, Unfract (0.3-0.7) IU/ml Specimen Type Sample Site POC pH (7.35-7.45) POC pCO2 (35-46) mmHg POC pO2 (80-95) mmHg POC HCO3 (19-24) jonatan/L POC Base Excess (-9-1.8) jonatan/L O2 Sat Pulse Oximetry ABG pH (Temp Correct) (7.35-7.45) ABG pCO2 (Temp Corrct (35-46) mmHg POC ABG pO2 at Pt Temp POC ABG O2 Sat (90-95) % Mani Test O2 Delivery Device Vent Mode POC FiO2 % End Tidal CO2 EPAP IPAP POC Sodium (135-144) mmol/L Sodium (136-145) mmol/L POC Potassium (3.3-5.0) mmol/L Potassium (3.5-5.1) mmol/L POC Chloride (101-112) mmol/L Chloride (98-107) mmol/L Carbon Dioxide (21-32) mmol/L POC Total CO2 (24-31) mmol/L Anion Gap (3-11) POC Anion Gap (16-25) mmol/L POC BUN (7-18) mg/dl BUN (6-23) mg/dl Creatinine (0.6-1.2) mg/dl POC Creatinine (0.6-1.3) mg/dl Est Cr Clr Drug Dosing ml/min eGFR BUN/Creatinine Ratio (10-20) Glucose (70-99(Fasting)) mg/dl POC Glucose 78 71 94 (70-99) mg/dl POC Glucose (other) (70-99) mg/dl Lactate (0.4-2.0) mmol/L Calcium (8.6-10.3) mg/dl POC Ioniz Calcium Anthony (1.12-1.32) mmol/l Magnesium (1.7-2.4) mg/dl Iron (35-150) mcg/dl Unsaturated IBC (155-355) mcg/dl Ferritin (8-388) ng/ml Total Bilirubin (0.2-1.0) mg/dl AST (13-39) U/L ALT (7-52) U/L Alkaline Phosphatase (34-104) U/L Ammonia (18-72) umol/L Troponin I High Sens (0-14) pg/ml Total Protein (6.0-8.3) gm/dl Albumin (3.4-5.0) gm/dl Globulin (2.5-4.0) gm/dl Albumin/Globulin Ratio (0.9-2) Ceruloplasmin (14-48) mg/dL Lipase (11-82) U/L Procalcitonin (0-0.5) ng/ml TSH (0.300-4.500) uIu/ml Random Cortisol mcg/dl Urine Color Urine Appearance (Clear) Urine pH (4.5-7.5) Ur Specific Walton (1.000-1.030) Urine Protein (Negative) Urine Glucose (UA) (Negative) Urine Ketones (Negative) Urine Blood (Negative) Urine Nitrite (Negative) Urine Bilirubin (Negative) Urine Urobilinogen (Negative) Ur Leukocyte Esterase (Negative) Urine WBC (Auto) (0-5) /hpf Urine RBC (Auto) (0-2) /hpf U Hyaline Cast (Auto) (0-2) /lpf U Epithel Cells (Auto) (0-2) /hpf Urine Bacteria (Auto) (None Seen) Urine Osmolality (500-800) mOsm/kg Ur Random Creatinine mg/dl Ur Random Sodium mmol/L Ur Random Potassium mmol/L Ur Random Chloride Nasal Screen MRSA (PCR) (Negative) Adenovirus (PCR) (NotDetected) B. pertussis DNA (PCR) (NotDetected) B.parapertussis DNA PCR (NotDetected) C. pneumoniae DNA (PCR) (NotDetected) Coronavirus OC43 (PCR) (NotDetected) Coronavirus HKU1 (PCR) (NotDetected) Coronavirus 229E (PCR) (NotDetected) SARS-CoV-2 (PCR) (NotDetected) Coronavirus NL63 (PCR) (NotDetected) Enterobacterales (PCR) (NotDetected) E. coli (PCR) (NotDetected) Hepatitis A IgM Ab (NON-REACTIVE) Hep Bs Antigen (Negative) Hep B Core IgM Ab (NON-REACTIVE) Hepatitis C Antibody (Negative) Monoscreen (Negative) Human Metapneumovir PCR (NotDetected) Influenza Type A (PCR) (NotDetected) Influenza Type B (PCR) (NotDetected) M. pneumoniae (PCR) (NotDetected) Parainfluenza 1 (PCR) (NotDetected) Parainfluenza 2 (PCR) (NotDetected) Parainfluenza 3 (PCR) (NotDetected) Parainfluenza 4 (PCR) (NotDetected) RSV (PCR) (NotDetected) Entero/Rhino (PCR) (NotDetected) mcr-1 Colistin Res Gene PCR (NotDetected) blaIMP Car res Gene PCR (NotDetected) KPC-Carbap Res Gene PCR (NotDetected) blaNDM Car Res Gene PCR (NotDetected) OXA-48 Carbapenem Resis Gene (PCR) (NotDetected) blaVIM Car Res Gene PCR (NotDetected) CTX-M Gene Resistance (PCR) (NotDetected) Bld Cult ID Panel PCR (NotDetected) 05/12/24 05/12/24 05/11/24 Range/Units 04:39 00:16 Unknown WBC 30.44 H* (4.8-10.8) K/ul RBC 4.02 L (4.20-5.40) M/uL Hgb 12.2 (12.0-16.0) g/dl POC Hgb (12.0-16.0) g/dl Hct 36.5 L (37.0-47.0) % POC Hct (37-47) % MCV 90.8 (80.0-100.0) fL MCH 30.3 (25.0-34.0) pg MCHC 33.4 (32.0-36.0) g/dL RDW Std Deviation 50.0 H (36.4-46.3) fL RDW Coeff of Lizabeth 15.0 H (11.5-14.5) % Plt Count 154 (130-400) K/uL MPV 10.9 (9.4-12.4) fL Immature Gran % (Auto) % Neut % (Auto) % Lymph % (Auto) % Jack % (Auto) % Eos % (Auto) % Baso % (Auto) % Neut # (Auto) (1.40-6.50) K/uL Lymph # (Auto) (1.20-3.40) K/uL Jack # (Auto) (0.11-0.59) K/uL Eos # (Auto) (0.00-0.50) K/uL Baso # (Auto) (0.00-0.20) K/uL Immature Gran # (Auto) (0.01-0.20) K/uL Toxic Vacuolation RBC Morphology PT (9.0-12.0) Seconds INR (0.9-1.1) APTT (21-31) Seconds PTT Ratio Heparin Anti-Xa, Unfract (0.3-0.7) IU/ml Specimen Type Sample Site POC pH (7.35-7.45) POC pCO2 (35-46) mmHg POC pO2 (80-95) mmHg POC HCO3 (19-24) jonatan/L POC Base Excess (-9-1.8) jonatan/L O2 Sat Pulse Oximetry ABG pH (Temp Correct) (7.35-7.45) ABG pCO2 (Temp Corrct (35-46) mmHg POC ABG pO2 at Pt Temp POC ABG O2 Sat (90-95) % Mani Test O2 Delivery Device Vent Mode POC FiO2 % End Tidal CO2 EPAP IPAP POC Sodium (135-144) mmol/L Sodium 138 (136-145) mmol/L POC Potassium (3.3-5.0) mmol/L Potassium 3.9 (3.5-5.1) mmol/L POC Chloride (101-112) mmol/L Chloride 108 H (98-107) mmol/L Carbon Dioxide 19 L (21-32) mmol/L POC Total CO2 (24-31) mmol/L Anion Gap 11 (3-11) POC Anion Gap (16-25) mmol/L POC BUN (7-18) mg/dl BUN 44 H (6-23) mg/dl Creatinine 1.42 H D (0.6-1.2) mg/dl POC Creatinine (0.6-1.3) mg/dl Est Cr Clr Drug Dosing 29.5 ml/min eGFR 36.70 BUN/Creatinine Ratio 31.0 H (10-20) Glucose 135 H (70-99(Fasting)) mg/dl POC Glucose (70-99) mg/dl POC Glucose (other) 153 H (70-99) mg/dl Lactate (0.4-2.0) mmol/L Calcium 7.9 L D (8.6-10.3) mg/dl POC Ioniz Calcium Anthony (1.12-1.32) mmol/l Magnesium 2.2 (1.7-2.4) mg/dl Iron (35-150) mcg/dl Unsaturated IBC (155-355) mcg/dl Ferritin (8-388) ng/ml Total Bilirubin 0.8 (0.2-1.0) mg/dl AST 179 H (13-39) U/L ALT 258 H (7-52) U/L Alkaline Phosphatase 195 H (34-104) U/L Ammonia (18-72) umol/L Troponin I High Sens (0-14) pg/ml Total Protein 6.1 D (6.0-8.3) gm/dl Albumin 3.2 L (3.4-5.0) gm/dl Globulin 2.9 (2.5-4.0) gm/dl Albumin/Globulin Ratio 1.1 (0.9-2) Ceruloplasmin (14-48) mg/dL Lipase (11-82) U/L Procalcitonin (0-0.5) ng/ml TSH (0.300-4.500) uIu/ml Random Cortisol mcg/dl Urine Color Urine Appearance (Clear) Urine pH (4.5-7.5) Ur Specific Walton (1.000-1.030) Urine Protein (Negative) Urine Glucose (UA) (Negative) Urine Ketones (Negative) Urine Blood (Negative) Urine Nitrite (Negative) Urine Bilirubin (Negative) Urine Urobilinogen (Negative) Ur Leukocyte Esterase (Negative) Urine WBC (Auto) (0-5) /hpf Urine RBC (Auto) (0-2) /hpf U Hyaline Cast (Auto) (0-2) /lpf U Epithel Cells (Auto) (0-2) /hpf Urine Bacteria (Auto) (None Seen) Urine Osmolality (500-800) mOsm/kg Ur Random Creatinine mg/dl Ur Random Sodium mmol/L Ur Random Potassium mmol/L Ur Random Chloride Nasal Screen MRSA (PCR) Negative (Negative) Adenovirus (PCR) (NotDetected) B. pertussis DNA (PCR) (NotDetected) B.parapertussis DNA PCR (NotDetected) C. pneumoniae DNA (PCR) (NotDetected) Coronavirus OC43 (PCR) (NotDetected) Coronavirus HKU1 (PCR) (NotDetected) Coronavirus 229E (PCR) (NotDetected) SARS-CoV-2 (PCR) (NotDetected) Coronavirus NL63 (PCR) (NotDetected) Enterobacterales (PCR) (NotDetected) E. coli (PCR) (NotDetected) Hepatitis A IgM Ab (NON-REACTIVE) Hep Bs Antigen (Negative) Hep B Core IgM Ab (NON-REACTIVE) Hepatitis C Antibody (Negative) Monoscreen (Negative) Human Metapneumovir PCR (NotDetected) Influenza Type A (PCR) (NotDetected) Influenza Type B (PCR) (NotDetected) M. pneumoniae (PCR) (NotDetected) Parainfluenza 1 (PCR) (NotDetected) Parainfluenza 2 (PCR) (NotDetected) Parainfluenza 3 (PCR) (NotDetected) Parainfluenza 4 (PCR) (NotDetected) RSV (PCR) (NotDetected) Entero/Rhino (PCR) (NotDetected) mcr-1 Colistin Res Gene PCR (NotDetected) blaIMP Car res Gene PCR (NotDetected) KPC-Carbap Res Gene PCR (NotDetected) blaNDM Car Res Gene PCR (NotDetected) OXA-48 Carbapenem Resis Gene (PCR) (NotDetected) blaVIM Car Res Gene PCR (NotDetected) CTX-M Gene Resistance (PCR) (NotDetected) Bld Cult ID Panel PCR (NotDetected) 05/11/24 05/11/24 05/11/24 Range/Units Unknown 16:37 16:30 WBC (4.8-10.8) K/ul RBC (4.20-5.40) M/uL Hgb (12.0-16.0) g/dl POC Hgb (12.0-16.0) g/dl Hct (37.0-47.0) % POC Hct (37-47) % MCV (80.0-100.0) fL MCH (25.0-34.0) pg MCHC (32.0-36.0) g/dL RDW Std Deviation (36.4-46.3) fL RDW Coeff of Lizabeth (11.5-14.5) % Plt Count (130-400) K/uL MPV (9.4-12.4) fL Immature Gran % (Auto) % Neut % (Auto) % Lymph % (Auto) % Jack % (Auto) % Eos % (Auto) % Baso % (Auto) % Neut # (Auto) (1.40-6.50) K/uL Lymph # (Auto) (1.20-3.40) K/uL Jack # (Auto) (0.11-0.59) K/uL Eos # (Auto) (0.00-0.50) K/uL Baso # (Auto) (0.00-0.20) K/uL Immature Gran # (Auto) (0.01-0.20) K/uL Toxic Vacuolation RBC Morphology PT (9.0-12.0) Seconds INR (0.9-1.1) APTT (21-31) Seconds PTT Ratio Heparin Anti-Xa, Unfract (0.3-0.7) IU/ml Specimen Type Sample Site POC pH (7.35-7.45) POC pCO2 (35-46) mmHg POC pO2 (80-95) mmHg POC HCO3 (19-24) jonatan/L POC Base Excess (-9-1.8) jonatan/L O2 Sat Pulse Oximetry ABG pH (Temp Correct) (7.35-7.45) ABG pCO2 (Temp Corrct (35-46) mmHg POC ABG pO2 at Pt Temp POC ABG O2 Sat (90-95) % Mani Test O2 Delivery Device Vent Mode POC FiO2 % End Tidal CO2 EPAP IPAP POC Sodium (135-144) mmol/L Sodium (136-145) mmol/L POC Potassium (3.3-5.0) mmol/L Potassium (3.5-5.1) mmol/L POC Chloride (101-112) mmol/L Chloride (98-107) mmol/L Carbon Dioxide (21-32) mmol/L POC Total CO2 (24-31) mmol/L Anion Gap (3-11) POC Anion Gap (16-25) mmol/L POC BUN (7-18) mg/dl BUN (6-23) mg/dl Creatinine (0.6-1.2) mg/dl POC Creatinine (0.6-1.3) mg/dl Est Cr Clr Drug Dosing ml/min eGFR BUN/Creatinine Ratio (10-20) Glucose (70-99(Fasting)) mg/dl POC Glucose (70-99) mg/dl POC Glucose (other) 169 H (70-99) mg/dl Lactate 4.1 H* (0.4-2.0) mmol/L Calcium (8.6-10.3) mg/dl POC Ioniz Calcium Anthony (1.12-1.32) mmol/l Magnesium (1.7-2.4) mg/dl Iron (35-150) mcg/dl Unsaturated IBC (155-355) mcg/dl Ferritin (8-388) ng/ml Total Bilirubin (0.2-1.0) mg/dl AST (13-39) U/L ALT (7-52) U/L Alkaline Phosphatase (34-104) U/L Ammonia (18-72) umol/L Troponin I High Sens (0-14) pg/ml Total Protein (6.0-8.3) gm/dl Albumin (3.4-5.0) gm/dl Globulin (2.5-4.0) gm/dl Albumin/Globulin Ratio (0.9-2) Ceruloplasmin (14-48) mg/dL Lipase (11-82) U/L Procalcitonin (0-0.5) ng/ml TSH (0.300-4.500) uIu/ml Random Cortisol mcg/dl Urine Color Urine Appearance (Clear) Urine pH (4.5-7.5) Ur Specific Walton (1.000-1.030) Urine Protein (Negative) Urine Glucose (UA) (Negative) Urine Ketones (Negative) Urine Blood (Negative) Urine Nitrite (Negative) Urine Bilirubin (Negative) Urine Urobilinogen (Negative) Ur Leukocyte Esterase (Negative) Urine WBC (Auto) (0-5) /hpf Urine RBC (Auto) (0-2) /hpf U Hyaline Cast (Auto) (0-2) /lpf U Epithel Cells (Auto) (0-2) /hpf Urine Bacteria (Auto) (None Seen) Urine Osmolality (500-800) mOsm/kg Ur Random Creatinine mg/dl Ur Random Sodium mmol/L Ur Random Potassium mmol/L Ur Random Chloride Nasal Screen MRSA (PCR) Negative (Negative) Adenovirus (PCR) (NotDetected) B. pertussis DNA (PCR) (NotDetected) B.parapertussis DNA PCR (NotDetected) C. pneumoniae DNA (PCR) (NotDetected) Coronavirus OC43 (PCR) (NotDetected) Coronavirus HKU1 (PCR) (NotDetected) Coronavirus 229E (PCR) (NotDetected) SARS-CoV-2 (PCR) (NotDetected) Coronavirus NL63 (PCR) (NotDetected) Enterobacterales (PCR) (NotDetected) E. coli (PCR) (NotDetected) Hepatitis A IgM Ab (NON-REACTIVE) Hep Bs Antigen (Negative) Hep B Core IgM Ab (NON-REACTIVE) Hepatitis C Antibody (Negative) Monoscreen (Negative) Human Metapneumovir PCR (NotDetected) Influenza Type A (PCR) (NotDetected) Influenza Type B (PCR) (NotDetected) M. pneumoniae (PCR) (NotDetected) Parainfluenza 1 (PCR) (NotDetected) Parainfluenza 2 (PCR) (NotDetected) Parainfluenza 3 (PCR) (NotDetected) Parainfluenza 4 (PCR) (NotDetected) RSV (PCR) (NotDetected) Entero/Rhino (PCR) (NotDetected) mcr-1 Colistin Res Gene PCR (NotDetected) blaIMP Car res Gene PCR (NotDetected) KPC-Carbap Res Gene PCR (NotDetected) blaNDM Car Res Gene PCR (NotDetected) OXA-48 Carbapenem Resis Gene (PCR) (NotDetected) blaVIM Car Res Gene PCR (NotDetected) CTX-M Gene Resistance (PCR) (NotDetected) Bld Cult ID Panel PCR (NotDetected) 05/11/24 05/11/24 05/11/24 Range/Units 14:39 14:30 13:40 WBC (4.8-10.8) K/ul RBC (4.20-5.40) M/uL Hgb (12.0-16.0) g/dl POC Hgb (12.0-16.0) g/dl Hct (37.0-47.0) % POC Hct (37-47) % MCV (80.0-100.0) fL MCH (25.0-34.0) pg MCHC (32.0-36.0) g/dL RDW Std Deviation (36.4-46.3) fL RDW Coeff of Lizabeth (11.5-14.5) % Plt Count (130-400) K/uL MPV (9.4-12.4) fL Immature Gran % (Auto) % Neut % (Auto) % Lymph % (Auto) % Jack % (Auto) % Eos % (Auto) % Baso % (Auto) % Neut # (Auto) (1.40-6.50) K/uL Lymph # (Auto) (1.20-3.40) K/uL Jack # (Auto) (0.11-0.59) K/uL Eos # (Auto) (0.00-0.50) K/uL Baso # (Auto) (0.00-0.20) K/uL Immature Gran # (Auto) (0.01-0.20) K/uL Toxic Vacuolation RBC Morphology PT (9.0-12.0) Seconds INR (0.9-1.1) APTT (21-31) Seconds PTT Ratio Heparin Anti-Xa, Unfract (0.3-0.7) IU/ml Specimen Type Sample Site POC pH (7.35-7.45) POC pCO2 (35-46) mmHg POC pO2 (80-95) mmHg POC HCO3 (19-24) jonatan/L POC Base Excess (-9-1.8) jonatan/L O2 Sat Pulse Oximetry ABG pH (Temp Correct) (7.35-7.45) ABG pCO2 (Temp Corrct (35-46) mmHg POC ABG pO2 at Pt Temp POC ABG O2 Sat (90-95) % Mani Test O2 Delivery Device Vent Mode POC FiO2 % End Tidal CO2 EPAP IPAP POC Sodium (135-144) mmol/L Sodium (136-145) mmol/L POC Potassium (3.3-5.0) mmol/L Potassium (3.5-5.1) mmol/L POC Chloride (101-112) mmol/L Chloride (98-107) mmol/L Carbon Dioxide (21-32) mmol/L POC Total CO2 (24-31) mmol/L Anion Gap (3-11) POC Anion Gap (16-25) mmol/L POC BUN (7-18) mg/dl BUN (6-23) mg/dl Creatinine (0.6-1.2) mg/dl POC Creatinine (0.6-1.3) mg/dl Est Cr Clr Drug Dosing ml/min eGFR BUN/Creatinine Ratio (10-20) Glucose (70-99(Fasting)) mg/dl POC Glucose (70-99) mg/dl POC Glucose (other) (70-99) mg/dl Lactate 4.6 H* (0.4-2.0) mmol/L Calcium (8.6-10.3) mg/dl POC Ioniz Calcium Anthony (1.12-1.32) mmol/l Magnesium (1.7-2.4) mg/dl Iron 12 L (35-150) mcg/dl Unsaturated IBC 216 (155-355) mcg/dl Ferritin 348.5 (8-388) ng/ml Total Bilirubin (0.2-1.0) mg/dl AST (13-39) U/L ALT (7-52) U/L Alkaline Phosphatase (34-104) U/L Ammonia (18-72) umol/L Troponin I High Sens (0-14) pg/ml Total Protein (6.0-8.3) gm/dl Albumin (3.4-5.0) gm/dl Globulin (2.5-4.0) gm/dl Albumin/Globulin Ratio (0.9-2) Ceruloplasmin 19 (14-48) mg/dL Lipase (11-82) U/L Procalcitonin (0-0.5) ng/ml TSH (0.300-4.500) uIu/ml Random Cortisol mcg/dl Urine Color Urine Appearance (Clear) Urine pH (4.5-7.5) Ur Specific Walton (1.000-1.030) Urine Protein (Negative) Urine Glucose (UA) (Negative) Urine Ketones (Negative) Urine Blood (Negative) Urine Nitrite (Negative) Urine Bilirubin (Negative) Urine Urobilinogen (Negative) Ur Leukocyte Esterase (Negative) Urine WBC (Auto) (0-5) /hpf Urine RBC (Auto) (0-2) /hpf U Hyaline Cast (Auto) (0-2) /lpf U Epithel Cells (Auto) (0-2) /hpf Urine Bacteria (Auto) (None Seen) Urine Osmolality (500-800) mOsm/kg Ur Random Creatinine mg/dl Ur Random Sodium mmol/L Ur Random Potassium mmol/L Ur Random Chloride 82 Nasal Screen MRSA (PCR) (Negative) Adenovirus (PCR) (NotDetected) B. pertussis DNA (PCR) (NotDetected) B.parapertussis DNA PCR (NotDetected) C. pneumoniae DNA (PCR) (NotDetected) Coronavirus OC43 (PCR) (NotDetected) Coronavirus HKU1 (PCR) (NotDetected) Coronavirus 229E (PCR) (NotDetected) SARS-CoV-2 (PCR) (NotDetected) Coronavirus NL63 (PCR) (NotDetected) Enterobacterales (PCR) (NotDetected) E. coli (PCR) (NotDetected) Hepatitis A IgM Ab NON-REACTIVE (NON-REACTIVE) Hep Bs Antigen Negative (Negative) Hep B Core IgM Ab NON-REACTIVE (NON-REACTIVE) Hepatitis C Antibody Negative (Negative) Monoscreen (Negative) Human Metapneumovir PCR (NotDetected) Influenza Type A (PCR) (NotDetected) Influenza Type B (PCR) (NotDetected) M. pneumoniae (PCR) (NotDetected) Parainfluenza 1 (PCR) (NotDetected) Parainfluenza 2 (PCR) (NotDetected) Parainfluenza 3 (PCR) (NotDetected) Parainfluenza 4 (PCR) (NotDetected) RSV (PCR) (NotDetected) Entero/Rhino (PCR) (NotDetected) mcr-1 Colistin Res Gene PCR (NotDetected) blaIMP Car res Gene PCR (NotDetected) KPC-Carbap Res Gene PCR (NotDetected) blaNDM Car Res Gene PCR (NotDetected) OXA-48 Carbapenem Resis Gene (PCR) (NotDetected) blaVIM Car Res Gene PCR (NotDetected) CTX-M Gene Resistance (PCR) (NotDetected) Bld Cult ID Panel PCR (NotDetected) 05/11/24 05/11/24 05/11/24 Range/Units 13:40 13:40 13:40 WBC (4.8-10.8) K/ul RBC (4.20-5.40) M/uL Hgb (12.0-16.0) g/dl POC Hgb (12.0-16.0) g/dl Hct (37.0-47.0) % POC Hct (37-47) % MCV (80.0-100.0) fL MCH (25.0-34.0) pg MCHC (32.0-36.0) g/dL RDW Std Deviation (36.4-46.3) fL RDW Coeff of Lizabeth (11.5-14.5) % Plt Count (130-400) K/uL MPV (9.4-12.4) fL Immature Gran % (Auto) % Neut % (Auto) % Lymph % (Auto) % Jack % (Auto) % Eos % (Auto) % Baso % (Auto) % Neut # (Auto) (1.40-6.50) K/uL Lymph # (Auto) (1.20-3.40) K/uL Jack # (Auto) (0.11-0.59) K/uL Eos # (Auto) (0.00-0.50) K/uL Baso # (Auto) (0.00-0.20) K/uL Immature Gran # (Auto) (0.01-0.20) K/uL Toxic Vacuolation RBC Morphology PT (9.0-12.0) Seconds INR (0.9-1.1) APTT (21-31) Seconds PTT Ratio Heparin Anti-Xa, Unfract (0.3-0.7) IU/ml Specimen Type Sample Site POC pH (7.35-7.45) POC pCO2 (35-46) mmHg POC pO2 (80-95) mmHg POC HCO3 (19-24) jonatan/L POC Base Excess (-9-1.8) jonatan/L O2 Sat Pulse Oximetry ABG pH (Temp Correct) (7.35-7.45) ABG pCO2 (Temp Corrct (35-46) mmHg POC ABG pO2 at Pt Temp POC ABG O2 Sat (90-95) % Mani Test O2 Delivery Device Vent Mode POC FiO2 % End Tidal CO2 EPAP IPAP POC Sodium (135-144) mmol/L Sodium (136-145) mmol/L POC Potassium (3.3-5.0) mmol/L Potassium (3.5-5.1) mmol/L POC Chloride (101-112) mmol/L Chloride (98-107) mmol/L Carbon Dioxide (21-32) mmol/L POC Total CO2 (24-31) mmol/L Anion Gap (3-11) POC Anion Gap (16-25) mmol/L POC BUN (7-18) mg/dl BUN (6-23) mg/dl Creatinine (0.6-1.2) mg/dl POC Creatinine (0.6-1.3) mg/dl Est Cr Clr Drug Dosing ml/min eGFR BUN/Creatinine Ratio (10-20) Glucose (70-99(Fasting)) mg/dl POC Glucose (70-99) mg/dl POC Glucose (other) (70-99) mg/dl Lactate (0.4-2.0) mmol/L Calcium (8.6-10.3) mg/dl POC Ioniz Calcium Anthony (1.12-1.32) mmol/l Magnesium (1.7-2.4) mg/dl Iron (35-150) mcg/dl Unsaturated IBC (155-355) mcg/dl Ferritin (8-388) ng/ml Total Bilirubin (0.2-1.0) mg/dl AST (13-39) U/L ALT (7-52) U/L Alkaline Phosphatase (34-104) U/L Ammonia (18-72) umol/L Troponin I High Sens (0-14) pg/ml Total Protein (6.0-8.3) gm/dl Albumin (3.4-5.0) gm/dl Globulin (2.5-4.0) gm/dl Albumin/Globulin Ratio (0.9-2) Ceruloplasmin (14-48) mg/dL Lipase (11-82) U/L Procalcitonin (0-0.5) ng/ml TSH (0.300-4.500) uIu/ml Random Cortisol mcg/dl Urine Color Yellow Urine Appearance Cloudy A (Clear) Urine pH 6.5 (4.5-7.5) Ur Specific Walton 1.027 (1.000-1.030) Urine Protein 2+ H (Negative) Urine Glucose (UA) Negative (Negative) Urine Ketones Negative (Negative) Urine Blood 3+ H (Negative) Urine Nitrite Negative (Negative) Urine Bilirubin Negative (Negative) Urine Urobilinogen Negative (Negative) Ur Leukocyte Esterase 3+ H (Negative) Urine WBC (Auto) >50 H (0-5) /hpf Urine RBC (Auto) >20 H (0-2) /hpf U Hyaline Cast (Auto) 3-5 H (0-2) /lpf U Epithel Cells (Auto) 0-2 (0-2) /hpf Urine Bacteria (Auto) 1+ H (None Seen) Urine Osmolality 345 L (500-800) mOsm/kg Ur Random Creatinine 39.2 mg/dl Ur Random Sodium Cancelled 81 mmol/L Ur Random Potassium Cancelled 33.3 mmol/L Ur Random Chloride Cancelled Nasal Screen MRSA (PCR) (Negative) Adenovirus (PCR) (NotDetected) B. pertussis DNA (PCR) (NotDetected) B.parapertussis DNA PCR (NotDetected) C. pneumoniae DNA (PCR) (NotDetected) Coronavirus OC43 (PCR) (NotDetected) Coronavirus HKU1 (PCR) (NotDetected) Coronavirus 229E (PCR) (NotDetected) SARS-CoV-2 (PCR) (NotDetected) Coronavirus NL63 (PCR) (NotDetected) Enterobacterales (PCR) (NotDetected) E. coli (PCR) (NotDetected) Hepatitis A IgM Ab (NON-REACTIVE) Hep Bs Antigen (Negative) Hep B Core IgM Ab (NON-REACTIVE) Hepatitis C Antibody (Negative) Monoscreen (Negative) Human Metapneumovir PCR (NotDetected) Influenza Type A (PCR) (NotDetected) Influenza Type B (PCR) (NotDetected) M. pneumoniae (PCR) (NotDetected) Parainfluenza 1 (PCR) (NotDetected) Parainfluenza 2 (PCR) (NotDetected) Parainfluenza 3 (PCR) (NotDetected) Parainfluenza 4 (PCR) (NotDetected) RSV (PCR) (NotDetected) Entero/Rhino (PCR) (NotDetected) mcr-1 Colistin Res Gene PCR (NotDetected) blaIMP Car res Gene PCR (NotDetected) KPC-Carbap Res Gene PCR (NotDetected) blaNDM Car Res Gene PCR (NotDetected) OXA-48 Carbapenem Resis Gene (PCR) (NotDetected) blaVIM Car Res Gene PCR (NotDetected) CTX-M Gene Resistance (PCR) (NotDetected) Bld Cult ID Panel PCR (NotDetected) 05/11/24 05/11/24 05/11/24 Range/Units 13:19 13:09 08:33 WBC (4.8-10.8) K/ul RBC (4.20-5.40) M/uL Hgb (12.0-16.0) g/dl POC Hgb 10.9 L (12.0-16.0) g/dl Hct (37.0-47.0) % POC Hct 32 L (37-47) % MCV (80.0-100.0) fL MCH (25.0-34.0) pg MCHC (32.0-36.0) g/dL RDW Std Deviation (36.4-46.3) fL RDW Coeff of Lizabeth (11.5-14.5) % Plt Count (130-400) K/uL MPV (9.4-12.4) fL Immature Gran % (Auto) % Neut % (Auto) % Lymph % (Auto) % Jack % (Auto) % Eos % (Auto) % Baso % (Auto) % Neut # (Auto) (1.40-6.50) K/uL Lymph # (Auto) (1.20-3.40) K/uL Jack # (Auto) (0.11-0.59) K/uL Eos # (Auto) (0.00-0.50) K/uL Baso # (Auto) (0.00-0.20) K/uL Immature Gran # (Auto) (0.01-0.20) K/uL Toxic Vacuolation RBC Morphology PT (9.0-12.0) Seconds INR (0.9-1.1) APTT (21-31) Seconds PTT Ratio Heparin Anti-Xa, Unfract (0.3-0.7) IU/ml Specimen Type Arterial Sample Site R Radial POC pH 7.27 L (7.35-7.45) POC pCO2 31 L (35-46) mmHg POC pO2 118 H (80-95) mmHg POC HCO3 15 L (19-24) jonatan/L POC Base Excess -12.0 L (-9-1.8) jonatan/L O2 Sat Pulse Oximetry 100 ABG pH (Temp Correct) 7.270 L (7.35-7.45) ABG pCO2 (Temp Corrct 32 L (35-46) mmHg POC ABG pO2 at Pt Temp 119 POC ABG O2 Sat 98.0 H (90-95) % Mani Test Pass O2 Delivery Device Ventilator Vent Mode AC POC FiO2 100 % End Tidal CO2 27 EPAP IPAP POC Sodium 138 (135-144) mmol/L Sodium (136-145) mmol/L POC Potassium 4.0 (3.3-5.0) mmol/L Potassium (3.5-5.1) mmol/L POC Chloride (101-112) mmol/L Chloride (98-107) mmol/L Carbon Dioxide (21-32) mmol/L POC Total CO2 15 L (24-31) mmol/L Anion Gap (3-11) POC Anion Gap (16-25) mmol/L POC BUN (7-18) mg/dl BUN (6-23) mg/dl Creatinine (0.6-1.2) mg/dl POC Creatinine (0.6-1.3) mg/dl Est Cr Clr Drug Dosing ml/min eGFR BUN/Creatinine Ratio (10-20) Glucose (70-99(Fasting)) mg/dl POC Glucose 102 H (70-99) mg/dl POC Glucose (other) (70-99) mg/dl Lactate 6.2 H* (0.4-2.0) mmol/L Calcium (8.6-10.3) mg/dl POC Ioniz Calcium Anthony (1.12-1.32) mmol/l Magnesium (1.7-2.4) mg/dl Iron (35-150) mcg/dl Unsaturated IBC (155-355) mcg/dl Ferritin (8-388) ng/ml Total Bilirubin (0.2-1.0) mg/dl AST (13-39) U/L ALT (7-52) U/L Alkaline Phosphatase (34-104) U/L Ammonia (18-72) umol/L Troponin I High Sens (0-14) pg/ml Total Protein (6.0-8.3) gm/dl Albumin (3.4-5.0) gm/dl Globulin (2.5-4.0) gm/dl Albumin/Globulin Ratio (0.9-2) Ceruloplasmin (14-48) mg/dL Lipase (11-82) U/L Procalcitonin (0-0.5) ng/ml TSH (0.300-4.500) uIu/ml Random Cortisol mcg/dl Urine Color Urine Appearance (Clear) Urine pH (4.5-7.5) Ur Specific [place] (1.000-1.030) Urine Protein (Negative) Urine Glucose (UA) (Negative) Urine Ketones (Negative) Urine Blood (Negative) Urine Nitrite (Negative) Urine Bilirubin (Negative) Urine Urobilinogen (Negative) Ur Leukocyte Esterase (Negative) Urine WBC (Auto) (0-5) /hpf Urine RBC (Auto) (0-2) /hpf U Hyaline Cast (Auto) (0-2) /lpf U Epithel Cells (Auto) (0-2) /hpf Urine Bacteria (Auto) (None Seen) Urine Osmolality (500-800) mOsm/kg Ur Random Creatinine mg/dl Ur Random Sodium mmol/L Ur Random Potassium mmol/L Ur Random Chloride Nasal Screen MRSA (PCR) (Negative) Adenovirus (PCR) (NotDetected) B. pertussis DNA (PCR) (NotDetected) B.parapertussis DNA PCR (NotDetected) C. pneumoniae DNA (PCR) (NotDetected) Coronavirus OC43 (PCR) (NotDetected) Coronavirus HKU1 (PCR) (NotDetected) Coronavirus 229E (PCR) (NotDetected) SARS-CoV-2 (PCR) (NotDetected) Coronavirus NL63 (PCR) (NotDetected) Enterobacterales (PCR) (NotDetected) E. coli (PCR) (NotDetected) Hepatitis A IgM Ab (NON-REACTIVE) Hep Bs Antigen (Negative) Hep B Core IgM Ab (NON-REACTIVE) Hepatitis C Antibody (Negative) Monoscreen (Negative) Human Metapneumovir PCR (NotDetected) Influenza Type A (PCR) (NotDetected) Influenza Type B (PCR) (NotDetected) M. pneumoniae (PCR) (NotDetected) Parainfluenza 1 (PCR) (NotDetected) Parainfluenza 2 (PCR) (NotDetected) Parainfluenza 3 (PCR) (NotDetected) Parainfluenza 4 (PCR) (NotDetected) RSV (PCR) (NotDetected) Entero/Rhino (PCR) (NotDetected) mcr-1 Colistin Res Gene PCR (NotDetected) blaIMP Car res Gene PCR (NotDetected) KPC-Carbap Res Gene PCR (NotDetected) blaNDM Car Res Gene PCR (NotDetected) OXA-48 Carbapenem Resis Gene (PCR) (NotDetected) blaVIM Car Res Gene PCR (NotDetected) CTX-M Gene Resistance (PCR) (NotDetected) Bld Cult ID Panel PCR (NotDetected) 05/11/24 05/11/24 05/11/24 Range/Units 08:00 06:26 05:39 WBC (4.8-10.8) K/ul RBC (4.20-5.40) M/uL Hgb (12.0-16.0) g/dl POC Hgb (12.0-16.0) g/dl Hct (37.0-47.0) % POC Hct (37-47) % MCV (80.0-100.0) fL MCH (25.0-34.0) pg MCHC (32.0-36.0) g/dL RDW Std Deviation (36.4-46.3) fL RDW Coeff of Lizabeth (11.5-14.5) % Plt Count (130-400) K/uL MPV (9.4-12.4) fL Immature Gran % (Auto) % Neut % (Auto) % Lymph % (Auto) % Jack % (Auto) % Eos % (Auto) % Baso % (Auto) % Neut # (Auto) (1.40-6.50) K/uL Lymph # (Auto) (1.20-3.40) K/uL Jack # (Auto) (0.11-0.59) K/uL Eos # (Auto) (0.00-0.50) K/uL Baso # (Auto) (0.00-0.20) K/uL Immature Gran # (Auto) (0.01-0.20) K/uL Toxic Vacuolation RBC Morphology PT (9.0-12.0) Seconds INR (0.9-1.1) APTT (21-31) Seconds PTT Ratio Heparin Anti-Xa, Unfract (0.3-0.7) IU/ml Specimen Type Sample Site POC pH (7.35-7.45) POC pCO2 (35-46) mmHg POC pO2 (80-95) mmHg POC HCO3 (19-24) jonatan/L POC Base Excess (-9-1.8) jonatan/L O2 Sat Pulse Oximetry ABG pH (Temp Correct) (7.35-7.45) ABG pCO2 (Temp Corrct (35-46) mmHg POC ABG pO2 at Pt Temp POC ABG O2 Sat (90-95) % Mani Test O2 Delivery Device Vent Mode POC FiO2 % End Tidal CO2 EPAP IPAP POC Sodium (135-144) mmol/L Sodium (136-145) mmol/L POC Potassium (3.3-5.0) mmol/L Potassium (3.5-5.1) mmol/L POC Chloride (101-112) mmol/L Chloride (98-107) mmol/L Carbon Dioxide (21-32) mmol/L POC Total CO2 (24-31) mmol/L Anion Gap (3-11) POC Anion Gap (16-25) mmol/L POC BUN (7-18) mg/dl BUN (6-23) mg/dl Creatinine (0.6-1.2) mg/dl POC Creatinine (0.6-1.3) mg/dl Est Cr Clr Drug Dosing ml/min eGFR BUN/Creatinine Ratio (10-20) Glucose (70-99(Fasting)) mg/dl POC Glucose (70-99) mg/dl POC Glucose (other) (70-99) mg/dl Lactate 7.0 H* (0.4-2.0) mmol/L Calcium (8.6-10.3) mg/dl POC Ioniz Calcium Anthony (1.12-1.32) mmol/l Magnesium (1.7-2.4) mg/dl Iron (35-150) mcg/dl Unsaturated IBC (155-355) mcg/dl Ferritin (8-388) ng/ml Total Bilirubin (0.2-1.0) mg/dl AST (13-39) U/L ALT (7-52) U/L Alkaline Phosphatase (34-104) U/L Ammonia 27.0 (18-72) umol/L Troponin I High Sens 54.1 H* D (0-14) pg/ml Total Protein (6.0-8.3) gm/dl Albumin (3.4-5.0) gm/dl Globulin (2.5-4.0) gm/dl Albumin/Globulin Ratio (0.9-2) Ceruloplasmin (14-48) mg/dL Lipase (11-82) U/L Procalcitonin (0-0.5) ng/ml TSH (0.300-4.500) uIu/ml Random Cortisol mcg/dl Urine Color [place] Urine Appearance Turbid A (Clear) Urine pH 5.5 (4.5-7.5) Ur Specific Walton > 1.045 H (1.000-1.030) Urine Protein 3+ H (Negative) Urine Glucose (UA) Negative (Negative) Urine Ketones Trace H (Negative) Urine Blood 3+ H (Negative) Urine Nitrite Negative (Negative) Urine Bilirubin Negative (Negative) Urine Urobilinogen Negative (Negative) Ur Leukocyte Esterase 3+ H (Negative) Urine WBC (Auto) >50 H (0-5) /hpf Urine RBC (Auto) >20 H (0-2) /hpf U Hyaline Cast (Auto) 3-5 H (0-2) /lpf U Epithel Cells (Auto) 11-20 H (0-2) /hpf Urine Bacteria (Auto) 4+ H (None Seen) Urine Osmolality (500-800) mOsm/kg Ur Random Creatinine mg/dl Ur Random Sodium mmol/L Ur Random Potassium mmol/L Ur Random Chloride Nasal Screen MRSA (PCR) (Negative) Adenovirus (PCR) (NotDetected) B. pertussis DNA (PCR) (NotDetected) B.parapertussis DNA PCR (NotDetected) C. pneumoniae DNA (PCR) (NotDetected) Coronavirus OC43 (PCR) (NotDetected) Coronavirus HKU1 (PCR) (NotDetected) Coronavirus 229E (PCR) (NotDetected) SARS-CoV-2 (PCR) (NotDetected) Coronavirus NL63 (PCR) (NotDetected) Enterobacterales (PCR) DETECTED A (NotDetected) E. coli (PCR) DETECTED A (NotDetected) Hepatitis A IgM Ab (NON-REACTIVE) Hep Bs Antigen (Negative) Hep B Core IgM Ab (NON-REACTIVE) Hepatitis C Antibody (Negative) Monoscreen (Negative) Human Metapneumovir PCR (NotDetected) Influenza Type A (PCR) (NotDetected) Influenza Type B (PCR) (NotDetected) M. pneumoniae (PCR) (NotDetected) Parainfluenza 1 (PCR) (NotDetected) Parainfluenza 2 (PCR) (NotDetected) Parainfluenza 3 (PCR) (NotDetected) Parainfluenza 4 (PCR) (NotDetected) RSV (PCR) (NotDetected) Entero/Rhino (PCR) (NotDetected) mcr-1 Colistin Res Gene PCR Not Detected (NotDetected) blaIMP Car res Gene PCR Not Detected (NotDetected) KPC-Carbap Res Gene PCR Not Detected (NotDetected) blaNDM Car Res Gene PCR Not Detected (NotDetected) OXA-48 Carbapenem Resis Gene (PCR) Not Detected (NotDetected) blaVIM Car Res Gene PCR Not Detected (NotDetected) CTX-M Gene Resistance (PCR) Not Detected (NotDetected) Bld Cult ID Panel PCR See PCR Comment (NotDetected) 05/11/24 05/11/24 05/11/24 Range/Units 04:14 04:13 04:08 WBC 6.77 (4.8-10.8) K/ul RBC 4.78 (4.20-5.40) M/uL Hgb 14.4 (12.0-16.0) g/dl POC Hgb 15.3 (12.0-16.0) g/dl Hct 44.5 (37.0-47.0) % POC Hct 45 (37-47) % MCV 93.1 (80.0-100.0) fL MCH 30.1 (25.0-34.0) pg MCHC 32.4 (32.0-36.0) g/dL RDW Std Deviation 48.3 H (36.4-46.3) fL RDW Coeff of Lizabeth 14.0 (11.5-14.5) % Plt Count 238 (130-400) K/uL MPV 9.5 (9.4-12.4) fL Immature Gran % (Auto) 0.4 % Neut % (Auto) 93.6 % Lymph % (Auto) 5.2 % Jack % (Auto) 0.7 % Eos % (Auto) 0.0 % Baso % (Auto) 0.1 % Neut # (Auto) 6.33 (1.40-6.50) K/uL Lymph # (Auto) 0.35 L (1.20-3.40) K/uL Jack # (Auto) 0.05 L (0.11-0.59) K/uL Eos # (Auto) 0.00 (0.00-0.50) K/uL Baso # (Auto) 0.01 (0.00-0.20) K/uL Immature Gran # (Auto) 0.03 (0.01-0.20) K/uL Toxic Vacuolation 1+ RBC Morphology Unremarkable PT 11.0 (9.0-12.0) Seconds INR 1.0 (0.9-1.1) APTT 29 (21-31) Seconds PTT Ratio 1.1 Heparin Anti-Xa, Unfract (0.3-0.7) IU/ml Specimen Type Sample Site POC pH (7.35-7.45) POC pCO2 (35-46) mmHg POC pO2 (80-95) mmHg POC HCO3 (19-24) jonatan/L POC Base Excess (-9-1.8) jonatan/L O2 Sat Pulse Oximetry ABG pH (Temp Correct) (7.35-7.45) ABG pCO2 (Temp Corrct (35-46) mmHg POC ABG pO2 at Pt Temp POC ABG O2 Sat (90-95) % Mani Test O2 Delivery Device Vent Mode POC FiO2 % End Tidal CO2 EPAP IPAP POC Sodium 138 (135-144) mmol/L Sodium 138 (136-145) mmol/L POC Potassium 4.3 (3.3-5.0) mmol/L Potassium 4.4 (3.5-5.1) mmol/L POC Chloride 106 (101-112) mmol/L Chloride 103 (98-107) mmol/L Carbon Dioxide 17 L (21-32) mmol/L POC Total CO2 15 L (24-31) mmol/L Anion Gap 18 H (3-11) POC Anion Gap 22.0 (16-25) mmol/L POC BUN 33 H (7-18) mg/dl BUN 34 H (6-23) mg/dl Creatinine 1.77 H (0.6-1.2) mg/dl POC Creatinine 1.7 H (0.6-1.3) mg/dl Est Cr Clr Drug Dosing 21.7 ml/min eGFR 28.17 BUN/Creatinine Ratio 19.2 (10-20) Glucose 125 H (70-99(Fasting)) mg/dl POC Glucose (70-99) mg/dl POC Glucose (other) 122 H (70-99) mg/dl Lactate (0.4-2.0) mmol/L Calcium 10.3 (8.6-10.3) mg/dl POC Ioniz Calcium Anthony 1.20 (1.12-1.32) mmol/l Magnesium 2.1 (1.7-2.4) mg/dl Iron (35-150) mcg/dl Unsaturated IBC (155-355) mcg/dl Ferritin (8-388) ng/ml Total Bilirubin 1.1 H (0.2-1.0) mg/dl AST 656 H (13-39) U/L ALT 579 H (7-52) U/L Alkaline Phosphatase 372 H (34-104) U/L Ammonia (18-72) umol/L Troponin I High Sens 36.9 H (0-14) pg/ml Total Protein 8.0 (6.0-8.3) gm/dl Albumin 4.4 (3.4-5.0) gm/dl Globulin 3.6 (2.5-4.0) gm/dl Albumin/Globulin Ratio 1.2 (0.9-2) Ceruloplasmin (14-48) mg/dL Lipase 19 (11-82) U/L Procalcitonin 64.60 H (0-0.5) ng/ml TSH (0.300-4.500) uIu/ml Random Cortisol 56.01 mcg/dl Urine Color Urine Appearance (Clear) Urine pH (4.5-7.5) Ur Specific [place] (1.000-1.030) Urine Protein (Negative) Urine Glucose (UA) (Negative) Urine Ketones (Negative) Urine Blood (Negative) Urine Nitrite (Negative) Urine Bilirubin (Negative) Urine Urobilinogen (Negative) Ur Leukocyte Esterase (Negative) Urine WBC (Auto) (0-5) /hpf Urine RBC (Auto) (0-2) /hpf U Hyaline Cast (Auto) (0-2) /lpf U Epithel Cells (Auto) (0-2) /hpf Urine Bacteria (Auto) (None Seen) Urine Osmolality (500-800) mOsm/kg Ur Random Creatinine mg/dl Ur Random Sodium mmol/L Ur Random Potassium mmol/L Ur Random Chloride Nasal Screen MRSA (PCR) (Negative) Adenovirus (PCR) Not Detected (NotDetected) B. pertussis DNA (PCR) Not Detected (NotDetected) B.parapertussis DNA PCR Not Detected (NotDetected) C. pneumoniae DNA (PCR) Not Detected (NotDetected) Coronavirus OC43 (PCR) Not Detected (NotDetected) Coronavirus HKU1 (PCR) Not Detected (NotDetected) Coronavirus 229E (PCR) Not Detected (NotDetected) SARS-CoV-2 (PCR) Not Detected (NotDetected) Coronavirus NL63 (PCR) Not Detected (NotDetected) Enterobacterales (PCR) (NotDetected) E. coli (PCR) (NotDetected) Hepatitis A IgM Ab (NON-REACTIVE) Hep Bs Antigen (Negative) Hep B Core IgM Ab (NON-REACTIVE) Hepatitis C Antibody (Negative) Monoscreen Negative (Negative) Human Metapneumovir PCR Not Detected (NotDetected) Influenza Type A (PCR) Not Detected (NotDetected) Influenza Type B (PCR) Not Detected (NotDetected) M. pneumoniae (PCR) Not Detected (NotDetected) Parainfluenza 1 (PCR) Not Detected (NotDetected) Parainfluenza 2 (PCR) Not Detected (NotDetected) Parainfluenza 3 (PCR) Not Detected (NotDetected) Parainfluenza 4 (PCR) Not Detected (NotDetected) RSV (PCR) Not Detected (NotDetected) Entero/Rhino (PCR) Not Detected (NotDetected) mcr-1 Colistin Res Gene PCR (NotDetected) blaIMP Car res Gene PCR (NotDetected) KPC-Carbap Res Gene PCR (NotDetected) blaNDM Car Res Gene PCR (NotDetected) OXA-48 Carbapenem Resis Gene (PCR) (NotDetected) blaVIM Car Res Gene PCR (NotDetected) CTX-M Gene Resistance (PCR) (NotDetected) Bld Cult ID Panel PCR (NotDetected) Diagnostic Findings Abdomen Fluoroscopy 05/11/24 00:00 FL KUB CLINICAL HISTORY: LEFT STENT PLACEMENT TECHNIQUE: 1 views were obtained with the C-arm in the OR with the above procedure. Total fluoroscopy time was 11.9 seconds. Radiation dose was 2.65 mGy. Comparison: Comparison is made to CT abdomen pelvis 05/11/2024 FINDINGS/IMPRESSION: Intraoperative images were obtained of left retrograde pyelogram and stent placement. In the final images, the stent is in satisfactory position. Please correlate with intraoperative fluoroscopy and operative report. ACT 112: Negative or not required by law. Electronically signed by: Claus Lindsey M.D. 05/11/2024 10:[address] 05/11/24 04:04 EXAM: CT head/brain wo con CLINICAL HISTORY: neuro deficit, acute stroke suspected TECHNIQUE: Multiple axial images are obtained from the skull base to the vertex without contrast. CT scan was performed according to ALARA (as low as reasonable achievable). COMPARISON: None. FINDINGS: There is cerebral atrophy. No evidence of space occupying lesion, hemorrhage, edema, mass effect, midline shift, extra axial collection, or hydrocephalus is noted. Basal cisterns are symmetric and normal in size and configuration. There are scattered periventricular hypodensities as can be seen with chronic microvascular ischemic changes. The wilder-white matter differentiation is preserved. Visualized paranasal sinuses and mastoid air cells are well aerated. Orbital contents are within normal limits. Bony structures are intact. IMPRESSION: 1. No evidence of acute intracranial abnormality is demonstrated. 2. Chronic microvascular ischemic changes. 3. Cerebral atrophy. Electronically signed by Noel Quiroz 05-11-2024 06:16 AM Head CTA 05/11/24 04:04 EXAM: CT angio head w con CLINICAL HISTORY: neuro deficit, acute stroke suspected, 118 ML OPTIRAY 320 TECHNIQUE: Contrast enhanced thin slice CT angiography scan of the cerebral vessels was performed with intravenous contrast. Angiographic images were processed, 3D MIP images were acquired for interpretation. If IV contrast material had not been administered, the likelihood of detecting abnormalities relevant to the patients condition would have been substantially decreased. COMPARISON: None. FINDINGS: Bilateral internal carotid arteries show normal course and caliber. Eccentric and circumferential atherocalcific plaques noted in cavernous portions of bilateral internal carotid arteries, causing mild (30%-40%) luminal narrowing bilaterally. A1, A2 and M1, M2 segments are normal on both sides. Bilateral vertebral arteries unite to form the basilar artery in normal fashion. Basilar artery shows normal course, caliber and opacification. Its division into the posterior cerebral arteries is defined. Bilateral P1 and P2 segments are normal. Visualized venous structures show normal opacification. No evidence of intracranial aneurysm or AV malformation is seen. IMPRESSION: 1. Mild (30-40%) stenosis of ilateral cavernous ICA due to atherocalcific plaques. Electronically signed by Noel Quiroz 05-11-2024 06:08 AM Neck CTA 05/11/24 04:04 EXAM: CT angio neck with con CLINICAL HISTORY: neuro deficit, acute stroke suspected, 118 ML OPTIRAY 320 TECHNIQUE: Contrast enhanced thin slice CT angiography scan of the carotid vessels was performed with intravenous contrast. Angiographic images were processed, 3D MIP images were acquired for interpretation. If IV contrast material had not been administered, the likelihood of detecting abnormalities relevant to the patients condition would have been substantially decreased. COMPARISON: None. FINDINGS: Few atherocalcific plaques noted in aortic arch without significant luminal narrowing. Eccentric atherocalcific plaques noted at bilateral carotid bifurcation and proximal portion of left internal carotid artery, causing mild bilateral internal carotid artery narrowing (30%-40% on left side and 20%-30% on right side). Vertebral arteries are well opacified. Jugular veins are well opacified. Included lung apices are grossly unremarkable. Thyroid gland appears unremarkable. IMPRESSION: 1. Mild bilateral carotid stenosis, more pronounced on left side (30-40%) compared to right side (20-30%). Electronically signed by Noel Quiroz 05-11-2024 06:15 AM Chest X-Ray 05/11/24 04:53 EXAM: XR chest 1V portable CLINICAL HISTORY: SOB NAUSEA JMF. TECHNIQUE: An X-ray image of the chest is obtained in frontal projection. COMPARISON: None. FINDINGS: Pulmonary Parenchyma: Bilateral lower lung lobe patchy opacities concerning pulmonary infection. No evidence of pleural effusion or pleural thickening. Heart and Mediastinum: Heart size is enlarged. Congested hilar vascular shadows. Prominent aortic shadow. Tracheal deviation to the right side. Bony Thorax: The bony thorax appears intact without fractures or deformities. Thoracic spondylotic changes. Soft Tissues: Soft tissues overlying the chest wall are unremarkable. IMPRESSION: 1. Bilateral lower lung lobe patchy opacities concerning pulmonary infection. 2. Cardiomegaly with congested mitzi. Electronically signed by Dilcia Avalos 05-11-2024 07:03 AM Abdomen/Pelvis CT 05/11/24 05:05 EXAM: CT abd pelvis wo con CLINICAL HISTORY: ELEVATED LFT''S TECHNIQUE: Contiguous axial images were obtained from the level of the diaphragm to the pubic symphysis without intravenous or oral contrast. Coronal and sagittal reformatted images were likewise performed and indicated to increase the sensitivity for detecting clinically relevant pathology. CT scan was performed according to ALARA (as low as reasonable achievable). COMPARISON: None. FINDINGS: The liver is mildly enlarged, measuring up to 17 cm in craniocaudal span. Evaluation of the abdominal and pelvic visceral organs is limited without intravenous contrast. Post-cholecystectomy changes noted with surgical clips in gallbladder fossa. Few left renal calculi noted, with the largest measuring 3 cm (750 HU) in the left renal pelvis extending into proximal ureter, associated with moderate left hydroureteronephrosis and extensive perinephric fat stranding. Multiple small mural outpouchings are noted from the descending and sigmoid colon, without adjacent fluid or fat stranding. Levo convex lumbar scoliosis noted with posterior fixation of lower lumbar vertebrae, with fusion and interconnecting rods in situ. Screws noted in right sacro-iliac joint. Post-hysterectomy changes noted. Bilateral pelvicalyceal system and ureters are opacified with contrast, likely from prior contrast study. Urinary bladder is partly opacified with contrast, with air-fluid level. Few atherocalcific plaques noted in the abdominal aorta. IMPRESSION: 1. Large left renal and ureteric calculus with moderate hydroureteronephrosis and perinephric fat stranding- changes of obstructive nephropathy. 2. Colonic diverticulosis without evidence of acute diverticulitis. 3. Air-fluid level in contrast-opacified urinary bladder, suspicious for infection. 4. Hepatomegaly. Electronically signed by Noel Quiroz 05-11-2024 06:[address] 05/11/24 05:05 EXAM: CT chest diagnostic wo con CLINICAL HISTORY: sob, elevated trop TECHNIQUE: Contiguous axial images were obtained from the neck base through the upper abdomen without contrast. In addition, sagittal and coronal reconstructions were performed to potentially increase the sensitivity for the detection of disease. CT scan was performed according to ALARA (as low as reasonable achievable). COMPARISON: None. FINDINGS: The lungs show few fibrotic bands in right lower lobe and left lung base. Mosaic attenuation pattern is noted in bilateral upper lobes. Eccentric atherocalcific plaques are seen in the aortic arch, without significant luminal narrowing. Coronary artery calcifications are present. No axillary or mediastinal adenopathy is identified. The thyroid is unremarkable. The heart and pulmonary arteries are of normal size and configuration. No pericardial effusion is identified. Imaged portions of the upper abdomen show gross left hydronephrosis with extensive surrounding fat stranding (described in detail in CT abdomen report of the same date). Degenerative changes are noted in the visualized spine. IMPRESSION: 1. Few fibrotic bands in right lower lobe and left lung base with mosaic attenuation in bilateral upper lobes. 2. Gross left hydronephrosis with perinephric fat stranding, as detailed in concurrent CT abdomen. Electronically signed by Noel Quiroz 05-11-2024 06:42 AM Chest X-Ray 05/11/24 12:46 XR chest 1V portable CLINICAL HISTORY: right IJ central line placement TECHNIQUE: Single frontal radiograph of the chest was obtained. Comparison: Comparison is made to chest radiograph on 05/11/2024 FINDINGS: Right IJ catheter terminates in the lower SVC. Endotracheal tube terminates 5.7 cm from the quin. Cardiomegaly is noted. The aortic arch is calcified. Right midlung airspace opacities have increased from prior exam. Pulmonary vascular prominence is seen. No evidence of pleural effusion or pneumothorax. IMPRESSION: 1. IJ catheter is in satisfactory position terminating in the lower SVC. 2. Cardiomegaly and mild pulmonary edema. 3. Increase in right midlung airspace opacities This may represent atelectasis, pneumonia, and/or aspiration. ACT 112: Negative or not required by law. Electronically signed by: Claus Lindsey M.D. 05/11/2024 1:30 PM Chest X-Ray 05/12/24 06:00 XR chest 1V portable CLINICAL HISTORY: eval lines/tubes/lung russell COMPARISON STUDY: Chest CT May 11, 2024. Chest radiograph May 11, 2024. FINDINGS: Tip of endotracheal tube is 6.8 cm above the quin. Tip of nasogastric tube is below the lower aspect of this image but at least within the body of the stomach. Right internal jugular central line remains in place. There is no pneumothorax. Cardiomegaly is again noted. Mediastinal contours are stable. Interstitial thickening has slightly progressed. There are persistent small bilateral pleural effusions and associated bibasilar opacities. IMPRESSION: 1. Tip of endotracheal tube 6.8 cm above the quin. 2. No pneumothorax. 3. Cardiomegaly. Mild pulmonary edema, improved since prior exam. 4. Persistent small bilateral pleural effusions with associated bibasilar opacities which could reflect pneumonia or atelectasis. ACT 112: Negative or not required by law. Electronically signed by: Deny Mcclain M.D. 05/12/2024 8:26 AM Chest X-Ray 05/12/24 14:25 Chest radiograph, one view History: Increased oxygen needs Comparison: 05/11/2024 Findings: Single AP view of the chest performed. Right IJ central venous catheter tip at the superior atrial caval junction. Similar-appearing streaky bibasilar peripheral opacity otherwise without definite consolidation. No pneumothorax. The cardiomediastinal silhouette is within normal limits. Normal pulmonary vascularity. No evidence for lymphadenopathy. No visualized bony or soft tissue abnormality. Impression: Streaky bibasilar opacity representing atelectasis or infection, similar to prior. Electronically signed by Torey Quijano 05-12-2024 2:55 PM Venous Doppler Study 05/12/24 15:14 Exam(s): US VENOUS BILATERAL LOWER EXTREMITIES EXAM: US Duplex Bilateral Lower Extremities Veins CLINICAL HISTORY: Deep vein thrombosis TECHNIQUE: Real-time duplex ultrasound scan of the bilateral lower extremity veins integrating B-mode two-dimensional vascular structure, Doppler spectral analysis, color flow Doppler imaging and compression. COMPARISON: No relevant prior studies available. FINDINGS: Right deep veins: Unremarkable. No Deep vein thrombosis in the right common femoral, femoral, proximal deep femoral or popliteal veins. The veins demonstrate normal color flow, are normally compressible, with normal phasic flow and/or augmentation response. Right superficial veins: Unremarkable. No thrombus in the visualized right great saphenous vein. Left deep veins: Unremarkable. No Deep vein thrombosis in the left common femoral, femoral, proximal deep femoral or popliteal veins. The veins demonstrate normal color flow, are normally compressible, with normal phasic flow and/or augmentation response. Left superficial veins: Unremarkable. No thrombus in the visualized left great saphenous vein. Soft tissues: No acute findings. No popliteal cyst. IMPRESSION: No deep vein thrombosis of either lower extremity. Electronically signed by: Callie Ponce MD 05/13/24 01:16 AM Chest X-Ray 05/13/24 06:00 EXAM: XR chest 1V portable CLINICAL HISTORY: Evaluate lung russell. TECHNIQUE: An X-ray image of the chest was obtained in 1 view: AP projection. COMPARISON: X-ray dated 05/12/24. FINDINGS: Pulmonary Parenchyma: Apparent mild interval further progression of inhomogenous airspace opacification of bilateral lung lower zones with obscuration of CP angle suggestive of pleural effusions with underlying subsegmental consolidation/collapse Prominent bilateral broncho vascular markings. There is suspicion of a lucency in left lung apical region with the attenuation of the bronchovascular markings, need dedicated views (right lateral decubitus views) to rule out pneumothorax on left side. Right central line is noted with the tip in the right atrium (unchanged). Heart and Mediastinum: Apparent cardiomegaly with mediastinal widening. No hilar or mediastinal lymphadenopathy. Bony Thorax: Bony thorax appears intact without fractures or deformities. Degenerative images are seen in bilateral glenohumeral joints. Soft Tissues: Soft tissues overlying the chest wall are unremarkable. IMPRESSION: 1. Apparent mild interval progression of inhomogenous airspace opacification of bilateral lung lower zones with obscuration of CP angle suggestive of pleural effusions with underlying subsegmental consolidation/collapse (patient is rotated compared to previous study and the aforementioned findings could be exaggerated in the current study). 2. Prominent bilateral broncho vascular markings. 3. There is suspicion of a lucency in left lung apical region with the attenuation of the broncho vascular markings, need dedicated views (right lateral decubitus views) to rule out pneumothorax on left side. 4. Apparent cardiomegaly with mediastinal widening. Electronically signed by Dilcia Avalos 05-13-2024 08:06 AM Chest X-Ray 05/13/24 08:47 XR chest 1V portable CLINICAL HISTORY: f/u COMPARISON STUDY: Chest radiograph May 13, 2024 at 6:[address] May 11, 2024. FINDINGS: Right internal jugular central venous catheter remains in place. There is no pneumothorax. Skin folds project over the left chest. Pulmonary edema has mildly progressed. Small bilateral pleural effusions with associated bibasilar opacities are again noted. Cardiomediastinal silhouette is stable. IMPRESSION: 1. No pneumothorax. Possible left pneumothorax prior chest radiograph was due to skin folds. 2. Progression of pulmonary edema, small bilateral pleural effusions and associated bibasilar opacities which could reflect pneumonia or atelectasis. ACT 112: Negative or not required by law. Electronically signed by: Deny Mcclain M.D. 05/13/2024 9:23 AM Chest CTA 05/13/24 23:01 Exam(s): CTA CHEST IV Amt: 118 ml optiray 320 EXAM: CT Angiography Chest With Intravenous Contrast CLINICAL HISTORY: Reason for exam: PE. TECHNIQUE: Axial computed tomographic angiography images of the chest with intravenous contrast. CTDI is 22.98 mGy and DLP is 630.43 mGy-cm. Automated exposure control was utilized for the study. A dose lowering technique was utilized adhering to the principles of ALARA. MIP reconstructed images were created and reviewed. COMPARISON: CT chest: 05/11/2024 FINDINGS: Pulmonary arteries: Unremarkable. No pulmonary artery embolism identified. No pulmonary artery enlargement or CTA evidence of right heart strain. Aorta: No acute findings. No thoracic aortic aneurysm or dissection. Lungs: There is new dependent bilateral lower lobe consolidation with air bronchograms suggestive of pneumonia. There are small dependent associated pleural effusions. Pleural space: No pneumothorax is noted. Heart: See above. Bones/joints: No acute fracture. No dislocation. Soft tissues: Unremarkable. Lymph nodes: Unremarkable. No enlarged lymph nodes. IMPRESSION: 1. No pulmonary embolus identified. 2. New dependent bilateral lower lobe consolidation with air bronchograms suggestive of pneumonia. Small associated pleural effusions. Electronically signed by: Jacobo Redd MD 05/14/24 01:30 AM Chest X-Ray 05/14/24 06:00 EXAM: XR chest 1V portable CLINICAL HISTORY: EVAL LUNG RUSSELL JTF/TGB. TECHNIQUE: An X-ray image of the chest is obtained in AP projection. COMPARISON: 05/13/2024 and 05/11/2024 X-rays. FINDINGS: Right CVL is seen in proper cavoatrial position. Pulmonary Parenchyma: Right lower lung zone ill-defined opacification and consolidation is seen obscuring diaphragmatic border and costophrenic angle. Another left lower lung zone patchy opacity is seen obscuring diaphragmatic border and costophrenic angle. Blunted both costophrenic angles noted. No evidence of pleural effusion or pleural thickening. Heart and Mediastinum: Enlarged cardiac shadow with wide mediastinum. Bilateral hilar vascular congestion was noted. No hilar or mediastinal lymphadenopathy. Bony Thorax: Bony thorax appears intact without fractures or deformities. Soft Tissues: Soft tissues overlying the chest wall are unremarkable. IMPRESSION: 1. Still noted bilateral lower lung lobe patchy opacities, which may represent edema/ infection Follow-up is advised. 2. Unchanged Cardiomeglay with congested mitzi. 3. Still noted blunted both costophrenic angles with possible pleural thickening /effusion. 4. Insitu inserted right CVL and was stable. Electronically signed by Dilcia Avalos 05-14-2024 08:06 AM PG Care Time/CCT Total # of Minutes Spent Total Time Spent with Patient: Total time spent is greater than 50% in coordination of care (as documented) at patient's floor/unit and/or counseling patient: I spent 110 minutes overall addressing this case: 15 min in medical data review/discussion with referring provider(s) and/or preparation for the visit 15 min in direct interaction with the patient/exam 45 min in Advance Care Planning/Goals of Care discussions as detailed above in note (must be >16min) 15 min in subsequent review and synthesis of assessment and plan 20 min communicating with other providers regarding the patient's case: CCM, nursing Advanced Care Planning 40386 Advanced Care Planning 30 Min [id number] Advanced Care Planning Additional 30 [place] [address] IN/OBS CONSULT LVL 4,60M (25 - SIGNIFICANT, SEPARATELY IDENTIFIABLE ) Patient Type New Medical Decision Making High Complexity Diagnoses Dyspnea and respiratory abnormalities R06.00; R06.89 Weakness generalized R53.1 Generalized pain R52 Palliative care by specialist Z51.5 Encounter for end of life care Z51.5 Encounter for end of life education, guidance and counseling Shock circulatory R57.9 Sepsis A41.9 Additional Codes Advanced Care Planning - 72569 Advanced Care Planning 30 Min: 93515 Advanced Care Planning 30 Min ([id number]) Advanced Care Planning - 98289 Advanced Care Planning Additional 30 Min: 30539 Advanced Care Planning Additional 30 Min ([id number])
--- NOTE | 2024-05-14 12:06 | XCELERA ---
[id number] \\[id number]_[id number]
[2024-05-14] MEDS: HYDROmorphone INJ 1 MG/ML SYRINGE IV PRN (12:42)
--- NOTE | 2024-05-14 17:29 | Hospitalist Progress Note ---
Date of Service May 14, 2024 Assessment & Plan (1) Sepsis: (2) Transaminitis: (3) Elevated troponin: (4) CKD (chronic kidney disease): Plan 83-year-old female initially presenting with nausea vomiting dizziness, concern for speech and leg issues, septic from a left pyelonephritis. Workup did not reveal any neurological injuries however pyelonephritis & hydronephrosis sepsis with elevation of lactic acid, Taken to OR for ureteral stenting, decompensated in OR, remains in icu, now extubated Sepsis from urinary source, blood cultures showing e coli (intermediate to cefazolin otherwise ruvalcaba sensitive) , ceftriaxone, urology and intensive care is managing s/p ureteral stent was placed05/11/24, marked purulent material came from the kidney. Remains with tenuous respiratory status after extubation req bipap, transaminitis is improving, renal function stable Elevated troponin in context of illness, suspect demand ischemia, check additional trop, no acute injury on ECG, history of hypertension with bystolic and amlodipine/benazepril. Antihypertensives are held post procedure given her need for pressor support, will have prn available On 05/14, due to lack of continual improvement, andher declining quality of life, patient will be transitioned to comfort measures after discussion with palliative care and the patient. Patient is now dongraded from the ICU. 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 also associated with significant illness, improving initial symptoms of garbled speech and leg weakness heparin for dvt prevention Admission and Anticipated Discharge Date Admission Date: May 11, 2024 Subjective 83 yo female is now on comfort measures. Review of Systems Review of Systems: All systems reviewed & are unremarkable except as noted in HPI & below Physical Exam Constitutional: WD/WN, vitals as above Patient is comfortable on 2 liters, not using accessory muscles to breath. Results & Data Results & Data Vital Signs (Past 12 Hours) Vital Signs Temp Pulse Resp BP Pulse Ox O2 Del Method O2 Flow Rate 05/14/24 14:45 Nasal Cannula 05/14/24 12:00 70 159/89 H 05/14/24 10:51 36 H High Flow Nasal Cannula 60 05/14/24 08:00 High Flow Nasal Cannula 05/14/24 08:00 70 159/89 H 05/14/24 07:41 70 27 H 159/89 H 97 BiPAP 05/14/24 07:34 74 29 H 94 05/14/24 05:48 37.3 C 67 26 H 94 High Flow Nasal Cannula 50 FiO2 05/14/24 14:45 2 05/14/24 12:00 05/14/24 10:51 100 05/14/24 08:00 100 05/14/24 08:00 05/14/24 07:41 80 05/14/24 07:34 70 05/14/24 05:48 70 PG Care Time/CCT Total # of Minutes Spent Total Time Spent with Patient: Total time spent is greater than 50% in coordination of care (as documented) at patient's floor/unit and/or counseling patient: Coding Level of Care Code 06704 SUB INP/OBS CARE 2/35MIN Diagnoses Sepsis A41.9 Transaminitis R74.01 Elevated troponin R79.89 CKD (chronic kidney disease) N18.9
--- NOTE | 2024-05-15 06:33 | Electrocardiogram Report ---
Test Reason : Blood Pressure : */* mmHG Vent. Rate : 125 BPM Atrial Rate : 277 BPM P-R Int : * ms QRS Dur : 84 ms QT Int : 336 ms P-R-T Axes : 21 -12 32 degrees QTcB Int : 484 ms Atrial fibrillation Nonspecific ST and T wave abnormality Abnormal ECG When compared with ECG of 11-May-2024 04:12, Atrial fibrillation has replaced Sinus rhythm Confirmed by Eben Malcolm ([id number]) on 05/15/2024 6:32:43 AM Referred By: REFERRED SELF Confirmed By: Eben Malcolm
--- NOTE | 2024-05-15 08:36 | Death Pronouncement Note ---
Date of Service May 15, 2024 Pronouncement Note Admission Date May 11, 2024 Date and Time of Date of : 05/15/24 Time of : 07:46 Preliminary Cause of (1) Sepsis: (2) Transaminitis: (3) Elevated troponin: (4) CKD (chronic kidney disease): Summary 83-year-old female initially presenting with nausea vomiting dizziness, concern for speech and leg issues, septic from a left pyelonephritis. Workup did not reveal any neurological injuries however pyelonephritis & hydronephrosis sepsis with elevation of lactic acid, Taken to OR for ureteral stenting, decompensated in OR, remains in icu, now extubated Sepsis from urinary source, blood cultures showing e coli (intermediate to cefazolin otherwise ruvalcaba sensitive) , ceftriaxone, urology and intensive care is managing s/p ureteral stent was placed05/11/24, marked purulent material came from the kidney. Remains with tenuous respiratory status after extubation req bipap, transaminitis is improving, renal function stable Elevated troponin in context of illness, suspect demand ischemia, check additional trop, no acute injury on ECG, history of hypertension with bystolic and amlodipine/benazepril. Antihypertensives are held post procedure given her need for pressor support, will have prn available On 05/14, due to lack of continual improvement, and her overall declining quality of life, patient was transitioned to comfort measures after discussion with palliative care and the patient. The was present and understands/agrees with the decisions. On 05/15/2024 Patient ceased to breath at 7:46/ Patient was pronounced by myself at 8:20. 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 also associated with significant illness Additional Data Confirmation of : no pulse, no respirations, no heart sounds and pupils fixed and dilated Pronouncement Performed By: Attending Physician Family: at bedside Attending/PCP notified?: Yes Attending physician: Pacheco [place] Was code activated?: No Autopsy requested?: No road test examiner notified?: No Coding Level of Care Code 28517 INP/OBS DISCH >30 MIN Diagnoses Sepsis A41.9 Transaminitis R74.01 Elevated troponin R79.89 CKD (chronic kidney disease) N18.9
--- NOTE | 2024-05-15 08:38 | Discharge Summary ---
Discharge Summary Date of Service May 15, 2024 Principal Dx & Hospital Course #1 = Principal Diagnosis (1) Sepsis: (2) Transaminitis: (3) Elevated troponin: (4) CKD (chronic kidney disease): Plan 83-year-old female initially presenting with nausea vomiting dizziness, concern for speech and leg issues, septic from a left pyelonephritis. Workup did not reveal any neurological injuries however pyelonephritis & hydronephrosis sepsis with elevation of lactic acid, Taken to OR for ureteral stenting, decompensated in OR, remains in icu, now extubated Sepsis from urinary source, blood cultures showing e coli (intermediate to cefazolin otherwise ruvalcaba sensitive) , ceftriaxone, urology and intensive care is managing s/p ureteral stent was placed05/11/24, marked purulent material came from the kidney. Remains with tenuous respiratory status after extubation req bipap, transaminitis is improving, renal function stable Elevated troponin in context of illness, suspect demand ischemia, check additional trop, no acute injury on ECG, history of hypertension with bystolic and amlodipine/benazepril. Antihypertensives are held post procedure given her need for pressor support, will have prn available On 05/14, due to lack of continual improvement, and her overall declining quality of life, patient was transitioned to comfort measures after discussion with palliative care and the patient. The was present and understands/agrees with the decisions. On 05/15/2024 Patient ceased to breath at 7:46/ Patient was pronounced by myself at 8:20. Admission HPI Per Admitting Provider 83-year-old female initially presenting with nausea vomiting dizziness, concern for speech and leg issues, who eventually is found out to possibly be septic f rom a left pyelonephritis. Workup did not reveal any neurological injuries however there appears to be pyelonephritis hydronephrosis and air in her bladder on CT scan accompanied with elevation of lactic acid, anion gap, and marked transaminitis in the context of previous cholecystectomy in the distant past. Patient volume resuscitated with crystalloid solution had cultures obtained and given Zosyn in the emergency department. With regard to the initial concern for neurological injury she was out of the time window for any thrombolytic therapy and initial CT scan and angiography does not reveal any significant changes. Patient has chronic low back pain from previous spinal surgery Discharge Exam Refer to note Discharge Plan Discharge Items Patient Disposition: Other Date/Time: 05/15/24 07:46 Hospital Stay Data Consultations 05/11/24 07:11 ED Decision to Admit Stat 05/11/24 13:19 Consult Patient Transporter Routine Consult Urology Routine 05/14/24 09:43 Consult Palliative Care Routine Procedures Performed Operation Date: 05/11/24 10:00 Actual Procedures p Cystoscopy, Left retrograde pyelogram, Left Ureteral Stent(Left) - Torey Hooper MD Diagnostic Imagining Performed 05/11/24 FL KUB Routine 05/11/24 04:04 CT angio head w con Stat CT angio neck with con Stat CT head/brain wo con Stat 05/11/24 05:05 CT abd pelvis wo con Stat CT chest diagnostic wo con Stat 05/11/24 11:36 US point of care ultrasound Urgent 05/12/24 15:14 US venous doppler LE BI Routine 05/13/24 23:01 CT angio chest PE protocol Stat Total Time Total Time Spent Total Time Spent (In Minutes): 32 Coding Level of Care Code None Diagnoses Sepsis A41.9 Transaminitis R74.01 Elevated troponin R79.89 CKD (chronic kidney disease) N18.9
== END 2024-05-15 09:55 | disposition expired | DRG 853 ==
LOC: SUATTDRO → ED 03:55 → SUATTDRO 07:14 → EDINP 07:14 → 1E 07:15 → 3W 05-14 14:47